=== PATIENT | male | born 1945 | race Two or more races ===

== ENCOUNTER 2016-07-19 10:27 | Emergency (ER) | payer MEDICARE, OTHER ==
[~2016-07-19] VITALS: Ht 182.9 cm; Wt 121.1 kg
[~2016-07-19 10:27] MED LIST: /AMLO25TA PO; /PRAV20TA PO; /TAMS4CA PO; /WARF5TA PO; ADV250INH INH; ALDA25TA2 PO; AMMO12CR TOP; ASPI81TA51 PO; AVOD0.5C PO; BACT800T5 PO; BISO5TAB5 PO; BRIM0.15 OU; BRIM1OPD OU; CART180C PO; COMBIN INH; COSO1SOL3 OU; COSOPHPLUS OU; DIGO0.25 PO; DIOV320T PO; DIOVAN PO; DORZ2SOL5 OU; DOXY100C PO; ELIQ5TAB PO; FURO40TA2 PO; HUMALOG SC; IBUPPOW25 PO; INSUHUMDS SC; INSULADS SC; INSULANT SC; LANO0.252 OR; LANTINJ4 SC; LASI40TA PO; LISI-542 PO; LISI2.5T3 PO; MAG400TA PO; MAGN400T2 PO; METF850T PO; MICR10CA PO; MULTTAB4 PO; PRAV10TA PO; PROVENTIL INH; TAMS0.4C2 PO; VALS1TAB48 PO; VIAG100T PO; VITA50003 PO; VITAMIN D2 PO; VITMTA PO
[2016-07-19] MEDS ORDERED: METF850T PO (11:06)
[2016-07-19] MEDS ORDERED: MAGN1TAB25 PO (11:06)
[2016-07-19] MEDS ORDERED: FLOM5CAP PO (11:06)
[2016-07-19] MEDS ORDERED: FURO20TA2 PO (11:06)
[2016-07-19] MEDS ORDERED: AMLO10TA2 PO (11:06)
[2016-07-19] MEDS ORDERED: BENZ100C5 PO (11:06)
[2016-07-19] MEDS ORDERED: PRAV10TA PO (11:06)
--- NOTE | 2016-07-19 13:19 | REP ---
Right lower extremity Duplex Doppler venous ultrasound: Real time compression and duplex Doppler interrogation of the right lower extremity deep venous system is performed. The right common femoral, superficial femoral and popliteal veins are fully compressible with transducer pressure and demonstrate normal spontaneous and phasic flow, without evidence of deep venous thrombosis. Impression: No evidence of deep venous thrombosis of the right lower extremity femoral popliteal venous system. Signed by Carson Holliday MD 07/19/2016 01:10 P
[2016-07-19] MEDS ORDERED: ULTR50TA PO (13:45)
[2016-07-19] MEDS ORDERED: ROBA500T PO (13:45)
[2016-07-19 13:54] VITALS: BP 150/85
== END 2016-07-19 14:07 | disposition home or self-care (01) ==
LOC: M ED 12:56
DX: M54.41 Lumbago with sciatica, right side (principal); M79.89 Other specified soft tissue disorders; I10 Essential (primary) hypertension; I50.9 Heart failure, unspecified; I25.10 Atherosclerotic heart disease of native coronary artery without angina pectoris; E11.9 Type 2 diabetes mellitus without complications; I48.91 Unspecified atrial fibrillation; J44.9 Chronic obstructive pulmonary disease, unspecified; N40.0 Benign prostatic hyperplasia without lower urinary tract symptoms; G47.30 Sleep apnea, unspecified; Z88.4 Allergy status to anesthetic agent; Z79.899 Other long term (current) drug therapy; Z79.01 Long term (current) use of anticoagulants; Z79.4 Long term (current) use of insulin

== ENCOUNTER → 2016-07-31 | Outpatient (CLI) | payer MEDICARE, OTHER ==
[~2016-07-31] MED LIST changes: +AMLO10TA2 PO; +BENZ100C5 PO; +FLOM5CAP PO; +FURO20TA2 PO; +MAGN1TAB25 PO; +ROBA500T PO; +ULTR50TA PO
--- NOTE | 2016-07-31 15:00 | REP ---
Three-phase radionuclide bone scan of the knees: The A study is performed with intravenous injection of MDP radiolabeled with 20.5 mCi of technetium 99m. On the vascular phase of the study is no evidence of asymmetric vascular flow of either the right and left knee. On the soft tissue phase of the study. There is no asymmetric soft tissue uptake. On the skeletal phase of the study. There is no unusual uptake at the prosthesis/bone interface of the right knee. There is moderately increased uptake at the bone/prosthesis interface of the left knee. Impression: No evidence of right knee prosthesis loosening. There are is slightly greater uptake at the bone/prosthesis interface of the left knee than the right. Vascular and soft tissue uptake is symmetric bilaterally. Signed by Carson Junior MD 07/31/2016 02:52 P
== END ==
LOC: M RAD 10:08
PROVIDERS: ATTEND Orthopaedic Surgery
DX: T84.84XA Pain due to internal orthopedic prosthetic devices, implants and grafts, initial encounter (principal); W18.30XA Fall on same level, unspecified, initial encounter; Y92.009 Unspecified place in unspecified non-institutional (private) residence as the place of occurrence of the external cause
CPT/HCPCS: 78315; A9503

== ENCOUNTER → 2016-08-03 | Outpatient (CLI) | payer MEDICARE, OTHER ==
--- NOTE | 2016-08-03 13:19 | REP ---
CT LUMBAR SPINE WITHOUT CONTRAST: 08/03/2016. Clinical history: Back pain, lumbar spondylosis. Radiculopathy. Technique: Axial soft-tissue and bone window settings with coronal and sagittal reconstructions also provided. Additional angled axial images through the L4-5 and L5-S1 were reconstructed. Findings: The normal lordosis is maintained. There is some lumbar spondylosis at all levels from L1-2 through L4-5. Marginal osteophytes at each level anteriorly with posterior osteophytes at L1-2 and L4-5. There is a couple of millimeters of anterolisthesis of L3 on 4. The disc space is narrowed posteriorly at all of these levels and there is vacuum phenomenon at L3-4. Vertebral body heights are maintained. No compression deformity or destructive lesion. The aorta has calcification without aneurysm. That portion of the T11 observed was unremarkable. There are marginal osteophytes particularly on the right side with bridging syndesmophytes at T11-T12 and T12-L1. No compression deformity of destructive lesions. At T12-L1, there is no disc bulge herniation and no spinal or foraminal stenosis. At L1-2, there is posterior osteophytic ridging with associated disc bulge. Some facet hypertrophy noted. Cross-sectional area of the canal is mildly decreased. Foramina show encroachment on the right more than left. At L2-3, there is disc bulge with facet and ligamentum hypertrophy causing mild central canal stenosis with the AP canal diameter about 8.8 mm. Foramina are marginally adequate. At L3-4, there is a few millimeters of anterolisthesis due to facet arthritis. The facet arthritis is extensive and there is ligamentum flavum hypertrophy with broad-based disc bulge combined with these factors and causes lateral recess stenosis and fairly tight central canal stenosis. Foramina show encroachment on the right and marginally adequate on the left. At the L4-5 level, posterior osteophytic ridging, broad-based disc bulge, ligamentum and facet hypertrophy are noted causing moderate central canal stenosis. The foramina show encroachment bilaterally due to combined factors. At L5-S1, there is a mild broad-based disc bulge flattening the ventral thecal sac. Cross-sectional area was adequate. The foramina show no significant stenosis. There is no destructive lesion in the visualized portion of the sacrum. That portion of SI joints included was unremarkable except for sclerosis iliac margin. Impression: 1. Diffuse facet arthritis lumbar spine with marginal osteophytes and some other degenerative disc changes as described above. 2. No compression deformity or destructive lesions. There is a few millimeters of anterolisthesis of L3 on L4 due to facet arthritis. 3. Central canal stenosis due to combined factors most severe at L3-4, less severe at L2-3 and L4-5, least at L5-S1. 4. Multilevel foraminal encroachment at the levels described above due to marginal osteophytes and facet arthritis. Disc bulges are also seen contributing at some levels. Signed by Parviz Dooley MD 08/03/2016 05:06 P
== END ==
LOC: M RAD 11:28
PROVIDERS: ATTEND Orthopaedic Surgery
DX: M47.26 Other spondylosis with radiculopathy, lumbar region (principal)

== ENCOUNTER 2016-09-15 23:13 | Inpatient (IN) | payer MEDICARE, OTHER ==
[~2016-09-15] VITALS: Ht 185.4 cm; Wt 121.6 kg
[2016-09-16] MEDS ORDERED: ACETAMINOPHEN 325 MG TAB PO ONE
[2016-09-16] MEDS: LEVEMIR (INSULIN DETEMIR) 1 UNITS/0.01ML SC SCH (00:07)
[2016-09-16 00:49] LABS: BASO % 0.1 % (0.0-1.0); EOS % 0.4 % (0.0-3.0); LARGE UNSTAINED CELL # 0.1 K/mm3 (0.0-0.4); LARGE UNSTAINED CELL % 0.8 % (0.0-4.0); LYMPH # 0.3 K/mm3 (1.5-4.5); LYMPH % 2.8 % (24.0-44.0); MEAN CORPUSCULAR HEMOGLOBIN 31.6 pg (27.0-33.0); MEAN CORPUSCULAR HGB CONC 34.9 g/dl (32.0-36.5); MEAN CORPUSCULAR VOLUME 90.5 fl (80.0-96.0); MONO # 0.4 K/mm3 (0.0-0.8); MONO % 3.9 % (0.0-5.0); NEUTROPHILS # 10.2 K/mm3 (1.8-7.7); PLATELET COUNT, AUTOMATED 197 k/mm3 (150-450); RED CELL DISTRIBUTION WIDTH 13.3 % (11.5-14.5); WHITE BLOOD COUNT 11.1 K/mm3 (4.0-10.0)
[2016-09-16 01:00] LABS: CALCIUM LEVEL 8.9 MG/DL (8.8-10.2); CREATININE FOR GFR 1.75 MG/DL (0.70-1.30); GLOMERULAR FILTRATION RATE 41.2 (>42); POTASSIUM SERUM 4.8 MEQ/L (3.5-5.1)
[2016-09-16] MEDS ORDERED: VANCOMYCIN HCL 1,000 MG, VIAL MATE ADAPTER 1 EACH in D5W 250 ML IV ONE (01:00)
[2016-09-16] MEDS ORDERED: BENZONATATE 100 MG CAP PO PRN (02:30)
[2016-09-16] MEDS ORDERED: GLUCAGON FOR INJ 1 MG VIAL (J1610) SC PRN (02:30)
[2016-09-16] MEDS ORDERED: ONDANSETRON 4MG/2ML VIAL (J2405) IV PRN (02:30)
[2016-09-16] MEDS ORDERED: GLUCOSE 4 GM CHEW TABLET PO PRN (02:30)
[2016-09-16] MEDS ORDERED: DEXTROSE 50% 50 ML SYRINGE IV PRN (02:30)
[2016-09-16 03:25] VITALS: BP 142/64
[2016-09-16] MEDS ORDERED: NS 500 ML IV SCH (03:30)
[2016-09-16] MEDS: VANCOMYCIN HCL 1,000 MG, VIAL MATE ADAPTER 1 EACH in D5W 250 ML IV SCH ×3 (03:58→20:19)
[2016-09-16] MEDS: PIPERACILLIN/TAZOBACTAM SOD 3.375 GM in D5W MINI-BAG PLUS 50 ML IV SCH ×3 (05:39→17:02)
--- NOTE | 2016-09-16 06:59 | PHACANCOPD ---
PHARMACY VANCOMYCIN DOSING Pt Demographics Demographics Patient Age:71 , Weight:121.560 , Gender: male Adjusted Body Weight Date: 09/16/16, Adjusted Body Weight: [96.3] Kg Events Past 24 Hours Events Past 24 Hours: NO: Dialysis, Diuretic Therapy, Change in CrCl, Fever, Elevation in WBC, Pending Diagnostics, Pending Procedures, Other Vancomycin Vancomycin Target Ranges: 10-20 mcg/ml Vancomycin Load Y/N: Yes Load Dose Date Time Vancomycin Load Dose: 2000MG Date: 09-16 Time: 0400 Vancomycin Dose Date: 09/16/16. Current Vancomycin Dose: [1000MG Q8H] Intermittent Dosing?: No Labs Labs Item Value Date Time White Blood Count 11.1 K/mm3 H 09/16/16 0029 Creatinine 1.75 MG/DL H 09/16/16 0029 Blood Urea Nitrogen 39 MG/DL H 09/16/16 0029 Vital Signs Label Value Date Time Patient Temperature 101.1 degrees F 09/16/16 0600 Temperature Source Core 09/16/16 0600 Micro Microbiology 09/16/16 Blood Culture, Received Pending 09/16/16 Blood Culture, Received Pending 09/16/16 Influenza Virus Type A Antigen - Final, Complete 09/16/16 Influenza Virus Type B Antigen - Final, Complete 09/16/16 Urine Culture, Received Pending 09/16/16 Wound Culture, Received Pending Creatinine Clearance Date:09/16/16. Creatinine Clearance: [44]. Pending Labs Trough 05-01 @1100 Assessment and Plan Maintaining Current Dose?: Yes Reason for dose change: No Dose Change Pharmacist Note Pharmacist Note Date: 09/16/16. Pharmacist note:Dosed at 1000mg q8h with a trough ordered for 05- 01 @1100. Will continue to monitor and make adjustments as needed. TIRSHA CHIN [facility]ARMAC[facility] Sep 16, 2016 06:59
[2016-09-16] MEDS: HumaLOG INSULIN (NovoLOG) PER UNIT SC SCH ×4 (07:30→22:20)
--- NOTE | 2016-09-16 07:54 | HPE ---
DATE OF ADMISSION: 09/16/2016 This is a patient of Dr. Hoang Kenney, the [facility] and Dr. Dia. CHIEF COMPLAINT: Foot pain. SUMMARY OF PRESENTATION: This is 71-year-old gentleman who was recently vacationing at [place]. He was on vacation there for 10 days. Stubbed his toe, based on my calculation, sometime around the second week of August, perhaps around the 08/27 or 08/28. He was putting down a bed for the evening and as the jacobs bed dropped down he stubbed his toe and then fell onto his forearms. His went to [facility] and got some dressing material for him. He was in the pool twice. He did go to the beach but was never in the ocean. He returned to [place] on approximately September 09 and was able to see Dr. Dia on 09/12. According to family report, it sounds like he did a sharp incision and drainage of the end of the toe on the right foot and also on the medial aspect of the foot did some sort of scraping of a callus, suggested some foam rubber dressings that were described as condom like, noticed on the morning of 09/15 that the second toe was becoming wet and odiferous. His switched to dry dressing. He was feeling well today, they went out to dinner and he [facility], was feeling well, and unfortunately when he went home he developed chills and nausea. His temperature at home was 101.8. His was concerned that his right leg looked redder than the left leg. He could not get upstairs to use the bathroom so he had to use the urinal downstairs. She called their grandson and son-in-law and brought him to the hospital. In the emergency department he was noted to have an erythematous toe and history was reviewed and I was called for admission. PAST MEDICAL HISTORY: Notable for: Cataract right eye. Open angle glaucoma. Chronic obstructive pulmonary disease (COPD). Sleep apnea, compliant with CPAP. Congestive heart failure (CHF). Coronary artery disease with an automatic implantable cardioverter-defibrillator (AICD). Atrial fibrillation. Hypertension. Type 2 diabetes. Peripheral neuropathy. Diabetic retinopathy. Atrial flutter status post ablation. PAST SURGICAL HISTORY: Notable for: Right eye cataract removal. Stent insertion in both legs in the fall of 2013. Bilateral total knee replacements. Pacemaker defibrillator placed in 2013. Incision and drainage of the right foot. Debridement and bone removal of the right foot. Angioplasty is 2014. Right foot skin graft 2015. Ablation of the heart in July 2015. Cholecystectomy open in 1979. FAMILY HISTORY: The patient was adopted and is unaware of his family history. SOCIAL HISTORY: He smokes on cigar every two weeks. ALLERGIES: 1. DYE. 2. THIOPENTAL. MEDICATIONS AT HOME: Include: - vitamin D - Avodart - Zebeta - digoxin - Eliquis - Lasix - Flomax - valsartan - Humalog - Lantus - brimonidine ophthalmic - dorzolamide - metformin - amlodipine - multivitamin - sildenafil Currently reviewing medication list with the patient and checking dosages. REVIEW OF SYSTEMS: Notable for no headache. No visual changes. No runny nose. No sore throat. No neck pain. No cough. No shortness of breath. No orthopnea. No paroxysmal nocturnal dyspnea (PND). No abdominal pain. No change in bowel or bladder habits. No dysuria. He does have increased urinary frequency and is passing small amounts of urine. No focal weakness. PHYSICAL EXAMINATION: Temperature 101.9, pulse 80, respiratory rate 18, blood pressure 176/77, 94% on room air. Intake and output have not yet been posted. Body mass index (BMI) 35.4. He is awake, appropriately interactive, pleasantly conversant. Head is normocephalic. Sinuses nontender. Mucous membranes moist. He is wearing dentures. Neck is supple, thick. No cervical or supraclavicular adenopathy. Breathing is symmetrical and rested. I-to-E ratio is 1:3. No wheezing, rales or rhonchi. No CVA tenderness. No sacral edema. Heart is in a regular rate and rhythm. There is a systolic ejection murmur at the right sternal border that does not obviously radiate. Radial pulses are 2+. Dorsalis pedis pulses are 2+. Capillary refill is less than 2 seconds. Abdomen is soft, distended, doughy, nontender with active bowel sounds. There is no suprapubic tenderness. There is no significant lower extremity edema. There is gross erythema of the right second toe with denudation of the dorsal skin. There is serous drainage on the medial aspect of the right foot at the site of the surgical scar. There is some crusted blood distally. There is no erythema or streaking on the leg. There is evidence of hemosiderin staining. Also notable is the extensive tanning. Cranial nerves II through XII are grossly intact. He has normal mood and affect. White cell count 11.1, hemoglobin 12.8, and platelets of 197. ESR is 60. Lactic acid 1.5, C-reactive protein 2.5, BUN 39, creatinine 1.75, which appears to be slightly above his baseline of 1.5. My assessment is as follows: This is a 71-year-old with right lower extremity cellulitis and diabetic foot ulcer. Patient will require a two midnight hospital stay and will be admitted to the family medicine service. PLAN: 1. Infectious disease. Patient has a history of Methicillin-resistant Staphylococcus aureus (MRSA) and has been started on vancomycin and given a dose of rifampin. I have also elected to add Zosyn for now. Blood and wound cultures are pending. Patient is being followed by Dr. Dia. He can be consulted as deemed clinically necessary. Patient has previously seen Dr. Collins and has been treated for MRSA with a PICC line in an attempt to salvage his right great toe for which he also had bariatric treatments. 2. Cardiovascular. Patient has a history of atrial fibrillation, is on Eliquis. Will continue that. 3. Patient has a history of coronary artery disease. 4. Patient has obstructive sleep apnea (ADAIR). Continue his home CPAP. 5. Patient has type 2 diabetes and is on insulin. Will continue insulin with long acting and sliding scale. He does have diabetic retinopathy and diabetic neuropathy related to that. 6. Patient has a history of atrial flutter status post ablation. Will order an EKG. 7. Deep vein thrombosis (DVT) prophylaxis in the form of Eliquis. 8. The patient has an element of acute renal failure in the setting of chronic kidney disease stage 3. Will repeat labs.
[2016-09-16] MEDS: BISOPROLOL FUMARATE 5 MG TAB PO SCH ×2 (08:42→22:24)
[2016-09-16] MEDS: DUTASTERIDE 0.5 MG CAP (AVODART) PO SCH (08:43)
[2016-09-16] MEDS: PRAVASTATIN 10 MG TAB PO SCH (08:43)
[2016-09-16] MEDS: amLODIPine 10 MG TAB PO SCH ×2 (08:44→22:23)
[2016-09-16] MEDS: TAMSULOSIN 0.4 MG CAP PO SCH ×2 (08:44→22:21)
[2016-09-16] MEDS: MULTIVITAMINS/MINERALS THERAP 1 TAB PO SCH (08:44)
[2016-09-16] MEDS: APIXABAN 5 MG TAB (ELIQUIS) PO SCH ×2 (08:44→22:23)
[2016-09-16] MEDS: BRIMONIDINE 0.1% OPHTH SOLN 5 ML OU SCH ×2 (08:47→22:25)
[2016-09-16] MEDS: COSOPT OCUMETER PLUS 10ML (DORZOLAMIDE/TIMOLOL) OU SCH ×2 (08:47→22:25)
[2016-09-16] MEDS: ACETAMINOPHEN TAB 650MG DOSE (2X325MG) PO PRN ×2 (08:48→19:56)
[2016-09-16 10:00] VITALS: BP 140/63
--- NOTE | 2016-09-16 11:47 | ECGEPIP ---
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
--- NOTE | 2016-09-16 13:54 | IPNPDOC ---
Subjective Date Seen The patient was seen on 09/16/16. Subjective Chief Complaint/HPI The patient is a 71-year-old male admitted with a reason for visit of Cellulitis. Events since last encounter Patient notes significant improvement in his toe today. states that there is much less drainage, and the smell has improved. Patient has implantable defibrillator, so is unable to get MRI. Constitutional: Denies: Chills, Fever, Malaise Eyes: Denies: Vision change Skin: Reports: Lesions, Breakdown (right second and third toes), Denies: Rash Pulmonary: Denies: Dyspnea, Cough Cardiovascular: Denies: Chest Pain, Palpitations, Orthopnea Gastrointestinal: Denies: Nausea, Vomiting, Abdominal Pain, Diarrhea, Constipation Genitourinary: Denies: Dysuria Other systems 10 point review systems otherwise negative Objective Physical Examination General Exam: Positive: Alert, Cooperative, No Acute Distress Eye Exam: Positive: Conjunctiva & lids normal ENT Exam: Positive: Mucous membr. moist/pink Neck Exam: Positive: Supple, Negative: JVD, thyromegaly Chest Exam: Positive: Clear to auscultation, Normal air movement, Negative: Rales, Rhonchi, Wheezing Heart Exam: Positive: Rate Normal, Regular Rhythm, Normal S1, Normal S2, Murmurs (1/6 systolic ejection murmur), Negative: Gallops Abdomen Exam: Positive: Normal bowel sounds, Soft, Negative: Tenderness, Hepatospenomegaly Extremity Exam: Positive: Other (hammertoe of right second toe with wound on the plantar surfaces of right second and third toe; second toe is draining foul- smelling fluid), Negative: Clubbing, Cyanosis, Edema Skin Exam: Positive: Lesion Neuro Exam: Positive: Other (numbness of feet) Psych Exam: Positive: Mental status NL, Mood NL Assessment /Plan Problems (1) Cellulitis Status: Acute Problem Text: Diabetic foot infection of the right second toe. Formal x-ray read pending, however reviewing the x-ray shows joint degeneration of the first MP, previous partial amputation of the first digit, and ragged edge of the distal second toe, with increased radiodensity concerning for osteomyelitis. -Follow-up x-ray read -Patient has AICD, so MRI is not possible -Discuss with Dr. Dia on Saturday, as he did a debridement just recently -Continue vancomycin and Zosyn; initial blood cultures were positive for gram- positive cocci in clusters -Consult infectious disease on Saturday (2) Diabetes Status: Chronic Problem Text: Continuing home Levemir 18 units at bedtime, and mealtime NovoLog (3) Afib Status: Chronic Problem Text: History of paroxysmal atrial fibrillation, currently on Eliquis (4) HLD (hyperlipidemia) Status: Chronic Problem Text: Continuing on pravastatin 5 mg at bedtime (5) HTN (hypertension) Problem Text: Blood pressure currently controlled. -Continuing home amlodipine 10 mg twice daily, and bisoprolol 5 mg twice daily. Plan/VTE VTE Prophylaxis Ordered?: Yes (home Eliquis) Disposition Pending blood cultures, cellulitis versus osteomyelitis, ID recs VS, I&O, 24H, Fishbone Vital Signs/I&O Vital Signs Date Time Temp Pulse Resp B/P (MAP) Pulse Ox O2 Delivery O2 Flow Rate FiO2 09/16/16 10:00 96.4 62 16 140/63 (88) 94 Room Air I&O- Last 24 Hours up to 6 AM 09/16/16 06:00 Intake Total 510 ml Balance 510 ml Laboratory Data 24H LABS Laboratory Tests 2 09/16/16 00:29: White Blood Count 11.1H, Red Blood Count 4.06L, Hemoglobin 12.8L, Hematocrit 36.7L, Mean Corpuscular Volume 90.5, Mean Corpuscular Hemoglobin 31.6, Mean Corpuscular Hemoglobin Concent 34.9, Red Cell Distribution Width 13.3, Platelet Count 197, Neutrophils (%) (Auto) 92.0H, Lymphocytes (%) (Auto) 2.8L, Monocytes (%) (Auto) 3.9, Eosinophils (%) (Auto) 0.4, Basophils (%) (Auto) 0.1, Neutrophils # (Auto) 10.2H, Lymphocytes # (Auto) 0.3L, Monocytes # (Auto) 0.4, Eosinophils # (Auto) 0.0, Basophils # (Auto) 0.0, Large Unclassified Cells % 0.8 , Large Unclassified Cells # 0.1, Erythrocyte Sedimentation Rate 60H, Anion Gap 5L, Glomerular Filtration Rate 41.2L, Lactic Acid Level 1.5, Blood Urea Nitrogen 39H, Creatinine 1.75H, Sodium Level 137, Potassium Level 4.8, Chloride Level 103, Carbon Dioxide Level 29, Calcium Level 8.9, C-Reactive Protein, Quantitative 2.54H 09/16/16 00:42: Urine Appearance CLEAR, Urine Color YELLOW, Urine pH 8.0, Urine Specific [place] 1.013, Urine Protein 1+H, Urine Glucose (UA) NEGATIVE, Urine Ketones NEGATIVE, Urine Urobilinogen 2.0H, Urine Bilirubin NEGATIVE, Urine Leukocyte Esterase NEGATIVE, Urine Blood NEGATIVE, Urine Nitrite NEGATIVE, Urine WBC (Auto ) 0, Urine RBC (Auto) 6H, Urine Hyaline Casts (Auto) 0, Urine Bacteria (Auto) 1+ H, Urine Squamous Epithelial Cells 1, Urine Sperm (Auto) 09/16/16 06:08: Bedside Glucose (Misc Panel) 174H 09/16/16 12:18: Bedside Glucose (Misc Panel) 173H CBC/BMP Laboratory Tests 09/16/16 00:29 Red Blood Count 4.06 L, Mean Corpuscular Volume 90.5, Mean Corpuscular Hemoglobin 31.6, Mean Corpuscular Hemoglobin Concent 34.9, Red Cell Distribution Width 13.3, Neutrophils (%) (Auto) 92.0 H, Lymphocytes (%) (Auto) 2.8 L, Monocytes (%) (Auto) 3.9, Eosinophils (%) (Auto) 0.4, Basophils (%) (Auto ) 0.1, Neutrophils # (Auto) 10.2 H, Lymphocytes # (Auto) 0.3 L, Monocytes # ( Auto) 0.4, Eosinophils # (Auto) 0.0, Basophils # (Auto) 0.0, Calcium Level 8.9 Microbiology Microbiology 09/16/16 Blood Culture - Preliminary, Resulted 09/16/16 Blood Culture - Preliminary, Resulted 09/16/16 Influenza Virus Type A Antigen - Final, Complete 09/16/16 Influenza Virus Type B Antigen - Final, Complete 09/16/16 Urine Culture, Received Pending 09/16/16 Wound Culture, Received Pending FRANKY SANTACRUZ MD Sep 16, 2016 13:54
[2016-09-16 14:00] VITALS: BP 140/60
--- NOTE | 2016-09-16 14:34 | REP ---
RIGHT FOOT, FOUR VIEWS: HISTORY: Osteomyelitis. COMPARISON: 03/22/2015 There is no acute fracture or dislocation. There is absence of the tuft of the distal phalange of the 1st digit. There is narrowing of the intermediate and distal interphalangeal joint spaces and 1st metatarsophalangeal joint space. Osteophyte formation is present at the 1st metatarsophalangeal joint. There is hallux valgus deformity of the 1st digit. Soft tissue swelling is present in the 2nd digit. Several tiny radiopaque densities are present in the soft tissue overlying the distal phalange of the 2nd digit. There is no definite disruption of cortex. IMPRESSION: 1. Degenerative change, as described above. 2. There are several small radiopaque densities in the soft tissue overlying the distal phalange of the 2nd digit. There is no definite cortical disruption. Soft tissue swelling is present. Osteomyelitis cannot be completely excluded. A bone scan may be helpful for further evaluation. Signed by Sixto Clifford MD 09/16/2016 02:37 P
[2016-09-16] MEDS ORDERED: LEVEMIR (INSULIN DETEMIR) 1 UNITS/0.01ML SC SCH (21:00)
[2016-09-16 22:00] VITALS: BP 143/65
[2016-09-17] MEDS: PIPERACILLIN/TAZOBACTAM SOD 3.375 GM in D5W MINI-BAG PLUS 50 ML IV SCH ×5 (00:07→23:39)
[2016-09-17] MEDS: ACETAMINOPHEN TAB 650MG DOSE (2X325MG) PO PRN ×4 (01:55→20:48)
[2016-09-17] MEDS: VANCOMYCIN HCL 1,000 MG, VIAL MATE ADAPTER 1 EACH in D5W 250 ML IV SCH ×3 (04:37→17:28)
[2016-09-17 06:00] VITALS: BP 151/74
[2016-09-17] MEDS: HumaLOG INSULIN (NovoLOG) PER UNIT SC SCH ×4 (07:30→20:44)
[2016-09-17 08:01] LABS: BASO % 0.1 % (0.0-1.0); EOS % 0.2 % (0.0-3.0); LARGE UNSTAINED CELL # 0.2 K/mm3 (0.0-0.4); LARGE UNSTAINED CELL % 2.1 % (0.0-4.0); LYMPH # 0.3 K/mm3 (1.5-4.5); LYMPH % 3.9 % (24.0-44.0); MEAN CORPUSCULAR HEMOGLOBIN 33.3 pg (27.0-33.0); MEAN CORPUSCULAR VOLUME 89.6 fl (80.0-96.0); MONO # 0.3 K/mm3 (0.0-0.8); MONO % 3.9 % (0.0-5.0); NEUTROPHILS # 6.3 K/mm3 (1.8-7.7); NEUTROPHILS % 89.8 % (36.0-66.0); PLATELET COUNT, AUTOMATED 129 k/mm3 (150-450); RED CELL DISTRIBUTION WIDTH 13.4 % (11.5-14.5)
[2016-09-17 08:03] LABS: MEAN CORPUSCULAR HGB CONC 37.1 g/dl (32.0-36.5)
[2016-09-17 08:22] LABS: CALCIUM LEVEL 8.2 MG/DL (8.8-10.2); CREATININE FOR GFR 1.68 MG/DL (0.70-1.30); GLOMERULAR FILTRATION RATE 43.2 (>42); POTASSIUM SERUM 3.9 MEQ/L (3.5-5.1)
--- NOTE | 2016-09-17 08:52 | IPNPDOC ---
Subjective Date Seen The patient was seen on 09/17/16. Subjective Chief Complaint/HPI The patient is a 71-year-old male admitted with a reason for visit of Cellulitis. Events since last encounter Pt this morning without new concerns. He states that his has been doing his dressing changes for sometime. He denies pain in the foot. Notes three wounds. Last saw Dr Dia for debridement on 09/12, is scheduled to see him again on 09/19. General: Denies: Fatigue Constitutional: Reports: Fever, Denies: Chills ENT: Denies: Head Aches Pulmonary: Denies: Dyspnea, Cough Cardiovascular: Denies: Chest Pain, Palpitations Gastrointestinal: Denies: Nausea, Vomiting Psych: Reports: Mood Normal Objective Physical Examination General Exam: Positive: Alert, Cooperative, No Acute Distress ENT Exam: Positive: Mucous membr. moist/pink Neck Exam: Positive: Supple Chest Exam: Positive: Clear to auscultation, Normal air movement, Negative: Rales, Rhonchi, Wheezing Heart Exam: Positive: Rate Normal, Regular Rhythm, Normal S1, Normal S2, Murmurs (1/6 systolic ejection murmur), Negative: Gallops Abdomen Exam: Positive: Normal bowel sounds, Soft, Negative: Tenderness, Hepatospenomegaly Extremity Exam: Positive: Other (hammertoe of right second toe with wound on the plantar surfaces of right second and third toe; second toe is draining foul- smelling fluid, second toe quite erythematous, swollen, wound also over the arch of the R foot without drainage), Negative: Clubbing, Cyanosis, Edema Skin Exam: Positive: Lesion Neuro Exam: Positive: Other (numbness of feet) Psych Exam: Positive: Mental status NL, Mood NL Assessment /Plan Problems (1) MRSA (methicillin resistant Staphylococcus aureus) septicemia Status: Acute Problem Text: favor transient bacteriemia 2 R 2/3 toe debridement done by Ifeoma 09/12 09/18 repeat BCX for clearance 09/16/16 BCX 2/2 + MRSA 09/16/16 WCX R second toe P (mislabeled as L) 09/16/16 UCX contaminated similar to 02/2015 when MRSA sepsis [address] abscess (2) Cellulitis Status: Acute Problem Text: vanco/Zosyn D2 09/17 - CRP increased from 2.5 to 16.4, WBC is down 11.1 to 7.0, Tmax of 102.5 overnight. I spoke with Dr Dia who recommends dry foam dresssing and Santyl. Recommends consult from Dr Fernch for consideration of amputation- per patient Gillian recommended outpx f/u c Ifeoma 09/16 Diabetic foot infection of the right second toe. Formal x-ray read pending , however reviewing the x-ray shows joint degeneration of the first MP, previous partial amputation of the first digit, and ragged edge of the distal second toe, with increased radiodensity concerning for osteomyelitis. -Patient has AICD, so MRI is not possible (3) Diabetes Status: Chronic Problem Text: Continuing home Levemir 18 units at bedtime, and mealtime NovoLog (4) Afib Status: Chronic Problem Text: History of paroxysmal atrial fibrillation, currently on Eliquis (5) HTN (hypertension) Problem Text: Blood pressure currently controlled. -Continuing home amlodipine 10 mg twice daily, and bisoprolol 5 mg twice daily. (6) CKD (chronic kidney disease), stage III Status: Chronic Response to Treatment: Stable Problem Text: t/f 09/17 40/1.7 baseline cr 1.5 Plan/VTE VTE Prophylaxis Ordered?: Yes (home Eliquis) VS, I&O, 24H, Fishbone Vital Signs/I&O Vital Signs Date Time Temp Pulse Resp B/P (MAP) Pulse Ox O2 Delivery O2 Flow Rate FiO2 09/17/16 06:00 98.7 71 18 151/74 (99) 98 Room Air I&O- Last 24 Hours up to 6 AM 09/17/16 06:00 Intake Total 1370 ml Output Total 975 ml Balance 395 ml Laboratory Data 24H LABS Laboratory Tests 2 09/16/16 12:18: Bedside Glucose (Misc Panel) 173H 09/16/16 16:31: Bedside Glucose (Misc Panel) 178H 09/16/16 20:42: Bedside Glucose (Misc Panel) 196H 09/17/16 05:56: Bedside Glucose (Misc Panel) 178H 09/17/16 07:30: White Blood Count 7.0, Red Blood Count 3.44L, Hemoglobin 11.5L, Hematocrit 30.9L , Mean Corpuscular Volume 89.6, Mean Corpuscular Hemoglobin 33.3H, Mean Corpuscular Hemoglobin Concent 37.1H, Red Cell Distribution Width 13.4, Platelet Count 129L, Neutrophils (%) (Auto) 89.8H, Lymphocytes (%) (Auto) 3.9L, Monocytes (%) (Auto) 3.9, Eosinophils (%) (Auto) 0.2, Basophils (%) (Auto) 0.1, Neutrophils # (Auto) 6.3, Lymphocytes # (Auto) 0.3L, Monocytes # (Auto) 0.3, Eosinophils # (Auto) 0.0, Basophils # (Auto) 0.0, Large Unclassified Cells % 2.1 , Large Unclassified Cells # 0.2, Anion Gap 9, Glomerular Filtration Rate 43.2, Blood Urea Nitrogen 40H, Creatinine 1.68H, Sodium Level 138, Potassium Level 3.9 , Chloride Level 107, Carbon Dioxide Level 22, Calcium Level 8.2L, C-Reactive Protein, Quantitative 16.40H CBC/BMP Laboratory Tests 09/17/16 07:30 Red Blood Count 3.44 L, Mean Corpuscular Volume 89.6, Mean Corpuscular Hemoglobin 33.3 H, Mean Corpuscular Hemoglobin Concent 37.1 H, Red Cell Distribution Width 13.4, Neutrophils (%) (Auto) 89.8 H, Lymphocytes (%) (Auto) 3.9 L, Monocytes (%) (Auto) 3.9, Eosinophils (%) (Auto) 0.2, Basophils (%) (Auto ) 0.1, Neutrophils # (Auto) 6.3, Lymphocytes # (Auto) 0.3 L, Monocytes # (Auto) 0.3, Eosinophils # (Auto) 0.0, Basophils # (Auto) 0.0, Calcium Level 8.2 L Microbiology Microbiology 09/16/16 Blood Culture - Preliminary, Resulted 09/16/16 Blood Culture - Preliminary, Resulted 09/16/16 Influenza Virus Type A Antigen - Final, Complete 09/16/16 Influenza Virus Type B Antigen - Final, Complete 09/16/16 Urine Culture, Received Pending 09/16/16 Wound Culture, Received Pending AXEL DONG PA-C September 17, 2016 08:52 Tony Marr M.D. September 17, 2016 16:26
[2016-09-17] MEDS: COSOPT OCUMETER PLUS 10ML (DORZOLAMIDE/TIMOLOL) OU SCH ×2 (09:00→20:49)
[2016-09-17] MEDS: BRIMONIDINE 0.1% OPHTH SOLN 5 ML OU SCH ×2 (09:00→20:49)
[2016-09-17] MEDS: amLODIPine 10 MG TAB PO SCH ×2 (09:38→20:49)
[2016-09-17] MEDS: APIXABAN 5 MG TAB (ELIQUIS) PO SCH ×2 (09:38→20:47)
[2016-09-17] MEDS: TAMSULOSIN 0.4 MG CAP PO SCH ×2 (09:38→20:47)
[2016-09-17] MEDS: BISOPROLOL FUMARATE 5 MG TAB PO SCH ×2 (09:38→20:48)
[2016-09-17] MEDS: MULTIVITAMINS/MINERALS THERAP 1 TAB PO SCH (09:39)
[2016-09-17] MEDS: DUTASTERIDE 0.5 MG CAP (AVODART) PO SCH (09:39)
[2016-09-17] MEDS: PRAVASTATIN 10 MG TAB PO SCH (09:39)
--- NOTE | 2016-09-17 13:18 | PHACANCOPD ---
PHARMACY VANCOMYCIN DOSING Pt Demographics Demographics Patient Age:71 , Weight:121.560 , Gender: male Adjusted Body Weight Date: 09/16/16, Adjusted Body Weight: [96.3] Kg Events Past 24 Hours Events Past 24 Hours: NO: Dialysis, Diuretic Therapy, Change in CrCl, Fever, Elevation in WBC, Pending Diagnostics, Pending Procedures, Other Vancomycin Vancomycin indication: Cellulitis Vancomycin Target Ranges: 10-20 mcg/ml Vancomycin Load Y/N: Yes Load Dose Date Time Vancomycin Load Dose: 2000MG Date: 09-16 Time: 0400 Vancomycin Dose Date: 09/17/16. Current Vancomycin Dose: [1gm IV q12h@18] Date: 09/16/16. Current Vancomycin Dose: [1000MG Q8H] Intermittent Dosing?: No Labs Labs Item Value Date Time White Blood Count 11.1 K/mm3 H 09/16/16 0029 White Blood Count 7.0 K/mm3 09/17/16 0730 Creatinine 1.75 MG/DL H 09/16/16 0029 Creatinine 1.68 MG/DL H 09/17/16 0730 Vancomycin Level Trough 25.7 UG/ML *H 09/17/16 1056 Vital Signs Label Value Date Time Patient Temperature 98.7 degrees F 09/17/16 0600 Temperature Source Core 09/17/16 0600 Micro Microbiology 09/16/16 Blood Culture - Preliminary, Resulted Staphylococcus Aureus 09/16/16 Blood Culture - Preliminary, Resulted Staphylococcus Aureus 09/16/16 Influenza Virus Type A Antigen - Final, Complete 09/16/16 Influenza Virus Type B Antigen - Final, Complete 09/16/16 Urine Culture - Final, Complete 09/16/16 Wound Culture, Received Pending Creatinine Clearance Date:09/16/16. Creatinine Clearance: [44]. Pending Labs Trough 05-01 @1100 Assessment and Plan Maintaining Current Dose?: No Reason for dose change: Trough too high Pharmacist Note Pharmacist Note 09/17: Patient's trough came back at 25.7 today. He was switched to Vancomycin 1gm IV q12h starting at 1800 tonight. Preliminary blood cultures are showing staph. aureus. We will wait for them to be final to see if it is MSSA vs MRSA. His Scr has improved slightly since admission. We will continue to monitor and make adjustments as necessary. Date: 09/16/16. Pharmacist note:Dosed at 1000mg q8h with a trough ordered for @1100. Will continue to monitor and make adjustments as needed. LORRAINE MURILLO [facility] September 17, 2016 13:18
[2016-09-17 14:00] VITALS: BP 144/62
[2016-09-17] MEDS: LEVEMIR (INSULIN DETEMIR) 1 UNITS/0.01ML SC SCH (20:47)
[2016-09-17 22:00] VITALS: BP 152/72
[2016-09-18] MEDS: VANCOMYCIN HCL 1,000 MG, VIAL MATE ADAPTER 1 EACH in D5W 250 ML IV SCH ×2 (05:49→18:42)
[2016-09-18] MEDS: ACETAMINOPHEN TAB 650MG DOSE (2X325MG) PO PRN ×2 (05:50→20:34)
[2016-09-18 06:00] VITALS: BP 155/73
[2016-09-18] MEDS: PIPERACILLIN/TAZOBACTAM SOD 3.375 GM in D5W MINI-BAG PLUS 50 ML IV SCH ×3 (06:45→17:15)
[2016-09-18 07:30] LABS: BASO % 0.2 % (0.0-1.0); EOS # 0.1 K/mm3 (0.0-0.50); EOS % 1.5 % (0.0-3.0); LARGE UNSTAINED CELL # 0.2 K/mm3 (0.0-0.4); LARGE UNSTAINED CELL % 3.9 % (0.0-4.0); LYMPH # 0.6 K/mm3 (1.5-4.5); LYMPH % 7.7 % (24.0-44.0); MEAN CORPUSCULAR HEMOGLOBIN 31.1 pg (27.0-33.0); MEAN CORPUSCULAR HGB CONC 34.7 g/dl (32.0-36.5); MEAN CORPUSCULAR VOLUME 89.6 fl (80.0-96.0); MONO # 0.3 K/mm3 (0.0-0.8); MONO % 5.9 % (0.0-5.0); NEUTROPHILS # 4.3 K/mm3 (1.8-7.7); NEUTROPHILS % 80.8 % (36.0-66.0); PLATELET COUNT, AUTOMATED 148 k/mm3 (150-450); RED CELL DISTRIBUTION WIDTH 13.5 % (11.5-14.5); WHITE BLOOD COUNT 5.3 K/mm3 (4.0-10.0)
[2016-09-18 07:54] LABS: CALCIUM LEVEL 8.3 MG/DL (8.8-10.2); CREATININE FOR GFR 1.46 MG/DL (0.70-1.30); GLOMERULAR FILTRATION RATE 50.8 (>42)
[2016-09-18] MEDS: TAMSULOSIN 0.4 MG CAP PO SCH ×2 (08:15→20:34)
[2016-09-18] MEDS: MULTIVITAMINS/MINERALS THERAP 1 TAB PO SCH (08:15)
[2016-09-18] MEDS: PRAVASTATIN 10 MG TAB PO SCH (08:16)
[2016-09-18] MEDS: APIXABAN 5 MG TAB (ELIQUIS) PO SCH ×2 (08:17→20:34)
[2016-09-18] MEDS: DUTASTERIDE 0.5 MG CAP (AVODART) PO SCH (08:17)
[2016-09-18] MEDS: amLODIPine 10 MG TAB PO SCH ×2 (08:18→20:34)
[2016-09-18] MEDS: BISOPROLOL FUMARATE 5 MG TAB PO SCH ×2 (08:18→20:33)
[2016-09-18] MEDS: HumaLOG INSULIN (NovoLOG) PER UNIT SC SCH ×4 (08:19→20:35)
[2016-09-18 08:30] VITALS: BP 183/80
--- NOTE | 2016-09-18 08:40 | IPNPDOC ---
Subjective Date Seen The patient was seen on 09/18/16. Subjective Chief Complaint/HPI The patient is a 71-year-old male admitted with a reason for visit of Cellulitis. Events since last encounter Pt this morning without new concerns. His son is at bedside. General: Denies: Fatigue Constitutional: Denies: Chills, Fever Pulmonary: Denies: Dyspnea, Cough Cardiovascular: Denies: Chest Pain, Palpitations Gastrointestinal: Denies: Nausea, Vomiting Psych: Reports: Mood Normal Objective Physical Examination General Exam: Positive: Alert, Cooperative, No Acute Distress ENT Exam: Positive: Mucous membr. moist/pink Neck Exam: Positive: Supple Chest Exam: Positive: Clear to auscultation, Normal air movement, Negative: Rales, Rhonchi, Wheezing Heart Exam: Positive: Rate Normal, Regular Rhythm, Normal S1, Normal S2, Murmurs (1/6 systolic ejection murmur), Negative: Gallops Abdomen Exam: Positive: Normal bowel sounds, Soft, Negative: Tenderness, Hepatospenomegaly Extremity Exam: Positive: Other (hammertoe of R second toe with wound on the plantar surfaces of right second and third toe; second toe with purulent drainage, significantly less erythema and swelling than yesterday, wound also over the arch of the R foot without drainage), Negative: Clubbing, Cyanosis, Edema Skin Exam: Positive: Lesion Neuro Exam: Positive: Other (numbness of feet) Psych Exam: Positive: Mental status NL, Mood NL Assessment /Plan Problems (1) MRSA (methicillin resistant Staphylococcus aureus) septicemia Status: Acute Problem Text: 09/18 - repeat BC x2 ordered today, if they return Neg and ECHO is benign will plan to d/c in 1-2 days on PO Zyvox without outpt f/u with Dr Dia for wound. Dr French feels no surgical intervention needed at this time. 09/17 - favor transient bacteriemia 2 R 2/3 toe debridement done by Ifeoma , 09/18 repeat BCX for clearance, 09/16/16 BCX 2/2 + MRSA, 09/16/16 WCX R second toe heavy MRSA (mislabeled as L), 09/16/16 UCX contaminated similar to 02/2015 when MRSA sepsis [address] abscess (2) Cellulitis Status: Acute Problem Text: vanco/Zosyn D3, 09/18 CRP down to 14.8 from 16.4 yesterday. Afebrile-Tm 99.8 09/17 - CRP increased from 2.5 to 16.4, WBC is down 11.1 to 7.0, Tmax of 102.5 overnight. I spoke with Dr Dia who recommends dry foam dresssing and Santyl. Recommends consult from Dr French for consideration of amputation- per patient Gillian recommended outpx f/u c [place] Dia/Sushil D2 09/16 Diabetic foot infection of the right second toe. Formal x-ray read pending , however reviewing the x-ray shows joint degeneration of the first MP, previous partial amputation of the first digit, and ragged edge of the distal second toe, with increased radiodensity concerning for osteomyelitis. -Patient has AICD, so MRI is not possible (3) Diabetes Status: Chronic Problem Text: Continuing home Levemir 18 units at bedtime, and mealtime NovoLog (4) Afib Status: Chronic Problem Text: History of paroxysmal atrial fibrillation, currently on Eliquis (5) HTN (hypertension) Problem Text: Blood pressure currently controlled. -Continuing home amlodipine 10 mg twice daily, and bisoprolol 5 mg twice daily. (6) CKD (chronic kidney disease), stage III Status: Chronic Response to Treatment: Stable Problem Text: t/f 09/17 40/1.7 baseline cr 1.5 Plan/VTE VTE Prophylaxis Ordered?: Yes (home Eliquis) VS, I&O, 24H, Fishbone Vital Signs/I&O Vital Signs Date Time Temp Pulse Resp B/P (MAP) Pulse Ox O2 Delivery O2 Flow Rate FiO2 09/18/16 08:18 152/67 09/18/16 08:18 63 09/18/16 06:00 99.8 15 95 Room Air I&O- Last 24 Hours up to 6 AM 09/18/16 06:00 Intake Total 1500 ml Output Total 600 ml Balance 900 ml Laboratory Data 24H LABS Laboratory Tests 2 09/17/16 10:56: Vancomycin Level Trough 25.7*H 09/17/16 11:34: Bedside Glucose (Misc Panel) 225H 09/17/16 16:47: Bedside Glucose (Misc Panel) 168H 09/17/16 20:08: Bedside Glucose (Misc Panel) 245H 09/18/16 07:13: White Blood Count 5.3, Red Blood Count 3.63L, Hemoglobin 11.3L, Hematocrit 32.5L , Mean Corpuscular Volume 89.6, Mean Corpuscular Hemoglobin 31.1, Mean Corpuscular Hemoglobin Concent 34.7, Red Cell Distribution Width 13.5, Platelet Count 148L, Neutrophils (%) (Auto) 80.8H, Lymphocytes (%) (Auto) 7.7L, Monocytes (%) (Auto) 5.9H, Eosinophils (%) (Auto) 1.5, Basophils (%) (Auto) 0.2 , Neutrophils # (Auto) 4.3, Lymphocytes # (Auto) 0.6L, Monocytes # (Auto) 0.3, Eosinophils # (Auto) 0.1, Basophils # (Auto) 0.0, Large Unclassified Cells % 3.9 , Large Unclassified Cells # 0.2, Anion Gap 9, Glomerular Filtration Rate 50.8, Blood Urea Nitrogen 31H, Creatinine 1.46H, Sodium Level 137, Potassium Level 4.0 , Chloride Level 107, Carbon Dioxide Level 21, Calcium Level 8.3L, C-Reactive Protein, Quantitative 14.80H CBC/BMP Laboratory Tests 09/18/16 07:13 Red Blood Count 3.63 L, Mean Corpuscular Volume 89.6, Mean Corpuscular Hemoglobin 31.1, Mean Corpuscular Hemoglobin Concent 34.7, Red Cell Distribution Width 13.5, Neutrophils (%) (Auto) 80.8 H, Lymphocytes (%) (Auto) 7.7 L, Monocytes (%) (Auto) 5.9 H, Eosinophils (%) (Auto) 1.5, Basophils (%) ( Auto) 0.2, Neutrophils # (Auto) 4.3, Lymphocytes # (Auto) 0.6 L, Monocytes # ( Auto) 0.3, Eosinophils # (Auto) 0.1, Basophils # (Auto) 0.0, Calcium Level 8.3 L Microbiology Microbiology 09/16/16 Blood Culture - Final, Complete Staph.aureus Methicillin Resis 09/16/16 Blood Culture - Final, Complete Staph.aureus Methicillin Resis 09/16/16 Influenza Virus Type A Antigen - Final, Complete 09/16/16 Influenza Virus Type B Antigen - Final, Complete 09/16/16 Urine Culture - Final, Complete 09/16/16 Wound Culture - Final, Complete Staph.aureus Methicillin Resis AXEL DONG PA-C September 18, 2016 08:40 Tony Marr M.D. September 18, 2016 16:05
[2016-09-18] MEDS: COSOPT OCUMETER PLUS 10ML (DORZOLAMIDE/TIMOLOL) OU SCH ×2 (09:00→20:37)
[2016-09-18] MEDS: BRIMONIDINE 0.1% OPHTH SOLN 5 ML OU SCH ×2 (09:00→20:38)
[2016-09-18 09:18] LABS: ERYTHROCYTE SEDIMENTATION RATE 72 mm/hr (0-20)
[2016-09-18 14:30] VITALS: BP 154/76
[2016-09-18] MEDS: SANTYL OINT 30GM TOP SCH (16:00)
[2016-09-18] MEDS: LEVEMIR (INSULIN DETEMIR) 1 UNITS/0.01ML SC SCH (20:36)
--- NOTE | 2016-09-18 21:16 | ECHO ---
DATE OF PROCEDURE: 09/18/2016 REFERRING PHYSICIAN: Dr. Tony Marr INDICATION: Methicillin-resistant Staphylococcus aureus sepsis. WEIGHT: 122 kg. MEASUREMENTS: Aortic root: 3.2 cm Left atrium: 4.4 cm Left ventricle diastole: 6.1 cm Ventricular septum: 1.28 cm Posterior wall: 1.30 cm LVOT: 2.5 cm Inferior vena cava: 2.4 cm DOPPLER MEASUREMENTS: Aortic valve velocity: 183 cm/s LVOT velocity: 89.5 cm/s LVOT VTI: 20.1 cm Mitral E velocity: 147 cm/s Mitral A velocity: 100 cm/s Mitral deceleration time: 215 ms Very mild tricuspid regurgitation. Pulmonary artery systolic pressure: 33 mmHg by pulmonary acceleration time method. MITRAL ANNULAR TISSUE DOPPLER: E-prime septal: 6.1 cm/s E-prime lateral: 8.5 cm/s DESCRIPTION: Rhythm was sinus. This is a moderately technically difficult echocardiogram. No pericardial effusion. CONCLUSIONS: 1. No vegetations identified on any of the cardiac valves; however, this was a moderately technically difficult echocardiogram and absence of detection of vegetations on transthoracic echocardiography does not necessarily rule out vegetations or infective endocarditis. 2. Mildly dilated left ventricle with eccentric left ventricle hypertrophy. Normal left ventricular (LV) wall motion and wall thickening. Normal LV systolic function. Left ventricular ejection fraction (LVEF) of 60% by visual estimate. 3. Grade 2 LV diastolic dysfunction (pseudonormal filling pattern). 4. Mild left atrial dilatation. 5. Moderate aortic valve sclerosis of a 3-cuspid aortic valve. No aortic stenosis or regurgitation. 6. Moderate mitral annular calcification. No mitral regurgitation detected. No mitral stenosis. 7. Presence of endocardial, right atrial and right ventricle leads with the right ventricle lead appearing to implant into the free wall of the right ventricle outflow tract, conus portion below the pulmonic valve. 8. Suggestive of very mild elevation of pulmonary artery systolic pressure. 9. No pericardial effusion. MTDD
[2016-09-18 22:00] VITALS: BP 182/75
[2016-09-19] MEDS: PIPERACILLIN/TAZOBACTAM SOD 3.375 GM in D5W MINI-BAG PLUS 50 ML IV SCH ×3 (00:58→12:24)
[2016-09-19] MEDS: ACETAMINOPHEN TAB 650MG DOSE (2X325MG) PO PRN (01:22)
[2016-09-19 05:51] LABS: BASO % 0.2 % (0.0-1.0); EOS # 0.1 K/mm3 (0.0-0.50); EOS % 1.4 % (0.0-3.0); LARGE UNSTAINED CELL # 0.3 K/mm3 (0.0-0.4); LARGE UNSTAINED CELL % 4.8 % (0.0-4.0); LYMPH # 1.1 K/mm3 (1.5-4.5); LYMPH % 13.8 % (24.0-44.0); MEAN CORPUSCULAR HEMOGLOBIN 31.3 pg (27.0-33.0); MEAN CORPUSCULAR HGB CONC 34.5 g/dl (32.0-36.5); MEAN CORPUSCULAR VOLUME 90.8 fl (80.0-96.0); MONO # 0.4 K/mm3 (0.0-0.8); NEUTROPHILS # 4.3 K/mm3 (1.8-7.7); NEUTROPHILS % 72.8 % (36.0-66.0); PLATELET COUNT, AUTOMATED 165 k/mm3 (150-450); RED CELL DISTRIBUTION WIDTH 13.4 % (11.5-14.5); WHITE BLOOD COUNT 5.8 K/mm3 (4.0-10.0)
[2016-09-19 06:00] VITALS: BP 155/65
[2016-09-19 06:07] LABS: CALCIUM LEVEL 8.3 MG/DL (8.8-10.2); CREATININE FOR GFR 1.31 MG/DL (0.70-1.30); GLOMERULAR FILTRATION RATE 57.6 (>42)
[2016-09-19] MEDS: VANCOMYCIN HCL 1,000 MG, VIAL MATE ADAPTER 1 EACH in D5W 250 ML IV SCH (06:31)
[2016-09-19 06:35] LABS: ERYTHROCYTE SEDIMENTATION RATE 127 mm/hr (0-20)
[2016-09-19] MEDS: HumaLOG INSULIN (NovoLOG) PER UNIT SC SCH ×2 (07:33→12:24)
[2016-09-19 09:31] VITALS: BP 155/65
[2016-09-19] MEDS: TAMSULOSIN 0.4 MG CAP PO SCH (09:31)
[2016-09-19] MEDS: MULTIVITAMINS/MINERALS THERAP 1 TAB PO SCH (09:31)
[2016-09-19] MEDS: amLODIPine 10 MG TAB PO SCH (09:31)
[2016-09-19] MEDS: APIXABAN 5 MG TAB (ELIQUIS) PO SCH (09:31)
[2016-09-19] MEDS: BISOPROLOL FUMARATE 5 MG TAB PO SCH (09:31)
[2016-09-19] MEDS: COSOPT OCUMETER PLUS 10ML (DORZOLAMIDE/TIMOLOL) OU SCH (09:32)
[2016-09-19] MEDS: BRIMONIDINE 0.1% OPHTH SOLN 5 ML OU SCH (09:32)
[2016-09-19] MEDS: DUTASTERIDE 0.5 MG CAP (AVODART) PO SCH (09:32)
[2016-09-19] MEDS ORDERED: ZYVO100T PO (11:15)
[2016-09-19] MEDS: SANTYL OINT 30GM TOP SCH (11:50)
[2016-09-19] MEDS: PRAVASTATIN 10 MG TAB PO SCH (11:50)
--- NOTE | 2016-09-23 11:43 | DSES ---
DATE OF ADMISSION: 09/16/2016 DATE OF DISCHARGE: 09/19/2016 DICTATION DATE: 09/23/2016 PRINCIPAL DIAGNOSIS: Methicillin-resistant Staphylococcus aureus (MRSA) septicemia secondary to cellulitis. SECONDARY DIAGNOSES: Cellulitis. Diabetic right foot. Type 2 diabetes. Atrial fibrillation, on anticoagulant therapy. Hypertension. Chronic kidney disease, stage III. HISTORY: Phill Boss was admitted with cellulitis of his right second toe. He has been followed by Dr. Dia as an outpatient. He had debridement 09/12. HOSPITAL COURSE: The patient was admitted to a medical bed. He had MRSA bacteremia, positive blood cultures two out of two, was on vancomycin for this, was switched to Zyvox upon discharge. Echocardiogram was unremarkable. Followup blood cultures were negative. He was discharged on 09/19/2016 on Zyvox. His diabetes, atrial fibrillation, hypertension and chronic kidney disease remained stable during his hospitalization. Discharge was on 09/19/2016. Followup with Dr. Dia as previously scheduled on 09/20/2016. Followup with primary care provider within a week. Medications at discharge: Zyvox 600 mg twice a day for 2 weeks and continue amlodipine 10 mg twice a day, Eliquis 5 mg twice a day, bisoprolol 5 mg twice a day, various eye drops, vitamin D 50,000 units monthly, furosemide 20 mg daily, Lantus insulin 28 units at bedtime, Lispro insulin on sliding scale twice daily, magnesium oxide 400 mg twice a day, metformin 850 mg three times a day, pravastatin 10 mg daily, multivitamin, Viagra 100 mg as needed, Flomax 0.4 mg daily, Valsartan 320 mg daily. No added salt, low fat/cholesterol diet with consistent carbohydrate. Activity as tolerated.
== END 2016-09-19 13:40 | disposition home or self-care (01) | DRG 872 ==
LOC: M ED 09-16 01:39 → M ED INP 09-16 02:21 → M MS5PR 09-16 03:40
PROVIDERS: ADMIT Internal Medicine; ATTEND Family Medicine
DX: A41.01 Sepsis due to Methicillin susceptible Staphylococcus aureus (principal); N17.9 Acute kidney failure, unspecified; L03.031 Cellulitis of right toe; E11.622 Type 2 diabetes mellitus with other skin ulcer; I48.91 Unspecified atrial fibrillation; Z79.01 Long term (current) use of anticoagulants; N18.3 Chronic kidney disease, stage 3 (moderate); I12.9 Hypertensive chronic kidney disease with stage 1 through stage 4 chronic kidney disease, or unspecified chronic kidney disease; Z79.4 Long term (current) use of insulin; J44.9 Chronic obstructive pulmonary disease, unspecified; G47.33 Obstructive sleep apnea (adult) (pediatric); I50.9 Heart failure, unspecified; I25.10 Atherosclerotic heart disease of native coronary artery without angina pectoris; E11.319 Type 2 diabetes mellitus with unspecified diabetic retinopathy without macular edema; Z95.810 Presence of automatic (implantable) cardiac defibrillator; F17.290 Nicotine dependence, other tobacco product, uncomplicated; Z79.899 Other long term (current) drug therapy; E11.40 Type 2 diabetes mellitus with diabetic neuropathy, unspecified; E78.5 Hyperlipidemia, unspecified

== ENCOUNTER → 2016-09-20 | Outpatient (REF) | payer MEDICARE, OTHER ==
[~2016-09-20] MED LIST changes: +ZYVO100T PO
== END ==
LOC: M LAB REF 16:29 → M SFHCPLAZ 16:29
PROVIDERS: ATTEND Surgery
DX: E10.622 Type 1 diabetes mellitus with other skin ulcer (principal); M86.10 Other acute osteomyelitis, unspecified site

== ENCOUNTER → 2016-10-01 | Outpatient (REF) | payer MEDICARE, OTHER | LOC: M SFHCPLAZ 10:02 | PROVIDERS: ATTEND Family Medicine | DX: E11.42 Type 2 diabetes mellitus with diabetic polyneuropathy (principal) | CPT/HCPCS: 83036; G0463 ==

== ENCOUNTER → 2016-10-05 | Outpatient (CLI) | payer MEDICARE, OTHER ==
[2016-10-05 18:04] LABS: BASO % 0.3 % (0.0-1.0); EOS # 0.1 K/mm3 (0.0-0.50); LARGE UNSTAINED CELL # 0.1 K/mm3 (0.0-0.4); LARGE UNSTAINED CELL % 1.4 % (0.0-4.0); LYMPH # 0.7 K/mm3 (1.5-4.5); MEAN CORPUSCULAR HEMOGLOBIN 31.9 pg (27.0-33.0); MEAN CORPUSCULAR HGB CONC 33.1 g/dl (32.0-36.5); MEAN CORPUSCULAR VOLUME 96.4 fl (80.0-96.0); MONO # 0.3 K/mm3 (0.0-0.8); MONO % 4.7 % (0.0-5.0); NEUTROPHILS % 81.7 % (36.0-66.0); PLATELET COUNT, AUTOMATED 211 k/mm3 (150-450); RED CELL DISTRIBUTION WIDTH 13.4 % (11.5-14.5); WHITE BLOOD COUNT 6.1 K/mm3 (4.0-10.0)
[2016-10-05 18:39] LABS: ALBUMIN 3.4 GM/DL (3.2-5.2); ALBUMIN/GLOBULIN RATIO 0.87 (1.00-1.93); BILIRUBIN,TOTAL 0.4 MG/DL (0.2-1.0); CALCIUM LEVEL 8.3 MG/DL (8.8-10.2); CREATININE FOR GFR 1.82 MG/DL (0.70-1.30); GLOMERULAR FILTRATION RATE 39.4 (>42); TOTAL PROTEIN 7.3 GM/DL (6.4-8.2)
[2016-10-05 18:41] LABS: POTASSIUM SERUM 5.5 MEQ/L (3.5-5.1)
== END ==
LOC: M WUC 11:21
PROVIDERS: ATTEND Internal Medicine Endocrinology, Diabetes & Metabolism
DX: E11.65 Type 2 diabetes mellitus with hyperglycemia (principal)

== ENCOUNTER → 2016-10-09 | Outpatient (REF) | payer MEDICARE, OTHER | LOC: M SFHCPLAZ 10:14 | PROVIDERS: ATTEND Internal Medicine Infectious Disease | DX: M86.171 Other acute osteomyelitis, right ankle and foot (principal) ==

== ENCOUNTER → 2016-10-29 | Outpatient (REF) | payer MEDICARE, OTHER ==
[~2016-10-29] MED LIST changes: +FEBU40TA PO; +LINE600T PO; +METF850T4 PO; -PRAV10TA PO; +PRAV10TA4 PO; -ULTR50TA PO; +ULTR50TA8 PO; +VITA1CAP40 PO; -VITA50003 PO
[2016-10-29 13:27] LABS: BASO % 0.3 % (0.0-1.0); EOS # 0.2 K/mm3 (0.0-0.50); EOS % 2.1 % (0.0-3.0); LARGE UNSTAINED CELL # 0.1 K/mm3 (0.0-0.4); LARGE UNSTAINED CELL % 1.7 % (0.0-4.0); LYMPH % 11.5 % (24.0-44.0); MEAN CORPUSCULAR HEMOGLOBIN 32.5 pg (27.0-33.0); MEAN CORPUSCULAR HGB CONC 34.9 g/dl (32.0-36.5); MEAN CORPUSCULAR VOLUME 93.1 fl (80.0-96.0); MONO # 0.4 K/mm3 (0.0-0.8); MONO % 5.4 % (0.0-5.0); NEUTROPHILS # 5.9 K/mm3 (1.8-7.7); PLATELET COUNT, AUTOMATED 172 k/mm3 (150-450); RED CELL DISTRIBUTION WIDTH 15.3 % (11.5-14.5); WHITE BLOOD COUNT 7.5 K/mm3 (4.0-10.0)
[2016-10-29 14:09] LABS: ERYTHROCYTE SEDIMENTATION RATE 58 mm/hr (0-20)
== END ==
LOC: M SFHCPLAZ 10:39
PROVIDERS: ATTEND Internal Medicine Infectious Disease
DX: M86.171 Other acute osteomyelitis, right ankle and foot (principal); E11.621 Type 2 diabetes mellitus with foot ulcer; L97.514 Non-pressure chronic ulcer of other part of right foot with necrosis of bone; L97.512 Non-pressure chronic ulcer of other part of right foot with fat layer exposed
CPT/HCPCS: 36415; 85025; 85652; 86140; G0277; G0463

== ENCOUNTER 2016-11-03 07:30 | Emergency (ER) | payer MEDICARE, OTHER ==
[~2016-11-03] VITALS: Ht 185.4 cm; Wt 118.6 kg
[~2016-11-03 07:30] MED LIST changes: -FEBU40TA PO; -LINE600T PO
[2016-11-03] MEDS ORDERED: ACETAMINOPHEN 325 MG TAB PO ONE (07:45)
[2016-11-03] MEDS ORDERED: NS 1,000 ML IV ONE (07:45)
[2016-11-03] MEDS ORDERED: LIDOCAINE 2% W/EPIN INJ 20ML **PRES FREE As Ordered ONE (07:54)
[2016-11-03] MEDS ORDERED: ONDANSETRON 4MG/2ML VIAL (J2405) IV ONE (08:15)
[2016-11-03] MEDS ORDERED: MORPHINE 2 MG/ML 1ML SYRINGE IV ONE ×2 (08:15→11:15)
[2016-11-03] MEDS ORDERED: VANCOMYCIN HCL 1,000 MG, VIAL MATE ADAPTER 1 EACH in D5W 250 ML IV ONE (08:30)
[2016-11-03] MEDS ORDERED: PIPERACILLIN/TAZOBACTAM SOD 3.375 GM in D5W MINI-BAG PLUS 50 ML IV ONE (08:30)
--- NOTE | 2016-11-03 08:46 | REP ---
Portable chest x-ray: Single view. History: Systemic inflammatory response syndrome. Comparison study: February 04, 2015. Findings: A unipolar pacemaker is seen in the right heart as before via the left subclavian region. The heart is not enlarged. The lungs are symmetrically aerated and free of infiltrate. There is a zone of linear fibrosis in the left mid lung zone unchanged. Impression: No acute disease. Pacemaker in place. Signed by Sam Nelson MD 11/03/2016 09:55 A
--- NOTE | 2016-11-03 08:48 | REP ---
Left knee series: Four views. History: Systemic inflammatory response syndrome. Findings: Four views of the left knee demonstrate left knee arthroplasty components in good position. No bony erosive or destructive change is seen. Old pin tracks are noted in the distal femur on lateral projection. Vascular calcification is seen. The periarticular soft tissues are otherwise unremarkable. Impression: Status post left knee arthroplasty. No acute abnormality. Signed by Sam Nelson MD 11/03/2016 09:55 A
[2016-11-03 08:49] LABS: BASO % 0.1 % (0.0-1.0); EOS % 0.4 % (0.0-3.0); LARGE UNSTAINED CELL # 0.1 K/mm3 (0.0-0.4); LARGE UNSTAINED CELL % 0.6 % (0.0-4.0); LYMPH # 0.5 K/mm3 (1.5-4.5); LYMPH % 2.8 % (24.0-44.0); MEAN CORPUSCULAR HEMOGLOBIN 31.8 pg (27.0-33.0); MEAN CORPUSCULAR HGB CONC 34.6 g/dl (32.0-36.5); MONO # 0.7 K/mm3 (0.0-0.8); MONO % 4.9 % (0.0-5.0); NEUTROPHILS # 13.2 K/mm3 (1.8-7.7); NEUTROPHILS % 91.2 % (36.0-66.0); PLATELET COUNT, AUTOMATED 154 k/mm3 (150-450); RED CELL DISTRIBUTION WIDTH 14.9 % (11.5-14.5); WHITE BLOOD COUNT 14.4 K/mm3 (4.0-10.0)
[2016-11-03 09:04] LABS: RBC ADVIA BF 0.03; RBC CALC. BF 30000 (< 10mm3 cells/uL); WBC ADVIA BF 91.9; WBC CALC. BF 91900 cells/uL (0-20)
--- NOTE | 2016-11-03 09:06 | REP ---
Right foot series: Four views. History: Right second toe infection. Comparison study: September 16, 2016. Findings: A portion of the distal phalanx of the great toe has been amputated. 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 There are dressings seen adjacent to the swollen soft tissues of the distal phalanx of the second toe. No soft tissue gas is seen. There is erosive change in the bone of the distal phalanx of the second toe. This is compatible with osteomyelitis. Extensive vascular calcification is seen. There are dystrophic calcifications in the proximal plantar fascia and in the distal Achilles tendon. Impression: Soft-tissue swelling and bony erosive changes consistent with osteomyelitis involving the distal phalanx of the second toe. Signed by Sam Nelson MD 11/03/2016 09:55 A
[2016-11-03 09:21] LABS: BF DIFF IF INDICATED? YES (NO); SYNOVIAL FLUID COLOR YELLOW (YELLOW)
[2016-11-03 09:22] LABS: CC BF DIFF EXAM CYTOCENTRIFUGE; HCT SOURCE LFT KNEE
[2016-11-03 09:32] LABS: ALBUMIN 3.6 GM/DL (3.2-5.2); ALKALINE PHOSPHATASE 95 U/L (45-117); AST/SGOT 22 U/L (15-37); BILIRUBIN,DIRECT 0.2 MG/DL (0.0-0.2); BILIRUBIN,TOTAL 1.1 MG/DL (0.2-1.0); BLOOD UREA NITROGEN 26 MG/DL (7-18); CALCIUM LEVEL 8.6 MG/DL (8.8-10.2); CARBON DIOXIDE LEVEL 25 MEQ/L (21-32); CHLORIDE LEVEL 102 MEQ/L (98-107); CREATININE FOR GFR 1.34 MG/DL (0.70-1.30); GLUCOSE, FASTING 232 MG/DL (83-110); POTASSIUM SERUM 4.5 MEQ/L (3.5-5.1); SODIUM LEVEL 134 MEQ/L (136-145); TOTAL PROTEIN 7.3 GM/DL (6.4-8.2)
[2016-11-03] MEDS ORDERED: LINE600T PO (09:32)
[2016-11-03] MEDS ORDERED: FEBU40TA PO (09:32)
[2016-11-03] MEDS ORDERED: ADV250INH INH (09:32)
[2016-11-03 09:35] LABS: INR 1.32
[2016-11-03] MEDS ORDERED: DORZ2SOL5 OU (09:41)
[2016-11-03 10:00] LABS: ALT/SGPT 35 U/L (12-78)
[2016-11-03 10:51] VITALS: BP 142/74
[2016-11-03 11:24] LABS: ANION GAP 7 MEQ/L (8-16)
[2016-11-03 11:25] LABS: ALBUMIN/GLOBULIN RATIO 0.97 (1.00-1.93)
[2016-11-03 14:30] LABS: CRYSTALS, BODY FLUID NONE SEEN (NONE SEEN)
--- NOTE | 2016-11-03 19:40 | ECGEPIP ---
Stationary ECG Study [facility] - ED Test Date: 2016-11-03 Pat Name: NIRAV DALY Department: Room: - Gender: M [employer]: farzana : 1945 Requested By: Adrianne Jiang Order Number: [id number] Reading MD: Adrianne Jiang Measurements Intervals [place] Rate: 86 P: 68 [place]: 134 QRS: -7 QRSD: 97 T: 66 QT: 363 QTc: 434 Interpretive Statements SINUS RHYTHM WITH OCCASIONAL VENTRICULAR PREMATURE COMPLEXES LAD NONSPECIFIC ST T WAVE CHANGES 09/16/16 - RATE INCREASED Electronically Signed On 11-03-2016 19:39:33 EDT by Adrianne Jiang
== END 2016-11-03 11:27 | disposition short-term general hospital (02) ==
LOC: EDBD 07:30 → M ED 08:38
DX: R50.9 Fever, unspecified (principal); M00.9 Pyogenic arthritis, unspecified; E10.9 Type 1 diabetes mellitus without complications; I10 Essential (primary) hypertension; Z96.651 Presence of right artificial knee joint; Z96.652 Presence of left artificial knee joint; Z95.0 Presence of cardiac pacemaker; Z79.4 Long term (current) use of insulin; Z79.899 Other long term (current) drug therapy; Z88.8 Allergy status to other drugs, medicaments and biological substances
CPT/HCPCS: 71010; 73564; 73630; 80048; 80076; 81001; 82550; 82553; 82945; 83605; 84484; 85013; 85025; 85610; 85730; 87040; 87070; 87075; 87077; 87088; 87186; 87205; 89051; 89060; 93005; 93041; 94760; 96365; 96374; 96375; 96376; 99285; J2405; J2543; J3370

== ENCOUNTER → 2016-12-10 | Outpatient (REF) | payer MEDICARE, OTHER ==
[~2016-12-10] MED LIST changes: +FEBU40TA PO; +LINE600T PO
[2016-12-10 16:13] LABS: ALKALINE PHOSPHATASE 85 U/L (45-117); ALT/SGPT 73 U/L (12-78); AST/SGOT 49 U/L (15-37); BILIRUBIN,TOTAL 0.5 MG/DL (0.2-1.0); BLOOD UREA NITROGEN 20 MG/DL (7-18); CALCIUM LEVEL 8.6 MG/DL (8.8-10.2); CARBON DIOXIDE LEVEL 22 MEQ/L (21-32); CHLORIDE LEVEL 103 MEQ/L (98-107); CREATININE FOR GFR 1.78 MG/DL (0.70-1.30); GLUCOSE, FASTING 97 MG/DL (83-110); POTASSIUM SERUM 4.5 MEQ/L (3.5-5.1); SODIUM LEVEL 134 MEQ/L (136-145); TOTAL PROTEIN 7.1 GM/DL (6.4-8.2)
[2016-12-10 16:25] LABS: ALBUMIN/GLOBULIN RATIO 0.73 (1.00-1.93); ANION GAP 9 MEQ/L (8-16)
[2016-12-10 16:35] LABS: BASO % 0.4 % (0.0-1.0); EOS # 0.2 K/mm3 (0.0-0.50); LARGE UNSTAINED CELL # 0.1 K/mm3 (0.0-0.4); LARGE UNSTAINED CELL % 2.3 % (0.0-4.0); LYMPH # 0.6 K/mm3 (1.5-4.5); LYMPH % 9.4 % (24.0-44.0); MEAN CORPUSCULAR HEMOGLOBIN 30.6 pg (27.0-33.0); MEAN CORPUSCULAR HGB CONC 33.1 g/dl (32.0-36.5); MEAN CORPUSCULAR VOLUME 92.5 fl (80.0-96.0); MONO # 0.3 K/mm3 (0.0-0.8); PLATELET COUNT, AUTOMATED 226 k/mm3 (150-450); RED CELL DISTRIBUTION WIDTH 15.2 % (11.5-14.5); WHITE BLOOD COUNT 5.1 K/mm3 (4.0-10.0)
[2016-12-10 17:25] LABS: ERYTHROCYTE SEDIMENTATION RATE 70 mm/hr (0-20)
== END ==
LOC: M LAB REF 14:51
PROVIDERS: ATTEND Internal Medicine
DX: A41.1 Sepsis due to other specified staphylococcus (principal)

== ENCOUNTER → 2016-12-11 | Outpatient (REF) | payer MEDICARE, OTHER | LOC: M LAB REF 14:06 | PROVIDERS: ATTEND Internal Medicine Infectious Disease | DX: A49.02 Methicillin resistant Staphylococcus aureus infection, unspecified site (principal) ==

== ENCOUNTER → 2016-12-15 | Outpatient (REF) | payer MEDICARE, OTHER ==
[2016-12-15 14:47] LABS: CALCIUM LEVEL 9.2 MG/DL (8.8-10.2); CREATININE FOR GFR 1.57 MG/DL (0.70-1.30); GLOMERULAR FILTRATION RATE 46.7 (>42)
== END ==
LOC: M LAB REF 14:18
PROVIDERS: ATTEND Internal Medicine Infectious Disease
DX: A49.02 Methicillin resistant Staphylococcus aureus infection, unspecified site (principal)

== ENCOUNTER → 2016-12-17 | Outpatient (REF) | payer MEDICARE, OTHER ==
[2016-12-17 15:52] LABS: CALCIUM LEVEL 9.6 MG/DL (8.8-10.2); CREATININE FOR GFR 1.45 MG/DL (0.70-1.30); GLOMERULAR FILTRATION RATE 51.2 (>42); POTASSIUM SERUM 4.5 MEQ/L (3.5-5.1)
[2016-12-17 15:57] LABS: BASO % 0.3 % (0.0-1.0); EOS # 0.2 K/mm3 (0.0-0.50); EOS % 3.1 % (0.0-3.0); LARGE UNSTAINED CELL # 0.1 K/mm3 (0.0-0.4); LARGE UNSTAINED CELL % 1.8 % (0.0-4.0); LYMPH # 0.7 K/mm3 (1.5-4.5); MEAN CORPUSCULAR HEMOGLOBIN 30.7 pg (27.0-33.0); MEAN CORPUSCULAR HGB CONC 33.3 g/dl (32.0-36.5); MEAN CORPUSCULAR VOLUME 92.1 fl (80.0-96.0); MONO # 0.4 K/mm3 (0.0-0.8); NEUTROPHILS # 4.2 K/mm3 (1.8-7.7); NEUTROPHILS % 76.9 % (36.0-66.0); PLATELET COUNT, AUTOMATED 299 k/mm3 (150-450); WHITE BLOOD COUNT 5.4 K/mm3 (4.0-10.0)
[2016-12-17 17:23] LABS: ERYTHROCYTE SEDIMENTATION RATE 65 mm/hr (0-20)
== END ==
LOC: M SFHCPLAZ 12:32
PROVIDERS: ATTEND Family Medicine
DX: T84.50XD Infection and inflammatory reaction due to unspecified internal joint prosthesis, subsequent encounter (principal); I12.9 Hypertensive chronic kidney disease with stage 1 through stage 4 chronic kidney disease, or unspecified chronic kidney disease; N18.3 Chronic kidney disease, stage 3 (moderate); E11.40 Type 2 diabetes mellitus with diabetic neuropathy, unspecified; X58.XXXD Exposure to other specified factors, subsequent encounter; Y92.9 Unspecified place or not applicable; Z79.4 Long term (current) use of insulin; Z79.899 Other long term (current) drug therapy
CPT/HCPCS: 36415; 80048; 80202; 83036; 85025; 85652; 86140; G0463

== ENCOUNTER → 2016-12-19 | Outpatient (REF) | payer OTHER | LOC: M SFHCPLAZ 14:54 | PROVIDERS: ATTEND Family Medicine | DX: N18.3 Chronic kidney disease, stage 3 (moderate) (principal); T84.50XD Infection and inflammatory reaction due to unspecified internal joint prosthesis, subsequent encounter ==

== ENCOUNTER → 2016-12-19 | Outpatient (REF) | payer OTHER ==
[2016-12-19 15:25] LABS: BASO % 0.5 % (0.0-1.0); EOS # 0.1 K/mm3 (0.0-0.50); EOS % 3.1 % (0.0-3.0); LARGE UNSTAINED CELL # 0.1 K/mm3 (0.0-0.4); LARGE UNSTAINED CELL % 3.1 % (0.0-4.0); LYMPH # 0.5 K/mm3 (1.5-4.5); LYMPH % 12.9 % (24.0-44.0); MEAN CORPUSCULAR HEMOGLOBIN 29.7 pg (27.0-33.0); MEAN CORPUSCULAR HGB CONC 32.8 g/dl (32.0-36.5); MEAN CORPUSCULAR VOLUME 90.4 fl (80.0-96.0); MONO # 0.3 K/mm3 (0.0-0.8); MONO % 6.4 % (0.0-5.0); PLATELET COUNT, AUTOMATED 272 k/mm3 (150-450); RED CELL DISTRIBUTION WIDTH 14.4 % (11.5-14.5)
[2016-12-19 15:44] LABS: ALBUMIN 3.1 GM/DL (3.2-5.2); ALBUMIN/GLOBULIN RATIO 0.76 (1.00-1.93); BILIRUBIN,TOTAL 0.5 MG/DL (0.2-1.0); CALCIUM LEVEL 9.2 MG/DL (8.8-10.2); CREATININE FOR GFR 1.39 MG/DL (0.70-1.30); GLOMERULAR FILTRATION RATE 53.8 (>42); POTASSIUM SERUM 4.3 MEQ/L (3.5-5.1); TOTAL PROTEIN 7.2 GM/DL (6.4-8.2)
[2016-12-19 15:47] LABS: ERYTHROCYTE SEDIMENTATION RATE 73 mm/hr (0-20)
== END ==
LOC: M LAB REF 15:00
PROVIDERS: ATTEND Family Medicine
DX: T84.50XD Infection and inflammatory reaction due to unspecified internal joint prosthesis, subsequent encounter (principal); N18.3 Chronic kidney disease, stage 3 (moderate); A41.9 Sepsis, unspecified organism

== ENCOUNTER → 2016-12-23 | Outpatient (REF) | payer OTHER ==
[2016-12-23 13:33] LABS: BASO % 0.4 % (0.0-1.0); EOS # 0.2 K/mm3 (0.0-0.50); EOS % 3.7 % (0.0-3.0); LARGE UNSTAINED CELL # 0.1 K/mm3 (0.0-0.4); LARGE UNSTAINED CELL % 1.6 % (0.0-4.0); LYMPH # 0.6 K/mm3 (1.5-4.5); LYMPH % 13.2 % (24.0-44.0); MEAN CORPUSCULAR HEMOGLOBIN 30.3 pg (27.0-33.0); MEAN CORPUSCULAR HGB CONC 33.9 g/dl (32.0-36.5); MEAN CORPUSCULAR VOLUME 89.5 fl (80.0-96.0); MONO # 0.3 K/mm3 (0.0-0.8); MONO % 6.9 % (0.0-5.0); NEUTROPHILS % 74.3 % (36.0-66.0); PLATELET COUNT, AUTOMATED 225 k/mm3 (150-450); RED CELL DISTRIBUTION WIDTH 14.5 % (11.5-14.5); WHITE BLOOD COUNT 4.1 K/mm3 (4.0-10.0)
[2016-12-23 13:53] LABS: ERYTHROCYTE SEDIMENTATION RATE 73 mm/hr (0-20)
[2016-12-23 13:56] LABS: ALBUMIN 2.9 GM/DL (3.2-5.2); ALBUMIN/GLOBULIN RATIO 0.71 (1.00-1.93); BILIRUBIN,TOTAL 0.3 MG/DL (0.2-1.0); CALCIUM LEVEL 8.5 MG/DL (8.8-10.2); CREATININE FOR GFR 1.66 MG/DL (0.70-1.30); GLOMERULAR FILTRATION RATE 43.8 (>42); POTASSIUM SERUM 4.4 MEQ/L (3.5-5.1)
== END ==
LOC: M LAB REF 13:25
PROVIDERS: ATTEND Internal Medicine
DX: Z00.00 Encounter for general adult medical examination without abnormal findings (principal)

== ENCOUNTER → 2016-12-27 | Outpatient (REF) | payer OTHER, MEDICARE ==
[2016-12-27 16:31] LABS: ALBUMIN/GLOBULIN RATIO 0.77 (1.00-1.93); BILIRUBIN,TOTAL 0.3 MG/DL (0.2-1.0); CALCIUM LEVEL 8.7 MG/DL (8.8-10.2); CREATININE FOR GFR 1.39 MG/DL (0.70-1.30); GLOMERULAR FILTRATION RATE 53.8 (>42); POTASSIUM SERUM 4.5 MEQ/L (3.5-5.1); TOTAL PROTEIN 6.9 GM/DL (6.4-8.2)
[2016-12-27 17:45] LABS: BASO % 0.2 % (0.0-1.0); EOS # 0.1 K/mm3 (0.0-0.50); EOS % 3.2 % (0.0-3.0); LARGE UNSTAINED CELL # 0.1 K/mm3 (0.0-0.4); LARGE UNSTAINED CELL % 2.7 % (0.0-4.0); LYMPH # 0.5 K/mm3 (1.5-4.5); LYMPH % 12.5 % (24.0-44.0); MEAN CORPUSCULAR HEMOGLOBIN 30.5 pg (27.0-33.0); MEAN CORPUSCULAR HGB CONC 33.6 g/dl (32.0-36.5); MEAN CORPUSCULAR VOLUME 90.8 fl (80.0-96.0); MONO # 0.3 K/mm3 (0.0-0.8); MONO % 6.3 % (0.0-5.0); NEUTROPHILS % 75.1 % (36.0-66.0); PLATELET COUNT, AUTOMATED 243 k/mm3 (150-450); RED CELL DISTRIBUTION WIDTH 14.4 % (11.5-14.5)
[2016-12-27 18:38] LABS: ERYTHROCYTE SEDIMENTATION RATE 22 mm/hr (0-20)
== END ==
LOC: M LAB REF 15:33
PROVIDERS: ATTEND Internal Medicine
DX: Z41.9 Encounter for procedure for purposes other than remedying health state, unspecified (principal)

== ENCOUNTER → 2016-12-31 | Outpatient (REF) | payer MEDICARE, OTHER ==
[2016-12-31 16:24] LABS: BASO % 0.6 % (0.0-1.0); EOS # 0.2 K/mm3 (0.0-0.50); EOS % 4.3 % (0.0-3.0); LARGE UNSTAINED CELL # 0.1 K/mm3 (0.0-0.4); LARGE UNSTAINED CELL % 2.8 % (0.0-4.0); LYMPH # 0.6 K/mm3 (1.5-4.5); LYMPH % 12.7 % (24.0-44.0); MEAN CORPUSCULAR HEMOGLOBIN 30.1 pg (27.0-33.0); MEAN CORPUSCULAR HGB CONC 32.6 g/dl (32.0-36.5); MEAN CORPUSCULAR VOLUME 92.5 fl (80.0-96.0); MONO # 0.3 K/mm3 (0.0-0.8); MONO % 7.2 % (0.0-5.0); NEUTROPHILS % 72.4 % (36.0-66.0); PLATELET COUNT, AUTOMATED 229 k/mm3 (150-450); RED CELL DISTRIBUTION WIDTH 14.8 % (11.5-14.5); WHITE BLOOD COUNT 4.1 K/mm3 (4.0-10.0)
[2016-12-31 16:49] LABS: ALBUMIN 3.1 GM/DL (3.2-5.2); ALBUMIN/GLOBULIN RATIO 0.78 (1.00-1.93); BILIRUBIN,TOTAL 0.2 MG/DL (0.2-1.0); CALCIUM LEVEL 8.8 MG/DL (8.8-10.2); CREATININE FOR GFR 1.3 MG/DL (0.70-1.30); GLOMERULAR FILTRATION RATE 58.1 (>42); POTASSIUM SERUM 4.2 MEQ/L (3.5-5.1); TOTAL PROTEIN 7.1 GM/DL (6.4-8.2)
[2016-12-31 17:14] LABS: ERYTHROCYTE SEDIMENTATION RATE 67 mm/hr (0-20)
== END ==
LOC: M LAB REF 15:26
PROVIDERS: ATTEND Internal Medicine
DX: B95.62 Methicillin resistant Staphylococcus aureus infection as the cause of diseases classified elsewhere (principal)

== ENCOUNTER → 2017-01-07 | Outpatient (CLI) | payer MEDICARE, OTHER ==
[2017-01-07 20:15] LABS: CALCIUM LEVEL 8.6 MG/DL (8.8-10.2); CREATININE FOR GFR 1.87 MG/DL (0.70-1.30); GLOMERULAR FILTRATION RATE 38.2 (>42)
[2017-01-07 20:18] LABS: MEAN CORPUSCULAR HEMOGLOBIN 30.3 pg (27.0-33.0); MEAN CORPUSCULAR HGB CONC 33.9 g/dl (32.0-36.5); MEAN CORPUSCULAR VOLUME 89.6 fl (80.0-96.0); RED CELL DISTRIBUTION WIDTH 14.7 % (11.5-14.5); WHITE BLOOD COUNT 4.9 K/mm3 (4.0-10.0)
[2017-01-07 20:41] LABS: POTASSIUM SERUM 5.5 MEQ/L (3.5-5.1)
== END ==
LOC: M WUC 15:30
PROVIDERS: ATTEND Internal Medicine Infectious Disease
DX: T84.50XD Infection and inflammatory reaction due to unspecified internal joint prosthesis, subsequent encounter (principal); W18.30XA Fall on same level, unspecified, initial encounter; Y92.009 Unspecified place in unspecified non-institutional (private) residence as the place of occurrence of the external cause

== ENCOUNTER → 2017-01-14 | Outpatient (CLI) | payer MEDICARE, OTHER ==
[2017-01-14 09:37] LABS: MEAN CORPUSCULAR HEMOGLOBIN 29.6 pg (27.0-33.0); MEAN CORPUSCULAR HGB CONC 33.7 g/dl (32.0-36.5); MEAN CORPUSCULAR VOLUME 87.7 fl (80.0-96.0); RED CELL DISTRIBUTION WIDTH 14.5 % (11.5-14.5); WHITE BLOOD COUNT 4.5 K/mm3 (4.0-10.0)
[2017-01-14 09:39] LABS: CALCIUM LEVEL 8.3 MG/DL (8.8-10.2); CREATININE FOR GFR 1.58 MG/DL (0.70-1.30); GLOMERULAR FILTRATION RATE 46.4 (>42); POTASSIUM SERUM 4.8 MEQ/L (3.5-5.1)
== END ==
LOC: M WUC 08:02
PROVIDERS: ATTEND Internal Medicine Infectious Disease
DX: T84.50XD Infection and inflammatory reaction due to unspecified internal joint prosthesis, subsequent encounter (principal)

== ENCOUNTER → 2017-01-22 | Outpatient (CLI) | payer MEDICARE, OTHER ==
[2017-01-22 09:20] LABS: MEAN CORPUSCULAR HEMOGLOBIN 29.5 pg (27.0-33.0); MEAN CORPUSCULAR HGB CONC 33.6 g/dl (32.0-36.5); MEAN CORPUSCULAR VOLUME 87.9 fl (80.0-96.0); RED CELL DISTRIBUTION WIDTH 14.1 % (11.5-14.5); WHITE BLOOD COUNT 4.5 K/mm3 (4.0-10.0)
[2017-01-22 09:47] LABS: CALCIUM LEVEL 8.5 MG/DL (8.8-10.2); CREATININE FOR GFR 1.37 MG/DL (0.70-1.30); GLOMERULAR FILTRATION RATE 54.7 (>42); POTASSIUM SERUM 4.4 MEQ/L (3.5-5.1)
== END ==
LOC: M WUC 08:23
PROVIDERS: ATTEND Internal Medicine Infectious Disease
DX: T84.50XD Infection and inflammatory reaction due to unspecified internal joint prosthesis, subsequent encounter (principal); Y83.1 Surgical operation with implant of artificial internal device as the cause of abnormal reaction of the patient, or of later complication, without mention of misadventure at the time of the procedure

== ENCOUNTER → 2017-01-28 | Outpatient (CLI) | payer OTHER, MEDICARE ==
[2017-01-28 09:17] LABS: MEAN CORPUSCULAR HEMOGLOBIN 29.8 pg (27.0-33.0); MEAN CORPUSCULAR HGB CONC 34.4 g/dl (32.0-36.5); MEAN CORPUSCULAR VOLUME 86.8 fl (80.0-96.0); WHITE BLOOD COUNT 5.6 K/mm3 (4.0-10.0)
[2017-01-28 09:39] LABS: CALCIUM LEVEL 8.7 MG/DL (8.8-10.2); CREATININE FOR GFR 1.35 MG/DL (0.70-1.30); GLOMERULAR FILTRATION RATE 55.6 (>42); POTASSIUM SERUM 4.3 MEQ/L (3.5-5.1)
== END ==
LOC: M WUC 08:20
PROVIDERS: ATTEND Internal Medicine Infectious Disease
DX: T84.50XD Infection and inflammatory reaction due to unspecified internal joint prosthesis, subsequent encounter (principal); W18.30XA Fall on same level, unspecified, initial encounter; Y92.009 Unspecified place in unspecified non-institutional (private) residence as the place of occurrence of the external cause

== ENCOUNTER → 2017-02-04 | Outpatient (CLI) | payer OTHER, MEDICARE ==
[2017-02-04 11:53] LABS: MEAN CORPUSCULAR HEMOGLOBIN 29.3 pg (27.0-33.0); MEAN CORPUSCULAR HGB CONC 33.7 g/dl (32.0-36.5); MEAN CORPUSCULAR VOLUME 86.9 fl (80.0-96.0); RED CELL DISTRIBUTION WIDTH 13.5 % (11.5-14.5); WHITE BLOOD COUNT 5.5 K/mm3 (4.0-10.0)
[2017-02-04 12:03] LABS: CALCIUM LEVEL 8.8 MG/DL (8.8-10.2); CREATININE FOR GFR 1.44 MG/DL (0.70-1.30); GLOMERULAR FILTRATION RATE 51.6 (>42); POTASSIUM SERUM 4.7 MEQ/L (3.5-5.1)
== END ==
LOC: M WUC 09:07
PROVIDERS: ATTEND Internal Medicine Infectious Disease
DX: T84.50XD Infection and inflammatory reaction due to unspecified internal joint prosthesis, subsequent encounter (principal); W18.30XA Fall on same level, unspecified, initial encounter; Y92.009 Unspecified place in unspecified non-institutional (private) residence as the place of occurrence of the external cause

== ENCOUNTER → 2017-02-11 | Outpatient (CLI) | payer MEDICARE, OTHER ==
[2017-02-11 10:04] LABS: CALCIUM LEVEL 8.7 MG/DL (8.8-10.2); CREATININE FOR GFR 1.3 MG/DL (0.70-1.30); GLOMERULAR FILTRATION RATE 58.1 (>42); POTASSIUM SERUM 4.6 MEQ/L (3.5-5.1)
[2017-02-11 10:54] LABS: MEAN CORPUSCULAR HEMOGLOBIN 28.9 pg (27.0-33.0); MEAN CORPUSCULAR HGB CONC 32.8 g/dl (32.0-36.5); MEAN CORPUSCULAR VOLUME 88.2 fl (80.0-96.0); RED CELL DISTRIBUTION WIDTH 13.2 % (11.5-14.5); WHITE BLOOD COUNT 6.9 10^3/uL (4.0-10.0)
== END ==
LOC: M WUC 08:20
PROVIDERS: ATTEND Internal Medicine Infectious Disease
DX: T84.50XD Infection and inflammatory reaction due to unspecified internal joint prosthesis, subsequent encounter (principal)

== ENCOUNTER → 2017-02-18 | Outpatient (CLI) | payer MEDICARE ==
[2017-02-18 15:58] LABS: MEAN CORPUSCULAR HEMOGLOBIN 28.6 pg (27.0-33.0); MEAN CORPUSCULAR VOLUME 86.9 fl (80.0-96.0); RED CELL DISTRIBUTION WIDTH 13.4 % (11.5-14.5); WHITE BLOOD COUNT 6.7 10^3/uL (4.0-10.0)
[2017-02-18 17:53] LABS: CALCIUM LEVEL 9.4 MG/DL (8.8-10.2); CREATININE FOR GFR 1.71 MG/DL (0.70-1.30); GLOMERULAR FILTRATION RATE 42.3 (>42)
== END ==
LOC: M WUC 14:01
PROVIDERS: ATTEND Internal Medicine Infectious Disease
DX: T84.50XD Infection and inflammatory reaction due to unspecified internal joint prosthesis, subsequent encounter (principal); W18.30XA Fall on same level, unspecified, initial encounter; Y92.009 Unspecified place in unspecified non-institutional (private) residence as the place of occurrence of the external cause

== ENCOUNTER → 2017-02-25 | Outpatient (CLI) | payer MEDICARE ==
[2017-02-25 09:14] LABS: MEAN CORPUSCULAR HEMOGLOBIN 28.9 pg (27.0-33.0); MEAN CORPUSCULAR HGB CONC 33.6 g/dl (32.0-36.5); MEAN CORPUSCULAR VOLUME 85.9 fl (80.0-96.0); RED CELL DISTRIBUTION WIDTH 13.2 % (11.5-14.5)
[2017-02-25 09:55] LABS: ANION GAP 8 MEQ/L (8-16); BLOOD UREA NITROGEN 30 MG/DL (7-18); CALCIUM LEVEL 8.7 MG/DL (8.8-10.2); CARBON DIOXIDE LEVEL 27 MEQ/L (21-32); CHLORIDE LEVEL 103 MEQ/L (98-107); CREATININE FOR GFR 1.25 MG/DL (0.70-1.30); GLOMERULAR FILTRATION RATE > 60.0 (>42); GLUCOSE, FASTING 135 MG/DL (83-110); POTASSIUM SERUM 4.2 MEQ/L (3.5-5.1); SODIUM LEVEL 138 MEQ/L (136-145)
== END ==
LOC: M WUC 08:15
PROVIDERS: ATTEND Internal Medicine Infectious Disease
DX: T84.50XD Infection and inflammatory reaction due to unspecified internal joint prosthesis, subsequent encounter (principal); Y82.9 Unspecified medical devices associated with adverse incidents

== ENCOUNTER → 2017-03-04 | Outpatient (CLI) | payer MEDICARE ==
[2017-03-04 17:40] LABS: MEAN CORPUSCULAR HEMOGLOBIN 28.7 pg (27.0-33.0); MEAN CORPUSCULAR HGB CONC 32.5 g/dl (32.0-36.5); MEAN CORPUSCULAR VOLUME 88.2 fl (80.0-96.0); RED CELL DISTRIBUTION WIDTH 13.6 % (11.5-14.5); WHITE BLOOD COUNT 6.7 10^3/uL (4.0-10.0)
[2017-03-04 18:11] LABS: CALCIUM LEVEL 8.6 MG/DL (8.8-10.2); CREATININE FOR GFR 1.52 MG/DL (0.70-1.30); GLOMERULAR FILTRATION RATE 48.5 (>42); POTASSIUM SERUM 4.7 MEQ/L (3.5-5.1)
== END ==
LOC: M WUC 13:35
PROVIDERS: ATTEND Internal Medicine Endocrinology, Diabetes & Metabolism
DX: T84.50XD Infection and inflammatory reaction due to unspecified internal joint prosthesis, subsequent encounter (principal); W18.30XA Fall on same level, unspecified, initial encounter; Y92.009 Unspecified place in unspecified non-institutional (private) residence as the place of occurrence of the external cause

== ENCOUNTER → 2017-03-11 | Outpatient (CLI) | payer MEDICARE ==
[2017-03-11 19:25] LABS: MEAN CORPUSCULAR HGB CONC 32.3 g/dl (32.0-36.5); MEAN CORPUSCULAR VOLUME 89.8 fl (80.0-96.0); PLATELET COUNT, AUTOMATED 285 10^3/uL (150-450); RED CELL DISTRIBUTION WIDTH 13.7 % (11.5-14.5); WHITE BLOOD COUNT 5.6 10^3/uL (4.0-10.0)
[2017-03-11 19:55] LABS: CALCIUM LEVEL 8.8 MG/DL (8.8-10.2); CREATININE FOR GFR 1.75 MG/DL (0.70-1.30); GLOMERULAR FILTRATION RATE 41.2 (>42)
[2017-03-11 20:09] LABS: POTASSIUM SERUM 5.6 MEQ/L (3.5-5.1)
[2017-03-11 22:27] LABS: ERYTHROCYTE SEDIMENTATION RATE 125 mm/hr (0-20)
== END ==
LOC: M WUC 11:36
PROVIDERS: ATTEND Internal Medicine Infectious Disease
DX: T84.50XD Infection and inflammatory reaction due to unspecified internal joint prosthesis, subsequent encounter (principal); X58.XXXA Exposure to other specified factors, initial encounter; Y92.9 Unspecified place or not applicable; Y93.9 Activity, unspecified

== ENCOUNTER 2017-04-09 14:47 | Inpatient (IN) | payer OTHER, MEDICARE ==
[~2017-04-09] VITALS: Ht 182.9 cm; Wt 104.0 kg
[2017-04-09] MEDS: BISOPROLOL FUMARATE 10 MG TAB PO SCH (09:00)
[2017-04-09] MEDS: FUROSEMIDE 20 MG TAB PO SCH (09:00)
[2017-04-09] MEDS: DUTASTERIDE 0.5 MG CAP (AVODART) PO SCH (09:00)
[2017-04-09] MEDS ORDERED: LACTOBACILLUS ACIDOPHILUS CAP (BACID) PO PRN (15:15)
[2017-04-09] MEDS ORDERED: GLUCAGON FOR INJ 1 MG VIAL (J1610) SC PRN (15:15)
[2017-04-09] MEDS ORDERED: GLUCOSE 4 GM CHEW TABLET PO PRN (15:15)
[2017-04-09] MEDS ORDERED: BENZONATATE 100 MG CAP PO PRN (15:15)
[2017-04-09] MEDS ORDERED: METAMUCIL (PSYLLIUM) PACKET PO PRN (15:15)
[2017-04-09] MEDS ORDERED: DEXTROSE 50% 50 ML SYRINGE IV PRN (15:15)
[2017-04-09] MEDS ORDERED: CALCIUM CARBONATE 500 MG CHEW U/D PO PRN (15:15)
[2017-04-09 15:45] VITALS: BP 162/74
[2017-04-09] MEDS ORDERED: BISO10TA6 PO (17:33)
[2017-04-09] MEDS ORDERED: ACID1CAP PO (17:33)
[2017-04-09] MEDS ORDERED: AMLO5TAB2 PO (17:33)
[2017-04-09] MEDS ORDERED: SENN1TAB10 PO (17:40)
[2017-04-09] MEDS ORDERED: ACET1TAB17 PO (17:40)
[2017-04-09] MEDS ORDERED: PSYLPOW4 PO (17:40)
[2017-04-09] MEDS ORDERED: CALC500C16 PO (17:40)
[2017-04-09] MEDS ORDERED: ONDA4TAB6 PO (17:40)
[2017-04-09] MEDS ORDERED: STOO100C PO (17:40)
[2017-04-09] MEDS: HumaLOG INSULIN (NovoLOG) PER UNIT SC SCH ×2 (18:17→21:00)
[2017-04-09] MEDS: oxyCODONE 5MG TAB PO PRN (19:36)
[2017-04-09] MEDS: ACETAMINOPHEN TAB 650MG DOSE (2X325MG) PO PRN (19:36)
[2017-04-09 20:00] VITALS: BP 150/66
[2017-04-09] MEDS ORDERED: VANCOMYCIN INTERMITTENT/PULSE DOSING BY CLINICAL PHARMACIST PER DOSING PROTOCOL XX SCH (20:30)
[2017-04-09] MEDS: BRIMONIDINE 0.15% OPHTH SOLN 5 ML OU SCH (20:46)
[2017-04-09] MEDS: COSOPT OCUMETER PLUS 10ML (DORZOLAMIDE/TIMOLOL) OU SCH (20:46)
[2017-04-09] MEDS: LEVEMIR (INSULIN DETEMIR) 1 UNITS/0.01ML SC SCH (20:46)
[2017-04-09] MEDS: APIXABAN 5 MG TAB (ELIQUIS) PO SCH (20:48)
[2017-04-09] MEDS: MAGNESIUM OXIDE 400 MG TAB (MAG-OX) PO SCH (20:48)
[2017-04-09] MEDS: SENNA 8.6 MG TAB (SENOKOT) PO SCH (20:50)
[2017-04-09] MEDS: DOCUSATE SODIUM 100 MG CAP PO SCH (20:50)
--- NOTE | 2017-04-09 21:21 | PMRCR ---
DATE OF CONSULTATION: 04/09/2017 CONSULTATION REPORT FOR: Sixto Pa MD REASON FOR CONSULTATION: Medical management. PRIMARY CARE PROVIDER: Hoang Kenney MD HISTORY OF PRESENT ILLNESS: This is a 71-year-old male patient seen at acute rehabilitation with underlying medical history of chronic obstructive pulmonary disease (COPD), obstructive sleep apnea on continuous positive airway pressure (CPAP), cataract, glaucoma, coronary artery disease, congestive heart failure (CHF), atrial fibrillation with defibrillator pacemaker with cardiac ablation, hypertension, type 2 diabetes, peripheral neuropathy, diabetic retinopathy, atrial flutter with ablation, ulcer and methicillin-resistant Staphylococcus aureus (MRSA) infection of diabetic right foot, patient has recurrent right lower extremity diabetic foot ulcer with MRSA, subsequently resulted in seeding of prosthesis on the left lower extremity, had a washout that was done and debridement that was done in 2014, subsequently had chronic course of antibiotics, developed worsening infection on oral antibiotics, subsequently sent to [facility] with removal of prosthesis and cement placement, patient currently has a wound vacuum assisted closure (VAC), was transferred back to acute rehabilitation with no weightbearing. Patient denies any fevers or chills. Wound VAC has been changed yesterday. Reported instructed by his surgeon saying no weightbearing on the left lower extremity. Denies any chest pain, pressure or discomfort. Reported good glycemic control at the other hospital. Denies chest pain and shortness of breath. ALLERGIES: LOVENOX AND THIOPENTAL. PAST MEDICAL HISTORY: Cataract, right eye glaucoma open-angle, COPD, atrial fibrillation on Eliqu, sees Dr. Almanzar for cardiology, CHF, coronary artery disease, cardiac atrial flutter with ablation, pacemaker, hypertension, diabetes type 2, peripheral neuropathy, diabetic retinopathy, diabetic neuropathy with diabetic foot ulcers and MRSA infection with infected left knee prosthesis. PAST SURGICAL HISTORY: Ablation of the heart, right foot skin graft, angioplasty, debridement and bone removal of right foot, incision and drainage (I and D) of right foot, right eye cataract removal, pacemaker defibrillator 2011, stent insertion of both legs 2013, bilateral total knee replacement, cholecystectomy, debridement of left knee and removal of prosthesis on left knee with cement recently. SOCIAL HISTORY: Smokes a cigar every 2 weeks in the summer. Rare alcohol use recently. Lives at home. Currently at acute rehabilitation, had a prolonged hospitalization at [facility] for 3 weeks. FAMILY HISTORY: Negative for cancer. REVIEW OF SYSTEMS: Wound VAC on the patient's left knee and has a pressure ulcer on the right heel. Immobilizing device on left lower extremity. Denies any chest pain, pressure or discomfort. All other review of systems are negative. HOME MEDICATIONS: - acetaminophen 975 by mouth every 6 hours as needed - probiotic acidophilus one capsule by mouth twice a day as needed - Norvasc 5 mg by mouth daily - Eliquis 5 mg by mouth twice a day - benzonatate 100 mg by mouth three times a day as needed - bisoprolol 10 mg by mouth daily - Alphagan eye drops twice a day - calcium carbonate 1000 mg by mouth every 4 hours as needed - Colace 100 mg by mouth twice a day as needed - timolol eye drops twice a day - Avodart 0.5 mg by mouth daily - vitamin D 50,000 units by mouth monthly - Uloric 40 mg by mouth nightly - Lasix 20 mg by mouth daily - Lantus SoloStar 36 units subcutaneously nightly - magnesium oxide 400 mg by mouth twice a day - multivitamin one tablet by mouth daily - Zofran 4 mg by mouth twice a day as needed - pravastatin 5 mg by mouth daily - Senna 8.6 mg two tablets by mouth nightly - Flomax 0.4 mg by mouth daily PHYSICAL EXAMINATION: VITAL SIGNS: Temperature 97.7, pulse 50, respirations 18, blood pressure 162/74, pulse oximetry 100% on room air. GENERAL: Patient alert and oriented times three, in no acute distress. HEENT: Normocephalic, atraumatic. PULMONARY: Bilateral clear to auscultation. CARDIAC: Regular, S1, S2. ABDOMEN: Soft, nontender. Positive bowel sounds. EXTREMITIES: Right heel stage 1 ulcer, no open wound, but has healing lesions, old and deformed. Wound VAC and dressing in place with immobilizing device left knee and left lower extremity. Dressing clean, dry, and intact. LABORATORY DATA: Still pending. ASSESSMENT AND PLAN: This is a 71-year-old male patient with underlying medical history of chronic obstructive pulmonary disease (COPD), atrial fibrillation, obstructive sleep apnea, congestive heart failure (CHF), coronary artery disease, atrial flutter, hypertension, type 2 diabetes, peripheral neuropathy, diabetic retinopathy, diabetic ulcer, diabetic neuropathy, and also with methicillin-resistant Staphylococcus aureus (MRSA) infected left knee prosthesis, had prosthesis removed with cement placement. 1. Methicillin-resistant Staphylococcus aureus (MRSA) infected prosthesis left knee with prosthesis removal and cement placement. Physical therapy and pain regimen as per Dr. Pa. Consider vascular consultation as outpatient or inpatient, decision will be made by Dr. Pa. Dr. Collins has been consulted. Continue antibiotics as per Dr. Collins. Followup labs, erythrocyte sedimentation rate (ESR), C-reactive protein (CRP). Patient on vancomycin. 2. Chronic obstructive pulmonary disease (COPD). Continue inhalers. Nebulizer treatment as needed. Continue current medication. 3. Atrial fibrillation with atrial flutter. Patient on Eliquis. Continue beta carmen. Patient has a pacemaker. 4. Hypertension. Continue current medication. 5. BPH. Continue home medication. 6. Diabetes with diabetic retinopathy and diabetic neuropathy. Wound care as ordered. Insulin basal bolus. Followup finger sticks. 7. Dyslipidemia. Continue statin. 8. Constipation. Bowel regimen as prescribed. 9. Deep venous thrombosis (DVT) prophylaxis. Patient on Eliquis. DISPOSITION: As per primary, Dr. Pa.
--- NOTE | 2017-04-09 22:13 | PMRCR ---
DATE OF CONSULTATION: 04/09/2017 REQUESTING PHYSICIAN: Sixto Pa MD CONSULTING PHYSICIAN: Sheree Ye MD REASON FOR CONSULTATION: Management of chronic kidney disease stage III. CHIEF COMPLAINT: Patient was transferred to rehabilitation today after removal of left-sided prosthetic knee secondary to infection. Patient had almost a 1 month stay in [place] after surgery, now he is here for rehabilitation. HISTORY OF PRESENT ILLNESS: Mr. Phill Boss is a 71-year-old male with past medical history of chronic kidney disease stage III with a baseline creatinine of around 1.4 as of January 2017, he follows up in nephrology service as outpatient for management of his chronic kidney disease (CKD) stage III. The patient was admitted at [facility] for infection in the left-sided prosthetic knee joint that had to be removed. The knee joint was debrided and washed. The patient is currently on IV antibiotics. He stayed for almost about a month at [facility] and outpatient has been sent to rehabilitation unit at [facility]. Nephrology service was called for further help in the management of chronic kidney disease stage III as patient is also receiving IV antibiotics. As reported by , present at the bedside, patient's creatinine number has been fluctuating between 1.5 and 1.7 during the hospitalization. I saw and examined the patient today evening at the rehabilitation center. Patient is in no apparent distress at this time and he is in good spirits at this time. PAST MEDICAL HISTORY: Patient has a past medical history of prosthetic joint infection, diabetes mellitus type 2, hypertension, peripheral vascular disease, hyperlipidemia, obstructive sleep apnea, chronic kidney disease stage III. PAST SURGICAL HISTORY: Status post cholecystectomy, status post bilateral knee replacements, status post defibrillator implantation, status post tibial osteotomy and recent removal of prosthetic knee joint in the left knee. FAMILY HISTORY: No significant family history of end-stage renal disease requiring hemodialysis. SOCIAL HISTORY: Patient is , lives with his , he is retired. He is an active smoker, smokes about ten cigarettes a day. He drinks about 1-2 beers per week. He denies any illicit drug abuse. REVIEW OF SYSTEMS: CONSTITUTIONAL: He denies any fever, chills, rigors. EYES: He denies any blurry vision or double vision, but he is known to have diabetic retinopathy. EARS, NOSE, THROAT (ENT): He denies any ear discharge, nasal discharge, or dysphagia, or odynophagia. CARDIOVASCULAR: He reports a little bit of edema, but denies any chest pain or palpitations. RESPIRATORY: He denies any cough, wheezing, or hemoptysis. GASTROINTESTINAL (GI): He denies any abdominal pain, constipation, or diarrhea. GENITOURINARY: He denies any dysuria or hematuria. MUSCULOSKELETAL: Patient reports infection of the left knee prosthesis which was removed and patient has a wound vacuum assisted closure (VAC) on the left knee. SKIN: He denies any other ulcers or rashes apart from left knee wound VAC. CENTRAL NERVOUS SYSTEM (SECURITY DIRECTOR): He denies any neurological symptoms including weakness, seizures, or strokes. ENDOCRINE: Patient has a history of diabetes. He denies any thyroid issues. HEMATOLOGICAL/ONCOLOGICAL: He denies any anemia, bleeding, or bruising tendency. All other review of systems is negative. PHYSICAL EXAMINATION: GENERAL: Patient is awake, alert, oriented times three, laying in bed, no apparent distress. VITAL SIGNS: Temperature 98.2 degrees Fahrenheit, blood pressure 150/66, pulse 53, respiratory rate 18, saturating at 100% on room air. HEAD and NECK EXAM: Extraocular muscles intact. Pupils equally round and reactive to light. Mucous membranes are moist. Neck is supple. There is no jugular venous distention (JVD). CARDIOVASCULAR: S1, S2, regular rate. No murmur, rub, or gallop. RESPIRATORY: Chest is clear to auscultation bilaterally. Bilateral equal air entry. No rales or rhonchi. ABDOMEN: Soft. Obese. Positive bowel sounds. Nontender. No ascites. No organomegaly. MUSCULOSKELETAL: Patient has a wound VAC on the left leg and left leg has a brace. The patient has trace edema on the right leg. Otherwise, pulses are 2+ in the right leg. SECURITY DIRECTOR: No focal neurological deficit. Patient is oriented times three. Power is 5/5 in bilateral upper extremities. PSYCHIATRIC: Normal mood and affect. LYMPH NODES: No significant cervical, axillary, or inguinal lymphadenopathy. LABORATORY REVIEW: Patient's blood glucose is 198. The rest of the labs are pending at this time. CURRENT INPATIENT MEDICATIONS: Patient's medications were all reviewed by me. He is on: - Tylenol as needed - amlodipine 5 mg daily - Eliquis 5 mg by mouth twice a day - bisoprolol 10 mg daily - Tums 500 mg by mouth every 4 hours as needed for indigestion - Colace 100 mg twice a day - Avodart 0.5 mg daily - Uloric 40 mg daily - Lasix 20 mg daily - insulin Levemir 36 units subcutaneous nightly - insulin Lispro sliding scale - magnesium oxide 400 mg by mouth twice a day - multivitamin - oxycodone as needed - pravastatin 5 mg daily - Metamucil one packet daily - Senna two tablets nightly - Flomax 0.4 mg by mouth daily - vancomycin, infusion orders as per pharmacist ASSESSMENT: 71-year-old male with past medical history of chronic kidney disease stage III, history of hypertension, paroxysmal atrial fibrillation, BPH, gout secondary to chronic kidney disease, diabetes mellitus type 2, with infection of the left prosthetic knee joint status post removal of the prosthetic joint with debridement and washing and wound VAC placement. PLAN: 1. Chronic kidney disease stage III. Outside records were reviewed. Patient's best baseline creatinine as per records in nephrology office is 1.44. Outside hospital records are not available at this time. Morning labs are pending. Okay to continue vancomycin at this time. Avoid use of nonsteroidal anti-inflammatory drugs (NSAIDs) for pain optimization. 2. Hypertension. Blood pressure is optimal at this time. Continue current dose of amlodipine 5 mg daily, bisoprolol 10 mg daily, Lasix 20 mg daily. Patient is not on angiotensin-converting enzyme (ALONDRA) or ARB at this time. 3. Chronic gout, secondary to chronic kidney disease. Continue current dose of Uloric 40 mg by mouth daily. I am going to check the uric acid tomorrow morning. 4. Insulin-dependent diabetes mellitus. Continue current dose of Levemir 36 units subcutaneous nightly and insulin sliding scale. 5. BPH. Continue current dose of Avodart 0.5 mg daily and Flomax 0.4 mg by mouth daily. 6. Infection of the left-sided prosthetic knee joint status post removal and placement of wound vacuum assisted closure (VAC). Patient is currently on vancomycin infusion for Staphylococcus infection. Infectious disease is also on board. Rest of the management is as per infectious disease (ID). Try to maintain the vancomycin level between 15-20 to avoid vancomycin toxicity. Levels will be monitored and dose adjusted by pharmacology. 7. Chronic atrial fibrillation. Patient is rate controlled at this time. He is chronically on Eliquis. Continue current dose of bisoprolol. Thank you for involving us in the care of this patient. We shall happy to follow the patient along with you tomorrow morning.
--- NOTE | 2017-04-09 22:21 | PMRHPE ---
DATE OF ADMISSION: 04/09/2017 REASON FOR ADMISSION: Rehabilitation of infected left total knee arthroplasty status post total knee replacement with antibiotic-impregnated spacer 03/20/2017 with repeat incision and drainage (I and D) and replacement of vacuum on 04/01/2017. Patient complicated by wound closure requiring wound vacuum as well as antibiotic treatment with chronic kidney disease stage III, on vancomycin 1500 mg every 48 hours. HISTORY OF PRESENT ILLNESS: The patient is a 71-year-old right-handed white male who has had both knees replaced and end-stage osteoarthritis and had osteomyelitis of the right great toe and methicillin-resistant Staphylococcus aureus (MRSA) bacteremia, atrial fibrillation, type 2 diabetes, sleep apnea, hypertension, hyperlipidemia, chronic kidney disease, stage III, chronic obstructive pulmonary disease (COPD), and gout who developed infection of his left total knee and had surgical removal on 03/20/2017 with revision on approximately 04/01/2017. Patient having difficulty with pain as well as wound healing and has to be able to do 8 steps to return to home along with being standby assist to independent in activities of daily living (ADLs) and moderate distance mobility. Patient has started physical therapy and has started making progress and is felt to be ready for acute intensive musculoskeletal rehabilitation. Was admitted today to [facility] Acute Rehabilitation Unit for treatment with physical, occupational, rehabilitation nursing, and podiatry along with consultations to infectious disease, nephrology , and pharmacy to manage his multiple medical problems. PAST MEDICAL HISTORY: 1. As noted above, patient with end-stage osteoarthritis leading to bilateral knee replacement. 2. Osteomyelitis of the right great toe. 3. History of MRSA bacteremia. 4. MRSA knee infection. 5. Atrial fibrillation. 6. Automatic implantable cardioverter-defibrillator (AICD) placement. 7. Type 2 diabetes. 8. Sleep apnea. 9. Hypertension. 10. Hyperlipidemia. 11. Chronic kidney disease, stage III. 12. Glaucoma. 13. COPD. 14. Gout. Patient also with glaucoma and a history of left leg venous ulcer in 2013. PAST SURGICAL HISTORY: Includes: 1. Amputation of right great toe. 2. Bilateral knee replacement in 2005. 3. Left knee excision, debridement, irrigation, and revision 11/03/2016. 4. AICD placement. ALLERGIES: Include problems with LOVENOX causes Hives, Thiopental which caused anaphylaxis. MEDICATIONS ON ADMISSION: - vancomycin 1500 mg IV every 48 hours - Tylenol changed to 650 mg every 6 hours as needed for mild pain - amlodipine 5 mg daily for hypertension - Eliquis 5 mg twice a day for clot prevention from atrial fibrillation and also deep vein thrombosis (DVT) prophylaxis - Tessalon Perles 100 mg by mouth three times a day as needed for cough - Zebeta 10 mg daily - Brimonidine 0.15% ophthalmic solution, one drop both eyes twice a day - Tums 500 mg every 4 hours as needed indigestion - D50, 25 mL as needed hypoglycemia - Colace 100 mg twice a day for bowel program - dorzolamide/timolol eye drops one drop each eye twice a day - Avodart 0.5 mg daily - Uloric 40 mg daily - Lasix 20 mg daily - glucagon 1 mg subcutaneous as needed hypoglycemia - glucose 16 grams by mouth as needed hypoglycemia - detemir insulin 36 units subcutaneous at bedtime - insulin sliding scale with before meals and at bedtime scales and blood glucose checks - Lactobacillus one tablet by mouth twice a day as needed for diarrhea - magnesium oxide 400 mg twice a day - multivitamin, iron, and folate one tablet daily - oxycodone 5 mg every 4 hours as needed for moderate to severe pain - pravastatin 5 mg daily for cholesterol - Metamucil one packet daily as needed for constipation - Senokot 17.2 mg at bedtime for bowel program - Flomax 0.4 mg at bedtime for urinary retention REVIEW OF SYSTEMS: Negative except for symptoms noted above, including the knee pain. PHYSICAL EXAMINATION: Patient is a tall, mildly overweight, elderly white male who looks younger than stated age. He is 6 feet tall,107 kg. VITAL SIGNS: Show temperature 97.7, blood pressure 162/74, pulse 50, respirations 18, pulse oximetry 100% on room air. HEENT: Normocephalic, atraumatic with slight slant of his smile down to the left but midline tongue and no clear facial drooping and good oropharynx control without any pooling and no oropharynx lesions. Septum is straight and airway is patent in the nares. Extraocular motions are intact. Pupils equal, round, reactive to light and accommodation. Hearing is fairly good. NECK: Supple. LUNGS: Clear in all travis to auscultation. CORONARY: Shows a regular rate and rhythm with normal S1, S2 without S3 or S4 murmurs or rubs and 3/4 bilateral radial pulses. ABDOMEN: Obese, nontender with normal bowel sounds in all quadrants. EXTREMITIES: Well-developed bilateral upper extremities with functional range of motion and well-developed right lower extremity missing Hallucis due to amputation with functional Range of Motion. Left lower extremity with dysfunctional guarding around the left knee and a wound vacuum-assisted closure (VAC) on inferior-anterior to the patella. Normal coloration and warmth to the distal left lower extremity. NEUROLOGIC: Patient is alert and oriented to person, place, time, and general situation. Speech is clear, coherent, and appropriate. Affect is pleasant and cooperative. Memory appears to be intact. Motor is intact and good to full in bilateral upper extremities and right lower extremity. Left lower extremity is fair due to the guarding. Light touch is grossly intact to bilateral upper and lower extremities. Tone is within normal limits in bilateral upper and lower extremities. Deep tendon reflexes are 1/4 biceps, triceps, brachioradialis, right knee jerk. No clonus on the right ankle. ASSESSMENT/PLAN: 1. Rehabilitation of infected left total knee replacement status post left total knee revision with antibiotic-impregnated spacer: Patient admitted today to start a program of musculoskeletal rehabilitation with physical and occupational therapy, rehabilitation nursing, and podiatry. Patient is anticipated to be able to participate in and benefit from 3 hours of therapy per day to regain function and mobility and allow him to go up and down 8-10 stairs to get in and out from the second floor that he lives on. Patient will also require moderate distance mobility as well as being standby assistance to modified independence in ADLs and mobility to return home with his to assist him. He at this time is continued on a wound VAC and IV vancomycin 1500 mg every 48 hours for this infection, and therapy will be adapted around using the wound VAC and his IV antibiotics. Patient is motivated. 2. Methicillin-resistant Staphylococcus aureus (MRSA) bacteria/knee infection: Patient on vancomycin to treat this. Consult has gone to Dr. Don Collins and also onto pharmacology for vancomycin to help manage this. Patient's chronic kidney disease, stage III, will be impacting upon this, and adjustment of dose will be made accordingly. Patient is reported to only need treatment into April 23 with the IV antibiotic. 3. Chronic kidney disease, stage III. Urology has been consulted, and Dr. Ye has been notified and will be seeing the patient to help with management of patient's chronic kidney disease and also effects of his antibiotic and multiple medical conditions. 4. Atherosclerotic cardiovascular disease, including atrial fibrillation, currently rate controlled and blood pressure controlled with amlodipine, Zebeta, Lasix, and tamsulosin. Will have parameters for these medications, as patient's heart rate a bit low at 50 today. Patient also with elevated cholesterol will be continued on pravastatin. 5. Cataracts. Patient will continue with his Brimonidine and dorzolamide/ timolol eye drops. 6. Benign prostatic hypertrophy (BPH). Patient will continue with tamsulosin and Avodart. 7. Gout. Patient will continue on Uloric. Patient with consults to nephrology for chronic kidney disease, internal medicine for multiple medical problems, and infectious disease for the infected knee and antibiotic management. POSTADMISSION PHYSICIAN EVALUATION: Patient consistent with preadmission status and screening, and I do feel is going to be participate in and benefit from 3 hours of acute, intensive physical therapy (PT)/occupational therapy (OT) per day to allow him to return home with his with a fair to good prognosis. I anticipate a length hof stay at this time of 10 days, depending on his left lower extremity comfort and need for ongoing wound vacuum. Time spent on chart review, history and physical, and documentation is greater than 70 minutes. TRINH
--- NOTE | 2017-04-09 23:08 | PHACANCOPD ---
PHARMACY VANCOMYCIN DOSING Pt Demographics Demographics Patient Age:71 , Weight:107.400 , Gender: male Adjusted Body Weight Date: 04/09/17, Adjusted Body Weight: [89.52] Kg Events Past 24 Hours Events Past 24 Hours: YES: Other (MRSA infected left knee prosthesis w/ prothesis removal and cement placement) Vancomycin Vancomycin indication: Infected TKA with CKD3 Vancomycin Target Ranges: 10-20 mcg/ml Vancomycin Load Y/N: No Load Dose Date Time Vancomycin Load Dose: Date: Time: Vancomycin Dose Date: 04/09/17. Current Vancomycin Dose: Intermittent Dosing?: Yes Labs Creatinine Clearance Date:04/09/17. Estimated Creatinine Clearance: [~59.4ml/min]. Pending Labs Vancomycin random level scheduled 04/09/17 @0600 Assessment and Plan Maintaining Current Dose?: Yes Reason for dose change: No Dose Change Pharmacist Note Pharmacist Note Date: 04/09/17. Pharmacist note: Patient was started on IV vancomycin therapy at [facility] on 03/12/17 for the treatment of an MRSA infected left knee prosthesis, s/p prothesis removal with cement placement for an anticipated 10 weeks of therapy - this is week 5. Per discussion with the pharmacy staff managing the patient's vancomycin at [facility] it appears that the patient was on a regimen of 1750mg IV Q48H up until 04/06/17 when the regimen was changed to 1500mg IV Q48H based on a last trough level of 17.1mcg/ml that was drawn on 04/06/17. According to [facility] records the patient received one dose of vancomycin 1500mg which started on 04/08/17 @ ~1100 - which is also the last dose of vancomycin the patient received. Based on their newly started Q48H regimen the patient is not due for another dose until @1100. Today's scr from [place]'s records was 1.27. A random vancomycin level has been scheduled for tomorrow morning, 04/10/17, @0600. We will follow-up on this level and resume dosing accordingly. JANUSZ GONZALEZ PHARMACY Apr 09, 2017 23:08
[2017-04-10 06:00] VITALS: BP 149/69
[2017-04-10] MEDS ORDERED: VANCOMYCIN HCL 1,500 MG, VIAL MATE ADAPTER 1 EACH in D5W 250 ML IV SCH (06:00)
[2017-04-10] MEDS: oxyCODONE 5MG TAB PO PRN ×4 (06:24→21:17)
[2017-04-10] MEDS: ACETAMINOPHEN TAB 650MG DOSE (2X325MG) PO PRN ×2 (06:25→12:25)
[2017-04-10 07:01] LABS: BASO % 0.5 % (0.0-1.0); EOS # 0.2 10^3/uL (0.0-0.50); EOS % 3.9 % (0.0-3.0); IMMATURE GRANULOCYTE % 0.3 % (0-0); LYMPH # 0.7 10^3/uL (1.5-4.5); LYMPH % 18.9 % (24.0-44.0); MEAN CORPUSCULAR HEMOGLOBIN 29.1 pg (27.0-33.0); MEAN CORPUSCULAR HGB CONC 32.5 g/dl (32.0-36.5); MEAN CORPUSCULAR VOLUME 89.4 fl (80.0-96.0); MONO # 0.3 10^3/uL (0.0-0.8); MONO % 8.7 % (0.0-5.0); NEUTROPHILS # 2.6 10^3/uL (1.8-7.7); NEUTROPHILS % 67.7 % (36.0-66.0); PLATELET COUNT, AUTOMATED 233 10^3/uL (150-450); RED CELL DISTRIBUTION WIDTH 13.9 % (11.5-14.5); WHITE BLOOD COUNT 3.8 10^3/uL (4.0-10.0)
[2017-04-10 07:14] LABS: ALBUMIN 2.8 GM/DL (3.2-5.2); ALBUMIN/GLOBULIN RATIO 0.65 (1.00-1.93); BILIRUBIN,TOTAL 0.4 MG/DL (0.2-1.0); CALCIUM LEVEL 8.6 MG/DL (8.8-10.2); CREATININE FOR GFR 1.44 MG/DL (0.70-1.30); GLOMERULAR FILTRATION RATE 51.6 (>42); MAGNESIUM LEVEL 2.3 MG/DL (1.8-2.4); POTASSIUM SERUM 4.4 MEQ/L (3.5-5.1); TOTAL PROTEIN 7.1 GM/DL (6.4-8.2); URIC ACID 5.7 MG/DL (3.5-7.2); VANCOMYCIN RANDOM 20.8 UG/ML
[2017-04-10 07:29] LABS: ERYTHROCYTE SEDIMENTATION RATE 73 mm/hr (0-20)
[2017-04-10] MEDS: HumaLOG INSULIN (NovoLOG) PER UNIT SC SCH ×4 (07:30→21:17)
[2017-04-10 08:21] VITALS: BP 124/58
[2017-04-10] MEDS: DOCUSATE SODIUM 100 MG CAP PO SCH ×2 (08:23→20:38)
[2017-04-10] MEDS: amLODIPine 5 MG TAB PO SCH (08:26)
[2017-04-10] MEDS: MULTIVITAMINS/MINERALS THERAP 1 TAB PO SCH (08:26)
[2017-04-10] MEDS: DUTASTERIDE 0.5 MG CAP (AVODART) PO SCH (08:27)
[2017-04-10] MEDS: PRAVASTATIN 10 MG TAB PO SCH (08:27)
[2017-04-10] MEDS: FEBUXOSTAT 40 MG TABLET (ULORIC) PO SCH (08:27)
[2017-04-10] MEDS: APIXABAN 5 MG TAB (ELIQUIS) PO SCH ×2 (08:27→20:36)
[2017-04-10] MEDS: FUROSEMIDE 20 MG TAB PO SCH (08:27)
[2017-04-10] MEDS: MAGNESIUM OXIDE 400 MG TAB (MAG-OX) PO SCH ×2 (08:27→20:36)
[2017-04-10] MEDS: TAMSULOSIN 0.4 MG CAP PO SCH (08:28)
[2017-04-10] MEDS: COSOPT OCUMETER PLUS 10ML (DORZOLAMIDE/TIMOLOL) OU SCH ×2 (08:28→20:37)
[2017-04-10] MEDS: BRIMONIDINE 0.15% OPHTH SOLN 5 ML OU SCH ×2 (08:28→20:37)
[2017-04-10] MEDS: BISOPROLOL FUMARATE 10 MG TAB PO SCH (08:34)
--- NOTE | 2017-04-10 13:28 | PHACANCOPD ---
PHARMACY VANCOMYCIN DOSING Pt Demographics Demographics Patient Age:71 , Weight:107.400 , Gender: male Adjusted Body Weight Date: 04/09/17, Adjusted Body Weight: [89.52] Kg Vancomycin Vancomycin indication: Infected TKA with CKD3 Vancomycin Target Ranges: 10-20 mcg/ml Vancomycin Load Y/N: No Load Dose Date Time Vancomycin Load Dose: Date: Time: Vancomycin Dose Date: 04/09/17. Current Vancomycin Dose: [1G Q24H] Intermittent Dosing?: Yes Labs Labs Vital Signs Label Value Date Time Patient Temperature 98.7 degrees F 04/10/17 0600 Temperature Source Temporal 04/10/17 0600 Patient Temperature 98.2 degrees F 04/09/171999 Temperature Source Temporal 04/09/171999 Item Value Date Time White Blood Count 3.8 10^3/uL L 04/10/17 06 Random Vancomycin Level 20.8 UG/ML 04/10/17644 Creatinine 1.44 MG/DL H 04/10/17644 Creatinine Clearance Date:04/09/17. Estimated Creatinine Clearance: [~59.4ml/min]. Pending Labs Vancomycin random level scheduled 04/09/17 @0600 Assessment and Plan Maintaining Current Dose?: Yes Reason for dose change: No Dose Change Pharmacist Note Pharmacist Note Date: 04/10/17: Random level this AM came back@ 20.8mcg/ml. After talking to Dr. Collins she suggested that we start pt on Vanco 1G IV Q24H. She mentioned that the patients kidney function varies drastically between good and bad. She would like us to schedule frequent troughs in order to keep a closer eye on his levels. We will continue to monitor and adjust dose as necessary. Date: 04/09/17. Pharmacist note: Patient was started on IV vancomycin therapy at [facility] on 03/12/17 for the treatment of an MRSA infected left knee prosthesis, s/p prothesis removal with cement placement for an anticipated 10 weeks of therapy - this is week 5. Per discussion with the pharmacy staff managing the patient's vancomycin at [facility] it appears that the patient was on a regimen of 1750mg IV Q48H up until 04/06/17 when the regimen was changed to 1500mg IV Q48H based on a last trough level of 17.1mcg/ml that was drawn on 04/06/[address]. [address] [facility] records the patient received one dose of vancomycin 1500mg which started on 04/08/17 @ ~1100 - which is also the last dose of vancomycin the patient received. Based on their newly started Q48H regimen the patient is not due for another dose until @1100. Today's scr from [place]'s records was 1.27. A random vancomycin level has been scheduled for tomorrow morning, 04/10/17, @0600. We will follow-up on this level and resume dosing accordingly. MORENO LEWIS PHARMACY Apr 10, 2017 13:28
[2017-04-10 14:00] VITALS: BP 152/67
[2017-04-10] MEDS ORDERED: VANCOMYCIN HCL 1,000 MG, VIAL MATE ADAPTER 1 EACH in D5W 250 ML IV SCH (15:00)
[2017-04-10] MEDS ORDERED: SODIUM CHLORIDE 0.9% INJ 10 ML SYR IV PRN (15:15)
--- NOTE | 2017-04-10 17:05 | IPNPDOC ---
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 DATE OF SERVICE: 04/10/17 DATE OF ADMISSION: Apr 09, 2017 at 16:28 INPATIENT REHABILITATION ADMISSION DAY: #2 SUBJECTIVE: The patient is a 71-year-old right-handed (Demetris) male who has had both knees replaced and end-stage osteoarthritis and had osteomyelitis of the right great toe and methicillin-resistant Staphylococcus aureus (MRSA) bacteremia, atrial fibrillation, type 2 diabetes, sleep apnea, hypertension, hyperlipidemia, chronic kidney disease, stage III, chronic obstructive pulmonary disease (COPD), and gout who developed infection of his left total knee and had surgical removal on 03/20/2017 with revision on approximately 04/01/2017. Patient having difficulty with pain as well as wound healing and has to be able to do 8 steps to return to home along with being standby assist to independent in activities of daily living (ADLs) and moderate distance mobility. Patient continues to marked left knee pain with wound vacuum dressing changes and movement of LLE. However, feels better and now ambulating to the bathroom. No other complaints. ALLERGIES: See Below MEDICATIONS: Reviewed, see below. OBJECTIVE: VITAL SIGNS: Please see below. PHYSICAL EXAMINATION: GENERAL: Tall slightly overweight 71-year-old male who looks younger than stated age with a wound VAC on his left knee below the patella and across the tibial tuberosity with wound with a little over one centimeter at the tibial plateau. Patient is in mild musculoskeletal distress and is alert and well oriented and very motivated for therapy. HEENT: Normocephalic/atraumatic. CARDIOVASCULAR: Mildly bradycardic but regular rate and rhythm with normal S1 and S2 without S3-S4 murmurs or rubs. There is an occasional ectopic beat. Pulses are 2 out 4 for bilateral radial arteries at the wrist. Good skin perfusion in bilateral upper and distal lower extremities. LUNGS: All travis clear to auscultation. ABDOMEN: Mildly obese with normal bowel sounds in all quadrants. NEUROLOGICAL: Patient is alert and oriented 4. Speech is clear coherent and appropriate. Affect is pleasant and cooperative. Memory is good. Motor and sensory motor bilateral upper extremities and right lower extremity are good. Patient with increase sensation around the left knee and some apprehension with left lower extremity movement. SKIN: Patient with open anterior incision from inferior patella to low the tibial tuberosity on the left lower extremity. No heat redness or sanguinous discharge is present. LABORATORY DATA: Reviewed. Please see below. MICROBIOLOGY: Please see below. IMAGING: No new imaging. DVT prophylaxis ordered?: Patient is on Eliquis with SHEA hose and sequential compression stocking on the right lower extremity. ASSESSMENT AND PLAN: 1. Rehabilitation of infected left TKA status post revision with antibiotic impregnated spacer: Patient starting program of physical occupational therapy showing good motivation and has made some good advancement in transfers and ambulation from last night to this morning. He does continue to have problems with pain whenever wound dressings or touch air movement around the left knee is involved. Patient is being treated with oxycodone 5 mg every 4 hours when necessary and this normally is handling his pain well except when dressing change or significant left knee movements involved. I am anticipating patient will require 10 days to reach discharge goals. 2. MRSA infection of knee and bacteremia: Dr. Collins's medication adjustment and baseline test orders are appreciated. Patient to continue with the IV vancomycin and upon completion of inpatient rehabilitation will be transitioned to home infusion. Patient was surprisingly low WBC count. 3. Moderate anemia: H&H is 9.3 and 28.6%. We will continue to monitor this. 4. Chronic kidney disease stage III: Dr. Ye's consult appreciated. Patient currently they're his baseline creatinine. Nephrology to make adjustments as appropriate. 5. Type 2 diabetes mellitus: Patient with early good blood sugar control since admission. We will continue to monitor. TIME SPENT: Chart Review, examination and documentation require greater than 25 minutes. Allergies Coded Allergies: Thiopental (Verified Allergy, Severe, THROAT CONSTRICTION, 08/24/12) Enoxaparin (Verified Allergy, Intermediate, Hives, 04/10/17) Vital Signs Vital Signs Date Time Temp Pulse Resp B/P (MAP) Pulse Ox O2 Delivery O2 Flow Rate FiO2 04/10/17 14:00 97.5 52 18 152/67 (95) 99 Room Air Laboratory Data CBC/BMP Laboratory Tests 04/10/17 06:45 Red Blood Count 3.20 L, Mean Corpuscular Volume 89.4, Mean Corpuscular Hemoglobin 29.1, Mean Corpuscular Hemoglobin Concent 32.5, Red Cell Distribution Width 13.9, Neutrophils (%) (Auto) 67.7 H, Lymphocytes (%) (Auto) 18.9 L, Monocytes (%) (Auto) 8.7 H, Eosinophils (%) (Auto) 3.9 H, Basophils (%) (Auto) 0.5, Neutrophils # (Auto) 2.6, Lymphocytes # (Auto) 0.7 L, Monocytes # ( Auto) 0.3, Eosinophils # (Auto) 0.2, Basophils # (Auto) 0.0, Calcium Level 8.6 L , Aspartate Amino Transf (AST/SGOT) 103 H, Alanine Aminotransferase (ALT/SGPT) 105 H, Alkaline Phosphatase 270 H, Total Bilirubin 0.4, Uric Acid 5.7, Total Protein 7.1, Albumin 2.8 L Labs 24H Laboratory Tests 2 04/09/17 20:41: Bedside Glucose (Misc Panel) 198H 04/09/17 21:15: Urine Appearance HAZY, Urine Color YELLOW, Urine pH 7.0, Urine Specific [place] 1.015, Urine Protein NEGATIVE, Urine Glucose (UA) NEGATIVE, Urine Ketones NEGATIVE, Urine Urobilinogen 0.2, Urine Bilirubin NEGATIVE, Urine Leukocyte Esterase NEGATIVE, Urine Blood NEGATIVE, Urine Nitrite NEGATIVE, Urine WBC (Auto ) 1, Urine RBC (Auto) 5H, Urine Hyaline Casts (Auto) 0, Urine Bacteria (Auto) NEGATIVE, Urine Squamous Epithelial Cells 1, Urine Sperm (Auto) 04/10/17 06:45: Immature Granulocyte % (Auto) 0.3H, White Blood Count 3.8L, Red Blood Count 3.20L, Hemoglobin 9.3L, Hematocrit 28.6L, Mean Corpuscular Volume 89.4, Mean Corpuscular Hemoglobin 29.1, Mean Corpuscular Hemoglobin Concent 32.5, Red Cell Distribution Width 13.9, Platelet Count 233, Neutrophils (%) (Auto) 67.7H, Lymphocytes (%) (Auto) 18.9L, Monocytes (%) (Auto) 8.7H, Eosinophils (%) (Auto) 3.9H, Basophils (%) (Auto) 0.5, Neutrophils # (Auto) 2.6, Lymphocytes # (Auto) 0.7L, Monocytes # (Auto) 0.3, Eosinophils # (Auto) 0.2, Basophils # (Auto) 0.0, Immature Granulocyte # (Auto) 0.0, Nucleated Red Blood Cells % (auto) 0.0, Erythrocyte Sedimentation Rate 73H, Anion Gap 5L, Glomerular Filtration Rate 51.6, Blood Urea Nitrogen 25H, Creatinine 1.44H, Sodium Level 139, Potassium Level 4.4, Chloride Level 107, Carbon Dioxide Level 27, Calcium Level 8.6L, Aspartate Amino Transf (AST/SGOT) 103H, Alanine Aminotransferase (ALT/SGPT) 105H , Alkaline Phosphatase 270H, Total Bilirubin 0.4, Uric Acid 5.7, Total Protein 7.1, Albumin 2.8L, Magnesium Level 2.3, C-Reactive Protein, Quantitative 0.60H, Albumin/Globulin Ratio 0.65L, Random Vancomycin Level 20.8 04/10/17 11:24: Bedside Glucose (Misc Panel) 149H 04/10/17 16:17: Bedside Glucose (Misc Panel) 179H Current Medications Current Medications Current Medications Acetaminophen (Tylenol Tab) 650 mg Q6HP PRN PO MILD PAIN (PS 1-4) Last administered on 04/10/17 12:25; Start 04/09/17 at 15:15; Stop 05/09/17 at 15 :14 Amlodipine Besylate (Norvasc) 5 mg DAILY PO Last administered on 04/10/17 08: 26; Start 04/10/17 at 09:00; Stop 05/10/17 at 08:59 Apixaban (Eliquis) 5 mg BID PO Last administered on 04/10/17 08:27; Start at 21:00; Stop 04/16/17 at 20:59 Benzonatate (Tessalon Perles) 100 mg TIDP PRN PO COUGH; Start 04/09/17 at 15: 15; Stop 05/09/17 at 15:14 Bisoprolol Fumarate (Zebeta) 10 mg DAILY PO ; Start 04/09/17 at 09:00; Stop at 08:59 Brimonidine Tartrate (Alphagan P 0.15%) 1 drop BID OU Last administered on 08:28; Start 04/09/17 at 21:00; Stop 05/09/17 at 20:59 Calcium Carbonate (Tums) 500 mg Q4HP PRN PO INDIGESTION; Start 04/09/17 at 15: 15; Stop 05/09/17 at 15:14 Dextrose (Dextrose 50%) 25 ml ASDIRECTED PRN IV SEE LABEL COMMENTS; Start at 15:15; Stop 05/09/17 at 15:14 Docusate Sodium (Colace) 100 mg BID PO ; Start 04/09/17 at 21:00; Stop at 20:59 Dorzolamide/ Timolol (Cosopt Ocumeter Plus) 1 drop BID OU Last administered on 04/10/17 08:28; Start 04/09/17 at 21:00; Stop 05/09/17 at 20:59 Dutasteride (Avodart) 0.5 mg DAILY PO Last administered on 04/10/17 08:27; Start 04/09/17 at 09:00; Stop 05/09/17 at 08:59 Febuxostat (Uloric) 40 mg DAILY PO Last administered on 04/10/17 08:27; Start 04/10/17 at 09:00; Stop 05/10/17 at 08:59 Furosemide (Lasix) 20 mg DAILY PO Last administered on 04/10/17 08:27; Start 04/09/17 at 09:00; Stop 05/09/17 at 08:59 Glucagon (Glucagon) 1 mg ASDIRECTED PRN SC SEE LABEL COMMENTS; Start 04/09/17 at 15:15; Stop 05/09/17 at 15:14 Glucose (Glucose) 16 GM ASDIRECTED PRN PO SEE LABEL COMMENTS; Start 04/09/17 at 15:15; Stop 05/09/17 at 15:14 Heparin Sodium (Heparin (Flush)) 200 units ASDIRECTED PRN IV SEE LABEL COMMENTS Last administered on 04/10/17 15:56; Start 04/10/17 at 15:15; Stop 05/10/17 at 15:14 Heparin Sodium (Heparin (Flush)) 200 units PICC IV ; Start 04/10/17 at 18:00; Stop 05/10/17 at 17:59 Home Med (Med Rec Complete!) ASDIRECTED XX ; Start 04/09/17 at 17:45; Stop at 18:17; Status DC Insulin Detemir (Levemir Insulin) 36 units QHS SC Last administered on 20:46; Start 04/09/17 at 21:00; Stop 05/09/17 at 20:59 Insulin Human Lispro (HumaLOG INSULIN) See Protocol Table AC SC Last administered on 04/10/17 12:25; Start 04/09/17 at 17:30; Stop 05/09/17 at 17 :29 Insulin Human Lispro (HumaLOG INSULIN) See Protocol Table QHS SC ; Start at 21:00; Stop 05/09/17 at 20:59 Lactobacillus Acidophilus (Bacid) 1 ea BID PRN PO DIARRHEA; Start 04/09/17 at 15:15; Stop 05/09/17 at 15:14 Magnesium Oxide (Mag-Ox) 400 mg BID PO Last administered on 04/10/17 08:27; Start 04/09/17 at 21:00; Stop 05/09/17 at 20:59 Multivitamins (Theragram-M) 1 tab DAILY PO Last administered on 04/10/17 08: 26; Start 04/10/17 at 09:00; Stop 05/10/17 at 08:59 Non-Formulary Medication ( See Comment Field Below ) [facility]. DOSING ASDIRECTED XX ; Start 04/09/17 at 20:30; Stop 04/10/17 at 13:19; Status DC Oxycodone HCl (Roxicodone, Oxyir) 5 mg Q4HP PRN PO PAIN SCALE 6-10 Last administered on 04/10/17 10:20; Start 04/09/17 at 15:15; Stop 04/16/17 at 15 :14 Pravastatin Sodium (Pravachol) 5 mg DAILY PO Last administered on 04/10/17 08 :27; Start 04/10/17 at 09:00; Stop 05/10/17 at 08:59 Psyllium Hydrophilic Mucilloid (Metamucil) 1 pkt DAILY PRN PO BOWEL CARE/ CONSTIPATION; Start 04/09/17 at 15:15; Stop 05/09/17 at 15:14 Senna (Senokot) 2 tab QHS PO ; Start 04/09/17 at 21:00; Stop 05/09/17 at 20:59 Sodium Chloride (Saline Lock Flush) 10 ml ASDIRECTED PRN IV SEE LABEL COMMENTS Last administered on 04/10/17 15:55; Start 04/10/17 at 15:15; Stop 05/10/17 at 15:14 Sodium Chloride (Saline Lock Flush) 10 ml PICC IV ; Start 04/10/17 at 18:00; Stop 05/10/17 at 17:59 Tamsulosin HCl (Flomax) 0.4 mg DAILY PO Last administered on 04/10/17 08:28; Start 04/10/17 at 09:00; Stop 05/10/17 at 08:59 Vancomycin HCl 1000 mg/IV Miscellaneous Supplies 1 each/ Dextrose 270 ml @ 270 mls/hr Q24H IV Last administered on 04/10/17 14:50; Start 04/10/17 at 15:00 ; Stop 04/17/17 at 14:59 Vancomycin HCl 1500 mg/IV Miscellaneous Supplies 1 each/ Dextrose 280 ml @ 270 mls/hr Q48H IV ; Start 04/10/17 at 06:00; Stop 04/10/17 at 06:00; Status DC SUSHANT MITCHELL MD Apr 10, 2017 17:05
--- NOTE | 2017-04-10 17:06 | IPNPDOC ---
Text Note Date of Service The patient was seen on 04/10/17. NOTE Subjective: Patient is a 71 year old Male with a PMHx of CAD, CHF, A. fib s/p ablation, s/p PM / AICD, HTN, DM2, COPD, ADAIR on CPAP, and Neuropathy. Patient had an MRSA infection of diabetic right foot leading to seeding of infection to left knee prosthesis. He received chronic antibiotics and failed to improved. He went to [facility] and had removal of left knee prosthesis and cement placement. He was transferred to [facility] for continued rehabilitation without weight bearing. Patient was seen and examined at the bedside. Currently, denies any nausea, vomiting, chest pain, shortness of breath, palpitations, abdominal pain, constipation, diarrhea or dysuria. Objective: Vitals (See below) General: Lying in bed, no acute distress, comfortable, AAOx3 HEENT: NC, AT CVS: IrIr, +S1S2 Lungs: Fair air entry b/l, -w/r/r Abdomen: Soft, ND, NT Extremities: - Edema, - Calf tenderness, left leg in fixation device with wound VAC present Assessment and plan: MRSA infection of left prosthetic knee - s/p removable of prosthetic device and cement placement - Physical therapy as per Dr. Pa - Will follow ESR, CRP and CBC - Dr. Collins has been consulted for antibiotic therapy; currently on vancomycin CAD CHF A. fib s/p ablation s/p PM / AICD eloquent - Continue rate control with bisoprolol - Continue anticoagulation with Eliquis HTN - Blood pressure moderately controlled - c/w bisoprolol and amlodipine DM2 - c/w insulin sliding scale COPD - No evidence of exacerbation - c/w inhaled therapy ADAIR on CPAP - Allow home CPAP use BPH - c/w tamsulosin and dutasteride Gout - c/w Febuxostat DLP - c/w pravastatin Neuropathy - Chronic Constipation - c/w current bowel regimen DVT prophylaxis - On full anticoagulation with Eliquis VS,Fishbone, I+O VS, Fishbone, I+O Laboratory Tests 04/10/17 06:45 Red Blood Count 3.20 L, Mean Corpuscular Volume 89.4, Mean Corpuscular Hemoglobin 29.1, Mean Corpuscular Hemoglobin Concent 32.5, Red Cell Distribution Width 13.9, Neutrophils (%) (Auto) 67.7 H, Lymphocytes (%) (Auto) 18.9 L, Monocytes (%) (Auto) 8.7 H, Eosinophils (%) (Auto) 3.9 H, Basophils (%) (Auto) 0.5, Neutrophils # (Auto) 2.6, Lymphocytes # (Auto) 0.7 L, Monocytes # ( Auto) 0.3, Eosinophils # (Auto) 0.2, Basophils # (Auto) 0.0, Calcium Level 8.6 L , Aspartate Amino Transf (AST/SGOT) 103 H, Alanine Aminotransferase (ALT/SGPT) 105 H, Alkaline Phosphatase 270 H, Total Bilirubin 0.4, Uric Acid 5.7, Total Protein 7.1, Albumin 2.8 L Vital Signs Date Time Temp Pulse Resp B/P (MAP) Pulse Ox O2 Delivery O2 Flow Rate FiO2 04/10/17 14:00 97.5 52 18 152/67 (95) 99 Room Air I&O- Last 24 Hours up to 6 AM 04/11/17 06:00 Intake Total 600 ml Output Total 500 ml Balance 100 ml BRYON SIGALA MD Apr 10, 2017 17:06
[2017-04-10] MEDS: SODIUM CHLORIDE 0.9% INJ 10 ML SYR IV SCH (17:12)
[2017-04-10 20:00] VITALS: BP 142/64
[2017-04-10] MEDS: LEVEMIR (INSULIN DETEMIR) 1 UNITS/0.01ML SC SCH (20:37)
[2017-04-10] MEDS: SENNA 8.6 MG TAB (SENOKOT) PO SCH (20:39)
[2017-04-11] MEDS: SODIUM CHLORIDE 0.9% INJ 10 ML SYR IV SCH ×2 (05:50→17:16)
[2017-04-11 06:00] VITALS: BP 146/70
[2017-04-11] MEDS: HumaLOG INSULIN (NovoLOG) PER UNIT SC SCH ×4 (07:30→21:00)
[2017-04-11] MEDS: DOCUSATE SODIUM 100 MG CAP PO SCH ×2 (07:55→21:00)
[2017-04-11 08:58] VITALS: BP 131/67
[2017-04-11] MEDS: FEBUXOSTAT 40 MG TABLET (ULORIC) PO SCH (09:05)
[2017-04-11] MEDS: MULTIVITAMINS/MINERALS THERAP 1 TAB PO SCH (09:05)
[2017-04-11] MEDS: TAMSULOSIN 0.4 MG CAP PO SCH (09:06)
[2017-04-11] MEDS: PRAVASTATIN 10 MG TAB PO SCH (09:06)
[2017-04-11] MEDS: MAGNESIUM OXIDE 400 MG TAB (MAG-OX) PO SCH ×2 (09:06→20:51)
[2017-04-11] MEDS: BISOPROLOL FUMARATE 10 MG TAB PO SCH (09:06)
[2017-04-11] MEDS: DUTASTERIDE 0.5 MG CAP (AVODART) PO SCH (09:06)
[2017-04-11] MEDS: amLODIPine 5 MG TAB PO SCH (09:06)
[2017-04-11] MEDS: APIXABAN 5 MG TAB (ELIQUIS) PO SCH ×2 (09:07→20:51)
[2017-04-11] MEDS: ACETAMINOPHEN TAB 650MG DOSE (2X325MG) PO PRN ×2 (09:07→20:50)
[2017-04-11] MEDS: FUROSEMIDE 20 MG TAB PO SCH (09:07)
[2017-04-11] MEDS: COSOPT OCUMETER PLUS 10ML (DORZOLAMIDE/TIMOLOL) OU SCH ×2 (09:07→20:51)
[2017-04-11] MEDS: BRIMONIDINE 0.15% OPHTH SOLN 5 ML OU SCH ×2 (09:07→20:51)
--- NOTE | 2017-04-11 09:50 | IPN ---
DATE: 04/10/2017 SUBJECTIVE: The patient was seen and examined at the bedside today, morning. The patient is hemodynamically stable. His renal function is stable. He denies any active complaints. REVIEW OF SYSTEMS: The patient denies any fever, chills, rigors, headache, chest pain, shortness of breath, pain in abdomen, constipation or diarrhea. He does report a mild amount of pain in the left knee wound VAC site. The rest of the review of systems is negative. OBJECTIVE: VITAL SIGNS: Temperature is 97.5 degrees Fahrenheit, blood pressure is 152/67, pulse is 52, respiratory rate of 18, saturating 99% on room air. INTAKE/OUTPUT: Urine output recorded as 1 liter so far today since overnight. Weight on the bed scale is not available. PHYSICAL EXAMINATION: GENERAL: The patient is awake, alert, oriented times three, laying in bed in no apparent distress. HEAD AND NECK EXAM: Extraocular muscles intact. Pupils equally round and reactive to light. Mucous membranes are moist. Neck is supple. There is no jugular venous distention (JVD). CARDIOVASCULAR: S1, S2, regular rate. No murmur, rub or gallop. RESPIRATORY: Chest is clear to auscultation bilaterally. Bilateral equal air entry. No rales or rhonchi. ABDOMEN: Soft, obese, positive bowel sounds, nontender. No ascites. No organomegaly. MUSCULOSKELETAL: The patient has a wound VAC in the left leg. The left leg has a brace as well. There is very trace edema of the right leg, and there is an old surgical incision shelly in the right knee. CENTRAL NERVOUS SYSTEM: No focal neurological deficit. Power is 5/5 in bilateral upper extremities. He is oriented times three. PSYCHIATRIC: Normal mood and affect. LAB REVIEW: CBC showed a WBC of 3.8, hemoglobin 9.3, platelets are 233. BMP today morning showed sodium 139, potassium 4.4, chloride 107, bicarbonate 27, BUN 25, creatinine 1.44, calcium is 8.6, albumin 2.8. Random vancomycin level is 20.8. CURRENT INPATIENT MEDICATIONS: The patient's medications were all reviewed by me. His vancomycin dose has been changed to 1 gram IV every 24 hours. There is no other change in the medications today as compared with yesterday. ASSESSMENT: A 71-year-old male with a past medical history of chronic kidney disease, stage III, history of hypertension, paroxysmal atrial fibrillation, BPH, gout secondary to chronic kidney disease, diabetes mellitus type 2, status post removal of the infected prosthetic left knee joint with debridement, washing and wound VAC placement. He is currently on IV vancomycin for methicillin-resistant Staphylococcus aureus (MRSA) infection. PLAN: 1. Chronic kidney disease stage III. Patient's renal function is stable at this time. His creatinine is 1.44, which is close to his outpatient labs. Avoid angiotensin-converting enzyme (ALONDRA) inhibitors, nonsteroidal anti-inflammatory drugs (NSAIDs) at this time. Monitor vancomycin level and try to keep the level between 15-20. 2. Hypertension. Blood pressure is acceptable at this time. Continue current dose of amlodipine 5 mg daily, bisoprolol 10 mg daily. 3. Methicillin-resistant Staphylococcus aureus infection of the left prosthetic knee joint, status post removal of the left knee prosthesis and wound VAC placement. Infectious disease (ID) is also involved. Vancomycin dose has been decreased to 1 gram daily because of vancomycin level slightly above 20. 4. Chronic atrial fibrillation. The patient is rate controlled at this time. He is currently on Eliquis. Continue current dose of bisoprolol for rate control.
[2017-04-11 14:00] VITALS: BP 150/67
--- NOTE | 2017-04-11 15:00 | PHACANCOPD ---
PHARMACY VANCOMYCIN DOSING Pt Demographics Demographics Patient Age:71 , Weight:107.400 , Gender: male Adjusted Body Weight Date: 04/09/17, Adjusted Body Weight: [89.52] Kg Vancomycin Vancomycin indication: Infected TKA with CKD3 Vancomycin Target Ranges: 10-20 mcg/ml Vancomycin Load Y/N: No Load Dose Date Time Vancomycin Load Dose: Date: Time: Vancomycin Dose Date: 04/11/17. Current Vancomycin Dose: [750MG IV Q24H @ 1800] Date: 04/09/17. Current Vancomycin Dose: [1G Q24H] Intermittent Dosing?: Yes Labs Labs Item Value Date Time White Blood Count 3.8 10^3/uL L 04/10/17 0645 Creatinine 1.44 MG/DL H 04/10/17 0645 Random Vancomycin Level 20.8 UG/ML 04/10/17 0645 Vancomycin Level Trough 22.5 UG/ML H 04/11/17 1407 Creatinine Clearance Date:04/09/17. Estimated Creatinine Clearance: [~59.4ml/min]. Pending Labs Vancomycin random level scheduled 04/12/17 @1700 Assessment and Plan Maintaining Current Dose?: No Reason for dose change: Trough too high Pharmacist Note Pharmacist Note Date: 04/11/17. Pharmacist note:Patients trough returned @ 22.5. Dose was changed to 750mg iv q24h. Trough is scheduled for tomorrow (04/12) @ 1700. Continue to monitor renal function and adjust dosing as needed. Date: 04/10/17: Random level this AM came back@ 20.8mcg/ml. After talking to Dr. Collins she suggested that we start pt on Vanco 1G IV Q24H. She mentioned that the patients kidney function varies drastically between good and bad. She would like us to schedule frequent troughs in order to keep a closer eye on his levels. We will continue to monitor and adjust dose as necessary. Date: 04/09/17. Pharmacist note: Patient was started on IV vancomycin therapy at [facility] on 03/12/17 for the treatment of an MRSA infected left knee prosthesis, s/p prothesis removal with cement placement for an anticipated 10 weeks of therapy - this is week 5. Per discussion with the pharmacy staff managing the patient's vancomycin at [facility] it appears that the patient was on a regimen of 1750mg IV Q48H up until 04/06/17 when the regimen was changed to 1500mg IV Q48H based on a last trough level of 17.1mcg/ml that was drawn on 04/06/17. According to [facility] records the patient received one dose of vancomycin 1500mg which started on 04/08/17 @ ~1100 - which is also the last dose of vancomycin the patient received. Based on their newly started Q48H regimen the patient is not due for another dose until @1100. Today's scr from [facility] records was 1.27. A random vancomycin level has been scheduled for tomorrow morning, 04/10/17, @0600. We will follow-up on this level and resume dosing accordingly. ANNE DANIEL PHARMACY Apr 11, 2017 15:00
[2017-04-11] MEDS: VANCOMYCIN HCL 750 MG, VIAL MATE ADAPTER 1 EACH in D5W 250 ML IV SCH (17:16)
[2017-04-11] MEDS: LEVEMIR (INSULIN DETEMIR) 1 UNITS/0.01ML SC SCH (20:51)
[2017-04-11] MEDS: SENNA 8.6 MG TAB (SENOKOT) PO SCH (21:00)
[2017-04-11 22:08] VITALS: BP 150/62
[2017-04-12 06:00] VITALS: BP 155/70
[2017-04-12] MEDS: SODIUM CHLORIDE 0.9% INJ 10 ML SYR IV SCH ×2 (06:21→18:23)
[2017-04-12 06:43] LABS: MEAN CORPUSCULAR HEMOGLOBIN 28.2 pg (27.0-33.0); MEAN CORPUSCULAR HGB CONC 32.4 g/dl (32.0-36.5); MEAN CORPUSCULAR VOLUME 86.9 fl (80.0-96.0); PLATELET COUNT, AUTOMATED 231 10^3/uL (150-450); RED CELL DISTRIBUTION WIDTH 13.6 % (11.5-14.5); WHITE BLOOD COUNT 3.9 10^3/uL (4.0-10.0)
[2017-04-12] MEDS: HumaLOG INSULIN (NovoLOG) PER UNIT SC SCH ×4 (08:00→21:00)
[2017-04-12] MEDS: DUTASTERIDE 0.5 MG CAP (AVODART) PO SCH (08:36)
[2017-04-12] MEDS: APIXABAN 5 MG TAB (ELIQUIS) PO SCH ×2 (08:36→21:43)
[2017-04-12] MEDS: FEBUXOSTAT 40 MG TABLET (ULORIC) PO SCH (08:36)
[2017-04-12] MEDS: MAGNESIUM OXIDE 400 MG TAB (MAG-OX) PO SCH ×2 (08:36→21:42)
[2017-04-12] MEDS: TAMSULOSIN 0.4 MG CAP PO SCH (08:36)
[2017-04-12] MEDS: COSOPT OCUMETER PLUS 10ML (DORZOLAMIDE/TIMOLOL) OU SCH ×2 (08:36→21:42)
[2017-04-12] MEDS: BRIMONIDINE 0.15% OPHTH SOLN 5 ML OU SCH ×2 (08:36→21:42)
[2017-04-12] MEDS: MULTIVITAMINS/MINERALS THERAP 1 TAB PO SCH (08:36)
[2017-04-12] MEDS: FUROSEMIDE 20 MG TAB PO SCH (08:37)
[2017-04-12] MEDS: amLODIPine 5 MG TAB PO SCH (08:37)
[2017-04-12] MEDS: PRAVASTATIN 10 MG TAB PO SCH (08:37)
[2017-04-12] MEDS: BISOPROLOL FUMARATE 10 MG TAB PO SCH (08:37)
[2017-04-12] MEDS: ACETAMINOPHEN TAB 650MG DOSE (2X325MG) PO PRN ×2 (08:38→21:43)
[2017-04-12] MEDS: DOCUSATE SODIUM 100 MG CAP PO SCH ×2 (08:38→21:00)
[2017-04-12 14:00] VITALS: BP 143/66
[2017-04-12] MEDS: oxyCODONE 5MG TAB PO PRN (15:33)
--- NOTE | 2017-04-12 16:33 | IPNPDOC ---
PM&R Progress Note Dining Service Worker Progress Note DATE OF SERVICE: 04/12/17 DATE OF ADMISSION: Apr 09, 2017 at 16:28 INPATIENT REHABILITATION ADMISSION DAY: #4 SUBJECTIVE: The patient is a 71-year-old right-handed (Demetris) male who has had both knees replaced and end-stage osteoarthritis and had osteomyelitis of the right great toe and methicillin-resistant Staphylococcus aureus (MRSA) bacteremia, atrial fibrillation, type 2 diabetes, sleep apnea, hypertension, hyperlipidemia, chronic kidney disease, stage III, chronic obstructive pulmonary disease (COPD), and gout who developed infection of his left total knee and had surgical removal on 03/20/2017 with revision on approximately 04/01/2017. Patient having difficulty with pain as well as wound healing and has to be able to do 8 steps to return to home along with being standby assist to independent in activities of daily living (ADLs) and moderate distance mobility. Patient continues to marked left knee pain with wound vacuum dressing changes and movement of LLE. However, feels better and now ambulating to the bathroom. No other complaints. ALLERGIES: See Below MEDICATIONS: Reviewed, see below. OBJECTIVE: VITAL SIGNS: Please see below. PHYSICAL EXAMINATION: GENERAL: Tall slightly overweight 71-year-old male who looks younger than stated age with a wound VAC on his left knee below the patella and across the tibial tuberosity with wound with a little over two centimeter at the tibial plateau without any wound purulence. Patient is in mild musculoskeletal distress and is alert and well oriented and very motivated for therapy. HEENT: Normocephalic/atraumatic. CARDIOVASCULAR: Mildly bradycardic but regular rate and rhythm with normal S1 and S2 without S3-S4 murmurs or rubs. There is an occasional ectopic beat. Pulses are 2 out 4 for bilateral radial arteries at the wrist. Good skin perfusion in bilateral upper and distal lower extremities. LUNGS: All travis clear to auscultation. ABDOMEN: Mildly obese with normal bowel sounds in all quadrants. NEUROLOGICAL: Patient is alert and oriented 4. Speech is clear coherent and appropriate. Affect is pleasant and cooperative. Memory is good. Motor and sensory motor bilateral upper extremities and right lower extremity are good. Patient with increase sensation around the left knee and some apprehension with left lower extremity movement. SKIN: Patient with open anterior incision from inferior patella to low the tibial tuberosity on the left lower extremity. No heat redness or sanguinous discharge is present. LABORATORY DATA: Reviewed. Please see below. MICROBIOLOGY: Please see below. IMAGING: No new imaging. DVT prophylaxis ordered?: Patient is on Eliquis with SHEA hose and sequential compression stocking on the right lower extremity. ASSESSMENT AND PLAN: 1. 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 He does continue to have problems with pain whenever wound dressings or touch air movement around the left knee is involved, though wound base is improving, but a bit dry. Patient is being treated with oxycodone 5 mg every 4 hours when necessary and this normally is handling his pain well except when dressing change or significant left knee movements involved. REHAB. TEAM ROUNDS: Patient now ambulating with FWW about 30 feet and most transfers now improved to CGA. He needs to make progress on stairs and over dressing and hygiene skills for return to home, but he should be able to achieve this by Anticipated D/C date of 04/18/17. He will likely need a w/c for getting to and from his care appointments. Please see attached therapy notes below. 2. MRSA infection of knee and bacteremia: Dr. Collins's medication adjustment and baseline test orders are appreciated. Patient to continue with the IV vancomycin and upon completion of inpatient rehabilitation will be transitioned to home infusion. Patient was surprisingly low WBC count currently 3.9K. 3. Moderate anemia: H&H is 9.5 and 29.3%. We will continue to monitor this. 4. Chronic kidney disease stage III: Patient currently they're his baseline creatinine. Nephrology to make adjustments as appropriate. Vancomycin adjusted per trough results. 5. Type 2 diabetes mellitus: Patient with early good blood sugar control since admission. We will continue to monitor. TIME SPENT: Chart Review, examination and documentation require greater than 25 minutes. Patient: Phill Boss : 1945 Age/Sex: 71/M Unit#: [id number] Room/Bed: M4146/01 User: Estefania Sewell OT [facility] Date: 04/12/17 12:30 Type: OT Progress Time In * 11:36 Time Out * 12:04 OT Treatment Time-Minutes * 28 mins Type of Therapy Provided * Individual Precautions * Contact * Fall * TDWB Unit * Acute Inpatient Rehab Pain Comment * Pt with no c/o knee pain at rest, grimaces with movement. No rating provided. Subjective * Pt received for session supine in bed, agreeable to OT session. Cognition * Within Normal Limits Cognition Comments * No significant cognitive deficits observed. However, pt did not appear to remember this data analyst report writer from morning session. Supine to Sit * Modified Independant Bed Mobility Notes * Pt able to perform supine>sit with mod I with HOB elevated using bed rail. Sit to Stand * Standby Assist Stand to Sit * Standby Assist Bed to Chair * Minimum Assist Functional Transfer Notes: * Pt perf spt bed>bedside chair with good safety awareness, therapist assisted with managing wound vac. A. Eating (include only those with PO intake): * 06.Independent B. Oral Hygiene (includes gums in edentulous pts): * 06.Independent Oral Hygiene Comments: * See ADL note C. Toileting Hygiene (not transfers): * 04.Sup/Touch Assist Toileting Hygiene Comments: * See ADL note E. Shower/Bathe Self (not transfers, can be sponge bath): * 05.Setup/clean up Asst Shower/Bathe Self Comments: * See ADL note F. Upper Body Dressing (includes bra, not hospital gown): * 05.Setup/clean up Asst Upper Body Dressing Comments: * See ADL note G. Lower Body Dressing (includes briefs and knee braces): * 88.Not Attempted H. Putting on/taking off footwear (includes TEDS and AFO): * 03.Partial/Mod Assist Putting on/taking off footwear Comments: * See ADL note Sit-Static * G Sit-Dynamic * G Stand-Static * G Stand-Dynamic * G- Balance Training Note * Sitting observed at EOB, standing observed with RW OT Intervention Note * Pt also participated with UB therex in mult planes using 5# weights in order to increase UE muscle endurance as it relates to supporting self with AD during standing tasks and functional mobility. Pt left seated in chair at end of session with LLE elevated, call heller in reach and all needs met. OT Goal Note * Continue with OT plan of care. Discharge Recommendations * Home w/services Safe for discharge at this time * No Patient: Phill Boss : 1945 Age/Sex: 71/M Unit#: [id number] [place] [id number] User: Kristine Vines PT PT Date: 04/12/17 13:37 Type: PT Progress Note Time In * 13:05 Time Out * 13:35 PT Treatment Time-Minutes * 30 mins Type of Therapy Provided * Individual Precautions * Contact * Fall * TDWB Other Precautions * wound vac Unit * Acute Inpatient Rehab Pain Start of Session * 5 Pain End of Session * 5 Pain Comment * c/o pain in anterior and medial L knee Subjective * pt seated in bed side chair and agreeable to PT session. States he needs to use BR. Cognition * Within Normal Limits Supine to Sit * Not Tested Sit to Supine * Contact Guard Assist Rolling * Not Tested Bed Mobility Notes * sit to supine with CGA to provide support to L LE, Sit to Stand * Standby Assist Stand to Sit * Standby Assist Bed to Chair * Not Tested Chair to Bed * Not Tested Toilet/Commode * Standby Assist Transfer Training Notes * with RW Sit-Static * G Sit-Dynamic * G Stand-Static * G Stand-Dynamic * G- Balance Training Note * Sitting observed at EOB, standing observed with RW Ambulation Distance * 40 Feet Ambulation Level of Assist * Standby Assist Assistive Device Used * Rolling Walker * Gait Belt Weight BearingStatus * TDWB Left * FWB Right Able to Maintain Weight Bearing Status * Yes Gait Training Note * Pt ambulated 12' and 40' with RW and SBA. Pt required encouragement to ambulate following toileting as he was ready to get back into bed; maintains TDWB on L LE; demonstrates safety and no LOB. Wheelchair Mobility Level of Assist * Not Tested Level of Assist for Stairs * Not Tested Stair Training Note * NT this date secondary to fatigue following ambulation; educated on need to participate in stair training next few PT sessions in order to maximize (I) for d/c to home. A. Roll Left and Right: * 88.Not Attempted B. Sit to Lying: * 04.Sup/Touch Assist Sit to Lying Comments: * CGA with (L)LE to get into bed C. Lying to Sitting on Side of Bed: * 88.Not Attempted D. Sit to Stand: * 04.Sup/Touch Assist E. Chair/[id number] Transfer: * 88.Not Attempted F. Toilet Transfer: * 04.Sup/Touch Assist Toilet Transfer Comments: * May benefit from commode over toilet for increased safety as pt tends to reach behind him for grab bar behind toilet; however pt refuses to over toilet commode when educated this date. G. Car Transfer: * 88.Not Attempted H. Does the patient walk?: * 2. Yes I. Walk 10 Feet: * 04.Sup/Touch Assist J. Walk 50' with Two Turns: * 88.Not Attempted K. Walk 150 Feet: * 88.Not Attempted L. Walking 10' on uneven surfaces: * 88.Not Attempted M. 1 Step (curb): * 88.Not Attempted N. 4 Steps (with or without railing): * 88.Not Attempted O. 12 Steps (with or without railing): * 88.Not Attempted P. Picking up Object from the Floor (from a standing): * 88.Not Attempted Picking up Object from the Floor (from standing) Comments: * will need community development manager due to having extension brace placed on LLE Q. Does the patient use a w/c (other than just transport): * 0. No Lower Extremity Exercised * Left Supine Exercises * Ankle Pumps * Quad Sets * Heel Slides * Straight Leg Raises Other Supine Exercises * SLR and heel slides x5 each on L LE; Number of Reps Supine * 15-20 Reps Therapeutic Exercises Note * Pt instructed to perform Quad sets, SLR, heel slides and ankle pumps again this afternoon/evening to encourage (I) with HEP and facilitate improved strength and mobility PT Interventions * Gait Training * Therapeutic Excercise * Functional Training * Safety/Precautions * HEP * Pt./Family Education * D/C Needs PT Progress Note * Pt demonstrated improved ambulation distance with encouragment this session. Educated on the importance of completing stair training the next few PT sessions and increasing ambulation tolerance in preparation for d/c to home. Pt verbalizes understanding. Pt left with call heller within reach,all needs met. PT Goal Expiration Date * May 08, 2017 Discharge Recommendations * Home w/services Safe for discharge at this time * No Allergies Coded Allergies: Thiopental (Verified Allergy, Severe, THROAT CONSTRICTION, 08/24/12) Enoxaparin (Verified Allergy, Intermediate, Hives, 04/10/17) Vital Signs Vital Signs Date Time Temp Pulse Resp B/P (MAP) Pulse Ox O2 Delivery O2 Flow Rate FiO2 04/12/17 15:33 18 04/12/17 14:00 97.8 53 143/66 (91) 97 Room Air Laboratory Data CBC/BMP Laboratory Tests 04/12/17 06:30 Red Blood Count 3.37 L, Mean Corpuscular Volume 86.9, Mean Corpuscular Hemoglobin 28.2, Mean Corpuscular Hemoglobin Concent 32.4, Red Cell Distribution Width 13.6 Labs 24H Laboratory Tests 2 04/11/17 16:39: Bedside Glucose (Misc Panel) 141H 04/11/17 19:59: Bedside Glucose (Misc Panel) 234H 04/12/17 06:30: Nucleated Red Blood Cells % (auto) 0.0 04/12/17 06:54: Bedside Glucose (Misc Panel) 93 04/12/17 11:36: Bedside Glucose (Misc Panel) 142H Current Medications Current Medications Current Medications Acetaminophen (Tylenol Tab) 650 mg Q6HP PRN PO MILD PAIN (PS 1-4) Last administered on 04/12/17 08:38; Start 04/09/17 at 15:15; Stop 05/09/17 at 15 :14 Amlodipine Besylate (Norvasc) 5 mg DAILY PO Last administered on 04/12/17 08: 37; Start 04/10/17 at 09:00; Stop 05/10/17 at 08:59 Apixaban (Eliquis) 5 mg BID PO Last administered on 04/12/17 08:36; Start at 21:00; Stop 04/19/17 at 23:55 Benzonatate (Tessalon Perles) 100 mg TIDP PRN PO COUGH; Start 04/09/17 at 15: 15; Stop 05/09/17 at 15:14 Bisoprolol Fumarate (Zebeta) 10 mg DAILY PO Last administered on 04/12/17 08: 37; Start 04/09/17 at 09:00; Stop 05/09/17 at 08:59 Brimonidine Tartrate (Alphagan P 0.15%) 1 drop BID OU Last administered on 08:36; Start 04/09/17 at 21:00; Stop 05/09/17 at 20:59 Calcium Carbonate (Tums) 500 mg Q4HP PRN PO INDIGESTION; Start 04/09/17 at 15: 15; Stop 05/09/17 at 15:14 Dextrose (Dextrose 50%) 25 ml ASDIRECTED PRN IV SEE LABEL COMMENTS; Start at 15:15; Stop 05/09/17 at 15:14 Docusate Sodium (Colace) 100 mg BID PO ; Start 04/09/17 at 21:00; Stop at 20:59 Dorzolamide/ Timolol (Cosopt Ocumeter Plus) 1 drop BID OU Last administered on 04/12/17 08:36; Start 04/09/17 at 21:00; Stop 05/09/17 at 20:59 Dutasteride (Avodart) 0.5 mg DAILY PO Last administered on 04/12/17 08:36; Start 04/09/17 at 09:00; Stop 05/09/17 at 08:59 Febuxostat (Uloric) 40 mg DAILY PO Last administered on 04/12/17 08:36; Start 04/10/17 at 09:00; Stop 05/10/17 at 08:59 Furosemide (Lasix) 20 mg DAILY PO Last administered on 04/12/17 08:37; Start 04/09/17 at 09:00; Stop 05/09/17 at 08:59 Glucagon (Glucagon) 1 mg ASDIRECTED PRN SC SEE LABEL COMMENTS; Start 04/09/17 at 15:15; Stop 05/09/17 at 15:14 Glucose (Glucose) 16 GM ASDIRECTED PRN PO SEE LABEL COMMENTS; Start 04/09/17 at 15:15; Stop 05/09/17 at 15:14 Heparin Sodium (Heparin (Flush)) 200 units ASDIRECTED PRN IV SEE LABEL COMMENTS Last administered on 04/10/17 15:56; Start 04/10/17 at 15:15; Stop 05/10/17 at 15:14 Heparin Sodium (Heparin (Flush)) 200 units PICC IV Last administered on 06:21; Start 04/10/17 at 18:00; Stop 05/10/17 at 17:59 Home Med (Med Rec Complete!) ASDIRECTED XX ; Start 04/09/17 at 17:45; Stop at 18:17; Status DC Insulin Detemir (Levemir Insulin) 36 units QHS SC Last administered on 20:51; Start 04/09/17 at 21:00; Stop 05/09/17 at 20:59 Insulin Human Lispro (HumaLOG INSULIN) See Protocol Table AC SC Last administered on 04/12/17 12:51; Start 04/09/17 at 17:30; Stop 05/09/17 at 17 :29 Insulin Human Lispro (HumaLOG INSULIN) See Protocol Table QHS SC ; Start at 21:00; Stop 05/09/17 at 20:59 Lactobacillus Acidophilus (Bacid) 1 ea BID PRN PO DIARRHEA; Start 04/09/17 at 15:15; Stop 05/09/17 at 15:14 Magnesium Oxide (Mag-Ox) 400 mg BID PO Last administered on 04/12/17 08:36; Start 04/09/17 at 21:00; Stop 05/09/17 at 20:59 Multivitamins (Theragram-M) 1 tab DAILY PO Last administered on 04/12/17 08: 36; Start 04/10/17 at 09:00; Stop 05/10/17 at 08:59 Non-Formulary Medication ( See Comment Field Below ) [facility]. DOSING ASDIRECTED XX ; Start 04/09/17 at 20:30; Stop 04/10/17 at 13:19; Status DC Oxycodone HCl (Roxicodone, Oxyir) 5 mg Q4HP PRN PO PAIN SCALE 6-10 Last administered on 04/12/17 15:33; Start 04/09/17 at 15:15; Stop 04/16/17 at 15 :14 Pravastatin Sodium (Pravachol) 5 mg DAILY PO Last administered on 04/12/17 08 :37; Start 04/10/17 at 09:00; Stop 05/10/17 at 08:59 Psyllium Hydrophilic Mucilloid (Metamucil) 1 pkt DAILY PRN PO BOWEL CARE/ CONSTIPATION; Start 04/09/17 at 15:15; Stop 05/09/17 at 15:14 Senna (Senokot) 2 tab QHS PO ; Start 04/09/17 at 21:00; Stop 05/09/17 at 20:59 Sodium Chloride (Saline Lock Flush) 10 ml ASDIRECTED PRN IV SEE LABEL COMMENTS Last administered on 04/10/17 15:55; Start 04/10/17 at 15:15; Stop 05/10/17 at 15:14 Sodium Chloride (Saline Lock Flush) 10 ml PICC IV Last administered on 06:21; Start 04/10/17 at 18:00; Stop 05/10/17 at 17:59 Tamsulosin HCl (Flomax) 0.4 mg DAILY PO Last administered on 04/12/17 08:36; Start 04/10/17 at 09:00; Stop 05/10/17 at 08:59 Vancomycin HCl 750 mg/IV Miscellaneous Supplies 1 each/ Dextrose 275 ml @ 275 mls/hr Q24H IV Last administered on 04/11/17 17:16; Start 04/11/17 at 18:00 ; Stop 04/18/17 at 17:59 Vancomycin HCl 1000 mg/IV Miscellaneous Supplies 1 each/ Dextrose 270 ml @ 270 mls/hr Q24H IV Last administered on 04/10/17 14:50; Start 04/10/17 at 15:00 ; Stop 04/11/17 at 14:49; Status DC Vancomycin HCl 1500 mg/IV Miscellaneous Supplies 1 each/ Dextrose 280 ml @ 270 mls/hr Q48H IV ; Start 04/10/17 at 06:00; Stop 04/10/17 at 06:00; Status DC SUSHANT MITCHELL MD Apr 12, 2017 16:33
[2017-04-12 17:42] LABS: ALBUMIN 3.3 GM/DL (3.2-5.2); CALCIUM LEVEL 8.9 MG/DL (8.8-10.2); CREATININE FOR GFR 1.37 MG/DL (0.70-1.30); GLOMERULAR FILTRATION RATE 54.7 (>42); PHOSPHORUS LEVEL 4.1 MG/DL (2.5-4.9); POTASSIUM SERUM 4.7 MEQ/L (3.5-5.1)
[2017-04-12] MEDS: VANCOMYCIN HCL 750 MG, VIAL MATE ADAPTER 1 EACH in D5W 250 ML IV SCH (18:22)
[2017-04-12 20:00] VITALS: BP 149/70
[2017-04-12] MEDS: SENNA 8.6 MG TAB (SENOKOT) PO SCH (21:00)
[2017-04-12] MEDS: LEVEMIR (INSULIN DETEMIR) 1 UNITS/0.01ML SC SCH (21:42)
[2017-04-12] MEDS: FERROUS GLUCONATE 324 MG TAB PO SCH (21:43)
[2017-04-13] MEDS: oxyCODONE 5MG TAB PO PRN ×2 (02:45→09:00)
[2017-04-13 06:00] VITALS: BP 165/75
[2017-04-13] MEDS: SODIUM CHLORIDE 0.9% INJ 10 ML SYR IV SCH ×2 (06:47→17:13)
[2017-04-13] MEDS: HumaLOG INSULIN (NovoLOG) PER UNIT SC SCH ×4 (08:58→21:00)
[2017-04-13] MEDS: FERROUS GLUCONATE 324 MG TAB PO SCH ×2 (08:59→21:04)
[2017-04-13] MEDS: FUROSEMIDE 20 MG TAB PO SCH (08:59)
[2017-04-13] MEDS: amLODIPine 5 MG TAB PO SCH (08:59)
[2017-04-13] MEDS: PRAVASTATIN 10 MG TAB PO SCH (08:59)
[2017-04-13] MEDS: TAMSULOSIN 0.4 MG CAP PO SCH (08:59)
[2017-04-13] MEDS: MULTIVITAMINS/MINERALS THERAP 1 TAB PO SCH (08:59)
[2017-04-13] MEDS: APIXABAN 5 MG TAB (ELIQUIS) PO SCH ×2 (08:59→21:04)
[2017-04-13] MEDS: BRIMONIDINE 0.15% OPHTH SOLN 5 ML OU SCH ×2 (08:59→21:03)
[2017-04-13] MEDS: COSOPT OCUMETER PLUS 10ML (DORZOLAMIDE/TIMOLOL) OU SCH ×2 (08:59→21:03)
[2017-04-13] MEDS: DOCUSATE SODIUM 100 MG CAP PO SCH ×2 (09:00→21:00)
[2017-04-13] MEDS: DUTASTERIDE 0.5 MG CAP (AVODART) PO SCH (09:00)
[2017-04-13] MEDS: MAGNESIUM OXIDE 400 MG TAB (MAG-OX) PO SCH ×2 (09:00→21:04)
[2017-04-13] MEDS: FEBUXOSTAT 40 MG TABLET (ULORIC) PO SCH (09:00)
[2017-04-13] MEDS: BISOPROLOL FUMARATE 10 MG TAB PO SCH (09:01)
--- NOTE | 2017-04-13 13:28 | IPN ---
DATE: 04/12/2017 Mr. Boss is seen on his bedside in acute rehab service. He was admitted following his left knee surgery here for rehabilitation. The patient has history of infected left knee and is currently on antibiotics. He developed acute renal failure superimposed on chronic kidney disease due to which nephrology service has been following him. At the time of my visit today, the patient denies any dyspnea, chest pain, nausea or vomiting. He has no fever or chills. On physical examination, temperature 97.8 degrees Fahrenheit, heart rate 53 per minute and respiratory rate 18 per minute. Blood pressure 143/66 mmHg and oxygen saturation 97% on room air. His head is atraumatic. Neck is supple and without jugular venous distention (JVD) or thyroid enlargement. Pupils equal and reactive to light. Sclerae anicteric. Ears, nose and throat are unremarkable. Heart sounds are regular and lungs sound clear to auscultation bilaterally. Abdomen is soft and nontender, without palpable organomegaly. Extremities have no cyanosis or clubbing. He has a PICC line in the right upper extremity. His left knee is wrapped in a dressing. There is no edema on the right leg. Neurologically, he is awake, alert and oriented times three. His labs today showed a WBC count of 3.9, hemoglobin 9.5 and hematocrit 29.3. Platelets 231. Sodium is 138 and potassium 4.7. BUN 29 and creatinine 1.37. His vancomycin level is 19.5 today. PROBLEMS: 1. Acute kidney injury superimposed on chronic kidney disease. Kidney function has improved to about his baseline. At present, we will continue to monitor his kidney function periodically. His electrolytes are within normal range and volume status is well-compensated. 2. Anemia, most likely this is related to recent surgery and ongoing infection. There is no need for a transfusion. We will check his iron studies. He most likely has iron deficiency and we are going to start him on an oral iron supplement. I will also consider giving him Aranesp after his iron stores are adequate. 3. Hypertension. Blood pressure is very well controlled and he remains on amlodipine 5 mg daily. 4. Septic arthritis left knee. The patient is status post surgery. He is currently on vancomycin and his trough vancomycin level is at therapeutic range. We will need to continue monitoring his vancomycin level and renal function due to risk of nephrotoxicity. 5. Diabetes. His diabetes has been well controlled and recommend to continue with current insulin therapy.
[2017-04-13 14:00] VITALS: BP 161/70
[2017-04-13] MEDS: VANCOMYCIN HCL 750 MG, VIAL MATE ADAPTER 1 EACH in D5W 250 ML IV SCH (17:13)
[2017-04-13 20:00] VITALS: BP 152/88
[2017-04-13] MEDS: SENNA 8.6 MG TAB (SENOKOT) PO SCH (21:00)
[2017-04-13] MEDS: ACETAMINOPHEN TAB 650MG DOSE (2X325MG) PO PRN (21:04)
[2017-04-13] MEDS: LEVEMIR (INSULIN DETEMIR) 1 UNITS/0.01ML SC SCH (21:05)
[2017-04-14 06:00] VITALS: BP 146/82
[2017-04-14] MEDS: SODIUM CHLORIDE 0.9% INJ 10 ML SYR IV SCH ×2 (06:41→17:26)
[2017-04-14] MEDS: DOCUSATE SODIUM 100 MG CAP PO SCH ×2 (08:09→20:42)
[2017-04-14] MEDS: COSOPT OCUMETER PLUS 10ML (DORZOLAMIDE/TIMOLOL) OU SCH ×2 (08:21→20:49)
[2017-04-14] MEDS: amLODIPine 5 MG TAB PO SCH (08:21)
[2017-04-14] MEDS: HumaLOG INSULIN (NovoLOG) PER UNIT SC SCH ×4 (08:21→20:50)
[2017-04-14] MEDS: BRIMONIDINE 0.15% OPHTH SOLN 5 ML OU SCH ×2 (08:21→20:49)
[2017-04-14] MEDS: MAGNESIUM OXIDE 400 MG TAB (MAG-OX) PO SCH ×2 (08:21→20:50)
[2017-04-14] MEDS: FEBUXOSTAT 40 MG TABLET (ULORIC) PO SCH (08:21)
[2017-04-14] MEDS: TAMSULOSIN 0.4 MG CAP PO SCH (08:22)
[2017-04-14] MEDS: PRAVASTATIN 10 MG TAB PO SCH (08:22)
[2017-04-14] MEDS: oxyCODONE 5MG TAB PO PRN ×2 (08:22→12:43)
[2017-04-14] MEDS: FUROSEMIDE 20 MG TAB PO SCH (08:22)
[2017-04-14] MEDS: APIXABAN 5 MG TAB (ELIQUIS) PO SCH ×2 (08:22→20:49)
[2017-04-14] MEDS: MULTIVITAMINS/MINERALS THERAP 1 TAB PO SCH (08:22)
[2017-04-14] MEDS: FERROUS GLUCONATE 324 MG TAB PO SCH ×2 (08:22→20:49)
[2017-04-14] MEDS: BISOPROLOL FUMARATE 10 MG TAB PO SCH (08:23)
[2017-04-14] MEDS: DUTASTERIDE 0.5 MG CAP (AVODART) PO SCH (08:23)
[2017-04-14 14:00] VITALS: BP 162/68
[2017-04-14] MEDS: VANCOMYCIN HCL 750 MG, VIAL MATE ADAPTER 1 EACH in D5W 250 ML IV SCH (17:26)
[2017-04-14 20:00] VITALS: BP 138/66
[2017-04-14] MEDS: SENNA 8.6 MG TAB (SENOKOT) PO SCH (20:42)
[2017-04-14] MEDS: LEVEMIR (INSULIN DETEMIR) 1 UNITS/0.01ML SC SCH (20:49)
[2017-04-14] MEDS: ACETAMINOPHEN TAB 650MG DOSE (2X325MG) PO PRN (20:51)
[2017-04-15] MEDS: oxyCODONE 5MG TAB PO PRN ×3 (00:32→14:46)
[2017-04-15] MEDS: ACETAMINOPHEN TAB 650MG DOSE (2X325MG) PO PRN ×2 (04:07→21:08)
[2017-04-15 06:00] VITALS: BP 164/73
[2017-04-15] MEDS: SODIUM CHLORIDE 0.9% INJ 10 ML SYR IV SCH ×2 (06:05→18:16)
[2017-04-15] MEDS: HumaLOG INSULIN (NovoLOG) PER UNIT SC SCH ×4 (08:41→21:00)
[2017-04-15] MEDS: MULTIVITAMINS/MINERALS THERAP 1 TAB PO SCH (08:42)
[2017-04-15] MEDS: PRAVASTATIN 10 MG TAB PO SCH (08:42)
[2017-04-15] MEDS: MAGNESIUM OXIDE 400 MG TAB (MAG-OX) PO SCH ×2 (08:42→21:00)
[2017-04-15] MEDS: DUTASTERIDE 0.5 MG CAP (AVODART) PO SCH (08:42)
[2017-04-15] MEDS: FERROUS GLUCONATE 324 MG TAB PO SCH ×2 (08:42→21:00)
[2017-04-15] MEDS: FEBUXOSTAT 40 MG TABLET (ULORIC) PO SCH (08:43)
[2017-04-15] MEDS: APIXABAN 5 MG TAB (ELIQUIS) PO SCH ×2 (08:43→21:00)
[2017-04-15] MEDS: amLODIPine 5 MG TAB PO SCH ×2 (08:43→21:00)
[2017-04-15] MEDS: BISOPROLOL FUMARATE 10 MG TAB PO SCH (08:43)
[2017-04-15] MEDS: TAMSULOSIN 0.4 MG CAP PO SCH (08:43)
[2017-04-15] MEDS: FUROSEMIDE 20 MG TAB PO SCH (08:43)
[2017-04-15] MEDS: COSOPT OCUMETER PLUS 10ML (DORZOLAMIDE/TIMOLOL) OU SCH ×2 (08:44→21:01)
[2017-04-15] MEDS: BRIMONIDINE 0.15% OPHTH SOLN 5 ML OU SCH ×2 (08:44→21:01)
[2017-04-15] MEDS: DOCUSATE SODIUM 100 MG CAP PO SCH (08:45)
[2017-04-15 11:58] LABS: CALCIUM LEVEL 8.7 MG/DL (8.8-10.2); CREATININE FOR GFR 1.3 MG/DL (0.70-1.30); GLOMERULAR FILTRATION RATE 58.1 (>42); POTASSIUM SERUM 4.5 MEQ/L (3.5-5.1)
--- NOTE | 2017-04-15 12:06 | IPNPDOC ---
Date Seen The patient was seen on 04/15/17. Progress Note PCP Dr Shahzad Kenney Endocrine. [facility]. JAUN. Subjective: Patient is a 71 year old Male with a PMHx of CAD, CHF, A. fib s/p ablation, s/p PM / AICD, HTN, DM2, COPD, ADAIR on CPAP, and Neuropathy. Patient had an MRSA infection of diabetic right foot leading to seeding of infection to left knee prosthesis. He received chronic antibiotics and failed to improved. He went to [facility] and had removal of left knee prosthesis and cement placement. He was transferred to [facility] for continued rehabilitation without weight bearing. Patient was seen and examined at the bedside. Currently, denies any nausea, vomiting, chest pain, shortness of breath, palpitations, abdominal pain, constipation, diarrhea or dysuria. PAST MEDICAL HISTORY: Cataract, right eye glaucoma open-angle, COPD, atrial fibrillation/atrial flutter with ablation, pacemaker, on Eliquis, sees Dr. Almanzar for cardiology, CHF, coronary artery disease, hypertension, diabetes type 2, peripheral neuropathy, diabetic retinopathy, diabetic neuropathy with diabetic foot ulcers and MRSA infection with infected left knee prosthesis. CKD3 PAST SURGICAL HISTORY: Ablation of the heart, right foot skin graft, angioplasty, debridement and bone removal of right foot, incision and drainage (I and D) of right foot, right eye cataract removal, pacemaker defibrillator 2011, stent insertion of both legs 2013, bilateral total knee replacement, cholecystectomy, debridement of left knee and removal of prosthesis on left knee with cement recently. Objective: General: Lying in bed, no acute distress, comfortable, AAOx3 HEENT: NC, AT CVS: IrIr, +S1S2 Lungs: Fair air entry b/l, -w/r/r Abdomen: Soft, ND, NT Extremities: no Edema, left leg in fixation device with wound VAC present Assessment and plan: 1. MRSA infection of left prosthetic knee - s/p removable of prosthetic device and cement placement ARU as per Dr Pa. PT/OT as per Dr Pa. Pain control as per Dr Pa. Bowel care as per Dr Pa. Infectious disease consulted, Dr. Collins, rich antibiotic therapy; currently on vancomycin. Monitor CRP/ESR. Vanco dosing as per Clinical pharmacology. Outpt F/U with Orthopedic Surgery. DVT prophylaxis. On full anticoagulation with Eliquis 2. CAD. Bisoprolol. Pt is on Eliquis. 3. CHF. Cont po Lasix. 4. A. fib s/p ablation s/p PM / AICD placement Continue rate control with bisoprolol Continue anticoagulation with Eliquis 5. HTN bisoprolol 10 mg daily Increase Norvasc to 5 mg BID with hold parameters, BP 140s-164 systolic. 6. DM2 Levemir/SSI. 7. COPD c/w inhaled therapy 8. ADAIR on CPAP Cont home CPAP use 9. BPH tamsulosin and dutasteride 10. Gout Febuxostat 11. DLP pravastatin 12.Neuropathy - Chronic 13. CKD3. Nephrology following. VS, I&O, 24H, Fishbone Vital Signs/I&O Vital Signs Date Time Temp Pulse Resp B/P (MAP) Pulse Ox O2 Delivery O2 Flow Rate FiO2 04/15/17 09:20 20 Room Air 04/15/17 08:43 51 164/73 04/15/17 06:00 97.4 97 I&O- Last 24 Hours up to 6 AM 04/16/17 06:00 Intake Total 240 ml Balance 240 ml Laboratory Data 24H LABS Laboratory Tests 2 04/14/17 16:04: Bedside Glucose (Misc Panel) 180H 04/14/17 16:53: Vancomycin Level Trough 17.2 04/14/17 19:52: Bedside Glucose (Misc Panel) 220H 04/15/17 06:12: Bedside Glucose (Misc Panel) 84 04/15/17 11:02: Ambar Bartlett Apr 15, 2017 12:06
--- NOTE | 2017-04-15 13:11 | IPN ---
DATE OF VISIT: 04/15/2017 Mr. Boss is seen this morning on his bedside. He is feeling better and continues with rehab. He still has some discomfort and pain in his left knee. The patient denies any dyspnea, chest pain, nausea or vomiting. He denies any difficulty voiding. PHYSICAL EXAMINATION: Temperature 97.4 degrees Fahrenheit, heart rate 52 per minute and respiratory rate 20 per minute. Blood pressure 164/73 mmHg and oxygen saturation 97% on room air. Head is atraumatic. Neck supple and without JVD or thyroid enlargement. Pupils equal and reactive to light and sclera is anicteric. Ears, nose and throat are unremarkable. Heart exam reveals regular S1-S2. Lungs sound clear to auscultation bilaterally. Abdomen is soft and nontender and without a palpable organomegaly. Bowel sounds are normal. Extremities have no cyanosis or clubbing. Left knee is wrapped in dressing. Neurologically he is awake, alert and oriented times three. Today's labs show sodium level 139 and potassium 4.5. BUN 27 and creatinine 1.30. PROBLEMS: 1. Acute kidney injury superimposed on chronic kidney disease. The patient is known to have stage III of chronic kidney disease at baseline. His acute kidney dysfunction has resolved and now this is stable at baseline. Electrolytes are within normal range. He has been on vancomycin for infected left knee due to which continued monitoring of kidney function is advisable. 2. Hypertension. Blood pressure has been generally well-controlled. He is currently on calcium channel, diuretic and beta carmen. His heart rate is very well-controlled so there is no room for increasing the dose of calcium channel carmen or beta-carmen. Diuretic will cause prerenal azotemia. Should his blood pressure remained high, then we can consider adding a low-dose hydralazine. I will monitor for next 24 hours and then make a decision about medication adjustment.
[2017-04-15 14:00] VITALS: BP 114/56
--- NOTE | 2017-04-15 15:32 | IPNPDOC ---
PM&R Progress Note [employer] Manager Progress Note DATE OF SERVICE: 04/15/17 DATE OF ADMISSION: Apr 09, 2017 at 16:28 INPATIENT REHABILITATION ADMISSION DAY: #7 SUBJECTIVE: The patient is a 71-year-old right-handed (Demetris) male who has had both knees replaced and end-stage osteoarthritis and had osteomyelitis of the right great toe and methicillin-resistant Staphylococcus aureus (MRSA) bacteremia, atrial fibrillation, type 2 diabetes, sleep apnea, hypertension, hyperlipidemia, chronic kidney disease, stage III, chronic obstructive pulmonary disease (COPD), and gout who developed infection of his left total knee and had surgical removal on 03/20/2017 with revision on approximately 04/01/2017. Patient having difficulty with pain as well as wound healing and has to be able to do 8 steps to return to home along with being standby assist to independent in activities of daily living (ADLs) and moderate distance mobility. Patient continues to marked left knee pain with wound vacuum dressing changes and movement of LLE. However, feels better and now ambulating to the bathroom. No other complaints. ALLERGIES: See Below MEDICATIONS: Reviewed, see below. OBJECTIVE: VITAL SIGNS: Please see below. PHYSICAL EXAMINATION: GENERAL: Tall slightly overweight 71-year-old male who looks younger than stated age with a wound VAC on his left knee below the patella and across the tibial tuberosity with wound with a little over two centimeter at the tibial plateau without any wound purulence. Patient is in mild musculoskeletal distress and is alert and well oriented and very motivated for therapy. HEENT: Normocephalic/atraumatic. CARDIOVASCULAR: Mildly bradycardic but regular rate and rhythm with normal S1 and S2 without S3-S4 murmurs or rubs. There is an occasional ectopic beat. Pulses are 2 out 4 for bilateral radial arteries at the wrist. Good skin perfusion in bilateral upper and distal lower extremities. LUNGS: All travis clear to auscultation. ABDOMEN: Mildly obese with normal bowel sounds in all quadrants. NEUROLOGICAL: Patient is alert and oriented 4. Speech is clear coherent and appropriate. Affect is pleasant and cooperative. Memory is good. Motor and sensory motor bilateral upper extremities and right lower extremity are good. Patient with increase sensation around the left knee and some apprehension with left lower extremity movement. SKIN: Patient with open anterior incision from inferior patella to below the tibial tuberosity on the left lower extremity. No heat redness or sanguinous discharge is present. LABORATORY DATA: Reviewed. Please see below. MICROBIOLOGY: Please see below. IMAGING: No new imaging. DVT prophylaxis ordered?: Patient is on Eliquis with SHEA hose and sequential compression stocking on the right lower extremity. ASSESSMENT AND PLAN: 1. 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 He does continue to have problems with pain whenever wound dressings or touch air movement around the left knee is involved, though wound base is improving, but a bit dry. Patient is being treated with oxycodone 5 mg every 4 hours when necessary and this normally is handling his pain well except when dressing change or significant left knee movements involved. REHAB. TEAM ROUNDS: Patient now ambulating with FWW about 30 feet and most transfers now improved to CGA. He needs to make progress on stairs and over dressing and hygiene skills for return to home, but he should be able to achieve this by Anticipated D/C date of 04/17/17. He will likely need a w/c for getting to and from his care appointments. Please see attached therapy notes below. 2. MRSA infection of knee and bacteremia: Dr. Collins's medication adjustment and baseline test orders are appreciated. Patient to continue with the IV vancomycin and upon completion of inpatient rehabilitation will be transitioned to home infusion. Patient was surprisingly low WBC count currently 3.9K. 3. Moderate anemia: H&H is 9.5 and 29.3%. We will continue to monitor this. 4. Chronic kidney disease stage III: Patient currently they're his baseline creatinine with BUN up today to 29. Nephrology to make adjustments as appropriate. Vancomycin adjusted per trough results. 5. Type 2 diabetes mellitus: Patient with early good blood sugar control since admission. We will continue to monitor. TIME SPENT: Chart Review, examination and documentation require greater than 25 minutes. Patient: Phill Boss : 1945 Age/Sex: 71/M Unit#: [id number] Room/Bed: M4146/01 User: Callie YU Date: 04/15/17 08:11 Type: OT Progress Time In * 07:06 Time Out * 08:06 OT Treatment Time-Minutes * 60 mins Type of Therapy Provided * Individual Precautions * Contact * Fall * TDWB Unit * Medical/Surgical Floor Pain Start of Session * 7 Pain: During Session * 7 Pain End of Session * 7 Pain Comment * Pt c/o pain in Lt knee Subjective * Pt supine in bed asleep, easily awaken and agreeable to therapy Cognition * Within Normal Limits Supine to Sit * Standby Assist Bed Mobility Notes * Supine to sit, SBA with HOB flat and use of arm on bedside chair to complete. Increased time required to bring LLE to EOB d/t increased pain. Sit to Stand * Standby Assist Stand to Sit * Standby Assist Bed to Chair * Standby Assist Toilet/Commode * Standby Assist Functional Transfer Notes: * Sit to/from stand, SBA from higher surface. Bed to chair via SPT, SBA. Commode over toilet t/f, SBA to manage wound vac. Wound vac attached to walker and then is able to manage tubing and complete bedroom/bathroom mobility with SBA. Bathing * Standby Assist Dressing-Upper Body * Standby Assist Grooming * Independent Toileting * Modified Independent ADL Training Note * Pt declines LB bathing stating that there are too many bangages to work around. Pt able to use CHG clothes as per protocol to bathe UB, set up. UB dressing with set up. Pt declines doffing or donning underwear or shorts ststing that it is too difficult and time consuming at this time. Pt educated on importance of (I) with LB dressing prior to d/c. Pt states that his will be available to assist. Pt able to doff brace in sitting and don with assistance required to fasten bottom buckle. Pt doffs socks with use of dressing stick and dons with use of sock aid with vc's only. G/h completed seated in front of bathroom sink (I). Pt mod I for toileting (post void) with use of walker and grab bars for balance. B. Oral Hygiene (includes gums in edentulous pts): * 06.Independent Oral Hygiene Comments: * See ADL note C. Toileting Hygiene (not transfers): * 06.Independent Toileting Hygiene Comments: * See ADL note E. Shower/Bathe Self (not transfers, can be sponge bath): * 05.Setup/clean up Asst Shower/Bathe Self Comments: * See ADL note F. Upper Body Dressing (includes bra, not hospital gown): * 05.Setup/clean up Asst Upper Body Dressing Comments: * See ADL note G. Lower Body Dressing (includes briefs and knee braces): * 03.Partial/Mod Assist Lower Body Dressing Comments: * LB dressing to only include knee brace. H. Putting on/taking off footwear (includes TEDS and AFO): * 05.Setup/clean up Asst Putting on/taking off footwear Comments: * See ADL note Sit-Static * G Sit-Dynamic * G- Stand-Static * G- Stand-Dynamic * G- Balance Training Note * Assessed with RW and while seated during ADL's, with 0 LOB. OT Intervention Note * Pt declining LB dressing this session stating that will be able to assist with these tasks upon d/c home. Pt left seated in bedside chair with call light in reach. OT Goal Note * Continue with OT plan of care. Discharge Recommendations * Home w/services Safe for discharge at this time * Yes Comment * With wifes assistance. Patient: Phill Boss : 1945 Age/Sex: 71/M Unit#: [id number] Room/Bed: M4146/01 [facility]: [facility] 14:05 Type: OT Progress Time In * 13:30 Time Out * 14:00 OT Treatment Time-Minutes * 30 mins Type of Therapy Provided * Individual Precautions * Contact * Fall * TDWB Unit * Acute Inpatient Rehab Pain Start of Session * 5 Pain: During Session * 5 Pain End of Session * 5 Pain Comment * Pain in Rt knee. Subjective * Pt received for therapy in rehab gym following PT session. Pt states that he is very tired, agreeable to therapy. Cognition * Within Normal Limits Sit to Supine * Minimum Assist Bed Mobility Notes * Min A for sit to supine for Lt LE. Sit to Stand * Standby Assist Stand to Sit * Standby Assist Chair to Bed * Standby Assist Functional Transfer Notes: * With RW, pt SBA for all t/f this session. Toileting * Standby Assist ADL Training Note * Pt uses urinal while seated in bed with set up. C. Toileting Hygiene (not transfers): * 05.Setup/clean up Asst Toileting Hygiene Comments: * See ADL note Sit-Static * G Sit-Dynamic * G Stand-Static * G- Stand-Dynamic * G- Balance Training Note * Assessed in RW and while seated EOB. 0 LOB OT Intervention Note * Pt completed UB ther ex with blue theraband to include shoulder flexion, shoulder diagonal pulls, chest pulls, bicep curls and triceps. All completed x 15 reqiring rest breaks d/t fatigue. Pt able to propel self back to room in w/c and is able to manage wound vac. Pt left supine in bed with call light in reach. OT Goal Note * Continue with OT plan of care. Discharge Recommendations * Home w/services Safe for discharge at this time * Yes Comment * With assistance from Patient: Phill Boss : 1945 Age/Sex: 71/M Unit#: [id number] Room/Bed: M4146/01 User: Kathryn Zapata PT Therapist PT Date: 04/15/17 14:10 Type: PT Progress Note Time In * 13:00 Time Out * 13:30 PT Treatment Time-Minutes * 30 mins Type of Therapy Provided * Individual Precautions * Contact * Fall * TDWB Other Precautions * wound vac Unit * Medical/Surgical Floor Pain Start of Session * 4 Pain End of Session * 4 Pain Comment * Pt c/o pain in Lt knee. No change in pain following mobility. Subjective * Patient sleeping in bed upon PT arrival. Agreeable to PT treatment with encouragement. Cognition * Within Normal Limits Supine to Sit * Modified Independant Sit to Supine * Not Tested Rolling * Not Tested Bed Mobility Notes * Patient peformed supine to sit at EOB with mod I with HOB elevated and use of bed rail. Patient demonstrates good awareness of his environment and where wound vac tubing is located during his transfer. Sit to Stand * Standby Assist Stand to Sit * Standby Assist Bed to Chair * Standby Assist Chair to Bed * Standby Assist Transfer Training Notes * Patient able to perform sit <> stand transfers from EOB and w/c with SBA. Demonstrates good hand placement for safe transfers. Requires assistance to manage wound vac. Patient able to perform bed <> w/c transfers with SBA. No LOB. Sit-Static * G Sit-Dynamic * G Stand-Static * G- Stand-Dynamic * G- Balance Training Note * Sitting balance assessed at EOB, standing balance assessed at RW and on stairs with R rail and unilateral crutch. No LOB. Patient able to reach out of base of support and maintain TDWBing without LOB. Ambulation Distance * 52 Feet Ambulation Level of Assist * Standby Assist Assistive Device Used * Rolling Walker * Gait Belt Other Assistive Device Used * Pt does require assistance mounting wound vac on RW Weight BearingStatus * TDWB Left * FWB Right Able to Maintain Weight Bearing Status * Yes Gait Training Note * Patient demonstrates step to gait pattern while maintaining L TDWB for all gait. Able to ambulate 52' prior to requiring seated rest break. No LOB. Wheelchair Distance * 200 feet Wheelchair Mobility Level of Assist * Standby Assist Wheelchair Mobility Comment * 150' then 350' Pt requires assistance with wound vac, and to place towel under L ankle for comfort on foot rest, otherwise able to maneuver wc and perform turns without assistance. Number of Stairs Completed * 8 Stairs Railing * Yes Railing Side * Right Level of Assist for Stairs * Standby Assist Weight Bearing Status on Stairs * TDWB Left * FWB Right Able to Maintain Weight Bearing Status on Stairs * Yes Stair Training Note * Pt able to ascend/descend 8 4" stairs with (R)rail and 1 crutch on (L), patient able to perform with SBA secondary to requiring assist with wound vac. Patient had no LOB. Demonstrated appropriate sequencing without verbal cues. A. Roll Left and Right: * 88.Not Attempted B. Sit to Lying: * 88.Not Attempted C. Lying to Sitting on Side of Bed: * 05.Setup/clean up Asst Lying to Sitting on Side of Bed Comments: * HOB elevated and use of bed rail D. Sit to Stand: * 05.Setup/clean up Asst E. Chair/Ezc-mo-Ctxws Transfer: * 05.Setup/clean up Asst F. Toilet Transfer: * 88.Not Attempted G. Car Transfer: * 88.Not Attempted H. Does the patient walk?: * 2. Yes I. Walk 10 Feet: * 05.Setup/clean up Asst J. Walk 50' with Two Turns: * 88.Not Attempted Walk 50' with Two Turns Comments: * Patient ambulated 52' in linear path K. Walk 150 Feet: * 88.Not Attempted L. Walking 10' on uneven surfaces: * 88.Not Attempted M. 1 Step (curb): * 04.Sup/Touch Assist N. 4 Steps (with or without railing): * 04.Sup/Touch Assist O. 12 Steps (with or without railing): * 88.Not Attempted P. Picking up Object from the Floor (from a standing): * 88.Not Attempted Picking up Object from the Floor (from standing) Comments: * will need building architect due to having extension brace placed on LLE Q. Does the patient use a w/c (other than just transport): * 1. Yes R. Wheel 50' with 2 Turns(seated in w/c): * 05.Setup/clean up Asst RR. What type of w/c?: * 1. Manual S. Wheel 150' (seated in w/c): * 05.Setup/clean up Asst SS. What type of w/c?: * 1. Manual Lower Extremity Exercised * Bilateral PT Interventions * Gait Training * Wheelchair Mobility * Therapeutic Excercise * Functional Training * Bed Mobility * Balance Activities * Safety/Precautions * Pt./Family Education PT Progress Note * Patient demonstrates improved activity tolerance with ability to ambulate 52' with RW and SBA. Patient also able to propel w/c and perform turns without physical assist. Patient was left sitting in w/c in therapy gym with OT in room to start OT treatment. PT Goal Expiration Date * May 08, 2017 Discharge Recommendations * Home w/services Allergies Coded Allergies: Thiopental (Verified Allergy, Severe, THROAT CONSTRICTION, 08/24/12) Enoxaparin (Verified Allergy, Intermediate, Hives, 04/10/17) Vital Signs Vital Signs Date Time Temp Pulse Resp B/P (MAP) Pulse Ox O2 Delivery O2 Flow Rate FiO2 04/15/17 14:46 20 04/15/17 09:20 Room Air 04/15/17 08:43 51 164/73 04/15/17 06:00 97.4 97 Laboratory Data CBC/BMP Laboratory Tests 04/15/17 11:02 Calcium Level 8.7 L Labs 24H Laboratory Tests 2 04/14/17 16:04: Bedside Glucose (Misc Panel) 180H 04/14/17 16:53: Vancomycin Level Trough 17.2 04/14/17 19:52: Bedside Glucose (Misc Panel) 220H 04/15/17 06:12: Bedside Glucose (Misc Panel) 84 04/15/17 11:02: Anion Gap 6L, Glomerular Filtration Rate 58.1, Blood Urea Nitrogen 27H, Creatinine 1.30, Sodium Level 139, Potassium Level 4.5, Chloride Level 105, Carbon Dioxide Level 28, Calcium Level 8.7L 04/15/17 11:52: Bedside Glucose (Misc Panel) 151H Current Medications Current Medications Current Medications Acetaminophen (Tylenol Tab) 650 mg Q6HP PRN PO MILD PAIN (PS 1-4) Last administered on 04/15/17 04:07; Start 04/09/17 at 15:15; Stop 05/09/17 at 15 :14 Amlodipine Besylate (Norvasc) 5 mg DAILY PO Last administered on 04/15/17 08: 43; Start 04/10/17 at 09:00; Stop 05/10/17 at 08:59 Apixaban (Eliquis) 5 mg BID PO Last administered on 04/15/17 08:43; Start at 21:00; Stop 04/19/17 at 23:55 Benzonatate (Tessalon Perles) 100 mg TIDP PRN PO COUGH; Start 04/09/17 at 15: 15; Stop 05/09/17 at 15:14 Bisoprolol Fumarate (Zebeta) 10 mg DAILY PO Last administered on 04/15/17 08: 43; Start 04/09/17 at 09:00; Stop 05/09/17 at 08:59 Brimonidine Tartrate (Alphagan P 0.15%) 1 drop BID OU Last administered on 08:44; Start 04/09/17 at 21:00; Stop 05/09/17 at 20:59 Calcium Carbonate (Tums) 500 mg Q4HP PRN PO INDIGESTION; Start 04/09/17 at 15: 15; Stop 05/09/17 at 15:14 Dextrose (Dextrose 50%) 25 ml ASDIRECTED PRN IV SEE LABEL COMMENTS; Start at 15:15; Stop 05/09/17 at 15:14 Docusate Sodium (Colace) 100 mg BID PO ; Start 04/09/17 at 21:00; Stop at 10:20; Status DC Dorzolamide/ Timolol (Cosopt Ocumeter Plus) 1 drop BID OU Last administered on 04/15/17 08:44; Start 04/09/17 at 21:00; Stop 05/09/17 at 20:59 Dutasteride (Avodart) 0.5 mg DAILY PO Last administered on 04/15/17 08:42; Start 04/09/17 at 09:00; Stop 05/09/17 at 08:59 Febuxostat (Uloric) 40 mg DAILY PO Last administered on 04/15/17 08:43; Start 04/10/17 at 09:00; Stop 05/10/17 at 08:59 Ferrous Gluconate (Fergon) 324 mg BID PO Last administered on 04/15/17 08:42 ; Start 04/12/17 at 21:00; Stop 05/12/17 at 20:59 Furosemide (Lasix) 20 mg DAILY PO Last administered on 04/15/17 08:43; Start 04/09/17 at 09:00; Stop 05/09/17 at 08:59 Glucagon (Glucagon) 1 mg ASDIRECTED PRN SC SEE LABEL COMMENTS; Start 04/09/17 at 15:15; Stop 05/09/17 at 15:14 Glucose (Glucose) 16 GM ASDIRECTED PRN PO SEE LABEL COMMENTS; Start 04/09/17 at 15:15; Stop 05/09/17 at 15:14 Heparin Sodium (Heparin (Flush)) 200 units ASDIRECTED PRN IV SEE LABEL COMMENTS Last administered on 04/10/17 15:56; Start 04/10/17 at 15:15; Stop 05/10/17 at 15:14 Heparin Sodium (Heparin (Flush)) 200 units PICC IV Last administered on 06:05; Start 04/10/17 at 18:00; Stop 05/10/17 at 17:59 Home Med (Med Rec Complete!) ASDIRECTED XX ; Start 04/09/17 at 17:45; Stop at 18:17; Status DC Insulin Detemir (Levemir Insulin) 36 units QHS SC Last administered on 20:49; Start 04/09/17 at 21:00; Stop 05/09/17 at 20:59 Insulin Human Lispro (HumaLOG INSULIN) See Protocol Table AC SC Last administered on 04/14/17 17:26; Start 04/09/17 at 17:30; Stop 05/09/17 at 17 :29 Insulin Human Lispro (HumaLOG INSULIN) See Protocol Table QHS SC ; Start at 21:00; Stop 05/09/17 at 20:59 Lactobacillus Acidophilus (Bacid) 1 ea BID PRN PO DIARRHEA; Start 04/09/17 at 15:15; Stop 05/09/17 at 15:14 Magnesium Oxide (Mag-Ox) 400 mg BID PO Last administered on 04/15/17 08:42; Start 04/09/17 at 21:00; Stop 05/09/17 at 20:59 Multivitamins (Theragram-M) 1 tab DAILY PO Last administered on 04/15/17 08: 42; Start 04/10/17 at 09:00; Stop 05/10/17 at 08:59 Non-Formulary Medication ( See Comment Field Below ) VANCO INTERMIT. DOSING ASDIRECTED XX ; Start 04/09/17 at 20:30; Stop 04/10/17 at 13:19; Status DC Oxycodone HCl (Roxicodone, Oxyir) 5 mg Q4HP PRN PO PAIN SCALE 6-10 Last administered on 04/15/17 14:46; Start 04/09/17 at 15:15; Stop 04/22/17 at 23: 55 Pravastatin Sodium (Pravachol) 5 mg DAILY PO Last administered on 04/15/17 08 :42; Start 04/10/17 at 09:00; Stop 05/10/17 at 08:59 Psyllium Hydrophilic Mucilloid (Metamucil) 1 pkt DAILY PRN PO BOWEL CARE/ CONSTIPATION; Start 04/09/17 at 15:15; Stop 05/09/17 at 15:14 Senna (Senokot) 2 tab QHS PO ; Start 04/09/17 at 21:00; Stop 04/15/17 at 10:20 ; Status DC Sodium Chloride (Saline Lock Flush) 10 ml ASDIRECTED PRN IV SEE LABEL COMMENTS Last administered on 04/10/17 15:55; Start 04/10/17 at 15:15; Stop 05/10/17 at 15:14 Sodium Chloride (Saline Lock Flush) 10 ml PICC IV Last administered on 06:05; Start 04/10/17 at 18:00; Stop 05/10/17 at 17:59 Tamsulosin HCl (Flomax) 0.4 mg DAILY PO Last administered on 04/15/17 08:43; Start 04/10/17 at 09:00; Stop 05/10/17 at 08:59 Vancomycin HCl 750 mg/IV Miscellaneous Supplies 1 each/ Dextrose 275 ml @ 275 mls/hr Q24H IV Last administered on 04/14/17 17:26; Start 04/11/17 at 18:00 ; Stop 04/18/17 at 17:59 Vancomycin HCl 1000 mg/IV Miscellaneous Supplies 1 each/ Dextrose 270 ml @ 270 mls/hr Q24H IV Last administered on 04/10/17 14:50; Start 04/10/17 at 15:00 ; Stop 04/11/17 at 14:49; Status DC Vancomycin HCl 1500 mg/IV Miscellaneous Supplies 1 each/ Dextrose 280 ml @ 270 mls/hr Q48H IV ; Start 04/10/17 at 06:00; Stop 04/10/17 at 06:00; Status DC SUSHANT MITCHELL MD Apr 15, 2017 15:32
[2017-04-15 16:28] LABS: ALBUMIN 3.1 GM/DL (3.2-5.2); ALBUMIN/GLOBULIN RATIO 0.72 (1.00-1.93); BILIRUBIN,DIRECT 0.1 MG/DL (0.0-0.2); BILIRUBIN,TOTAL 0.4 MG/DL (0.2-1.0); TOTAL PROTEIN 7.4 GM/DL (6.4-8.2)
[2017-04-15] MEDS: VANCOMYCIN HCL 750 MG, VIAL MATE ADAPTER 1 EACH in D5W 250 ML IV SCH (18:16)
[2017-04-15 20:00] VITALS: BP 172/70
[2017-04-15] MEDS: LEVEMIR (INSULIN DETEMIR) 1 UNITS/0.01ML SC SCH (21:01)
[2017-04-16] MEDS: SODIUM CHLORIDE 0.9% INJ 10 ML SYR IV SCH ×2 (05:13→18:31)
--- NOTE | 2017-04-16 05:47 | CR ---
DATE OF CONSULTATION: 04/09/2018 REFERRING PHYSICIAN: Dr. 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 SUBJECTIVE: Mr. Boss is a 71-year-old patient well-known to me with a history of bilateral knee arthroplasty. The patient had developed an osteomyelitis of the right foot involving the second toe with secondary MRSA bacteremia. He has been on chronic suppressive therapy with Zyvox when he developed severe swelling of the left knee and developed a MRSA infection. He was transferred to [email or web address] where he had a one stage procedure with incision and drainage. He was treated with intravenous (IV) vancomycin and rifampin for a total of eight weeks. After he was switched to oral Bactrim the patient started having increasing swelling, pain and redness with elevation in his sed rate and C-reactive protein and therefore I transferred him back to orthopedic surgery and the patient had removal of the left knee hardware. He had some complications, the surgery was done on 03/20. He had a wound vacuum assisted closure (VAC) placed on 04/01. The wound was complicated by some necrosis and delayed closure. He was having some issues with his kidney function and IV vancomycin was dosed at 1.5 grams every 48 hours. The patient is happy to be transferred back to [facility] for rehabilitation. He denies any nausea, vomiting, diarrhea, abdominal pain, fever or chills. He just has pain in his knee. PAST MEDICAL HISTORY: Significant for: 1. Severe osteoarthritis. 2. Bilateral knee replacement. 3. 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 4. 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 5. Atrial fibrillation. 6. Automatic implantable cardio converter-defibrillator (AICD) . 7. Type 2 diabetes, well controlled. 8. Sleep apnea. 9. Hypertension/ 10. Hyperlipidemia. 11. Chronic kidney disease stage III. 12. Glaucoma. 13. Chronic pulmonary obstructive disease (COPD). 14. Gout. 15. Left leg pain also in 2014. PAST SURGICAL HISTORY: 1. Amputation of the right great toe. 2. Multiple incision and drainage (I and D) of the right foot with culture positive for MRSA. 3. Bilateral knee replacement. 4. AICD. ALLERGIES: LOVENOX and THIOPENTAL causing anaphylaxis. MEDICATIONS: - vancomycin 1.5 grams every 48 hours - Tylenol as needed for fever - amlodipine 5 mg daily - Eliquis 5 mg twice a day - Tessalon Perles 100 mg three times a day as needed - Zebeta 10 mg daily - Tums 500 mg every 4 hours as needed - Colace 100 mg twice a day - Avodart 0.5 mg daily - Uloric 40 mg daily - Lasix 20 mg daily - Levemir 36 units subcutaneous at bedtime - insulin sliding scale - probiotic twice a day - magnesia oxide 400 mg twice a day - multivitamin - iron - folate - oxycodone as needed for pain - pravastatin 5 mg daily - Metamucil as needed for constipation - Senokot REVIEW OF SYSTEMS: Other than joint pains, the patient denies any nausea, vomiting, diarrhea, upper or lower extremity weakness. PHYSICAL EXAMINATION: Heart: Normal S1, S2, irregular. Lungs: Lungs are clear. No wheezes or rhonchi. Abdomen: Soft, nontender. No visceromegaly. Extremities: No edema. He has admission for left toe amputation of the right foot, left knee has a wound VAC in place with minimal surrounding erythema, limited range of motion. Neurologic: Awake, alert and oriented times three. Speech is coherent, motor strength is normal. Vital signs : Temperature is 97.7, blood pressure 162/74, pulse 50, respirations 18, O2 sat 100% on room air. IMPRESSION: This is a pleasant insulin-dependent diabetic gentleman with recurrent MRSA infection who had failed conservative treatment of prosthetic joint infection of the left knee. He currently underwent incision and drainage, removal of hardware with antibiotics impregnated spacer placed on 03/20. He is transferred to [facility] for rehabilitation. He will be treated for a total of 6-8 weeks of intravenous (IV) antibiotics. After he finishes the course of antibiotics, then he will be considered for a new knee replacement and that will be done in [place]. His kidney function has markedly improved and I suspect that his dose of 1.5 grams every 48 hours will now be sufficient. I suspect he will need 1 gram every 24 hours. This consultation was done on 04/09. LABORATORY DATA: Labs from 04/10 morning: White count was 3.8, hemoglobin 9.3, hematocrit 28.6, platelets 233, 67% neutrophils, 18% lymphocytes, 8% monocytes. Sodium 139, potassium 4.4, chloride 107, bicarb 27, BUN 25, creatinine 1.4, glucose 84, calcium 8.6, uric acid 5.7, AST 103, ALT 105, alkaline phosphatase 270, CRP 0.6. No imaging done. PLAN: 1. Continue IV vancomycin for a total of 6-8 weeks. Consultation with pharmacy for dosing. Dosing will be switched to daily instead of every 48 hours. Will follow trough levels and keep his trough level between 15 and 20 and monitor his kidney function routinely. 2. Will also obtain his CBC, sed rate and CRP once a week. 3. Repeat liver profile as his liver function tests (LFTs) have been elevated in the next 2-3 days. cc: Sixto Pa MD
[2017-04-16 06:00] VITALS: BP 168/70
[2017-04-16] MEDS: APIXABAN 5 MG TAB (ELIQUIS) PO SCH ×2 (08:13→20:52)
[2017-04-16] MEDS: HumaLOG INSULIN (NovoLOG) PER UNIT SC SCH ×4 (08:13→20:53)
[2017-04-16] MEDS: FERROUS GLUCONATE 324 MG TAB PO SCH ×2 (08:13→20:51)
[2017-04-16] MEDS: MULTIVITAMINS/MINERALS THERAP 1 TAB PO SCH (08:13)
[2017-04-16] MEDS: FUROSEMIDE 20 MG TAB PO SCH (08:13)
[2017-04-16] MEDS: FEBUXOSTAT 40 MG TABLET (ULORIC) PO SCH (08:13)
[2017-04-16] MEDS: DUTASTERIDE 0.5 MG CAP (AVODART) PO SCH (08:13)
[2017-04-16] MEDS: BRIMONIDINE 0.15% OPHTH SOLN 5 ML OU SCH ×2 (08:14→20:53)
[2017-04-16] MEDS: amLODIPine 5 MG TAB PO SCH ×2 (08:14→20:51)
[2017-04-16] MEDS: PRAVASTATIN 10 MG TAB PO SCH (08:14)
[2017-04-16] MEDS: COSOPT OCUMETER PLUS 10ML (DORZOLAMIDE/TIMOLOL) OU SCH ×2 (08:14→20:53)
[2017-04-16] MEDS: MAGNESIUM OXIDE 400 MG TAB (MAG-OX) PO SCH ×2 (08:14→20:52)
[2017-04-16] MEDS: BISOPROLOL FUMARATE 10 MG TAB PO SCH (08:14)
[2017-04-16] MEDS: TAMSULOSIN 0.4 MG CAP PO SCH (08:16)
[2017-04-16] MEDS: ACETAMINOPHEN TAB 650MG DOSE (2X325MG) PO PRN (13:29)
[2017-04-16] MEDS ORDERED: OXYCO5TA PO (13:58)
[2017-04-16] MEDS ORDERED: AMLO5TAB2 PO (13:58)
[2017-04-16] MEDS ORDERED: ELIQ5TAB PO (13:58)
[2017-04-16 14:00] VITALS: BP 128/61
--- NOTE | 2017-04-16 16:47 | IPNPDOC ---
PM&R Progress Note Api Product Manager Progress Note DATE OF SERVICE: 04/16/17 DATE OF ADMISSION: Apr 09, 2017 at 16:28 INPATIENT REHABILITATION ADMISSION DAY: #8 SUBJECTIVE: The patient is a 71-year-old right-handed (Demetris) male who has had both knees replaced and end-stage osteoarthritis and had osteomyelitis of the right great toe and methicillin-resistant Staphylococcus aureus (MRSA) bacteremia, atrial fibrillation, type 2 diabetes, sleep apnea, hypertension, hyperlipidemia, chronic kidney disease, stage III, chronic obstructive pulmonary disease (COPD), and gout who developed infection of his left total knee and had surgical removal on 03/20/2017 with revision on approximately 04/01/2017. Patient having difficulty with pain as well as wound healing and has to be able to do 8 steps to return to home along with being standby assist to independent in activities of daily living (ADLs) and moderate distance mobility. Patient continues to marked left knee pain with wound vacuum dressing changes and movement of LLE. However, feels better and now ambulating to the bathroom. No other complaints. ALLERGIES: See Below MEDICATIONS: Reviewed, see below. OBJECTIVE: VITAL SIGNS: Please see below. PHYSICAL EXAMINATION: GENERAL: Tall slightly overweight 71-year-old male who looks younger than stated age with a wound VAC on his left knee below the patella and across the tibial tuberosity with wound with a little over two centimeter at the tibial plateau without any wound purulence. Patient is in mild musculoskeletal distress and is alert and well oriented and very motivated for therapy. HEENT: Normocephalic/atraumatic. CARDIOVASCULAR: Mildly bradycardic but regular rate and rhythm with normal S1 and S2 without S3-S4 murmurs or rubs. There is an occasional ectopic beat. Pulses are 2 out 4 for bilateral radial arteries at the wrist. Good skin perfusion in bilateral upper and distal lower extremities. LUNGS: All travis clear to auscultation. ABDOMEN: Mildly obese with normal bowel sounds in all quadrants. NEUROLOGICAL: Patient is alert and oriented 4. Speech is clear coherent and appropriate. Affect is pleasant and cooperative. Memory is good. Motor and sensory motor bilateral upper extremities and right lower extremity are good. Patient with increase sensation around the left knee and some apprehension with left lower extremity movement. SKIN: Patient with open anterior incision from inferior patella to below the tibial tuberosity on the left lower extremity. No heat redness or sanguinous discharge is present. LABORATORY DATA: Reviewed. Please see below. MICROBIOLOGY: Please see below. IMAGING: No new imaging. DVT prophylaxis ordered?: Patient is on Eliquis with SHEA hose and sequential compression stocking on the right lower extremity. ASSESSMENT AND PLAN: 1. 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 He does continue to have problems with pain whenever wound dressings or touch air movement around the left knee is involved, though wound base is improving, but a bit dry. Patient is being treated with oxycodone 5 mg every 4 hours when necessary and this normally is handling his pain well except when dressing change or significant left knee movements involved. Patient now ambulating with FWW about 30 feet and most transfers now improved to CGA. I have ordered a hospital bed and manaul w/c as patient with some limitations in his ability to consistently get around. Wound Vac rental ordered. He needs to make progress on stairs and over dressing and hygiene skills for return to home , but he should be able to achieve this by Anticipated D/C date of 04/18/17. 2. MRSA infection of knee and bacteremia: Dr. Collins's medication adjustment and baseline test orders are appreciated. Patient to continue with the IV vancomycin and upon completion of inpatient rehabilitation will be transitioned to home infusion. Patient was surprisingly low WBC count currently 3.9K. LFT's with only Alk. Phos. elevated at 152 which is improved. 3. Moderate anemia: H&H is 9.5 and 29.3%. We will continue to monitor this. 4. Chronic kidney disease stage III: Patient currently they're his baseline creatinine with BUN up today to 29. Nephrology to make adjustments as appropriate. Vancomycin adjusted per trough results. 5. Type 2 diabetes mellitus: Patient with early good blood sugar control since admission. We will continue to monitor. TIME SPENT: Chart Review, examination and documentation require greater than 25 minutes. Allergies Coded Allergies: Thiopental (Verified Allergy, Severe, THROAT CONSTRICTION, 08/24/12) Enoxaparin (Verified Allergy, Intermediate, Hives, 04/10/17) Vital Signs Vital Signs Date Time Temp Pulse Resp B/P (MAP) Pulse Ox O2 Delivery O2 Flow Rate FiO2 04/16/17 14:00 97.7 50 18 128/61 (83) 99 Room Air Laboratory Data Labs 24H Laboratory Tests 2 04/15/17 18:04: Bedside Glucose (Misc Panel) 194H 04/15/17 20:40: Bedside Glucose (Misc Panel) 201H 04/16/17 06:55: Bedside Glucose (Misc Panel) 100 04/16/17 11:58: Bedside Glucose (Misc Panel) 154H Current Medications Current Medications Current Medications Acetaminophen (Tylenol Tab) 650 mg Q6HP PRN PO MILD PAIN (PS 1-4) Last administered on 04/16/17 13:29; Start 04/09/17 at 15:15; Stop 05/09/17 at 15 :14 Amlodipine Besylate (Norvasc) 5 mg BID PO Last administered on 04/16/17 08:14 ; Start 04/15/17 at 21:00; Stop 05/15/17 at 20:59 Amlodipine Besylate (Norvasc) 5 mg DAILY PO Last administered on 04/15/17 08: 43; Start 04/10/17 at 09:00; Stop 04/15/17 at 15:39; Status DC Apixaban (Eliquis) 5 mg BID PO Last administered on 04/16/17 08:13; Start at 21:00; Stop 04/19/17 at 23:55 Benzonatate (Tessalon Perles) 100 mg TIDP PRN PO COUGH; Start 04/09/17 at 15: 15; Stop 05/09/17 at 15:14 Bisoprolol Fumarate (Zebeta) 10 mg DAILY PO Last administered on 04/16/17 08: 14; Start 04/09/17 at 09:00; Stop 05/09/17 at 08:59 Brimonidine Tartrate (Alphagan P 0.15%) 1 drop BID OU Last administered on 08:14; Start 04/09/17 at 21:00; Stop 05/09/17 at 20:59 Calcium Carbonate (Tums) 500 mg Q4HP PRN PO INDIGESTION; Start 04/09/17 at 15: 15; Stop 05/09/17 at 15:14 Dextrose (Dextrose 50%) 25 ml ASDIRECTED PRN IV SEE LABEL COMMENTS; Start at 15:15; Stop 05/09/17 at 15:14 Docusate Sodium (Colace) 100 mg BID PO ; Start 04/09/17 at 21:00; Stop at 10:20; Status DC Dorzolamide/ Timolol (Cosopt Ocumeter Plus) 1 drop BID OU Last administered on 04/16/17 08:14; Start 04/09/17 at 21:00; Stop 05/09/17 at 20:59 Dutasteride (Avodart) 0.5 mg DAILY PO Last administered on 04/16/17 08:13; Start 04/09/17 at 09:00; Stop 05/09/17 at 08:59 Febuxostat (Uloric) 40 mg DAILY PO Last administered on 04/16/17 08:13; Start 04/10/17 at 09:00; Stop 05/10/17 at 08:59 Ferrous Gluconate (Fergon) 324 mg BID PO Last administered on 04/16/17 08:13 ; Start 04/12/17 at 21:00; Stop 05/12/17 at 20:59 Furosemide (Lasix) 20 mg DAILY PO Last administered on 04/16/17 08:13; Start 04/09/17 at 09:00; Stop 05/09/17 at 08:59 Glucagon (Glucagon) 1 mg ASDIRECTED PRN SC SEE LABEL COMMENTS; Start 04/09/17 at 15:15; Stop 05/09/17 at 15:14 Glucose (Glucose) 16 GM ASDIRECTED PRN PO SEE LABEL COMMENTS; Start 04/09/17 at 15:15; Stop 05/09/17 at 15:14 Heparin Sodium (Heparin (Flush)) 200 units ASDIRECTED PRN IV SEE LABEL COMMENTS Last administered on 04/10/17 15:56; Start 04/10/17 at 15:15; Stop 05/10/17 at 15:14 Heparin Sodium (Heparin (Flush)) 200 units PICC IV Last administered on 05:13; Start 04/10/17 at 18:00; Stop 05/10/17 at 17:59 Home Med (Med Rec Complete!) ASDIRECTED XX ; Start 04/09/17 at 17:45; Stop at 18:17; Status DC Insulin Detemir (Levemir Insulin) 36 units QHS SC Last administered on 21:01; Start 04/09/17 at 21:00; Stop 05/09/17 at 20:59 Insulin Human Lispro (HumaLOG INSULIN) See Protocol Table AC SC Last administered on 04/16/17 13:29; Start 04/09/17 at 17:30; Stop 05/09/17 at 17 :29 Insulin Human Lispro (HumaLOG INSULIN) See Protocol Table QHS SC ; Start at 21:00; Stop 05/09/17 at 20:59 Lactobacillus Acidophilus (Bacid) 1 ea BID PRN PO DIARRHEA; Start 04/09/17 at 15:15; Stop 05/09/17 at 15:14 Magnesium Oxide (Mag-Ox) 400 mg BID PO Last administered on 04/16/17 08:14; Start 04/09/17 at 21:00; Stop 05/09/17 at 20:59 Multivitamins (Theragram-M) 1 tab DAILY PO Last administered on 04/16/17 08: 13; Start 04/10/17 at 09:00; Stop 05/10/17 at 08:59 Non-Formulary Medication ( See Comment Field Below ) [facility]. DOSING ASDIRECTED XX ; Start 04/09/17 at 20:30; Stop 04/10/17 at 13:19; Status DC Oxycodone HCl (Roxicodone, Oxyir) 5 mg Q4HP PRN PO PAIN SCALE 6-10 Last administered on 04/15/17 14:46; Start 04/09/17 at 15:15; Stop 04/22/17 at 23: 55 Pravastatin Sodium (Pravachol) 5 mg DAILY PO Last administered on 04/16/17 08 :14; Start 04/10/17 at 09:00; Stop 05/10/17 at 08:59 Psyllium Hydrophilic Mucilloid (Metamucil) 1 pkt DAILY PRN PO BOWEL CARE/ CONSTIPATION; Start 04/09/17 at 15:15; Stop 05/09/17 at 15:14 Senna (Senokot) 2 tab QHS PO ; Start 04/09/17 at 21:00; Stop 04/15/17 at 10:20 ; Status DC Sodium Chloride (Saline Lock Flush) 10 ml ASDIRECTED PRN IV SEE LABEL COMMENTS Last administered on 04/10/17 15:55; Start 04/10/17 at 15:15; Stop 05/10/17 at 15:14 Sodium Chloride (Saline Lock Flush) 10 ml PICC IV Last administered on 05:13; Start 04/10/17 at 18:00; Stop 05/10/17 at 17:59 Tamsulosin HCl (Flomax) 0.4 mg DAILY PO Last administered on 04/16/17 08:16; Start 04/10/17 at 09:00; Stop 05/10/17 at 08:59 Vancomycin HCl 750 mg/IV Miscellaneous Supplies 1 each/ Dextrose 275 ml @ 275 mls/hr Q24H IV Last administered on 04/15/17 18:16; Start 04/11/17 at 18:00 ; Stop 04/18/17 at 17:59 Vancomycin HCl 1000 mg/IV Miscellaneous Supplies 1 each/ Dextrose 270 ml @ 270 mls/hr Q24H IV Last administered on 04/10/17 14:50; Start 04/10/17 at 15:00 ; Stop 04/11/17 at 14:49; Status DC Vancomycin HCl 1500 mg/IV Miscellaneous Supplies 1 each/ Dextrose 280 ml @ 270 mls/hr Q48H IV ; Start 04/10/17 at 06:00; Stop 04/10/17 at 06:00; Status DC SUSHANT MITCHELL MD Apr 16, 2017 16:47
[2017-04-16] MEDS: VANCOMYCIN HCL 750 MG, VIAL MATE ADAPTER 1 EACH in D5W 250 ML IV SCH (18:31)
[2017-04-16 20:00] VITALS: BP 154/70
[2017-04-16] MEDS: LEVEMIR (INSULIN DETEMIR) 1 UNITS/0.01ML SC SCH (20:51)
[2017-04-17 06:00] VITALS: BP 142/70
[2017-04-17] MEDS: SODIUM CHLORIDE 0.9% INJ 10 ML SYR IV SCH ×2 (06:54→20:16)
[2017-04-17 07:14] LABS: MEAN CORPUSCULAR HEMOGLOBIN 28.4 pg (27.0-33.0); MEAN CORPUSCULAR VOLUME 86.1 fl (80.0-96.0); PLATELET COUNT, AUTOMATED 205 10^3/uL (150-450); RED CELL DISTRIBUTION WIDTH 13.5 % (11.5-14.5); WHITE BLOOD COUNT 4.5 10^3/uL (4.0-10.0)
[2017-04-17] MEDS: HumaLOG INSULIN (NovoLOG) PER UNIT SC SCH ×4 (07:30→21:00)
[2017-04-17 07:55] LABS: ALBUMIN/GLOBULIN RATIO 0.73 (1.00-1.93); ALKALINE PHOSPHATASE 132 U/L (45-117); ALT/SGPT 30 U/L (12-78); ANION GAP 7 MEQ/L (8-16); AST/SGOT 27 U/L (7-37); BILIRUBIN,TOTAL 0.4 MG/DL (0.2-1.0); BLOOD UREA NITROGEN 26 MG/DL (7-18); CALCIUM LEVEL 8.6 MG/DL (8.8-10.2); CARBON DIOXIDE LEVEL 27 MEQ/L (21-32); CHLORIDE LEVEL 107 MEQ/L (98-107); CREATININE FOR GFR 1.24 MG/DL (0.70-1.30); GLOMERULAR FILTRATION RATE > 60.0 (>42); GLUCOSE, FASTING 80 MG/DL (83-110); POTASSIUM SERUM 4.2 MEQ/L (3.5-5.1); SODIUM LEVEL 141 MEQ/L (136-145); TOTAL PROTEIN 7.1 GM/DL (6.4-8.2)
[2017-04-17] MEDS: FERROUS GLUCONATE 324 MG TAB PO SCH ×2 (09:42→20:18)
[2017-04-17] MEDS: oxyCODONE 5MG TAB PO PRN ×2 (09:43→16:09)
[2017-04-17] MEDS: MULTIVITAMINS/MINERALS THERAP 1 TAB PO SCH (09:44)
[2017-04-17] MEDS: PRAVASTATIN 10 MG TAB PO SCH (09:44)
[2017-04-17] MEDS: FEBUXOSTAT 40 MG TABLET (ULORIC) PO SCH (09:44)
[2017-04-17] MEDS: DUTASTERIDE 0.5 MG CAP (AVODART) PO SCH (09:44)
[2017-04-17] MEDS: MAGNESIUM OXIDE 400 MG TAB (MAG-OX) PO SCH ×2 (09:45→20:18)
[2017-04-17] MEDS: BISOPROLOL FUMARATE 10 MG TAB PO SCH (09:50)
[2017-04-17] MEDS: amLODIPine 5 MG TAB PO SCH ×2 (09:51→20:18)
[2017-04-17] MEDS: TAMSULOSIN 0.4 MG CAP PO SCH (09:52)
[2017-04-17] MEDS: FUROSEMIDE 20 MG TAB PO SCH (09:54)
[2017-04-17] MEDS: BRIMONIDINE 0.15% OPHTH SOLN 5 ML OU SCH ×2 (09:58→20:19)
[2017-04-17] MEDS: COSOPT OCUMETER PLUS 10ML (DORZOLAMIDE/TIMOLOL) OU SCH ×2 (09:58→20:19)
[2017-04-17] MEDS: APIXABAN 5 MG TAB (ELIQUIS) PO SCH ×2 (09:59→20:18)
--- NOTE | 2017-04-17 13:20 | IPNPDOC ---
PM&R Progress Note [employer]v [employer] Director Progress Note DATE OF SERVICE: 04/17/17 DATE OF ADMISSION: Apr 09, 2017 at 16:28 INPATIENT REHABILITATION ADMISSION DAY: #9 SUBJECTIVE: The patient is a 71-year-old right-handed (Demetris) male who has had both knees replaced and end-stage osteoarthritis and had osteomyelitis of the right great toe and methicillin-resistant Staphylococcus aureus (MRSA) bacteremia, atrial fibrillation, type 2 diabetes, sleep apnea, hypertension, hyperlipidemia, chronic kidney disease, stage III, chronic obstructive pulmonary disease (COPD), and gout who developed infection of his left total knee and had surgical removal on 03/20/2017 with revision on approximately 04/01/2017. Patient having difficulty with pain as well as wound healing and has to be able to do 8 steps to return to home along with being standby assist to independent in activities of daily living (ADLs) and moderate distance mobility. Patient continues to marked left knee pain with wound vacuum dressing changes and movement of LLE. However, feels better and now ambulating to the bathroom. No other complaints. ALLERGIES: See Below MEDICATIONS: Reviewed, see below. OBJECTIVE: VITAL SIGNS: Please see below. PHYSICAL EXAMINATION: GENERAL: Tall slightly overweight 71-year-old male who looks younger than stated age with a wound VAC on his left knee below the patella and across the tibial tuberosity with wound with a little over two centimeter at the tibial plateau without any wound purulence. Patient is in mild musculoskeletal distress and is alert and well oriented and very motivated for therapy. HEENT: Normocephalic/atraumatic. CARDIOVASCULAR: Mildly bradycardic but regular rate and rhythm with normal S1 and S2 without S3-S4 murmurs or rubs. There is an occasional ectopic beat. Pulses are 2 out 4 for bilateral radial arteries at the wrist. Good skin perfusion in bilateral upper and distal lower extremities. LUNGS: All travis clear to auscultation. ABDOMEN: Mildly obese with normal bowel sounds in all quadrants. NEUROLOGICAL: Patient is alert and oriented 4. Speech is clear coherent and appropriate. Affect is pleasant and cooperative. Memory is good. Motor and sensory motor bilateral upper extremities and right lower extremity are good. Patient with increase sensation around the left knee and some apprehension with left lower extremity movement. SKIN: Patient with open anterior incision from inferior patella to below the tibial tuberosity on the left lower extremity. No heat redness or sanguinous discharge is present. LABORATORY DATA: Reviewed. Please see below. MICROBIOLOGY: Please see below. IMAGING: No new imaging. DVT prophylaxis ordered?: Patient is on Eliquis with SHEA hose and sequential compression stocking on the right lower extremity. ASSESSMENT AND PLAN: 1. 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 He does continue to have problems with pain whenever wound dressings or touch air movement around the left knee is involved, though wound base is improving, but a bit dry. Patient is being treated with oxycodone 5 mg every 4 hours when necessary and this normally is handling his pain well except when dressing change or significant left knee movements involved. Patient now ambulating with FWW about 100 feet up from 30 and most transfers now improved to CGA. I have ordered a hospital bed and manaul w/c as patient with some limitations in his ability to consistently get around. Wound Vac rental ordered. He needs to make progress on stairs and over dressing and hygiene skills for return to home, but he should be able to achieve this by Anticipated D/C date of 04/18/17. 2. MRSA infection of knee and bacteremia: Dr. Collins's medication adjustment and baseline test orders are appreciated. Patient to continue with the IV vancomycin and upon completion of inpatient rehabilitation will be transitioned to home infusion. Patient was surprisingly low WBC count currently 3.9K. LFT's with only Alk. Phos. elevated at 132 which is improved from prior 152. 3. Moderate anemia: H&H is 9.6 and 29.1%. We will continue to monitor this. 4. Chronic kidney disease stage III: Patient currently they're his baseline creatinine with BUN today is 26. Nephrology to make adjustments as appropriate. Vancomycin adjusted per trough results. 5. Type 2 diabetes mellitus: Patient with early good blood sugar control since admission. We will continue to monitor. TIME SPENT: Chart Review, examination and documentation require greater than 25 minutes. Allergies Coded Allergies: Thiopental (Verified Allergy, Severe, THROAT CONSTRICTION, 08/24/12) Enoxaparin (Verified Allergy, Intermediate, Hives, 04/10/17) Vital Signs Vital Signs Date Time Temp Pulse Resp B/P (MAP) Pulse Ox O2 Delivery O2 Flow Rate FiO2 04/17/17 10:13 18 04/17/17 09:51 52 108/50 04/17/17 09:00 Room Air 04/17/17 06:00 98.4 99 Laboratory Data CBC/BMP Laboratory Tests 04/17/17 06:54 Red Blood Count 3.38 L, Mean Corpuscular Volume 86.1, Mean Corpuscular Hemoglobin 28.4, Mean Corpuscular Hemoglobin Concent 33.0, Red Cell Distribution Width 13.5, Calcium Level 8.6 L, Aspartate Amino Transf (AST/SGOT) 27, Alanine Aminotransferase (ALT/SGPT) 30, Alkaline Phosphatase 132 H, Total Bilirubin 0.4, Total Protein 7.1, Albumin 3.0 L Labs 24H Laboratory Tests 2 04/16/17 16:57: Bedside Glucose (Misc Panel) 141H 04/16/17 20:11: Bedside Glucose (Misc Panel) 219H 04/17/17 05:14: Bedside Glucose (Misc Panel) 91 04/17/17 06:54: Nucleated Red Blood Cells % (auto) 0.0, Anion Gap 7L, Glomerular Filtration Rate > 60.0, Blood Urea Nitrogen 26H, Creatinine 1.24, Sodium Level 141, Potassium Level 4.2, Chloride Level 107, Carbon Dioxide Level 27, Calcium Level 8.6L, Aspartate Amino Transf (AST/SGOT) 27, Alanine Aminotransferase (ALT/SGPT) 30, Alkaline Phosphatase 132H, Total Bilirubin 0.4, Total Protein 7.1, Albumin 3.0L, C-Reactive Protein, Quantitative 0.39H, Albumin/Globulin Ratio 0.73L 04/17/17 08:56: 04/17/17 12:08: Bedside Glucose (Misc Panel) 172H Current Medications Current Medications Current Medications Acetaminophen (Tylenol Tab) 650 mg Q6HP PRN PO MILD PAIN (PS 1-4) Last administered on 04/16/17 13:29; Start 04/09/17 at 15:15; Stop 05/09/17 at 15 :14 Amlodipine Besylate (Norvasc) 5 mg BID PO Last administered on 04/16/17 20:51 ; Start 04/15/17 at 21:00; Stop 05/15/17 at 20:59 Amlodipine Besylate (Norvasc) 5 mg DAILY PO Last administered on 04/15/17 08: 43; Start 04/10/17 at 09:00; Stop 04/15/17 at 15:39; Status DC Apixaban (Eliquis) 5 mg BID PO Last administered on 04/17/17 09:59; Start at 21:00; Stop 04/21/17 at 23:55 Benzonatate (Tessalon Perles) 100 mg TIDP PRN PO COUGH; Start 04/09/17 at 15: 15; Stop 05/09/17 at 15:14 Bisoprolol Fumarate (Zebeta) 10 mg DAILY PO Last administered on 04/16/17 08: 14; Start 04/09/17 at 09:00; Stop 05/09/17 at 08:59 Brimonidine Tartrate (Alphagan P 0.15%) 1 drop BID OU Last administered on 09:58; Start 04/09/17 at 21:00; Stop 05/09/17 at 20:59 Calcium Carbonate (Tums) 500 mg Q4HP PRN PO INDIGESTION; Start 04/09/17 at 15: 15; Stop 05/09/17 at 15:14 Dextrose (Dextrose 50%) 25 ml ASDIRECTED PRN IV SEE LABEL COMMENTS; Start at 15:15; Stop 05/09/17 at 15:14 Docusate Sodium (Colace) 100 mg BID PO ; Start 04/09/17 at 21:00; Stop at 10:20; Status DC Dorzolamide/ Timolol (Cosopt Ocumeter Plus) 1 drop BID OU Last administered on 04/17/17 09:58; Start 04/09/17 at 21:00; Stop 05/09/17 at 20:59 Dutasteride (Avodart) 0.5 mg DAILY PO Last administered on 04/17/17 09:44; Start 04/09/17 at 09:00; Stop 05/09/17 at 08:59 Febuxostat (Uloric) 40 mg DAILY PO Last administered on 04/17/17 09:44; Start 04/10/17 at 09:00; Stop 05/10/17 at 08:59 Ferrous Gluconate (Fergon) 324 mg BID PO Last administered on 04/17/17 09:42 ; Start 04/12/17 at 21:00; Stop 05/12/17 at 20:59 Furosemide (Lasix) 20 mg DAILY PO Last administered on 04/16/17 08:13; Start 04/09/17 at 09:00; Stop 05/09/17 at 08:59 Glucagon (Glucagon) 1 mg ASDIRECTED PRN SC SEE LABEL COMMENTS; Start 04/09/17 at 15:15; Stop 05/09/17 at 15:14 Glucose (Glucose) 16 GM ASDIRECTED PRN PO SEE LABEL COMMENTS; Start 04/09/17 at 15:15; Stop 05/09/17 at 15:14 Heparin Sodium (Heparin (Flush)) 200 units ASDIRECTED PRN IV SEE LABEL COMMENTS Last administered on 04/10/17 15:56; Start 04/10/17 at 15:15; Stop 05/10/17 at 15:14 Heparin Sodium (Heparin (Flush)) 200 units PICC IV Last administered on 06:54; Start 04/10/17 at 18:00; Stop 05/10/17 at 17:59 Home Med (Med Rec Complete!) ASDIRECTED XX ; Start 04/09/17 at 17:45; Stop at 18:17; Status DC Insulin Detemir (Levemir Insulin) 36 units QHS SC Last administered on 20:51; Start 04/09/17 at 21:00; Stop 05/09/17 at 20:59 Insulin Human Lispro (HumaLOG INSULIN) See Protocol Table AC SC Last administered on 04/16/17 18:30; Start 04/09/17 at 17:30; Stop 05/09/17 at 17 :29 Insulin Human Lispro (HumaLOG INSULIN) See Protocol Table QHS SC ; Start at 21:00; Stop 05/09/17 at 20:59 Lactobacillus Acidophilus (Bacid) 1 ea BID PRN PO DIARRHEA; Start 04/09/17 at 15:15; Stop 05/09/17 at 15:14 Magnesium Oxide (Mag-Ox) 400 mg BID PO Last administered on 04/17/17 09:45; Start 04/09/17 at 21:00; Stop 05/09/17 at 20:59 Multivitamins (Theragram-M) 1 tab DAILY PO Last administered on 04/17/17 09: 44; Start 04/10/17 at 09:00; Stop 05/10/17 at 08:59 Non-Formulary Medication ( See Comment Field Below ) VANCO INTERMIT. DOSING ASDIRECTED XX ; Start 04/09/17 at 20:30; Stop 04/10/17 at 13:19; Status DC Oxycodone HCl (Roxicodone, Oxyir) 5 mg Q4HP PRN PO PAIN SCALE 6-10 Last administered on 04/17/17 09:43; Start 04/09/17 at 15:15; Stop 04/22/17 at 23: 55 Pravastatin Sodium (Pravachol) 5 mg DAILY PO Last administered on 04/17/17 09 :44; Start 04/10/17 at 09:00; Stop 05/10/17 at 08:59 Psyllium Hydrophilic Mucilloid (Metamucil) 1 pkt DAILY PRN PO BOWEL CARE/ CONSTIPATION; Start 04/09/17 at 15:15; Stop 05/09/17 at 15:14 Senna (Senokot) 2 tab QHS PO ; Start 04/09/17 at 21:00; Stop 04/15/17 at 10:20 ; Status DC Sodium Chloride (Saline Lock Flush) 10 ml ASDIRECTED PRN IV SEE LABEL COMMENTS Last administered on 04/10/17 15:55; Start 04/10/17 at 15:15; Stop 05/10/17 at 15:14 Sodium Chloride (Saline Lock Flush) 10 ml PICC IV Last administered on 06:54; Start 04/10/17 at 18:00; Stop 05/10/17 at 17:59 Tamsulosin HCl (Flomax) 0.4 mg DAILY PO Last administered on 04/16/17 08:16; Start 04/10/17 at 09:00; Stop 05/10/17 at 08:59 Vancomycin HCl 750 mg/IV Miscellaneous Supplies 1 each/ Dextrose 275 ml @ 275 mls/hr Q24H IV Last administered on 04/16/17 18:31; Start 04/11/17 at 18:00 ; Stop 04/21/17 at 17:59 Vancomycin HCl 1000 mg/IV Miscellaneous Supplies 1 each/ Dextrose 270 ml @ 270 mls/hr Q24H IV Last administered on 04/10/17t 14:50; Start 04/10/17 at 15:00 ; Stop 04/11/17 at 14:49; Status DC Vancomycin HCl 1500 mg/IV Miscellaneous Supplies 1 each/ Dextrose 280 ml @ 270 mls/hr Q48H IV ; Start 04/10/17 at 06:00; Stop 04/10/17 at 06:00; Status DC SUSHANT MITCHELL MD Apr 17, 2017 13:20
[2017-04-17 14:00] VITALS: BP 105/60
[2017-04-17] MEDS: ACETAMINOPHEN TAB 650MG DOSE (2X325MG) PO PRN (14:36)
[2017-04-17] MEDS: VANCOMYCIN HCL 750 MG, VIAL MATE ADAPTER 1 EACH in D5W 250 ML IV SCH (19:01)
[2017-04-17 20:00] VITALS: BP 148/70
[2017-04-17] MEDS: LEVEMIR (INSULIN DETEMIR) 1 UNITS/0.01ML SC SCH (20:18)
--- NOTE | 2017-04-17 20:26 | IPN ---
DATE: 04/17/2017 Mr. Boss is seen this morning on his bedside in acute rehab floor. He is feeling well and is currently getting ready to go for his physical therapy. He still has a wound VAC in his left knee and a dressing. He is receiving vancomycin via his right arm PICC line for infected left knee prosthesis, which has been replaced. The patient is likely to be discharged to home tomorrow. He denies any dyspnea, chest pain, nausea or vomiting. PHYSICAL EXAMINATION: Temperature 97.5 degrees Fahrenheit, heart rate 52 per minute and respiratory rate 18 per minute. Blood pressure 108/50 mmHg and oxygen saturation 99% on room air. His head is atraumatic. Neck is supple and without JVD or thyroid enlargement. Ears, nose and throat are unremarkable. Heart: Sounds are regular and lungs clear to auscultation. Abdomen: Soft and nontender and bowel sounds are normal. Extremities have no cyanosis or clubbing. Left lower extremity is wrapped in dressing and has a wound VAC present. Today's labs show sodium level 141 and potassium 4.2. BUN 26 and creatinine 1.24. Calcium 8.6. WBC count 4.5, hemoglobin 9.6 and hematocrit 29.1. Platelets 205. PROBLEMS: 1. Acute kidney injury superimposed on chronic kidney disease. Kidney function has gradually improved. The patient has no electrolyte or metabolic problems at present. 2. Anemia due to acute blood loss related to knee surgery. His anemia is likely to improve over next several weeks. He should continue with oral iron supplement. 3. Hypertension. Blood pressure is well-controlled on current antihypertensive medications. 4. Antibiotic therapy for infected left knee prosthesis. The patient is currently on vancomycin and his vancomycin level has been appropriate so far. He will need to have it monitored as an outpatient after discharge along with his renal function. 5. Hypertension. Blood pressure is very well controlled on current antihypertensive medications which should be continued at discharge.
[2017-04-18 06:00] VITALS: BP 134/68
[2017-04-18] MEDS: SODIUM CHLORIDE 0.9% INJ 10 ML SYR IV SCH ×2 (06:35→17:18)
[2017-04-18] MEDS: HumaLOG INSULIN (NovoLOG) PER UNIT SC SCH ×4 (07:30→21:00)
[2017-04-18] MEDS: PRAVASTATIN 10 MG TAB PO SCH (08:44)
[2017-04-18] MEDS: MULTIVITAMINS/MINERALS THERAP 1 TAB PO SCH (08:44)
[2017-04-18] MEDS: TAMSULOSIN 0.4 MG CAP PO SCH (08:44)
[2017-04-18] MEDS: BISOPROLOL FUMARATE 10 MG TAB PO SCH (08:45)
[2017-04-18] MEDS: MAGNESIUM OXIDE 400 MG TAB (MAG-OX) PO SCH ×2 (08:45→21:35)
[2017-04-18] MEDS: FERROUS GLUCONATE 324 MG TAB PO SCH ×2 (08:46→21:35)
[2017-04-18] MEDS: APIXABAN 5 MG TAB (ELIQUIS) PO SCH ×2 (08:46→21:35)
[2017-04-18] MEDS: DUTASTERIDE 0.5 MG CAP (AVODART) PO SCH (08:46)
[2017-04-18] MEDS: FEBUXOSTAT 40 MG TABLET (ULORIC) PO SCH (08:46)
[2017-04-18] MEDS: FUROSEMIDE 20 MG TAB PO SCH (08:46)
[2017-04-18] MEDS: amLODIPine 5 MG TAB PO SCH ×2 (08:46→21:36)
[2017-04-18] MEDS: BRIMONIDINE 0.15% OPHTH SOLN 5 ML OU SCH ×2 (08:47→21:36)
[2017-04-18] MEDS: COSOPT OCUMETER PLUS 10ML (DORZOLAMIDE/TIMOLOL) OU SCH ×2 (08:47→21:36)
[2017-04-18] MEDS: oxyCODONE 5MG TAB PO PRN (12:25)
[2017-04-18] MEDS: VANCOMYCIN HCL 750 MG, VIAL MATE ADAPTER 1 EACH in D5W 250 ML IV SCH (15:04)
[2017-04-18 16:00] VITALS: BP 110/60
--- NOTE | 2017-04-18 16:13 | PMRNOTEPD ---
PMR Note Patient scheduled to go home today on the acute rehabilitation unit and discharge summary was dictated dictation #[id number]. However we have now been informed that the infusion provider was not approved by the insurer and patient has not set up to receive is necessary vancomycin infusion 750 mg every 24 hours at this time. Therefore we will continue patient here until this has been' s arranged. Today is a exception day from therapy as it was not schedule as this was his go home today by plan where no therapy is scheduled. If we are not able to complete the ongoing infusion care plans early tomorrow morning we will resume therapy appropriate to patient's care level. SUSHANT MITCHELL MD Apr 18, 2017 16:13
--- NOTE | 2017-04-18 17:25 | IPN ---
DATE: 04/18/2017 Mr. Boss is doing great. He is being discharged home today but there was a problem with his IV antibiotic. [employer] was waiting for worker compensation to be approving his antibiotic. Worker compensation did not given them the approval yet. is frustrated and would like to have the antibiotic be sent to his regular insurance like previously. LABORATORY DATA: White count is 4.5, hemoglobin 9.6, hematocrit 29.1, platelets 205. Sodium 141, potassium 4.2, chloride 107, bicarb 27, BUN 26, creatinine 1.2, glucose 80, calcium 8.6, AST 27, ALT 30, alkaline phos 132, CRP 0.39 down from 0.36, vancomycin level 20. MEDICATIONS: - vancomycin IV 750 mg every 24 hours. Last dose was at 05:00 p.m. yesterday. IMPRESSION: 1. 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 The area looks like it is healing well but the wound vac was not removed today. Limited range of motion. No surrounding cellulitis. On IV vancomycin until mid April. 2. Insulin-dependent diabetes, hypertension well controlled. PLAN: Hopefully the patient could be discharged home today on IV vancomycin 750 mg every 24 hours to be given around 3:00 p.m. so that nurses from the infusion company could do his blood work at appropriate time. I have discussed the case with the discharge nurse regarding issues with the insurance and worker compensation that could be sent to his regular insurance. Labs to be done weekly including CBC, basic profile, SED rate, CRP and vancomycin draw every Saturday.
--- NOTE | 2017-04-18 20:47 | PMRDS ---
DATE OF ADMISSION: 04/09/2017 DATE OF DISCHARGE: 04/19/2017 DISCHARGE DIAGNOSIS: Rehabilitation of infected left total knee arthroplasty with total knee replacement with antibiotic impregnated spacers on 03/20/2017, for methicillin-resistant Staphylococcus aureus (MRSA) related infection of bone and joint. Patient with extensive incision and drainage, required vacuum to the wound, and required IV antibiotic infusion with adjustment for chronic kidney disease stage III. HISTORY: The patient is a 71-year-old right-handed gentleman who reports being of the [place], who has had both knees replaced due to end-stage osteoarthritis, but developed osteomyelitis in the right great toe and methicillin-resistant Staphylococcus aureus bacteremia leading to the infected left total knee arthroplasty. The patient's condition is further complicated by atrial fibrillation, type 2 diabetes, sleep apnea, for which he uses bilevel positive airway pressure (BiPAP), hypertension, hyperlipidemia, chronic kidney disease stage III, chronic obstructive pulmonary disease, and gout. Patient with surgical removal of the hardware on 03/20/2017, with revision on 04/01/2017. Patient transferred to [facility] for musculoskeletal rehabilitation, ongoing infusion with vancomycin, as well as wound vacuum assisted closure (VAC) management of the left knee incision. The patient was admitted on 04/09/2017. PROCEDURES: None. DIAGNOSTIC LABORATORY DATA: We have been tracking patient's vancomycin troughs and renal function along with monitoring his anemia and white blood cell counts. These have remained stable. No imaging studies were performed during the admission. HOSPITAL COURSE: The patient was admitted on 04/09/2017, and started in a program of physical and occupational therapy with our housing case manager, who is also a system specialist, monitoring and managing the wound vacuum. Dr. Don Collins, infectious disease, has been consulted and involved in management and adjustment of the vancomycin, along with the pharmacy, and nephrology and hospitalist/internal medicine service has also been assisting patient's ongoing care and management for the multiple diagnoses noted above. In physical and occupational therapy, patient has shown fairly good participation and has progressed in occupational therapy from standby assistance in basic transfers and upper body dressing, minimal assistance in lower body dressing, with good minus balance, to modified independent in his transfers and lower body dressing independent and upper body dressing and grooming, and modified independent in eating, with good balance obtained. In physical therapy (PT), patient initially using a wheelchair, not able to ambulate, only doing exercises to able to do eight stairs with standby assistance, 150 feet with wheelchair mobility and ambulating 160 feet with modified independence in rolling walker and gait belt with touchdown weightbearing on his left lower extremity. Patient to be Discharged to Home on 04/18/17, but insurance coverage of Vancomycin infusion at home was not in place after initial assurances. This has been corrected and patient to return home with his today. DISCHARGE MEDICATIONS: - amlodipine 5 mg twice a day for hypertension - oxycodone 5 mg every 4 hours for moderate to severe pain - Tylenol 975 mg every 6 hours as needed for pain - acidophilus tablet twice a day as needed for diarrhea - Tessalon Perles 100 mg three times a day as needed for cough - bisoprolol fumarate 10 mg daily - Alphagan-P eye drops one in each eye twice a day - Tums every 4 hours as needed for indigestion - Colace 100 mg twice a day as needed for constipation - dorzolamide/Timolol eye drops one drop both eyes twice a day - Avodart 0.5 mg daily for prostate - vitamin D 50,000 units monthly - Uloric 40 mg every morning for gout prevention - Lasix 20 mg daily for fluid management - Lantus SoloStar 36 units nightly - magnesium oxide 400 mg twice a day - multivitamin one daily - Zofran ODT 4 mg twice a day as needed for nausea and vomiting - pravastatin 5 mg daily for cholesterol - Metamucil for constipation as needed - Senna 17.6 mg nightly as needed for constipation - Flomax 0.4 mg daily for urinary retention The patient will be monitored by Dr. Collins on home care infusion. He will have home care PT and occupational therapy (OT) to continue with mobility, activities of daily living (ADL) training. He is on a low fat, low cholesterol, no added salt diet. Touchdown weightbearing on the left lower extremity with wound VAC to the left knee at 125 mmHg continuously with peripherally inserted central catheter (PICC) line for infusion that will be flushed, and to followup with Dr. Rodolfo Moore at [facility] in [place], as previously scheduled, and to followup with his primary care within 1-2 weeks of discharge. COMPLICATIONS: None. TIME SPENT ON DISCHARGE: Greater than 35 minutes. MTDD
[2017-04-18 21:30] VITALS: BP 138/64
[2017-04-18] MEDS: ACETAMINOPHEN TAB 650MG DOSE (2X325MG) PO PRN (21:35)
[2017-04-18] MEDS: LEVEMIR (INSULIN DETEMIR) 1 UNITS/0.01ML SC SCH (21:36)
[2017-04-19 06:00] VITALS: BP 118/56
[2017-04-19] MEDS: SODIUM CHLORIDE 0.9% INJ 10 ML SYR IV SCH (06:51)
[2017-04-19 08:26] VITALS: BP 118/56
[2017-04-19] MEDS: FEBUXOSTAT 40 MG TABLET (ULORIC) PO SCH (08:26)
[2017-04-19] MEDS: TAMSULOSIN 0.4 MG CAP PO SCH (08:26)
[2017-04-19] MEDS: BISOPROLOL FUMARATE 10 MG TAB PO SCH (08:26)
[2017-04-19] MEDS: HumaLOG INSULIN (NovoLOG) PER UNIT SC SCH (08:26)
[2017-04-19] MEDS: FUROSEMIDE 20 MG TAB PO SCH (08:27)
[2017-04-19] MEDS: APIXABAN 5 MG TAB (ELIQUIS) PO SCH (08:27)
[2017-04-19] MEDS: amLODIPine 5 MG TAB PO SCH (08:27)
[2017-04-19] MEDS: FERROUS GLUCONATE 324 MG TAB PO SCH (08:27)
[2017-04-19] MEDS: MAGNESIUM OXIDE 400 MG TAB (MAG-OX) PO SCH (08:27)
[2017-04-19] MEDS: MULTIVITAMINS/MINERALS THERAP 1 TAB PO SCH (08:27)
[2017-04-19] MEDS: DUTASTERIDE 0.5 MG CAP (AVODART) PO SCH (08:27)
[2017-04-19] MEDS: BRIMONIDINE 0.15% OPHTH SOLN 5 ML OU SCH (08:28)
[2017-04-19] MEDS: PRAVASTATIN 10 MG TAB PO SCH (08:28)
[2017-04-19] MEDS: COSOPT OCUMETER PLUS 10ML (DORZOLAMIDE/TIMOLOL) OU SCH (08:28)
[2017-04-19] MEDS: oxyCODONE 5MG TAB PO PRN (11:26)
== END 2017-04-19 13:30 | disposition home health service (06) | DRG 862 ==
LOC: M PM&R 16:28
PROVIDERS: ADMIT Physical Medicine & Rehabilitation; ATTEND Physical Medicine & Rehabilitation
DX: T84.7XXD Infection and inflammatory reaction due to other internal orthopedic prosthetic devices, implants and grafts, subsequent encounter (principal); N17.9 Acute kidney failure, unspecified; E11.22 Type 2 diabetes mellitus with diabetic chronic kidney disease; E11.40 Type 2 diabetes mellitus with diabetic neuropathy, unspecified; I13.0 Hypertensive heart and chronic kidney disease with heart failure and stage 1 through stage 4 chronic kidney disease, or unspecified chronic kidney disease; D62 Acute posthemorrhagic anemia; I50.9 Heart failure, unspecified; J44.9 Chronic obstructive pulmonary disease, unspecified; I48.92 Unspecified atrial flutter; E11.621 Type 2 diabetes mellitus with foot ulcer; E11.319 Type 2 diabetes mellitus with unspecified diabetic retinopathy without macular edema; N18.3 Chronic kidney disease, stage 3 (moderate); I48.2 Chronic atrial fibrillation; B95.62 Methicillin resistant Staphylococcus aureus infection as the cause of diseases classified elsewhere; Z96.653 Presence of artificial knee joint, bilateral; G47.33 Obstructive sleep apnea (adult) (pediatric); E78.5 Hyperlipidemia, unspecified; M10.9 Gout, unspecified; H40.9 Unspecified glaucoma; E66.3 Overweight; I25.10 Atherosclerotic heart disease of native coronary artery without angina pectoris; H26.9 Unspecified cataract; N40.0 Benign prostatic hyperplasia without lower urinary tract symptoms; Z89.411 Acquired absence of right great toe; Z88.8 Allergy status to other drugs, medicaments and biological substances; Z79.01 Long term (current) use of anticoagulants; Z79.899 Other long term (current) drug therapy; Z79.4 Long term (current) use of insulin; Z79.891 Long term (current) use of opiate analgesic; Z95.810 Presence of automatic (implantable) cardiac defibrillator; M19.90 Unspecified osteoarthritis, unspecified site; K59.00 Constipation, unspecified

== ENCOUNTER → 2017-04-22 | Outpatient (REF) | payer MEDICARE, OTHER ==
[~2017-04-22] MED LIST changes: +ACET1TAB17 PO; +ACID1CAP PO; +AMLO5TAB2 PO; +BISO10TA6 PO; +CALC500C16 PO; +ONDA4TAB6 PO; +OXYCO5TA PO; +PSYLPOW4 PO; +SENN1TAB10 PO; +STOO100C PO
[2017-04-22 18:02] LABS: CALCIUM LEVEL 8.6 MG/DL (8.8-10.2); CREATININE FOR GFR 1.29 MG/DL (0.70-1.30); GLOMERULAR FILTRATION RATE 58.6 (>42); POTASSIUM SERUM 4.7 MEQ/L (3.5-5.1)
[2017-04-22 18:56] LABS: MEAN CORPUSCULAR HEMOGLOBIN 29.4 pg (27.0-33.0); MEAN CORPUSCULAR HGB CONC 32.7 g/dl (32.0-36.5); PLATELET COUNT, AUTOMATED 220 10^3/uL (150-450); RED CELL DISTRIBUTION WIDTH 13.6 % (11.5-14.5); WHITE BLOOD COUNT 5.4 10^3/uL (4.0-10.0)
[2017-04-22 19:34] LABS: ERYTHROCYTE SEDIMENTATION RATE 58 mm/hr (0-20)
== END ==
LOC: M LAB REF 15:28
PROVIDERS: ATTEND Nurse Practitioner Family
DX: T84.50XD Infection and inflammatory reaction due to unspecified internal joint prosthesis, subsequent encounter (principal); A49.02 Methicillin resistant Staphylococcus aureus infection, unspecified site; E11.40 Type 2 diabetes mellitus with diabetic neuropathy, unspecified; I12.9 Hypertensive chronic kidney disease with stage 1 through stage 4 chronic kidney disease, or unspecified chronic kidney disease; N18.3 Chronic kidney disease, stage 3 (moderate)

== ENCOUNTER → 2017-04-29 | Outpatient (REF) | payer MEDICARE ==
[2017-04-29 18:00] LABS: MEAN CORPUSCULAR HEMOGLOBIN 28.6 pg (27.0-33.0); MEAN CORPUSCULAR HGB CONC 32.6 g/dl (32.0-36.5); MEAN CORPUSCULAR VOLUME 87.6 fl (80.0-96.0); PLATELET COUNT, AUTOMATED 231 10^3/uL (150-450); RED CELL DISTRIBUTION WIDTH 13.5 % (11.5-14.5); WHITE BLOOD COUNT 6.2 10^3/uL (4.0-10.0)
[2017-04-29 18:37] LABS: CALCIUM LEVEL 8.5 MG/DL (8.8-10.2); CREATININE FOR GFR 1.34 MG/DL (0.70-1.30); GLOMERULAR FILTRATION RATE 56.1 (>42); POTASSIUM SERUM 4.6 MEQ/L (3.5-5.1)
[2017-04-29 18:51] LABS: ERYTHROCYTE SEDIMENTATION RATE 49 mm/hr (0-20)
== END ==
LOC: M LAB REF 16:00
PROVIDERS: ATTEND Internal Medicine Infectious Disease
DX: T84.7XXD Infection and inflammatory reaction due to other internal orthopedic prosthetic devices, implants and grafts, subsequent encounter (principal)

== ENCOUNTER → 2017-05-08 | Outpatient (REF) | payer MEDICARE ==
[2017-05-08 15:54] LABS: MEAN CORPUSCULAR HEMOGLOBIN 28.4 pg (27.0-33.0); MEAN CORPUSCULAR HGB CONC 33.4 g/dl (32.0-36.5); PLATELET COUNT, AUTOMATED 235 10^3/uL (150-450); RED CELL DISTRIBUTION WIDTH 13.4 % (11.5-14.5); WHITE BLOOD COUNT 5.5 10^3/uL (4.0-10.0)
[2017-05-08 16:15] LABS: ANION GAP 7 MEQ/L (8-16); BLOOD UREA NITROGEN 32 MG/DL (7-18); CALCIUM LEVEL 8.9 MG/DL (8.8-10.2); CARBON DIOXIDE LEVEL 25 MEQ/L (21-32); CHLORIDE LEVEL 106 MEQ/L (98-107); CREATININE FOR GFR 1.26 MG/DL (0.70-1.30); GLOMERULAR FILTRATION RATE > 60.0 (>42); GLUCOSE, FASTING 122 MG/DL (83-110); SODIUM LEVEL 138 MEQ/L (136-145)
[2017-05-08 16:16] LABS: POTASSIUM SERUM 5.3 MEQ/L (3.5-5.1)
[2017-05-08 16:19] LABS: ERYTHROCYTE SEDIMENTATION RATE 60 mm/hr (0-20)
== END ==
LOC: M LAB REF 15:44
PROVIDERS: ATTEND Internal Medicine Infectious Disease
DX: T84.7XXD Infection and inflammatory reaction due to other internal orthopedic prosthetic devices, implants and grafts, subsequent encounter (principal)

== ENCOUNTER → 2017-05-14 | Outpatient (REF) | payer MEDICARE, OTHER ==
[2017-05-14 15:35] LABS: BASO % 0.4 % (0.0-1.0); EOS # 0.2 10^3/uL (0.0-0.50); EOS % 2.9 % (0.0-3.0); IMMATURE GRANULOCYTE % 0.4 % (0-0); LYMPH # 0.8 10^3/uL (1.5-4.5); LYMPH % 13.6 % (24.0-44.0); MEAN CORPUSCULAR HEMOGLOBIN 28.3 pg (27.0-33.0); MEAN CORPUSCULAR HGB CONC 32.7 g/dl (32.0-36.5); MEAN CORPUSCULAR VOLUME 86.6 fl (80.0-96.0); MONO # 0.5 10^3/uL (0.0-0.8); MONO % 8.3 % (0.0-5.0); NEUTROPHILS # 4.1 10^3/uL (1.8-7.7); NEUTROPHILS % 74.4 % (36.0-66.0); PLATELET COUNT, AUTOMATED 254 10^3/uL (150-450); RED CELL DISTRIBUTION WIDTH 13.3 % (11.5-14.5); WHITE BLOOD COUNT 5.5 10^3/uL (4.0-10.0)
[2017-05-14 16:33] LABS: ERYTHROCYTE SEDIMENTATION RATE 57 mm/hr (0-20)
== END ==
LOC: M SHH 14:52
PROVIDERS: ATTEND Internal Medicine Infectious Disease
DX: T84.50XD Infection and inflammatory reaction due to unspecified internal joint prosthesis, subsequent encounter (principal)

== ENCOUNTER → 2017-05-23 | Outpatient (CLI) | payer MEDICARE, OTHER | LOC: M RAD 12:30 | DX: I33.9 Acute and subacute endocarditis, unspecified (principal); Z95.810 Presence of automatic (implantable) cardiac defibrillator | CPT/HCPCS: 76604 ==

== ENCOUNTER 2017-05-27 02:55 | Inpatient (IN) | payer MEDICARE, OTHER ==
[2017-05-27 03:47] LABS: HEMATOCRIT 30.2 % (42.0-52.0); MEAN CORPUSCULAR HGB CONC 33.1 g/dl (32.0-36.5); MEAN CORPUSCULAR VOLUME 84.6 fl (80.0-96.0); PLATELET COUNT, AUTOMATED 170 10^3/uL (150-450); RED BLOOD COUNT 3.57 10^6/uL (4.30-6.10); RED CELL DISTRIBUTION WIDTH 14.1 % (11.5-14.5); WHITE BLOOD COUNT 16.1 10^3/uL (4.0-10.0)
[2017-05-27 03:48] LABS: ADD MANUAL DIFFER YES; DIFF SLIDE NUMBER 102; POSITIVE DIFF POS FLAG; POSITIVE MORPH POS FLAG; VENOUS BASE EXCESS -0.9 (-2.0-2.0); VENOUS HCO3 22.1 MEQ/L (23.0-27.0); VENOUS O2 SATURATION 97.1 % (60.0-80.0); VENOUS PARTIAL PRESSURE O2 89.7 mmHg (30.0-50.0); VENOUS STANDARD HCO3 23.7 MEQ/L
[2017-05-27] MEDS: ACETAMINOPHEN TAB 650MG DOSE (2X325MG) PO ×2 (04:00→13:54)
[2017-05-27 04:05] LABS: BANDS 1 % (< 11); MONOCYTES 8 % (0-8); NEUTROPHILS 91 % (35-75)
[2017-05-27 04:06] LABS: PLATELET CLUMPS SMALL AMT; PLATELET ESTIMATE NORMAL (NORMAL)
[2017-05-27 04:07] LABS: OVALOCYTES 1+
[2017-05-27 04:12] LABS: ANION GAP 10 MEQ/L (8-16); BLOOD UREA NITROGEN 38 MG/DL (7-18); CALCIUM LEVEL 8.5 MG/DL (8.8-10.2); CARBON DIOXIDE LEVEL 24 MEQ/L (21-32); CHLORIDE LEVEL 103 MEQ/L (98-107); CPK CREATINE PHOSPHOKINASE 298 U/L (39-308); GLOMERULAR FILTRATION RATE 45.7 (>42); GLUCOSE, FASTING 327 MG/DL (83-110); MB/CK RELATIVE INDEX 0.33 (< OR =4); POTASSIUM SERUM 4.2 MEQ/L (3.5-5.1); SODIUM LEVEL 137 MEQ/L (136-145); TROPONIN I 0.06 NG/ML (< 0.10)
[2017-05-27 04:28] LABS: LACTIC ACID SEPSIS PROTOCOL 2.6 MMOL/L (0.4-2.0)
[2017-05-27] MEDS: VANCOMYCIN HCL 1,000 MG, VIAL MATE ADAPTER 1 EACH in D5W 250 ML IV ×3 (06:12→14:34)
[2017-05-27] MEDS ORDERED: VANCOMYCIN HCL 1,000 MG, VIAL MATE ADAPTER 1 EACH in D5W 250 ML IV (06:15)
[2017-05-27] MEDS ORDERED: GLUCOSE 4 GM CHEW TABLET PO (06:45)
[2017-05-27] MEDS ORDERED: GLUCAGON FOR INJ 1 MG VIAL (J1610) SC (06:45)
[2017-05-27] MEDS ORDERED: DEXTROSE 50% 50 ML SYRINGE IV (06:45)
[2017-05-27] MEDS: HumaLOG INSULIN (NovoLOG) PER UNIT SC ×3 (07:30→18:21)
[2017-05-27] MEDS: PIPERACILLIN/TAZOBACTAM SOD 3.375 GM in APPROPRIATE DILUENT 1 EA IV ×3 (08:29→20:07)
[2017-05-27] MEDS: LACTOBACILLUS ACIDOPHILUS CAP (BACID) PO (09:41)
[2017-05-27 12:36] LABS: BEDSIDE GLUCOSE 400 MG/DL (83-110)
[2017-05-27] MEDS: CIPROFLOXACIN 500 MG TAB PO ×2 (12:43→20:55)
[2017-05-27 17:28] LABS: BEDSIDE GLUCOSE 317 MG/DL (83-110)
[2017-05-27 20:29] LABS: BEDSIDE GLUCOSE 417 MG/DL (83-110)
[2017-05-27] MEDS: LEVEMIR (INSULIN DETEMIR) 1 UNITS/0.01ML SC (20:56)
[2017-05-28] MEDS: PIPERACILLIN/TAZOBACTAM SOD 3.375 GM in APPROPRIATE DILUENT 1 EA IV ×2 (02:01→08:15)
[2017-05-28] MEDS: ACETAMINOPHEN TAB 650MG DOSE (2X325MG) PO ×3 (02:52→21:58)
[2017-05-28 06:43] LABS: HEMATOCRIT 29.9 % (42.0-52.0); MEAN CORPUSCULAR HEMOGLOBIN 28.5 pg (27.0-33.0); MEAN CORPUSCULAR HGB CONC 33.4 g/dl (32.0-36.5); MEAN CORPUSCULAR VOLUME 85.2 fl (80.0-96.0); PLATELET COUNT, AUTOMATED 175 10^3/uL (150-450); RED BLOOD COUNT 3.51 10^6/uL (4.30-6.10); WHITE BLOOD COUNT 13.1 10^3/uL (4.0-10.0)
[2017-05-28 06:45] LABS: ADD MANUAL DIFFER YES; DIFF SLIDE NUMBER 55; POSITIVE MORPH POS FLAG
[2017-05-28 07:08] LABS: ANION GAP 8 MEQ/L (8-16); BLOOD UREA NITROGEN 38 MG/DL (7-18); CALCIUM LEVEL 8.6 MG/DL (8.8-10.2); CARBON DIOXIDE LEVEL 26 MEQ/L (21-32); CHLORIDE LEVEL 104 MEQ/L (98-107); CREATININE FOR GFR 1.48 MG/DL (0.70-1.30); GLUCOSE, FASTING 195 MG/DL (83-110); POTASSIUM SERUM 3.7 MEQ/L (3.5-5.1); SODIUM LEVEL 138 MEQ/L (136-145)
[2017-05-28 07:49] LABS: ANISOCYTOSIS 1+; EOSINOPHILS 3 % (0-5); LYMPHOCYTES 4 % (16-52); NEUTROPHILS 93 % (35-75); PLATELET ESTIMATE NORMAL (NORMAL)
[2017-05-28] MEDS: HumaLOG INSULIN (NovoLOG) PER UNIT SC ×3 (08:15→18:36)
[2017-05-28] MEDS: LACTOBACILLUS ACIDOPHILUS CAP (BACID) PO (08:15)
[2017-05-28] MEDS ORDERED: COSOPT OCUMETER PLUS 10ML (DORZOLAMIDE/TIMOLOL) OU (09:00)
[2017-05-28] MEDS: VANCOMYCIN HCL 750 MG, VIAL MATE ADAPTER 1 EACH in D5W 250 ML IV (11:32)
[2017-05-28 12:24] LABS: BEDSIDE GLUCOSE 305 MG/DL (83-110)
[2017-05-28] MEDS: DUTASTERIDE 0.5 MG CAP (AVODART) PO (15:35)
[2017-05-28] MEDS: FEBUXOSTAT 40 MG TABLET (ULORIC) PO (15:35)
[2017-05-28] MEDS: APIXABAN 5 MG TAB (ELIQUIS) PO ×2 (15:35→20:51)
[2017-05-28] MEDS: TAMSULOSIN 0.4 MG CAP PO (15:35)
[2017-05-28] MEDS: BISOPROLOL FUMARATE 10 MG TAB PO (15:36)
[2017-05-28] MEDS: amLODIPine 5 MG TAB PO ×2 (15:36→20:52)
[2017-05-28] MEDS: BRIMONIDINE 0.1% OPHTH SOLN 5 ML OU ×2 (17:00→22:34)
[2017-05-28 17:25] LABS: BEDSIDE GLUCOSE 313 MG/DL (83-110)
[2017-05-28] MEDS: PRAVASTATIN 10 MG TAB PO (20:51)
[2017-05-28] MEDS: LEVEMIR (INSULIN DETEMIR) 1 UNITS/0.01ML SC (20:52)
[2017-05-28 21:12] LABS: BEDSIDE GLUCOSE 272 MG/DL (83-110)
[2017-05-29] MEDS: ACETAMINOPHEN TAB 650MG DOSE (2X325MG) PO ×3 (06:16→18:13)
[2017-05-29 06:57] LABS: BEDSIDE GLUCOSE 172 MG/DL (83-110)
[2017-05-29] MEDS: TAMSULOSIN 0.4 MG CAP PO (08:12)
[2017-05-29] MEDS: LACTOBACILLUS ACIDOPHILUS CAP (BACID) PO (08:12)
[2017-05-29] MEDS: BISOPROLOL FUMARATE 10 MG TAB PO (08:12)
[2017-05-29] MEDS: HumaLOG INSULIN (NovoLOG) PER UNIT SC ×3 (08:12→18:12)
[2017-05-29] MEDS: FEBUXOSTAT 40 MG TABLET (ULORIC) PO (08:13)
[2017-05-29] MEDS: amLODIPine 5 MG TAB PO ×2 (08:13→20:54)
[2017-05-29] MEDS: BRIMONIDINE 0.1% OPHTH SOLN 5 ML OU ×2 (08:13→20:55)
[2017-05-29] MEDS: DUTASTERIDE 0.5 MG CAP (AVODART) PO (08:13)
[2017-05-29 10:58] LABS: VANCOMYCIN LEVEL TROUGH 16.3 UG/ML (10.0-20.0)
[2017-05-29] MEDS ORDERED: MOM 30ML SUSPENSION UDC PO (12:15)
[2017-05-29 12:33] LABS: BEDSIDE GLUCOSE 231 MG/DL (83-110)
[2017-05-29] MEDS: SENOKOT S TAB PO ×2 (12:42→20:54)
[2017-05-29] MEDS: VANCOMYCIN HCL 750 MG, VIAL MATE ADAPTER 1 EACH in D5W 250 ML IV (12:42)
[2017-05-29] MEDS: APIXABAN 5 MG TAB (ELIQUIS) PO ×2 (12:42→20:54)
[2017-05-29] MEDS: DIAPER RELIEF PASTE (DESITIN) 60GM TOP (16:10)
[2017-05-29 18:01] LABS: BEDSIDE GLUCOSE 257 MG/DL (83-110)
[2017-05-29] MEDS: PRAVASTATIN 10 MG TAB PO (20:53)
[2017-05-29] MEDS: LEVEMIR (INSULIN DETEMIR) 1 UNITS/0.01ML SC (20:54)
[2017-05-29] MEDS: DORZOLAMIDE OU (20:56)
[2017-05-29] MEDS: TIMOLOL EYE OU (20:56)
[2017-05-29 21:37] LABS: BEDSIDE GLUCOSE 286 MG/DL (83-110)
[2017-05-30] MEDS: ACETAMINOPHEN TAB 650MG DOSE (2X325MG) PO ×2 (00:47→10:49)
[2017-05-30] MEDS ORDERED: IPRATROPIUM 0.5MG/ALBUTEROL 2.5MG INH SOL UD 3ML (DUONEB)(J7620) NEB (01:30)
[2017-05-30] MEDS: IPRATROPIUM 0.5MG/ALBUTEROL 2.5MG INH SOL UD 3ML (DUONEB)(J7620) NEB ×4 (02:00→20:00)
[2017-05-30 06:53] LABS: BEDSIDE GLUCOSE 84 MG/DL (83-110)
[2017-05-30 07:01] LABS: BASO % 0.2 % (0.0-1.0); EOS # 0.2 10^3/uL (0.0-0.50); EOS % 2.8 % (0.0-3.0); HEMATOCRIT 30.2 % (42.0-52.0); HEMOGLOBIN 9.9 g/dl (14.0-18.0); IMMATURE GRANULOCYTE # 0.1 10^3/uL (0-0); IMMATURE GRANULOCYTE % 0.6 % (0-0); LYMPH # 0.7 10^3/uL (1.5-4.5); LYMPH % 7.5 % (24.0-44.0); MEAN CORPUSCULAR HEMOGLOBIN 27.7 pg (27.0-33.0); MEAN CORPUSCULAR HGB CONC 32.8 g/dl (32.0-36.5); MEAN CORPUSCULAR VOLUME 84.6 fl (80.0-96.0); MONO # 0.5 10^3/uL (0.0-0.8); MONO % 5.8 % (0.0-5.0); NEUTROPHILS # 7.2 10^3/uL (1.8-7.7); NEUTROPHILS % 83.1 % (36.0-66.0); PLATELET COUNT, AUTOMATED 247 10^3/uL (150-450); RED BLOOD COUNT 3.57 10^6/uL (4.30-6.10); RED CELL DISTRIBUTION WIDTH 13.7 % (11.5-14.5); WHITE BLOOD COUNT 8.7 10^3/uL (4.0-10.0)
[2017-05-30 07:17] LABS: ALBUMIN 2.4 GM/DL (3.2-5.2); ALBUMIN/GLOBULIN RATIO 0.51 (1.00-1.93); ALKALINE PHOSPHATASE 106 U/L (45-117); ALT/SGPT 30 U/L (12-78); ANION GAP 6 MEQ/L (8-16); AST/SGOT 28 U/L (7-37); BILIRUBIN,TOTAL 0.4 MG/DL (0.2-1.0); BLOOD UREA NITROGEN 30 MG/DL (7-18); CALCIUM LEVEL 8.5 MG/DL (8.8-10.2); CARBON DIOXIDE LEVEL 29 MEQ/L (21-32); CHLORIDE LEVEL 106 MEQ/L (98-107); CREATININE FOR GFR 1.01 MG/DL (0.70-1.30); GLOMERULAR FILTRATION RATE > 60.0 (>42); GLUCOSE, FASTING 75 MG/DL (83-110); POTASSIUM SERUM 3.7 MEQ/L (3.5-5.1); SODIUM LEVEL 141 MEQ/L (136-145); TOTAL PROTEIN 7.1 GM/DL (6.4-8.2)
[2017-05-30] MEDS: HumaLOG INSULIN (NovoLOG) PER UNIT SC ×3 (07:29→17:30)
[2017-05-30] MEDS: DUTASTERIDE 0.5 MG CAP (AVODART) PO (11:31)
[2017-05-30] MEDS: VANCOMYCIN HCL 750 MG, VIAL MATE ADAPTER 1 EACH in D5W 250 ML IV (11:31)
[2017-05-30] MEDS: LACTOBACILLUS ACIDOPHILUS CAP (BACID) PO (11:33)
[2017-05-30] MEDS: BRIMONIDINE 0.1% OPHTH SOLN 5 ML OU ×2 (11:33→21:11)
[2017-05-30] MEDS: DIAPER RELIEF PASTE (DESITIN) 60GM TOP (11:33)
[2017-05-30] MEDS: TAMSULOSIN 0.4 MG CAP PO (11:33)
[2017-05-30] MEDS: FEBUXOSTAT 40 MG TABLET (ULORIC) PO (11:34)
[2017-05-30] MEDS: SENOKOT S TAB PO ×2 (11:34→21:13)
[2017-05-30] MEDS: BISOPROLOL FUMARATE 10 MG TAB PO (11:34)
[2017-05-30] MEDS: APIXABAN 5 MG TAB (ELIQUIS) PO ×2 (11:34→21:13)
[2017-05-30] MEDS: amLODIPine 5 MG TAB PO ×2 (11:34→21:13)
[2017-05-30] MEDS: TIMOLOL EYE OU ×2 (11:35→21:12)
[2017-05-30] MEDS: DORZOLAMIDE OU ×2 (11:35→21:12)
[2017-05-30 11:57] LABS: BEDSIDE GLUCOSE 190 MG/DL (83-110)
[2017-05-30 17:42] LABS: BEDSIDE GLUCOSE 228 MG/DL (83-110)
[2017-05-30 20:49] LABS: BEDSIDE GLUCOSE 243 MG/DL (83-110)
[2017-05-30] MEDS: LEVEMIR (INSULIN DETEMIR) 1 UNITS/0.01ML SC (21:00)
[2017-05-30] MEDS: PRAVASTATIN 10 MG TAB PO (21:13)
[2017-05-31] MEDS: IPRATROPIUM 0.5MG/ALBUTEROL 2.5MG INH SOL UD 3ML (DUONEB)(J7620) NEB ×4 (02:04→21:27)
[2017-05-31 07:18] LABS: BASO % 0.1 % (0.0-1.0); EOS # 0.2 10^3/uL (0.0-0.50); HEMATOCRIT 30.5 % (42.0-52.0); HEMOGLOBIN 9.9 g/dl (14.0-18.0); IMMATURE GRANULOCYTE # 0.1 10^3/uL (0-0); IMMATURE GRANULOCYTE % 0.8 % (0-0); LYMPH # 0.7 10^3/uL (1.5-4.5); LYMPH % 7.2 % (24.0-44.0); MEAN CORPUSCULAR HEMOGLOBIN 27.4 pg (27.0-33.0); MEAN CORPUSCULAR HGB CONC 32.5 g/dl (32.0-36.5); MEAN CORPUSCULAR VOLUME 84.5 fl (80.0-96.0); MONO # 0.6 10^3/uL (0.0-0.8); MONO % 6.3 % (0.0-5.0); NEUTROPHILS # 7.7 10^3/uL (1.8-7.7); NEUTROPHILS % 83.6 % (36.0-66.0); PLATELET COUNT, AUTOMATED 285 10^3/uL (150-450); RED BLOOD COUNT 3.61 10^6/uL (4.30-6.10); RED CELL DISTRIBUTION WIDTH 13.6 % (11.5-14.5); WHITE BLOOD COUNT 9.2 10^3/uL (4.0-10.0)
[2017-05-31 07:32] LABS: ANION GAP 8 MEQ/L (8-16); BLOOD UREA NITROGEN 24 MG/DL (7-18); CALCIUM LEVEL 8.8 MG/DL (8.8-10.2); CARBON DIOXIDE LEVEL 26 MEQ/L (21-32); CHLORIDE LEVEL 105 MEQ/L (98-107); CREATININE FOR GFR 1.21 MG/DL (0.70-1.30); GLOMERULAR FILTRATION RATE > 60.0 (>42); GLUCOSE, FASTING 199 MG/DL (83-110); POTASSIUM SERUM 3.9 MEQ/L (3.5-5.1); SODIUM LEVEL 139 MEQ/L (136-145)
[2017-05-31] MEDS: BISOPROLOL FUMARATE 10 MG TAB PO (08:08)
[2017-05-31] MEDS: ACETAMINOPHEN TAB 650MG DOSE (2X325MG) PO ×3 (08:08→16:45)
[2017-05-31] MEDS: HumaLOG INSULIN (NovoLOG) PER UNIT SC ×3 (08:08→18:08)
[2017-05-31] MEDS: FEBUXOSTAT 40 MG TABLET (ULORIC) PO (08:09)
[2017-05-31] MEDS: TAMSULOSIN 0.4 MG CAP PO (08:09)
[2017-05-31] MEDS: DUTASTERIDE 0.5 MG CAP (AVODART) PO (08:09)
[2017-05-31] MEDS: BRIMONIDINE 0.1% OPHTH SOLN 5 ML OU ×2 (08:09→21:53)
[2017-05-31] MEDS: LACTOBACILLUS ACIDOPHILUS CAP (BACID) PO (08:09)
[2017-05-31] MEDS: SENOKOT S TAB PO ×2 (08:09→21:52)
[2017-05-31] MEDS: amLODIPine 5 MG TAB PO ×2 (08:09→21:52)
[2017-05-31] MEDS: APIXABAN 5 MG TAB (ELIQUIS) PO ×2 (08:09→21:52)
[2017-05-31] MEDS: TIMOLOL EYE OU ×2 (08:10→21:53)
[2017-05-31] MEDS: DORZOLAMIDE OU ×2 (08:10→21:53)
[2017-05-31] MEDS: DIAPER RELIEF PASTE (DESITIN) 60GM TOP (08:10)
[2017-05-31] MEDS ORDERED: LIDOCAINE 5% (LIDODERM) PATCH As Ordered (11:04)
[2017-05-31] MEDS: VANCOMYCIN HCL 750 MG, VIAL MATE ADAPTER 1 EACH in D5W 250 ML IV (11:10)
[2017-05-31] MEDS: LIDOCAINE 5% (LIDODERM) PATCH TD (11:10)
[2017-05-31 11:31] LABS: VANCOMYCIN LEVEL TROUGH 14.8 UG/ML (10.0-20.0)
[2017-05-31 11:59] LABS: BEDSIDE GLUCOSE 219 MG/DL (83-110)
[2017-05-31] MEDS: VANCOMYCIN HCL 500 MG in D5W MINI-BAG PLUS 100 ML IV (13:25)
[2017-05-31 17:51] LABS: BEDSIDE GLUCOSE 246 MG/DL (83-110)
[2017-05-31 20:58] LABS: BEDSIDE GLUCOSE 271 MG/DL (83-110)
[2017-05-31] MEDS: **NOTE PATIENT COMMENT** MISC XX (21:00)
[2017-05-31] MEDS: LEVEMIR (INSULIN DETEMIR) 1 UNITS/0.01ML SC (21:52)
[2017-05-31] MEDS: PRAVASTATIN 10 MG TAB PO (21:52)
[2017-06-01] MEDS: IPRATROPIUM 0.5MG/ALBUTEROL 2.5MG INH SOL UD 3ML (DUONEB)(J7620) NEB ×4 (00:22→19:48)
[2017-06-01] MEDS: diazePAM 5 MG TAB PO (03:04)
[2017-06-01 06:28] LABS: BASO % 0.3 % (0.0-1.0); EOS # 0.3 10^3/uL (0.0-0.50); EOS % 3.2 % (0.0-3.0); HEMATOCRIT 29.7 % (42.0-52.0); HEMOGLOBIN 9.7 g/dl (14.0-18.0); IMMATURE GRANULOCYTE # 0.1 10^3/uL (0-0); IMMATURE GRANULOCYTE % 0.5 % (0-0); LYMPH # 0.7 10^3/uL (1.5-4.5); LYMPH % 7.1 % (24.0-44.0); MEAN CORPUSCULAR HEMOGLOBIN 27.7 pg (27.0-33.0); MEAN CORPUSCULAR HGB CONC 32.7 g/dl (32.0-36.5); MEAN CORPUSCULAR VOLUME 84.9 fl (80.0-96.0); MONO # 0.5 10^3/uL (0.0-0.8); MONO % 4.8 % (0.0-5.0); NEUTROPHILS # 7.9 10^3/uL (1.8-7.7); NEUTROPHILS % 84.1 % (36.0-66.0); PLATELET COUNT, AUTOMATED 263 10^3/uL (150-450); RED CELL DISTRIBUTION WIDTH 13.5 % (11.5-14.5); WHITE BLOOD COUNT 9.4 10^3/uL (4.0-10.0)
[2017-06-01 06:55] LABS: ANION GAP 6 MEQ/L (8-16); BLOOD UREA NITROGEN 22 MG/DL (7-18); CALCIUM LEVEL 8.6 MG/DL (8.8-10.2); CARBON DIOXIDE LEVEL 27 MEQ/L (21-32); CHLORIDE LEVEL 106 MEQ/L (98-107); CREATININE FOR GFR 1.05 MG/DL (0.70-1.30); GLOMERULAR FILTRATION RATE > 60.0 (>42); GLUCOSE, FASTING 206 MG/DL (83-110); SODIUM LEVEL 139 MEQ/L (136-145)
[2017-06-01] MEDS: HumaLOG INSULIN (NovoLOG) PER UNIT SC ×3 (07:47→18:07)
[2017-06-01] MEDS: amLODIPine 5 MG TAB PO ×2 (07:48→21:01)
[2017-06-01] MEDS: FEBUXOSTAT 40 MG TABLET (ULORIC) PO (07:48)
[2017-06-01] MEDS: ACETAMINOPHEN TAB 650MG DOSE (2X325MG) PO ×3 (07:48→18:07)
[2017-06-01] MEDS: LIDOCAINE 5% (LIDODERM) PATCH TD (07:48)
[2017-06-01] MEDS: LACTOBACILLUS ACIDOPHILUS CAP (BACID) PO (07:49)
[2017-06-01] MEDS: TAMSULOSIN 0.4 MG CAP PO (07:49)
[2017-06-01] MEDS: SENOKOT S TAB PO ×2 (07:49→20:55)
[2017-06-01] MEDS: APIXABAN 5 MG TAB (ELIQUIS) PO ×2 (07:49→20:55)
[2017-06-01] MEDS: DIAPER RELIEF PASTE (DESITIN) 60GM TOP (07:51)
[2017-06-01] MEDS: DORZOLAMIDE OU ×2 (07:51→21:04)
[2017-06-01] MEDS: BRIMONIDINE 0.1% OPHTH SOLN 5 ML OU ×2 (07:51→21:04)
[2017-06-01] MEDS: BISOPROLOL FUMARATE 10 MG TAB PO (07:51)
[2017-06-01] MEDS: TIMOLOL EYE OU ×2 (07:51→21:04)
[2017-06-01] MEDS: DUTASTERIDE 0.5 MG CAP (AVODART) PO (07:51)
[2017-06-01] MEDS: VANCOMYCIN HCL 1,000 MG, VIAL MATE ADAPTER 1 EACH in D5W 250 ML IV (11:36)
[2017-06-01 12:37] LABS: BEDSIDE GLUCOSE 220 MG/DL (83-110)
[2017-06-01] MEDS: SODIUM CHLORIDE NASAL 0.65% SPRAY BTL (OCEAN) ×2 (13:54→20:55)
[2017-06-01 17:42] LABS: BEDSIDE GLUCOSE 241 MG/DL (83-110)
[2017-06-01 20:42] LABS: BEDSIDE GLUCOSE 197 MG/DL (83-110)
[2017-06-01] MEDS: PRAVASTATIN 10 MG TAB PO (20:55)
[2017-06-01] MEDS: LEVEMIR (INSULIN DETEMIR) 1 UNITS/0.01ML SC (20:59)
[2017-06-01] MEDS: **NOTE PATIENT COMMENT** MISC XX (21:00)
[2017-06-02] MEDS: IPRATROPIUM 0.5MG/ALBUTEROL 2.5MG INH SOL UD 3ML (DUONEB)(J7620) NEB ×4 (00:20→22:31)
[2017-06-02 07:20] LABS: BASO % 0.1 % (0.0-1.0); EOS # 0.2 10^3/uL (0.0-0.50); EOS % 2.7 % (0.0-3.0); HEMATOCRIT 31.5 % (42.0-52.0); HEMOGLOBIN 10.2 g/dl (14.0-18.0); IMMATURE GRANULOCYTE # 0.1 10^3/uL (0-0); IMMATURE GRANULOCYTE % 0.7 % (0-0); LYMPH # 0.6 10^3/uL (1.5-4.5); LYMPH % 6.5 % (24.0-44.0); MEAN CORPUSCULAR HEMOGLOBIN 27.3 pg (27.0-33.0); MEAN CORPUSCULAR HGB CONC 32.4 g/dl (32.0-36.5); MEAN CORPUSCULAR VOLUME 84.2 fl (80.0-96.0); MONO # 0.4 10^3/uL (0.0-0.8); MONO % 4.7 % (0.0-5.0); NEUTROPHILS # 7.3 10^3/uL (1.8-7.7); NEUTROPHILS % 85.3 % (36.0-66.0); PLATELET COUNT, AUTOMATED 321 10^3/uL (150-450); RED BLOOD COUNT 3.74 10^6/uL (4.30-6.10); RED CELL DISTRIBUTION WIDTH 13.5 % (11.5-14.5); WHITE BLOOD COUNT 8.5 10^3/uL (4.0-10.0)
[2017-06-02] MEDS: HumaLOG INSULIN (NovoLOG) PER UNIT SC ×3 (07:30→17:26)
[2017-06-02 08:27] LABS: ANION GAP 9 MEQ/L (8-16); BLOOD UREA NITROGEN 19 MG/DL (7-18); CALCIUM LEVEL 9.1 MG/DL (8.8-10.2); CARBON DIOXIDE LEVEL 26 MEQ/L (21-32); CHLORIDE LEVEL 105 MEQ/L (98-107); CREATININE FOR GFR 1.04 MG/DL (0.70-1.30); GLOMERULAR FILTRATION RATE > 60.0 (>42); GLUCOSE, FASTING 64 MG/DL (83-110); POTASSIUM SERUM 3.8 MEQ/L (3.5-5.1); SODIUM LEVEL 140 MEQ/L (136-145)
[2017-06-02] MEDS: DUTASTERIDE 0.5 MG CAP (AVODART) PO (09:34)
[2017-06-02] MEDS: FEBUXOSTAT 40 MG TABLET (ULORIC) PO (09:34)
[2017-06-02] MEDS: BISOPROLOL FUMARATE 10 MG TAB PO (09:35)
[2017-06-02] MEDS: APIXABAN 5 MG TAB (ELIQUIS) PO ×2 (09:35→21:01)
[2017-06-02] MEDS: SENOKOT S TAB PO ×2 (09:35→21:01)
[2017-06-02] MEDS: LACTOBACILLUS ACIDOPHILUS CAP (BACID) PO (09:35)
[2017-06-02] MEDS: TAMSULOSIN 0.4 MG CAP PO (09:36)
[2017-06-02] MEDS: ACETAMINOPHEN TAB 650MG DOSE (2X325MG) PO ×2 (09:36→21:08)
[2017-06-02] MEDS: amLODIPine 5 MG TAB PO ×2 (09:36→21:02)
[2017-06-02] MEDS: SODIUM CHLORIDE NASAL 0.65% SPRAY BTL (OCEAN) ×2 (09:37→21:01)
[2017-06-02] MEDS: LIDOCAINE 5% (LIDODERM) PATCH TD (09:37)
[2017-06-02] MEDS: DIAPER RELIEF PASTE (DESITIN) 60GM TOP (09:37)
[2017-06-02] MEDS: BRIMONIDINE 0.1% OPHTH SOLN 5 ML OU ×2 (09:38→21:00)
[2017-06-02] MEDS: DORZOLAMIDE OU ×2 (09:38→21:00)
[2017-06-02] MEDS: TIMOLOL EYE OU ×2 (09:38→21:00)
[2017-06-02] MEDS: VANCOMYCIN HCL 1,000 MG, VIAL MATE ADAPTER 1 EACH in D5W 250 ML IV (10:47)
[2017-06-02 12:55] LABS: BEDSIDE GLUCOSE 205 MG/DL (83-110)
[2017-06-02 17:10] LABS: BEDSIDE GLUCOSE 250 MG/DL (83-110)
[2017-06-02 20:40] LABS: BEDSIDE GLUCOSE 332 MG/DL (83-110)
[2017-06-02] MEDS: **NOTE PATIENT COMMENT** MISC XX (21:00)
[2017-06-02] MEDS: PRAVASTATIN 10 MG TAB PO (21:01)
[2017-06-02] MEDS: LEVEMIR (INSULIN DETEMIR) 1 UNITS/0.01ML SC (21:02)
== END 2017-06-02 23:55 | disposition short-term general hospital (02) | DRG 314 ==
LOC: M ED INP 05-30 14:55 → M MS5PR 05-30 15:08 → M ED 02:55 → M ED INP 06:13 → M MS5PR 08:45
DX: T82.7XXA Infection and inflammatory reaction due to other cardiac and vascular devices, implants and grafts, initial encounter (principal); A41.9 Sepsis, unspecified organism; J18.9 Pneumonia, unspecified organism; I50.32 Chronic diastolic (congestive) heart failure; I13.0 Hypertensive heart and chronic kidney disease with heart failure and stage 1 through stage 4 chronic kidney disease, or unspecified chronic kidney disease; E11.22 Type 2 diabetes mellitus with diabetic chronic kidney disease; Z95.0 Presence of cardiac pacemaker; I48.91 Unspecified atrial fibrillation; Z79.01 Long term (current) use of anticoagulants; G47.33 Obstructive sleep apnea (adult) (pediatric); M10.9 Gout, unspecified; J44.9 Chronic obstructive pulmonary disease, unspecified; E78.5 Hyperlipidemia, unspecified; B95.62 Methicillin resistant Staphylococcus aureus infection as the cause of diseases classified elsewhere; Z79.899 Other long term (current) drug therapy; Z79.4 Long term (current) use of insulin; Z88.8 Allergy status to other drugs, medicaments and biological substances; N18.3 Chronic kidney disease, stage 3 (moderate); Y83.1 Surgical operation with implant of artificial internal device as the cause of abnormal reaction of the patient, or of later complication, without mention of misadventure at the time of the procedure

== ENCOUNTER → 2017-08-16 | Outpatient (CLI) | payer MEDICARE, OTHER ==
[2017-08-16 16:33] LABS: ANION GAP 4 MEQ/L (8-16); BLOOD UREA NITROGEN 29 MG/DL (7-18); C REACTIVE PROTEIN QUANTITATIV 0.41 MG/DL (0.00-0.30); CALCIUM LEVEL 8.8 MG/DL (8.8-10.2); CARBON DIOXIDE LEVEL 29 MEQ/L (21-32); CHLORIDE LEVEL 108 MEQ/L (98-107); CREATININE FOR GFR 1.28 MG/DL (0.70-1.30); GLUCOSE, FASTING 115 MG/DL (70-100); POTASSIUM SERUM 4.8 MEQ/L (3.5-5.1); SODIUM LEVEL 141 MEQ/L (136-145)
[2017-08-16 16:35] LABS: BASO % 0.6 % (0.0-1.0); EOS # 0.1 10^3/uL (0.0-0.50); EOS % 2.1 % (0.0-3.0); HEMATOCRIT 36.3 % (42.0-52.0); HEMOGLOBIN 11.9 g/dl (13.5-17.5); IMMATURE GRANULOCYTE % 0.4 % (0-3.0); LYMPH # 0.8 10^3/uL (1.5-4.5); LYMPH % 15.2 % (24.0-44.0); MEAN CORPUSCULAR HEMOGLOBIN 29.2 pg (27.0-33.0); MEAN CORPUSCULAR HGB CONC 32.8 g/dl (32.0-36.5); MONO # 0.4 10^3/uL (0.0-0.8); MONO % 8.3 % (0.0-5.0); NEUTROPHILS # 3.8 10^3/uL (1.8-7.7); NEUTROPHILS % 73.4 % (36.0-66.0); PLATELET COUNT, AUTOMATED 219 10^3/uL (150-450); RED BLOOD COUNT 4.08 10^6/uL (4.30-6.10); RED CELL DISTRIBUTION WIDTH 14.2 % (11.5-14.5); WHITE BLOOD COUNT 5.2 10^3/uL (4.0-10.0)
[2017-08-16 17:58] LABS: ERYTHROCYTE SEDIMENTATION RATE 49 mm/hr (0-20)
== END ==
LOC: M WUC 14:40
DX: R78.81 Bacteremia (principal); E11.29 Type 2 diabetes mellitus with other diabetic kidney complication; Z79.4 Long term (current) use of insulin; Z79.899 Other long term (current) drug therapy
CPT/HCPCS: 80061

== ENCOUNTER → 2017-08-16 | Outpatient (CLI) | payer MEDICARE, OTHER ==
[2017-08-16 16:36] LABS: ANION GAP 6 MEQ/L (8-16); BLOOD UREA NITROGEN 28 MG/DL (7-18); CALCIUM LEVEL 8.8 MG/DL (8.8-10.2); CARBON DIOXIDE LEVEL 28 MEQ/L (21-32); CHLORIDE LEVEL 108 MEQ/L (98-107); CHOLESTEROL LEVEL 155 MG/DL (<200); CHOLESTEROL RISK RATIO 3.039 (<5); CREATININE FOR GFR 1.23 MG/DL (0.70-1.30); GLOMERULAR FILTRATION RATE > 60.0 (>42); GLUCOSE, FASTING 119 MG/DL (70-100); HDL CHOLESTEROL 51 MG/DL (>40); LDL CHOLESTEROL 69.4 MG/DL (<100); NON-HDL-C 104 MG/DL; POTASSIUM SERUM 4.7 MEQ/L (3.5-5.1); SODIUM LEVEL 142 MEQ/L (136-145); TRIGLYCERIDES LEVEL 173 MG/DL (<150)
[2017-08-16 16:54] LABS: MAU/CREAT RATIO 604.8 MCG/MG (0.0-30.0)
== END ==
LOC: M WUC 14:44
DX: E11.29 Type 2 diabetes mellitus with other diabetic kidney complication (principal)

== ENCOUNTER → 2017-08-30 | Outpatient (CLI) | payer MEDICARE, OTHER ==
[2017-08-30 17:02] LABS: ANION GAP 6 MEQ/L (8-16); BLOOD UREA NITROGEN 27 MG/DL (7-18); C REACTIVE PROTEIN QUANTITATIV 0.34 MG/DL (0.00-0.30); CALCIUM LEVEL 8.6 MG/DL (8.8-10.2); CARBON DIOXIDE LEVEL 28 MEQ/L (21-32); CHLORIDE LEVEL 107 MEQ/L (98-107); CREATININE FOR GFR 1.42 MG/DL (0.70-1.30); GLOMERULAR FILTRATION RATE 52.3 (>42); GLUCOSE, FASTING 98 MG/DL (70-100); POTASSIUM SERUM 4.9 MEQ/L (3.5-5.1); SODIUM LEVEL 141 MEQ/L (136-145)
[2017-08-30 19:04] LABS: BASO % 0.3 % (0.0-1.0); EOS # 0.1 10^3/uL (0.0-0.50); EOS % 1.9 % (0.0-3.0); HEMATOCRIT 37.6 % (42.0-52.0); HEMOGLOBIN 12.6 g/dl (13.5-17.5); IMMATURE GRANULOCYTE % 0.2 % (0-3.0); LYMPH # 0.9 10^3/uL (1.5-4.5); LYMPH % 13.7 % (24.0-44.0); MEAN CORPUSCULAR HEMOGLOBIN 30.1 pg (27.0-33.0); MEAN CORPUSCULAR HGB CONC 33.5 g/dl (32.0-36.5); MEAN CORPUSCULAR VOLUME 89.7 fl (80.0-96.0); MONO # 0.5 10^3/uL (0.0-0.8); MONO % 7.2 % (0.0-5.0); NEUTROPHILS # 4.9 10^3/uL (1.8-7.7); NEUTROPHILS % 76.7 % (36.0-66.0); PLATELET COUNT, AUTOMATED 227 10^3/uL (150-450); RED BLOOD COUNT 4.19 10^6/uL (4.30-6.10); RED CELL DISTRIBUTION WIDTH 13.5 % (11.5-14.5); WHITE BLOOD COUNT 6.4 10^3/uL (4.0-10.0)
[2017-08-30 19:54] LABS: ERYTHROCYTE SEDIMENTATION RATE 51 mm/hr (0-20)
== END ==
LOC: M WUC 14:02
DX: R78.81 Bacteremia (principal)
CPT/HCPCS: 80048

== ENCOUNTER → 2017-09-23 | Outpatient (CLI) | payer MEDICARE, OTHER ==
[2017-09-23 16:50] LABS: BASO % 0.4 % (0.0-1.0); EOS # 0.1 10^3/uL (0.0-0.50); EOS % 2.3 % (0.0-3.0); HEMATOCRIT 37.5 % (42.0-52.0); HEMOGLOBIN 12.7 g/dl (13.5-17.5); IMMATURE GRANULOCYTE % 0.4 % (0-3.0); LYMPH # 0.7 10^3/uL (1.5-4.5); LYMPH % 12.3 % (24.0-44.0); MEAN CORPUSCULAR HEMOGLOBIN 29.7 pg (27.0-33.0); MEAN CORPUSCULAR HGB CONC 33.9 g/dl (32.0-36.5); MEAN CORPUSCULAR VOLUME 87.8 fl (80.0-96.0); MONO # 0.4 10^3/uL (0.0-0.8); MONO % 7.5 % (0.0-5.0); NEUTROPHILS # 4.3 10^3/uL (1.8-7.7); NEUTROPHILS % 77.1 % (36.0-66.0); PLATELET COUNT, AUTOMATED 217 10^3/uL (150-450); RED BLOOD COUNT 4.27 10^6/uL (4.30-6.10); RED CELL DISTRIBUTION WIDTH 13.7 % (11.5-14.5); WHITE BLOOD COUNT 5.6 10^3/uL (4.0-10.0)
[2017-09-23 17:01] LABS: ANION GAP 9 MEQ/L (8-16); BLOOD UREA NITROGEN 31 MG/DL (7-18); C REACTIVE PROTEIN QUANTITATIV < 0.30 MG/DL (0.00-0.30); CALCIUM LEVEL 8.9 MG/DL (8.8-10.2); CARBON DIOXIDE LEVEL 24 MEQ/L (21-32); CHLORIDE LEVEL 109 MEQ/L (98-107); CREATININE FOR GFR 1.41 MG/DL (0.70-1.30); GLOMERULAR FILTRATION RATE 52.7 (>42); GLUCOSE, FASTING 124 MG/DL (70-100); POTASSIUM SERUM 4.6 MEQ/L (3.5-5.1); SODIUM LEVEL 142 MEQ/L (136-145)
[2017-09-23 17:46] LABS: ERYTHROCYTE SEDIMENTATION RATE 41 mm/hr (0-20)
== END ==
LOC: M WUC 12:03
DX: T82.7XXS Infection and inflammatory reaction due to other cardiac and vascular devices, implants and grafts, sequela (principal); Y83.1 Surgical operation with implant of artificial internal device as the cause of abnormal reaction of the patient, or of later complication, without mention of misadventure at the time of the procedure
CPT/HCPCS: 80048

== ENCOUNTER → 2017-12-04 | Outpatient (CLI) | payer MEDICARE, OTHER ==
[2017-12-04 16:40] LABS: ANION GAP 7 MEQ/L (8-16); BLOOD UREA NITROGEN 27 MG/DL (7-18); CALCIUM LEVEL 8.3 MG/DL (8.8-10.2); CARBON DIOXIDE LEVEL 26 MEQ/L (21-32); CHLORIDE LEVEL 109 MEQ/L (98-107); CREATININE FOR GFR 1.37 MG/DL (0.70-1.30); GLOMERULAR FILTRATION RATE 54.5 (>42); GLUCOSE, FASTING 240 MG/DL (70-100); POTASSIUM SERUM 4.9 MEQ/L (3.5-5.1); SODIUM LEVEL 142 MEQ/L (136-145)
== END ==
LOC: M WUC 14:32
DX: N40.1 Benign prostatic hyperplasia with lower urinary tract symptoms (principal); R31.9 Hematuria, unspecified

== ENCOUNTER → 2017-12-04 | Outpatient (CLI) | payer MEDICARE, OTHER ==
[2017-12-04 16:23] LABS: BASO % 0.5 % (0.0-1.0); EOS # 0.2 10^3/uL (0.0-0.50); HEMATOCRIT 35.3 % (42.0-52.0); HEMOGLOBIN 12.4 g/dl (13.5-17.5); IMMATURE GRANULOCYTE % 0.5 % (0-3.0); LYMPH # 0.7 10^3/uL (1.5-4.5); LYMPH % 11.5 % (24.0-44.0); MEAN CORPUSCULAR HEMOGLOBIN 31.2 pg (27.0-33.0); MEAN CORPUSCULAR HGB CONC 35.1 g/dl (32.0-36.5); MEAN CORPUSCULAR VOLUME 88.7 fl (80.0-96.0); MONO # 0.4 10^3/uL (0.0-0.8); MONO % 6.9 % (0.0-5.0); NEUTROPHILS # 4.8 10^3/uL (1.8-7.7); NEUTROPHILS % 77.6 % (36.0-66.0); PLATELET COUNT, AUTOMATED 214 10^3/uL (150-450); RED BLOOD COUNT 3.98 10^6/uL (4.30-6.10); RED CELL DISTRIBUTION WIDTH 13.2 % (11.5-14.5); WHITE BLOOD COUNT 6.2 10^3/uL (4.0-10.0)
[2017-12-04 16:40] LABS: ALBUMIN 3.2 GM/DL (3.2-5.2); ALBUMIN/GLOBULIN RATIO 0.86 (1.00-1.93); ALKALINE PHOSPHATASE 72 U/L (45-117); ALT/SGPT 22 U/L (12-78); ANION GAP 8 MEQ/L (8-16); AST/SGOT 18 U/L (7-37); BILIRUBIN,TOTAL 0.4 MG/DL (0.2-1.0); BLOOD UREA NITROGEN 26 MG/DL (7-18); C REACTIVE PROTEIN QUANTITATIV 0.51 MG/DL (0.00-0.30); CALCIUM LEVEL 8.4 MG/DL (8.8-10.2); CARBON DIOXIDE LEVEL 25 MEQ/L (21-32); CHLORIDE LEVEL 108 MEQ/L (98-107); CREATININE FOR GFR 1.35 MG/DL (0.70-1.30); GLOMERULAR FILTRATION RATE 55.5 (>42); GLUCOSE, FASTING 234 MG/DL (70-100); POTASSIUM SERUM 4.9 MEQ/L (3.5-5.1); SODIUM LEVEL 141 MEQ/L (136-145); TOTAL PROTEIN 6.9 GM/DL (6.4-8.2)
[2017-12-04 17:20] LABS: ERYTHROCYTE SEDIMENTATION RATE 54 mm/hr (0-20)
== END ==
LOC: M WUC 14:27
DX: I10 Essential (primary) hypertension (principal); T84.53XD Infection and inflammatory reaction due to internal right knee prosthesis, subsequent encounter; N40.1 Benign prostatic hyperplasia with lower urinary tract symptoms; R31.9 Hematuria, unspecified
CPT/HCPCS: 80053

== ENCOUNTER → 2018-01-31 | Outpatient (CLI) | payer MEDICARE, OTHER ==
[2018-01-31 13:38] LABS: GLUCOSE, FASTING 83 MG/DL (70-100)
[2018-01-31 14:20] LABS: ESTIMATED AVERAGE GLUCOSE 154 MG/DL (60-110)
== END ==
LOC: M WUC 08:35
DX: E11.9 Type 2 diabetes mellitus without complications (principal)
CPT/HCPCS: 82947

== ENCOUNTER 2018-02-21 13:20 | Inpatient (IN) | payer MEDICARE, OTHER ==
[2018-02-21 16:36] LABS: BEDSIDE GLUCOSE 234 MG/DL (83-110)
[2018-02-21] MEDS ORDERED: SENNA 8.6 MG TAB (SENOKOT) PO (16:45)
[2018-02-21] MEDS ORDERED: CALCIUM CARBONATE 500 MG CHEW U/D PO (16:45)
[2018-02-21] MEDS ORDERED: BENZONATATE 100 MG CAP PO (16:45)
[2018-02-21] MEDS ORDERED: traMADol 50 MG TAB PO (16:45)
[2018-02-21] MEDS ORDERED: GLUCAGON FOR INJ 1 MG VIAL (J1610) SC (16:45)
[2018-02-21] MEDS ORDERED: DEXTROSE 50% 50 ML SYRINGE IV (16:45)
[2018-02-21] MEDS ORDERED: GLUCOSE 4 GM CHEW TABLET PO (16:45)
[2018-02-21] MEDS: HumaLOG INSULIN (NovoLOG) PER UNIT SC ×2 (17:30→18:26)
[2018-02-21 18:45] LABS: APPEARANCE, URINE CLEAR (CLEAR); BACTERIA, URINE AUTO NEGATIVE (NEGATIVE); BILIRUBIN, URINE AUTO NEGATIVE (NEGATIVE); BLOOD, URINE BLOOD 1+ (NEGATIVE); COLOR, URINE YELLOW (YELLOW); GLUCOSE, URINE (UA) AUTO 1+ mg/dL (NEGATIVE); KETONE, URINE AUTO NEGATIVE (NEGATIVE); LEUKOCYTE ESTERASE, URINE AUTO NEGATIVE (NEGATIVE); MUCUS, URINE SMALL (NEGATIVE); NITRITE, URINE AUTO NEGATIVE (NEGATIVE); PROTEIN, URINE AUTO 2+ mg/dL (NEGATIVE); RBC, URINE AUTO 5 /HPF (0-3); SPECIFIC GRAVITY URINE AUTO 1.013 (1.002-1.035); SQUAMOUS EPITHELIAL CELL UR AU 0 /HPF (0-6); UROBILINOGEN, URINE AUTO 0.2 mg/dL (0.0-2.0); WBC, URINE AUTO 1 /HPF (0-3)
[2018-02-21 20:26] LABS: BEDSIDE GLUCOSE 215 MG/DL (83-110)
[2018-02-21] MEDS ORDERED: LEVEMIR (INSULIN DETEMIR) 1 UNITS/0.01ML SC (21:00)
[2018-02-21] MEDS: DOCUSATE SODIUM 100 MG CAP PO (21:00)
[2018-02-21] MEDS: ADVAIR HFA 115/21MCG INHALER INH (21:38)
[2018-02-21] MEDS: MAGNESIUM OXIDE 400 MG TAB (MAG-OX) PO (22:04)
[2018-02-21] MEDS: GABAPENTIN 300 MG CAP PO (22:04)
[2018-02-21] MEDS: APIXABAN 5 MG TAB (ELIQUIS) PO (22:05)
[2018-02-21] MEDS: ACETAMINOPHEN TAB 650MG DOSE (2X325MG) PO (22:05)
[2018-02-21] MEDS: LEVEMIR (INSULIN DETEMIR) 1 UNITS/0.01ML SC (22:06)
[2018-02-21] MEDS: COSOPT OCUMETER PLUS 10ML (DORZOLAMIDE/TIMOLOL) OU (22:06)
[2018-02-22 05:19] LABS: BEDSIDE GLUCOSE 192 MG/DL (83-110)
[2018-02-22] MEDS: ADVAIR HFA 115/21MCG INHALER INH ×2 (07:31→20:20)
[2018-02-22 07:49] LABS: BASO % 0.3 % (0.0-1.0); EOS # 0.1 10^3/uL (0.0-0.50); EOS % 1.9 % (0.0-3.0); HEMOGLOBIN 10.3 g/dl (13.5-17.5); IMMATURE GRANULOCYTE % 1.1 % (0-3.0); LYMPH # 0.7 10^3/uL (1.5-4.5); LYMPH % 10.2 % (24.0-44.0); MEAN CORPUSCULAR HEMOGLOBIN 30.5 pg (27.0-33.0); MEAN CORPUSCULAR HGB CONC 33.2 g/dl (32.0-36.5); MEAN CORPUSCULAR VOLUME 91.7 fl (80.0-96.0); MONO # 0.6 10^3/uL (0.0-0.8); MONO % 7.5 % (0.0-5.0); NEUTROPHILS # 5.8 10^3/uL (1.8-7.7); PLATELET COUNT, AUTOMATED 329 10^3/uL (150-450); RED BLOOD COUNT 3.38 10^6/uL (4.30-6.10); RED CELL DISTRIBUTION WIDTH 13.2 % (11.5-14.5); WHITE BLOOD COUNT 7.3 10^3/uL (4.0-10.0)
[2018-02-22 08:16] LABS: ALBUMIN 2.9 GM/DL (3.2-5.2); ALBUMIN/GLOBULIN RATIO 0.67 (1.00-1.93); ALKALINE PHOSPHATASE 76 U/L (45-117); ALT/SGPT 18 U/L (12-78); ANION GAP 7 MEQ/L (8-16); AST/SGOT 19 U/L (7-37); BILIRUBIN,TOTAL 0.7 MG/DL (0.2-1.0); BLOOD UREA NITROGEN 41 MG/DL (7-18); CALCIUM LEVEL 8.9 MG/DL (8.8-10.2); CARBON DIOXIDE LEVEL 27 MEQ/L (21-32); CHLORIDE LEVEL 107 MEQ/L (98-107); CREATININE FOR GFR 1.57 MG/DL (0.70-1.30); GLOMERULAR FILTRATION RATE 46.6 (>42); GLUCOSE, FASTING 147 MG/DL (70-100); POTASSIUM SERUM 3.9 MEQ/L (3.5-5.1); SODIUM LEVEL 141 MEQ/L (136-145); TOTAL PROTEIN 7.2 GM/DL (6.4-8.2)
[2018-02-22] MEDS: HumaLOG INSULIN (NovoLOG) PER UNIT SC ×6 (08:52→17:53)
[2018-02-22] MEDS: COSOPT OCUMETER PLUS 10ML (DORZOLAMIDE/TIMOLOL) OU ×2 (08:53→21:00)
[2018-02-22] MEDS: BRIMONIDINE 0.1% OPHTH SOLN 5 ML OU (08:54)
[2018-02-22] MEDS: MAGNESIUM OXIDE 400 MG TAB (MAG-OX) PO ×2 (08:55→20:13)
[2018-02-22] MEDS: FUROSEMIDE 20 MG TAB PO (08:55)
[2018-02-22] MEDS: TAMSULOSIN 0.4 MG CAP PO (08:55)
[2018-02-22] MEDS: FOLIC ACID 1 MG TAB PO (08:56)
[2018-02-22] MEDS: PRAVASTATIN 20 MG TAB PO (08:56)
[2018-02-22] MEDS: VITAMIN D 1,000 INTERNATIONAL UNITS TABLET PO (08:56)
[2018-02-22] MEDS: PANTOPRAZOLE 40MG TAB (PROTONIX) PO (08:56)
[2018-02-22] MEDS: DUTASTERIDE 0.5 MG CAP (AVODART) PO (08:56)
[2018-02-22] MEDS: APIXABAN 5 MG TAB (ELIQUIS) PO ×2 (08:56→20:13)
[2018-02-22] MEDS: FEBUXOSTAT 40 MG TABLET (ULORIC) PO (08:56)
[2018-02-22] MEDS: ACETAMINOPHEN TAB 650MG DOSE (2X325MG) PO ×2 (08:57→20:12)
[2018-02-22] MEDS: BISOPROLOL FUMARATE 5 MG TAB PO (08:57)
[2018-02-22] MEDS: DOCUSATE SODIUM 100 MG CAP PO ×2 (08:58→20:13)
[2018-02-22 11:31] LABS: BEDSIDE GLUCOSE 123 MG/DL (83-110)
[2018-02-22 16:44] LABS: BEDSIDE GLUCOSE 209 MG/DL (83-110)
[2018-02-22] MEDS: GABAPENTIN 300 MG CAP PO (20:12)
[2018-02-22] MEDS: LEVEMIR (INSULIN DETEMIR) 1 UNITS/0.01ML SC (20:15)
[2018-02-22 20:17] LABS: BEDSIDE GLUCOSE 251 MG/DL (83-110)
[2018-02-23 05:32] LABS: BEDSIDE GLUCOSE 171 MG/DL (83-110)
[2018-02-23] MEDS: TAMSULOSIN 0.4 MG CAP PO (07:49)
[2018-02-23] MEDS: APIXABAN 5 MG TAB (ELIQUIS) PO ×2 (07:50→20:16)
[2018-02-23] MEDS: PANTOPRAZOLE 40MG TAB (PROTONIX) PO (07:50)
[2018-02-23] MEDS: PRAVASTATIN 20 MG TAB PO (07:50)
[2018-02-23] MEDS: FOLIC ACID 1 MG TAB PO (07:50)
[2018-02-23] MEDS: MAGNESIUM OXIDE 400 MG TAB (MAG-OX) PO ×2 (07:50→20:16)
[2018-02-23] MEDS: VITAMIN D 1,000 INTERNATIONAL UNITS TABLET PO (07:50)
[2018-02-23] MEDS: FUROSEMIDE 20 MG TAB PO (07:50)
[2018-02-23] MEDS: DOCUSATE SODIUM 100 MG CAP PO ×2 (07:51→20:16)
[2018-02-23] MEDS: DUTASTERIDE 0.5 MG CAP (AVODART) PO (07:51)
[2018-02-23] MEDS: BISOPROLOL FUMARATE 5 MG TAB PO (07:51)
[2018-02-23] MEDS: FEBUXOSTAT 40 MG TABLET (ULORIC) PO (07:51)
[2018-02-23] MEDS: BRIMONIDINE 0.1% OPHTH SOLN 5 ML OU (07:52)
[2018-02-23] MEDS: HumaLOG INSULIN (NovoLOG) PER UNIT SC ×6 (07:52→17:11)
[2018-02-23] MEDS: COSOPT OCUMETER PLUS 10ML (DORZOLAMIDE/TIMOLOL) OU ×2 (07:54→21:00)
[2018-02-23] MEDS: ADVAIR HFA 115/21MCG INHALER INH ×2 (08:29→21:12)
[2018-02-23 11:54] LABS: BEDSIDE GLUCOSE 295 MG/DL (83-110)
[2018-02-23 16:53] LABS: BEDSIDE GLUCOSE 212 MG/DL (83-110)
[2018-02-23 19:35] LABS: BEDSIDE GLUCOSE 179 MG/DL (83-110)
[2018-02-23] MEDS: LEVEMIR (INSULIN DETEMIR) 1 UNITS/0.01ML SC (20:15)
[2018-02-23] MEDS: GABAPENTIN 300 MG CAP PO (20:16)
[2018-02-23] MEDS: ACETAMINOPHEN TAB 650MG DOSE (2X325MG) PO (20:16)
[2018-02-24 06:28] LABS: BEDSIDE GLUCOSE 199 MG/DL (83-110)
[2018-02-24] MEDS: ADVAIR HFA 115/21MCG INHALER INH ×2 (08:22→19:49)
[2018-02-24] MEDS: DOCUSATE SODIUM 100 MG CAP PO ×2 (09:00→20:58)
[2018-02-24] MEDS: HumaLOG INSULIN (NovoLOG) PER UNIT SC ×6 (09:11→17:05)
[2018-02-24] MEDS: DUTASTERIDE 0.5 MG CAP (AVODART) PO (09:12)
[2018-02-24] MEDS: APIXABAN 5 MG TAB (ELIQUIS) PO ×2 (09:12→20:57)
[2018-02-24] MEDS: BISOPROLOL FUMARATE 5 MG TAB PO (09:12)
[2018-02-24] MEDS: FUROSEMIDE 20 MG TAB PO (09:12)
[2018-02-24] MEDS: PANTOPRAZOLE 40MG TAB (PROTONIX) PO (09:12)
[2018-02-24] MEDS: PRAVASTATIN 20 MG TAB PO (09:13)
[2018-02-24] MEDS: VITAMIN D 1,000 INTERNATIONAL UNITS TABLET PO (09:13)
[2018-02-24] MEDS: FEBUXOSTAT 40 MG TABLET (ULORIC) PO (09:13)
[2018-02-24] MEDS: TAMSULOSIN 0.4 MG CAP PO (09:13)
[2018-02-24] MEDS: FOLIC ACID 1 MG TAB PO (09:13)
[2018-02-24] MEDS: MAGNESIUM OXIDE 400 MG TAB (MAG-OX) PO ×2 (09:13→20:58)
[2018-02-24] MEDS: COSOPT OCUMETER PLUS 10ML (DORZOLAMIDE/TIMOLOL) OU ×2 (09:15→20:59)
[2018-02-24] MEDS: BRIMONIDINE 0.1% OPHTH SOLN 5 ML OU (09:15)
[2018-02-24] MEDS: ACETAMINOPHEN TAB 650MG DOSE (2X325MG) PO ×2 (09:21→22:30)
[2018-02-24 11:43] LABS: BEDSIDE GLUCOSE 160 MG/DL (83-110)
[2018-02-24 16:34] LABS: BEDSIDE GLUCOSE 224 MG/DL (83-110)
[2018-02-24 20:52] LABS: BEDSIDE GLUCOSE 203 MG/DL (83-110)
[2018-02-24] MEDS: GABAPENTIN 300 MG CAP PO (20:57)
[2018-02-24] MEDS: LEVEMIR (INSULIN DETEMIR) 1 UNITS/0.01ML SC (20:58)
[2018-02-25] MEDS: ACETAMINOPHEN TAB 650MG DOSE (2X325MG) PO ×3 (05:50→20:34)
[2018-02-25 06:28] LABS: BEDSIDE GLUCOSE 168 MG/DL (83-110)
[2018-02-25] MEDS: HumaLOG INSULIN (NovoLOG) PER UNIT SC ×6 (08:07→16:35)
[2018-02-25] MEDS: FEBUXOSTAT 40 MG TABLET (ULORIC) PO (08:07)
[2018-02-25] MEDS: FOLIC ACID 1 MG TAB PO (08:07)
[2018-02-25] MEDS: PRAVASTATIN 20 MG TAB PO (08:08)
[2018-02-25] MEDS: DUTASTERIDE 0.5 MG CAP (AVODART) PO (08:08)
[2018-02-25] MEDS: APIXABAN 5 MG TAB (ELIQUIS) PO ×2 (08:08→20:30)
[2018-02-25] MEDS: FUROSEMIDE 20 MG TAB PO (08:08)
[2018-02-25] MEDS: TAMSULOSIN 0.4 MG CAP PO (08:08)
[2018-02-25] MEDS: MAGNESIUM OXIDE 400 MG TAB (MAG-OX) PO ×2 (08:08→20:31)
[2018-02-25] MEDS: VITAMIN D 1,000 INTERNATIONAL UNITS TABLET PO (08:08)
[2018-02-25] MEDS: BRIMONIDINE 0.1% OPHTH SOLN 5 ML OU (08:09)
[2018-02-25] MEDS: DOCUSATE SODIUM 100 MG CAP PO ×2 (08:09→20:30)
[2018-02-25] MEDS: PANTOPRAZOLE 40MG TAB (PROTONIX) PO (08:09)
[2018-02-25] MEDS: COSOPT OCUMETER PLUS 10ML (DORZOLAMIDE/TIMOLOL) OU ×2 (08:09→20:31)
[2018-02-25] MEDS: BISOPROLOL FUMARATE 5 MG TAB PO (08:09)
[2018-02-25] MEDS: ADVAIR HFA 115/21MCG INHALER INH ×2 (08:50→20:14)
[2018-02-25 12:08] LABS: BEDSIDE GLUCOSE 202 MG/DL (83-110)
[2018-02-25 16:28] LABS: BEDSIDE GLUCOSE 170 MG/DL (83-110)
[2018-02-25 20:16] LABS: BEDSIDE GLUCOSE 160 MG/DL (83-110)
[2018-02-25] MEDS: GABAPENTIN 300 MG CAP PO (20:31)
[2018-02-25] MEDS: LEVEMIR (INSULIN DETEMIR) 1 UNITS/0.01ML SC (20:31)
[2018-02-26] MEDS: ACETAMINOPHEN TAB 650MG DOSE (2X325MG) PO ×3 (03:51→21:32)
[2018-02-26 07:38] LABS: BEDSIDE GLUCOSE 174 MG/DL (83-110)
[2018-02-26] MEDS: ADVAIR HFA 115/21MCG INHALER INH ×2 (08:40→20:50)
[2018-02-26] MEDS: FUROSEMIDE 20 MG TAB PO (08:53)
[2018-02-26] MEDS: FOLIC ACID 1 MG TAB PO (08:53)
[2018-02-26] MEDS: DUTASTERIDE 0.5 MG CAP (AVODART) PO (08:53)
[2018-02-26] MEDS: PRAVASTATIN 20 MG TAB PO (08:53)
[2018-02-26] MEDS: APIXABAN 5 MG TAB (ELIQUIS) PO ×2 (08:54→21:19)
[2018-02-26] MEDS: BISOPROLOL FUMARATE 5 MG TAB PO (08:54)
[2018-02-26] MEDS: TAMSULOSIN 0.4 MG CAP PO (08:54)
[2018-02-26] MEDS: VITAMIN D 1,000 INTERNATIONAL UNITS TABLET PO (08:54)
[2018-02-26] MEDS: FEBUXOSTAT 40 MG TABLET (ULORIC) PO (08:54)
[2018-02-26] MEDS: PANTOPRAZOLE 40MG TAB (PROTONIX) PO (08:54)
[2018-02-26] MEDS: MAGNESIUM OXIDE 400 MG TAB (MAG-OX) PO ×2 (08:55→21:18)
[2018-02-26] MEDS: HumaLOG INSULIN (NovoLOG) PER UNIT SC ×6 (08:55→17:49)
[2018-02-26] MEDS: COSOPT OCUMETER PLUS 10ML (DORZOLAMIDE/TIMOLOL) OU ×2 (08:57→21:21)
[2018-02-26] MEDS: DOCUSATE SODIUM 100 MG CAP PO ×2 (08:57→21:19)
[2018-02-26] MEDS: BRIMONIDINE 0.1% OPHTH SOLN 5 ML OU (08:58)
[2018-02-26 11:34] LABS: BEDSIDE GLUCOSE 189 MG/DL (83-110)
[2018-02-26 16:49] LABS: BEDSIDE GLUCOSE 128 MG/DL (83-110)
[2018-02-26] MEDS: LEVEMIR (INSULIN DETEMIR) 1 UNITS/0.01ML SC (21:19)
[2018-02-26] MEDS: GABAPENTIN 300 MG CAP PO (21:19)
[2018-02-27 06:51] LABS: BEDSIDE GLUCOSE 115 MG/DL (83-110)
[2018-02-27] MEDS: ADVAIR HFA 115/21MCG INHALER INH (07:51)
[2018-02-27] MEDS: ACETAMINOPHEN TAB 650MG DOSE (2X325MG) PO ×2 (07:55→13:45)
[2018-02-27] MEDS: HumaLOG INSULIN (NovoLOG) PER UNIT SC ×6 (07:56→17:16)
[2018-02-27] MEDS: FEBUXOSTAT 40 MG TABLET (ULORIC) PO (07:56)
[2018-02-27] MEDS: DUTASTERIDE 0.5 MG CAP (AVODART) PO (07:56)
[2018-02-27] MEDS: PRAVASTATIN 20 MG TAB PO (07:56)
[2018-02-27] MEDS: TAMSULOSIN 0.4 MG CAP PO (07:56)
[2018-02-27] MEDS: PANTOPRAZOLE 40MG TAB (PROTONIX) PO (07:57)
[2018-02-27] MEDS: FOLIC ACID 1 MG TAB PO (07:57)
[2018-02-27] MEDS: FUROSEMIDE 20 MG TAB PO (07:57)
[2018-02-27] MEDS: BISOPROLOL FUMARATE 5 MG TAB PO (07:57)
[2018-02-27] MEDS: VITAMIN D 1,000 INTERNATIONAL UNITS TABLET PO (07:57)
[2018-02-27] MEDS: APIXABAN 5 MG TAB (ELIQUIS) PO (07:57)
[2018-02-27] MEDS: MAGNESIUM OXIDE 400 MG TAB (MAG-OX) PO (07:58)
[2018-02-27] MEDS: DOCUSATE SODIUM 100 MG CAP PO (07:58)
[2018-02-27] MEDS: COSOPT OCUMETER PLUS 10ML (DORZOLAMIDE/TIMOLOL) OU (07:59)
[2018-02-27] MEDS: BRIMONIDINE 0.1% OPHTH SOLN 5 ML OU (07:59)
[2018-02-27 11:51] LABS: BEDSIDE GLUCOSE 163 MG/DL (83-110)
[2018-02-27 17:06] LABS: BEDSIDE GLUCOSE 113 MG/DL (83-110)
== END 2018-02-27 17:45 | disposition home health service (06) | DRG 92 ==
LOC: M PM&R 13:20
PROVIDERS: Physical Medicine & Rehabilitation
DX: I97.821 Postprocedural cerebrovascular infarction following other surgery (principal); I50.20 Unspecified systolic (congestive) heart failure; I48.2 Chronic atrial fibrillation; Z79.01 Long term (current) use of anticoagulants; E11.51 Type 2 diabetes mellitus with diabetic peripheral angiopathy without gangrene; N18.3 Chronic kidney disease, stage 3 (moderate); I12.9 Hypertensive chronic kidney disease with stage 1 through stage 4 chronic kidney disease, or unspecified chronic kidney disease; M19.90 Unspecified osteoarthritis, unspecified site; J44.9 Chronic obstructive pulmonary disease, unspecified; E78.5 Hyperlipidemia, unspecified; G47.30 Sleep apnea, unspecified; E66.9 Obesity, unspecified; E11.319 Type 2 diabetes mellitus with unspecified diabetic retinopathy without macular edema; Z95.1 Presence of aortocoronary bypass graft; Z79.4 Long term (current) use of insulin; Z79.899 Other long term (current) drug therapy; Z91.040 Latex allergy status; Z88.8 Allergy status to other drugs, medicaments and biological substances; E11.621 Type 2 diabetes mellitus with foot ulcer; N40.0 Benign prostatic hyperplasia without lower urinary tract symptoms; E78.00 Pure hypercholesterolemia, unspecified

== ENCOUNTER → 2018-03-11 | Outpatient (REF) | payer MEDICARE, OTHER ==
[2018-03-11 14:16] LABS: HEMOGLOBIN 9.9 g/dl (13.5-17.5); MEAN CORPUSCULAR HEMOGLOBIN 30.5 pg (27.0-33.0); MEAN CORPUSCULAR HGB CONC 31.9 g/dl (32.0-36.5); MEAN CORPUSCULAR VOLUME 95.4 fl (80.0-96.0); PLATELET COUNT, AUTOMATED 211 10^3/uL (150-450); RED BLOOD COUNT 3.25 10^6/uL (4.30-6.10); RED CELL DISTRIBUTION WIDTH 13.7 % (11.5-14.5); WHITE BLOOD COUNT 6.6 10^3/uL (4.0-10.0)
[2018-03-11 14:21] LABS: ERYTHROCYTE SEDIMENTATION RATE 72 mm/hr (0-20)
[2018-03-11 23:29] LABS: ALBUMIN 3.3 GM/DL (3.2-5.2); ALBUMIN/GLOBULIN RATIO 0.89 (1.00-1.93); ALKALINE PHOSPHATASE 78 U/L (45-117); ALT/SGPT 16 U/L (12-78); ANION GAP 7 MEQ/L (8-16); AST/SGOT 16 U/L (7-37); BILIRUBIN,TOTAL 0.4 MG/DL (0.2-1.0); BLOOD UREA NITROGEN 34 MG/DL (7-18); C REACTIVE PROTEIN QUANTITATIV 1.19 MG/DL (0.00-0.30); CALCIUM LEVEL 8.7 MG/DL (8.8-10.2); CARBON DIOXIDE LEVEL 25 MEQ/L (21-32); CHLORIDE LEVEL 109 MEQ/L (98-107); CREATININE FOR GFR 1.61 MG/DL (0.70-1.30); GLOMERULAR FILTRATION RATE 45.3 (>42); GLUCOSE, FASTING 183 MG/DL (70-100); POTASSIUM SERUM 5.3 MEQ/L (3.5-5.1); SODIUM LEVEL 141 MEQ/L (136-145)
[2018-03-12] LABS: ESTIMATED AVERAGE GLUCOSE 123 MG/DL (60-110); HEMOGLOBIN A1c 5.9 %
== END ==
LOC: M LAB REF 11:29
DX: T81.31XA Disruption of external operation (surgical) wound, not elsewhere classified, initial encounter (principal); E11.22 Type 2 diabetes mellitus with diabetic chronic kidney disease; N18.3 Chronic kidney disease, stage 3 (moderate); X58.XXXA Exposure to other specified factors, initial encounter; Z96.652 Presence of left artificial knee joint
CPT/HCPCS: 80053

== ENCOUNTER 2018-03-20 15:25 | Inpatient (IN) | payer OTHER, MEDICARE ==
[2018-03-20 16:43] LABS: BASO % 0.2 % (0.0-1.0); EOS # 0.1 10^3/uL (0.0-0.50); EOS % 1.7 % (0.0-3.0); HEMATOCRIT 30.3 % (42.0-52.0); HEMOGLOBIN 9.8 g/dl (13.5-17.5); IMMATURE GRANULOCYTE % 0.6 % (0-3.0); LYMPH # 0.6 10^3/uL (1.5-4.5); MEAN CORPUSCULAR HEMOGLOBIN 30.2 pg (27.0-33.0); MEAN CORPUSCULAR HGB CONC 32.3 g/dl (32.0-36.5); MEAN CORPUSCULAR VOLUME 93.5 fl (80.0-96.0); MONO # 0.4 10^3/uL (0.0-0.8); MONO % 7.2 % (0.0-5.0); NEUTROPHILS % 78.3 % (36.0-66.0); PLATELET COUNT, AUTOMATED 200 10^3/uL (150-450); RED BLOOD COUNT 3.24 10^6/uL (4.30-6.10); RED CELL DISTRIBUTION WIDTH 13.5 % (11.5-14.5); WHITE BLOOD COUNT 5.2 10^3/uL (4.0-10.0)
[2018-03-20 16:57] LABS: BEDSIDE GLUCOSE 135 MG/DL (83-110)
[2018-03-20 17:15] LABS: ANION GAP 8 MEQ/L (8-16); BLOOD UREA NITROGEN 34 MG/DL (7-18); CALCIUM LEVEL 8.3 MG/DL (8.8-10.2); CARBON DIOXIDE LEVEL 24 MEQ/L (21-32); CHLORIDE LEVEL 109 MEQ/L (98-107); CREATININE FOR GFR 1.52 MG/DL (0.70-1.30); GLOMERULAR FILTRATION RATE 48.4 (>42); GLUCOSE, FASTING 135 MG/DL (70-100); POTASSIUM SERUM 4.7 MEQ/L (3.5-5.1); SODIUM LEVEL 141 MEQ/L (136-145)
[2018-03-20] MEDS ORDERED: GLUCAGON FOR INJ 1 MG VIAL (J1610) SC (17:30)
[2018-03-20] MEDS ORDERED: GLUCOSE 4 GM CHEW TABLET PO (17:30)
[2018-03-20] MEDS ORDERED: DEXTROSE 50% 50 ML SYRINGE IV (17:30)
[2018-03-20 17:38] LABS: ERYTHROCYTE SEDIMENTATION RATE 70 mm/hr (0-20)
[2018-03-20] MEDS: MEROPENEM INJ 1 GM in APPROPRIATE DILUENT 1 EA IV (18:17)
[2018-03-20] MEDS: HumaLOG INSULIN (NovoLOG) PER UNIT SC (18:18)
[2018-03-20] MEDS ORDERED: DOCUSATE SODIUM 100 MG CAP PO (18:30)
[2018-03-20] MEDS ORDERED: SENNA 8.6 MG TAB (SENOKOT) PO (18:30)
[2018-03-20] MEDS ORDERED: BENZONATATE 100 MG CAP PO (18:30)
[2018-03-20] MEDS ORDERED: IPRATROPIUM 0.5MG/ALBUTEROL 2.5MG INH SOL UD 3ML (DUONEB)(J7620) NEB (18:45)
[2018-03-20 20:30] LABS: VANCOMYCIN LEVEL TROUGH < 0.8 UG/ML (10.0-20.0)
[2018-03-20] MEDS: PRAVASTATIN 20 MG TAB PO (20:52)
[2018-03-20] MEDS: VANCOMYCIN HCL 1,000 MG, VIAL MATE ADAPTER 1 EACH in D5W 250 ML IV ×2 (20:52→22:16)
[2018-03-20] MEDS: GABAPENTIN 300 MG CAP PO (20:52)
[2018-03-20] MEDS: APIXABAN 5 MG TAB (ELIQUIS) PO (20:52)
[2018-03-20 20:53] LABS: BEDSIDE GLUCOSE 141 MG/DL (83-110)
[2018-03-20] MEDS: LEVEMIR (INSULIN DETEMIR) 1 UNITS/0.01ML SC (20:53)
[2018-03-20] MEDS: COSOPT OCUMETER PLUS 10ML (DORZOLAMIDE/TIMOLOL) OU (20:53)
[2018-03-20] MEDS: BRIMONIDINE 0.15% OPHTH SOLN 5 ML OU (21:30)
[2018-03-20] MEDS: ACETAMINOPHEN 325 MG TAB PO (22:26)
[2018-03-21] MEDS: MEROPENEM INJ 1 GM in APPROPRIATE DILUENT 1 EA IV ×3 (02:19→18:03)
[2018-03-21] MEDS: MAGNESIUM OXIDE 400 MG TAB (MAG-OX) PO (08:21)
[2018-03-21] MEDS: HumaLOG INSULIN (NovoLOG) PER UNIT SC ×3 (08:21→18:02)
[2018-03-21] MEDS: VANCOMYCIN HCL 1,000 MG, VIAL MATE ADAPTER 1 EACH in D5W 250 ML IV ×2 (08:21→20:42)
[2018-03-21] MEDS: APIXABAN 5 MG TAB (ELIQUIS) PO ×2 (08:21→20:42)
[2018-03-21] MEDS: DUTASTERIDE 0.5 MG CAP (AVODART) PO (08:22)
[2018-03-21] MEDS: FEBUXOSTAT 40 MG TABLET (ULORIC) PO (08:22)
[2018-03-21] MEDS: PANTOPRAZOLE 40MG TAB (PROTONIX) PO (08:22)
[2018-03-21] MEDS: FUROSEMIDE 20 MG TAB PO (08:22)
[2018-03-21] MEDS: BISOPROLOL FUMARATE 5 MG TAB PO ×2 (08:22→08:51)
[2018-03-21] MEDS: TAMSULOSIN 0.4 MG CAP PO (08:22)
[2018-03-21] MEDS: BRIMONIDINE 0.15% OPHTH SOLN 5 ML OU ×2 (08:23→20:44)
[2018-03-21] MEDS: COSOPT OCUMETER PLUS 10ML (DORZOLAMIDE/TIMOLOL) OU ×2 (08:23→20:44)
[2018-03-21] MEDS ORDERED: BRIMONIDINE 0.15% OPHTH SOLN 5 ML OU (09:00)
[2018-03-21] MEDS: PERCOCET 5MG/325MG TAB PO (09:43)
[2018-03-21] MEDS: ACETAMINOPHEN 325 MG TAB PO ×2 (13:11→20:43)
[2018-03-21] MEDS ORDERED: LIDOCAINE 2% MDV 20 ML VIAL As Ordered (15:09)
[2018-03-21] MEDS: SODIUM CHLORIDE 0.9% INJ 10 ML SYR IV (18:03)
[2018-03-21] MEDS: LEVEMIR (INSULIN DETEMIR) 1 UNITS/0.01ML SC (20:43)
[2018-03-21] MEDS: GABAPENTIN 300 MG CAP PO (20:43)
[2018-03-21] MEDS: PRAVASTATIN 20 MG TAB PO (20:43)
[2018-03-22] MEDS: MEROPENEM INJ 1 GM in APPROPRIATE DILUENT 1 EA IV ×3 (02:02→18:11)
[2018-03-22] MEDS: SODIUM CHLORIDE 0.9% INJ 10 ML SYR IV ×2 (06:00→18:40)
[2018-03-22] MEDS: ACETAMINOPHEN 325 MG TAB PO (06:24)
[2018-03-22 06:32] LABS: HEMATOCRIT 28.2 % (42.0-52.0); HEMOGLOBIN 9.2 g/dl (13.5-17.5); MEAN CORPUSCULAR HEMOGLOBIN 29.9 pg (27.0-33.0); MEAN CORPUSCULAR HGB CONC 32.6 g/dl (32.0-36.5); MEAN CORPUSCULAR VOLUME 91.6 fl (80.0-96.0); PLATELET COUNT, AUTOMATED 175 10^3/uL (150-450); RED BLOOD COUNT 3.08 10^6/uL (4.30-6.10); RED CELL DISTRIBUTION WIDTH 13.3 % (11.5-14.5); WHITE BLOOD COUNT 4.2 10^3/uL (4.0-10.0)
[2018-03-22 08:30] LABS: ANION GAP 10 MEQ/L (8-16); BLOOD UREA NITROGEN 27 MG/DL (7-18); CALCIUM LEVEL 8.3 MG/DL (8.8-10.2); CARBON DIOXIDE LEVEL 23 MEQ/L (21-32); CHLORIDE LEVEL 109 MEQ/L (98-107); CREATININE FOR GFR 1.34 MG/DL (0.70-1.30); GLOMERULAR FILTRATION RATE 55.9 (>42); GLUCOSE, FASTING 165 MG/DL (70-100); POTASSIUM SERUM 4.4 MEQ/L (3.5-5.1); SODIUM LEVEL 142 MEQ/L (136-145); VANCOMYCIN LEVEL TROUGH 21.3 UG/ML (10.0-20.0)
[2018-03-22] MEDS: HumaLOG INSULIN (NovoLOG) PER UNIT SC ×3 (09:07→18:10)
[2018-03-22] MEDS: FEBUXOSTAT 40 MG TABLET (ULORIC) PO (09:07)
[2018-03-22] MEDS: DUTASTERIDE 0.5 MG CAP (AVODART) PO (09:07)
[2018-03-22] MEDS: APIXABAN 5 MG TAB (ELIQUIS) PO ×2 (09:10→21:20)
[2018-03-22] MEDS: TAMSULOSIN 0.4 MG CAP PO (09:10)
[2018-03-22] MEDS: MAGNESIUM OXIDE 400 MG TAB (MAG-OX) PO (09:10)
[2018-03-22] MEDS: PANTOPRAZOLE 40MG TAB (PROTONIX) PO (09:11)
[2018-03-22] MEDS: COSOPT OCUMETER PLUS 10ML (DORZOLAMIDE/TIMOLOL) OU ×2 (09:11→21:00)
[2018-03-22] MEDS: BRIMONIDINE 0.15% OPHTH SOLN 5 ML OU ×2 (09:12→21:00)
[2018-03-22] MEDS: FUROSEMIDE 20 MG TAB PO (09:12)
[2018-03-22] MEDS: BISOPROLOL FUMARATE 5 MG TAB PO (09:15)
[2018-03-22] MEDS: VANCOMYCIN HCL 1,000 MG, VIAL MATE ADAPTER 1 EACH in D5W 250 ML IV (11:22)
[2018-03-22] MEDS: PERCOCET 5MG/325MG TAB PO (14:43)
[2018-03-22] MEDS: LEVEMIR (INSULIN DETEMIR) 1 UNITS/0.01ML SC (21:00)
[2018-03-22] MEDS: PRAVASTATIN 20 MG TAB PO (21:20)
[2018-03-22] MEDS: GABAPENTIN 300 MG CAP PO (21:20)
[2018-03-22] MEDS: ACETAMINOPHEN TAB 650MG DOSE (2X325MG) PO (22:37)
[2018-03-23] MEDS: MEROPENEM INJ 1 GM in APPROPRIATE DILUENT 1 EA IV ×3 (01:18→18:01)
[2018-03-23 02:43] LABS: BEDSIDE GLUCOSE 168 MG/DL (83-110)
[2018-03-23 02:43] LABS: BEDSIDE GLUCOSE 101 MG/DL (83-110)
[2018-03-23 02:43] LABS: BEDSIDE GLUCOSE 184 MG/DL (83-110)
[2018-03-23 02:43] LABS: BEDSIDE GLUCOSE 182 MG/DL (83-110)
[2018-03-23 02:43] LABS: BEDSIDE GLUCOSE 243 MG/DL (83-110)
[2018-03-23 02:43] LABS: BEDSIDE GLUCOSE 221 MG/DL (83-110)
[2018-03-23 02:43] LABS: BEDSIDE GLUCOSE 185 MG/DL (83-110)
[2018-03-23] MEDS: SODIUM CHLORIDE 0.9% INJ 10 ML SYR IV ×3 (04:21→18:02)
[2018-03-23 04:29] LABS: HEMATOCRIT 28.3 % (42.0-52.0); HEMOGLOBIN 9.3 g/dl (13.5-17.5); MEAN CORPUSCULAR HGB CONC 32.9 g/dl (32.0-36.5); MEAN CORPUSCULAR VOLUME 91.3 fl (80.0-96.0); PLATELET COUNT, AUTOMATED 186 10^3/uL (150-450); RED CELL DISTRIBUTION WIDTH 13.3 % (11.5-14.5); WHITE BLOOD COUNT 4.1 10^3/uL (4.0-10.0)
[2018-03-23 05:12] LABS: ANION GAP 6 MEQ/L (8-16); BLOOD UREA NITROGEN 28 MG/DL (7-18); CALCIUM LEVEL 8.2 MG/DL (8.8-10.2); CARBON DIOXIDE LEVEL 27 MEQ/L (21-32); CHLORIDE LEVEL 106 MEQ/L (98-107); CREATININE FOR GFR 1.33 MG/DL (0.70-1.30); GLOMERULAR FILTRATION RATE 56.4 (>42); GLUCOSE, FASTING 154 MG/DL (70-100); POTASSIUM SERUM 4.4 MEQ/L (3.5-5.1); SODIUM LEVEL 139 MEQ/L (136-145); VANCOMYCIN LEVEL TROUGH 19.3 UG/ML (10.0-20.0)
[2018-03-23] MEDS: VANCOMYCIN HCL 1,000 MG, VIAL MATE ADAPTER 1 EACH in D5W 250 ML IV ×2 (05:47→22:39)
[2018-03-23] MEDS: HumaLOG INSULIN (NovoLOG) PER UNIT SC ×3 (08:22→18:01)
[2018-03-23] MEDS: TAMSULOSIN 0.4 MG CAP PO (08:22)
[2018-03-23] MEDS: PANTOPRAZOLE 40MG TAB (PROTONIX) PO (08:23)
[2018-03-23] MEDS: MAGNESIUM OXIDE 400 MG TAB (MAG-OX) PO (08:23)
[2018-03-23] MEDS: FUROSEMIDE 20 MG TAB PO (08:23)
[2018-03-23] MEDS: DUTASTERIDE 0.5 MG CAP (AVODART) PO (08:23)
[2018-03-23] MEDS: APIXABAN 5 MG TAB (ELIQUIS) PO ×2 (08:23→21:26)
[2018-03-23] MEDS: COSOPT OCUMETER PLUS 10ML (DORZOLAMIDE/TIMOLOL) OU ×2 (08:24→21:00)
[2018-03-23] MEDS: BRIMONIDINE 0.15% OPHTH SOLN 5 ML OU ×2 (08:24→21:00)
[2018-03-23] MEDS: BISOPROLOL FUMARATE 5 MG TAB PO (08:24)
[2018-03-23] MEDS: FEBUXOSTAT 40 MG TABLET (ULORIC) PO (08:36)
[2018-03-23 11:56] LABS: BEDSIDE GLUCOSE 186 MG/DL (83-110)
[2018-03-23] MEDS: ACETAMINOPHEN TAB 650MG DOSE (2X325MG) PO ×2 (14:37→22:40)
[2018-03-23 16:53] LABS: BEDSIDE GLUCOSE 186 MG/DL (83-110)
[2018-03-23 20:11] LABS: BEDSIDE GLUCOSE 230 MG/DL (83-110)
[2018-03-23] MEDS: LEVEMIR (INSULIN DETEMIR) 1 UNITS/0.01ML SC (21:00)
[2018-03-23] MEDS: PRAVASTATIN 20 MG TAB PO (21:26)
[2018-03-23] MEDS: GABAPENTIN 300 MG CAP PO (21:26)
[2018-03-24] MEDS: MEROPENEM INJ 1 GM in APPROPRIATE DILUENT 1 EA IV ×3 (02:11→18:02)
[2018-03-24] MEDS: SODIUM CHLORIDE 0.9% INJ 10 ML SYR IV ×2 (05:16→17:56)
[2018-03-24 05:23] LABS: HEMATOCRIT 27.8 % (42.0-52.0); HEMOGLOBIN 9.2 g/dl (13.5-17.5); MEAN CORPUSCULAR HEMOGLOBIN 30.1 pg (27.0-33.0); MEAN CORPUSCULAR HGB CONC 33.1 g/dl (32.0-36.5); MEAN CORPUSCULAR VOLUME 90.8 fl (80.0-96.0); PLATELET COUNT, AUTOMATED 176 10^3/uL (150-450); RED BLOOD COUNT 3.06 10^6/uL (4.30-6.10); RED CELL DISTRIBUTION WIDTH 13.1 % (11.5-14.5); WHITE BLOOD COUNT 4.3 10^3/uL (4.0-10.0)
[2018-03-24 06:20] LABS: ANION GAP 6 MEQ/L (8-16); BLOOD UREA NITROGEN 27 MG/DL (7-18); CARBON DIOXIDE LEVEL 27 MEQ/L (21-32); CHLORIDE LEVEL 107 MEQ/L (98-107); CREATININE FOR GFR 1.28 MG/DL (0.70-1.30); GLUCOSE, FASTING 179 MG/DL (70-100); POTASSIUM SERUM 4.4 MEQ/L (3.5-5.1); SODIUM LEVEL 140 MEQ/L (136-145)
[2018-03-24] MEDS: DUTASTERIDE 0.5 MG CAP (AVODART) PO (08:05)
[2018-03-24] MEDS: HumaLOG INSULIN (NovoLOG) PER UNIT SC ×3 (08:05→18:03)
[2018-03-24] MEDS: FEBUXOSTAT 40 MG TABLET (ULORIC) PO (08:05)
[2018-03-24] MEDS: FUROSEMIDE 20 MG TAB PO (08:06)
[2018-03-24] MEDS: APIXABAN 5 MG TAB (ELIQUIS) PO ×2 (08:06→20:48)
[2018-03-24] MEDS: BISOPROLOL FUMARATE 5 MG TAB PO (08:06)
[2018-03-24] MEDS: PANTOPRAZOLE 40MG TAB (PROTONIX) PO (08:06)
[2018-03-24] MEDS: MAGNESIUM OXIDE 400 MG TAB (MAG-OX) PO (08:06)
[2018-03-24] MEDS: BRIMONIDINE 0.15% OPHTH SOLN 5 ML OU (08:06)
[2018-03-24] MEDS: TAMSULOSIN 0.4 MG CAP PO (08:06)
[2018-03-24] MEDS: COSOPT OCUMETER PLUS 10ML (DORZOLAMIDE/TIMOLOL) OU (08:07)
[2018-03-24 11:37] LABS: BEDSIDE GLUCOSE 157 MG/DL (83-110)
[2018-03-24] MEDS: ACETAMINOPHEN TAB 650MG DOSE (2X325MG) PO ×3 (11:49→20:49)
[2018-03-24] MEDS: VANCOMYCIN HCL 1,000 MG, VIAL MATE ADAPTER 1 EACH in D5W 250 ML IV (16:16)
[2018-03-24] MEDS: PRAVASTATIN 20 MG TAB PO (20:49)
[2018-03-24] MEDS: GABAPENTIN 300 MG CAP PO (20:49)
[2018-03-25] MEDS: MEROPENEM INJ 1 GM in APPROPRIATE DILUENT 1 EA IV ×3 (01:49→17:41)
[2018-03-25] MEDS: BRIMONIDINE 0.15% OPHTH SOLN 5 ML OU ×3 (01:49→21:01)
[2018-03-25] MEDS: COSOPT OCUMETER PLUS 10ML (DORZOLAMIDE/TIMOLOL) OU ×3 (01:49→21:01)
[2018-03-25] MEDS: ACETAMINOPHEN TAB 650MG DOSE (2X325MG) PO ×4 (02:38→21:00)
[2018-03-25] MEDS: SODIUM CHLORIDE 0.9% INJ 10 ML SYR IV ×2 (03:00→20:59)
[2018-03-25 03:46] LABS: BEDSIDE GLUCOSE 208 MG/DL (83-110)
[2018-03-25 03:46] LABS: BEDSIDE GLUCOSE 238 MG/DL (83-110)
[2018-03-25 05:45] LABS: HEMATOCRIT 27.7 % (42.0-52.0); HEMOGLOBIN 9.3 g/dl (13.5-17.5); MEAN CORPUSCULAR HEMOGLOBIN 30.2 pg (27.0-33.0); MEAN CORPUSCULAR HGB CONC 33.6 g/dl (32.0-36.5); MEAN CORPUSCULAR VOLUME 89.9 fl (80.0-96.0); PLATELET COUNT, AUTOMATED 178 10^3/uL (150-450); RED BLOOD COUNT 3.08 10^6/uL (4.30-6.10); RED CELL DISTRIBUTION WIDTH 13.2 % (11.5-14.5); WHITE BLOOD COUNT 4.8 10^3/uL (4.0-10.0)
[2018-03-25 06:06] LABS: ERYTHROCYTE SEDIMENTATION RATE 67 mm/hr (0-20)
[2018-03-25 07:03] LABS: C REACTIVE PROTEIN QUANTITATIV 0.45 MG/DL (0.00-0.30)
[2018-03-25] MEDS: HumaLOG INSULIN (NovoLOG) PER UNIT SC ×3 (09:25→17:41)
[2018-03-25] MEDS: DUTASTERIDE 0.5 MG CAP (AVODART) PO (09:25)
[2018-03-25] MEDS: FEBUXOSTAT 40 MG TABLET (ULORIC) PO (09:25)
[2018-03-25] MEDS: APIXABAN 5 MG TAB (ELIQUIS) PO ×2 (09:26→20:59)
[2018-03-25] MEDS: MAGNESIUM OXIDE 400 MG TAB (MAG-OX) PO (09:26)
[2018-03-25] MEDS: TAMSULOSIN 0.4 MG CAP PO (09:26)
[2018-03-25] MEDS: FUROSEMIDE 20 MG TAB PO (09:26)
[2018-03-25] MEDS: PANTOPRAZOLE 40MG TAB (PROTONIX) PO (09:26)
[2018-03-25 09:27] LABS: BEDSIDE GLUCOSE 175 MG/DL (83-110)
[2018-03-25] MEDS: BISOPROLOL FUMARATE 5 MG TAB PO (10:30)
[2018-03-25 12:01] LABS: ANION GAP 9 MEQ/L (8-16); BLOOD UREA NITROGEN 28 MG/DL (7-18); CALCIUM LEVEL 8.1 MG/DL (8.8-10.2); CARBON DIOXIDE LEVEL 25 MEQ/L (21-32); CHLORIDE LEVEL 106 MEQ/L (98-107); CREATININE FOR GFR 1.36 MG/DL (0.70-1.30); GLUCOSE, FASTING 211 MG/DL (70-100); POTASSIUM SERUM 4.2 MEQ/L (3.5-5.1); SODIUM LEVEL 140 MEQ/L (136-145); VANCOMYCIN LEVEL TROUGH 18.5 UG/ML (10.0-20.0)
[2018-03-25 12:48] LABS: BEDSIDE GLUCOSE 189 MG/DL (83-110)
[2018-03-25] MEDS: LEVEMIR (INSULIN DETEMIR) 1 UNITS/0.01ML SC ×3 (14:21→21:00)
[2018-03-25 16:58] LABS: BEDSIDE GLUCOSE 219 MG/DL (83-110)
[2018-03-25] MEDS: VANCOMYCIN HCL 1,000 MG, VIAL MATE ADAPTER 1 EACH in D5W 250 ML IV (18:25)
[2018-03-25] MEDS: VANCOMYCIN HCL 500 MG in D5W MINI-BAG PLUS 100 ML IV (19:49)
[2018-03-25 20:31] LABS: BEDSIDE GLUCOSE 236 MG/DL (83-110)
[2018-03-25] MEDS: GABAPENTIN 300 MG CAP PO (20:59)
[2018-03-25] MEDS: PRAVASTATIN 20 MG TAB PO (20:59)
[2018-03-25] MEDS: diphenhydrAMINE CREAM 30GM TOP (21:00)
[2018-03-26] MEDS: MEROPENEM INJ 1 GM in APPROPRIATE DILUENT 1 EA IV ×3 (02:22→16:59)
[2018-03-26] MEDS: SODIUM CHLORIDE 0.9% INJ 10 ML SYR IV ×3 (05:37→20:37)
[2018-03-26] MEDS: ACETAMINOPHEN TAB 650MG DOSE (2X325MG) PO ×3 (05:37→20:49)
[2018-03-26 06:04] LABS: HEMATOCRIT 27.9 % (42.0-52.0); HEMOGLOBIN 9.4 g/dl (13.5-17.5); MEAN CORPUSCULAR HEMOGLOBIN 30.4 pg (27.0-33.0); MEAN CORPUSCULAR HGB CONC 33.7 g/dl (32.0-36.5); MEAN CORPUSCULAR VOLUME 90.3 fl (80.0-96.0); PLATELET COUNT, AUTOMATED 179 10^3/uL (150-450); RED BLOOD COUNT 3.09 10^6/uL (4.30-6.10); RED CELL DISTRIBUTION WIDTH 13.2 % (11.5-14.5); WHITE BLOOD COUNT 4.9 10^3/uL (4.0-10.0)
[2018-03-26 06:20] LABS: ANION GAP 6 MEQ/L (8-16); BLOOD UREA NITROGEN 27 MG/DL (7-18); CALCIUM LEVEL 8.3 MG/DL (8.8-10.2); CARBON DIOXIDE LEVEL 29 MEQ/L (21-32); CHLORIDE LEVEL 105 MEQ/L (98-107); CREATININE FOR GFR 1.18 MG/DL (0.70-1.30); GLOMERULAR FILTRATION RATE > 60.0 (>42); GLUCOSE, FASTING 170 MG/DL (70-100); POTASSIUM SERUM 4.4 MEQ/L (3.5-5.1); SODIUM LEVEL 140 MEQ/L (136-145)
[2018-03-26] MEDS: FEBUXOSTAT 40 MG TABLET (ULORIC) PO (08:41)
[2018-03-26] MEDS: BISOPROLOL FUMARATE 5 MG TAB PO (08:41)
[2018-03-26] MEDS: PANTOPRAZOLE 40MG TAB (PROTONIX) PO (08:41)
[2018-03-26] MEDS: DUTASTERIDE 0.5 MG CAP (AVODART) PO (08:41)
[2018-03-26] MEDS: MAGNESIUM OXIDE 400 MG TAB (MAG-OX) PO (08:41)
[2018-03-26] MEDS: FUROSEMIDE 20 MG TAB PO (08:41)
[2018-03-26] MEDS: APIXABAN 5 MG TAB (ELIQUIS) PO ×2 (08:41→20:38)
[2018-03-26] MEDS: TAMSULOSIN 0.4 MG CAP PO (08:41)
[2018-03-26] MEDS: COSOPT OCUMETER PLUS 10ML (DORZOLAMIDE/TIMOLOL) OU ×2 (08:44→20:38)
[2018-03-26] MEDS: HumaLOG INSULIN (NovoLOG) PER UNIT SC ×3 (08:44→17:12)
[2018-03-26] MEDS: BRIMONIDINE 0.15% OPHTH SOLN 5 ML OU ×2 (08:45→20:38)
[2018-03-26 12:13] LABS: BEDSIDE GLUCOSE 182 MG/DL (83-110)
[2018-03-26 16:57] LABS: BEDSIDE GLUCOSE 224 MG/DL (83-110)
[2018-03-26 18:26] LABS: VANCOMYCIN LEVEL TROUGH 20.4 UG/ML (10.0-20.0)
[2018-03-26] MEDS: VANCOMYCIN HCL 1,000 MG, VIAL MATE ADAPTER 1 EACH in D5W 250 ML IV (18:52)
[2018-03-26] MEDS: diphenhydrAMINE CREAM 30GM TOP (20:37)
[2018-03-26] MEDS: PRAVASTATIN 20 MG TAB PO (20:38)
[2018-03-26] MEDS: VANCOMYCIN HCL 500 MG in D5W MINI-BAG PLUS 100 ML IV (20:38)
[2018-03-26] MEDS: GABAPENTIN 300 MG CAP PO (20:38)
[2018-03-26] MEDS: LEVEMIR (INSULIN DETEMIR) 1 UNITS/0.01ML SC (20:38)
[2018-03-26 20:57] LABS: BEDSIDE GLUCOSE 247 MG/DL (83-110)
[2018-03-27] MEDS: SODIUM CHLORIDE 0.9% INJ 10 ML SYR IV ×3 (02:19→17:58)
[2018-03-27] MEDS: MEROPENEM INJ 1 GM in APPROPRIATE DILUENT 1 EA IV ×3 (02:19→17:58)
[2018-03-27 06:31] LABS: HEMATOCRIT 27.7 % (42.0-52.0); HEMOGLOBIN 9.1 g/dl (13.5-17.5); MEAN CORPUSCULAR HEMOGLOBIN 29.7 pg (27.0-33.0); MEAN CORPUSCULAR HGB CONC 32.9 g/dl (32.0-36.5); MEAN CORPUSCULAR VOLUME 90.5 fl (80.0-96.0); PLATELET COUNT, AUTOMATED 177 10^3/uL (150-450); RED BLOOD COUNT 3.06 10^6/uL (4.30-6.10); RED CELL DISTRIBUTION WIDTH 13.2 % (11.5-14.5); WHITE BLOOD COUNT 4.5 10^3/uL (4.0-10.0)
[2018-03-27 06:55] LABS: ANION GAP 6 MEQ/L (8-16); BLOOD UREA NITROGEN 26 MG/DL (7-18); CARBON DIOXIDE LEVEL 28 MEQ/L (21-32); CHLORIDE LEVEL 106 MEQ/L (98-107); CREATININE FOR GFR 1.35 MG/DL (0.70-1.30); GLOMERULAR FILTRATION RATE 55.5 (>42); GLUCOSE, FASTING 181 MG/DL (70-100); POTASSIUM SERUM 4.4 MEQ/L (3.5-5.1); SODIUM LEVEL 140 MEQ/L (136-145)
[2018-03-27] MEDS: DUTASTERIDE 0.5 MG CAP (AVODART) PO (08:42)
[2018-03-27] MEDS: MAGNESIUM OXIDE 400 MG TAB (MAG-OX) PO (08:42)
[2018-03-27] MEDS: APIXABAN 5 MG TAB (ELIQUIS) PO ×2 (08:42→21:23)
[2018-03-27] MEDS: FUROSEMIDE 20 MG TAB PO (08:42)
[2018-03-27] MEDS: FEBUXOSTAT 40 MG TABLET (ULORIC) PO (08:42)
[2018-03-27] MEDS: PANTOPRAZOLE 40MG TAB (PROTONIX) PO (08:42)
[2018-03-27] MEDS: TAMSULOSIN 0.4 MG CAP PO (08:42)
[2018-03-27] MEDS: BISOPROLOL FUMARATE 5 MG TAB PO (08:44)
[2018-03-27] MEDS: COSOPT OCUMETER PLUS 10ML (DORZOLAMIDE/TIMOLOL) OU ×2 (08:45→21:23)
[2018-03-27] MEDS: BRIMONIDINE 0.15% OPHTH SOLN 5 ML OU ×2 (08:45→21:23)
[2018-03-27] MEDS: HumaLOG INSULIN (NovoLOG) PER UNIT SC ×3 (08:45→17:58)
[2018-03-27 12:04] LABS: BEDSIDE GLUCOSE 190 MG/DL (83-110)
[2018-03-27] MEDS: ACETAMINOPHEN TAB 650MG DOSE (2X325MG) PO ×2 (13:41→23:17)
[2018-03-27 17:12] LABS: BEDSIDE GLUCOSE 219 MG/DL (83-110)
[2018-03-27 17:53] LABS: VANCOMYCIN LEVEL TROUGH 22.7 UG/ML (10.0-20.0)
[2018-03-27] MEDS: LEVEMIR (INSULIN DETEMIR) 1 UNITS/0.01ML SC (21:00)
[2018-03-27 21:17] LABS: BEDSIDE GLUCOSE 212 MG/DL (83-110)
[2018-03-27] MEDS: GABAPENTIN 300 MG CAP PO (21:23)
[2018-03-27] MEDS: EUCERIN 120GM CREAM TOP (21:23)
[2018-03-27] MEDS: PRAVASTATIN 20 MG TAB PO (21:23)
[2018-03-28] MEDS: SODIUM CHLORIDE 0.9% INJ 10 ML SYR IV (06:00)
[2018-03-28 06:30] LABS: HEMATOCRIT 28.1 % (42.0-52.0); HEMOGLOBIN 9.2 g/dl (13.5-17.5); MEAN CORPUSCULAR HEMOGLOBIN 29.6 pg (27.0-33.0); MEAN CORPUSCULAR HGB CONC 32.7 g/dl (32.0-36.5); MEAN CORPUSCULAR VOLUME 90.4 fl (80.0-96.0); PLATELET COUNT, AUTOMATED 176 10^3/uL (150-450); RED BLOOD COUNT 3.11 10^6/uL (4.30-6.10); WHITE BLOOD COUNT 4.7 10^3/uL (4.0-10.0)
[2018-03-28 06:52] LABS: ERYTHROCYTE SEDIMENTATION RATE 65 mm/hr (0-20)
[2018-03-28 06:58] LABS: ANION GAP 5 MEQ/L (8-16); BLOOD UREA NITROGEN 24 MG/DL (7-18); C REACTIVE PROTEIN QUANTITATIV 0.34 MG/DL (0.00-0.30); CALCIUM LEVEL 8.2 MG/DL (8.8-10.2); CARBON DIOXIDE LEVEL 30 MEQ/L (21-32); CHLORIDE LEVEL 106 MEQ/L (98-107); CREATININE FOR GFR 1.13 MG/DL (0.70-1.30); GLOMERULAR FILTRATION RATE > 60.0 (>42); GLUCOSE, FASTING 158 MG/DL (70-100); POTASSIUM SERUM 4.3 MEQ/L (3.5-5.1); SODIUM LEVEL 141 MEQ/L (136-145)
[2018-03-28] MEDS: HumaLOG INSULIN (NovoLOG) PER UNIT SC ×2 (09:26→12:16)
[2018-03-28] MEDS: VANCOMYCIN HCL 750 MG, VIAL MATE ADAPTER 1 EACH in D5W 250 ML IV (09:26)
[2018-03-28] MEDS: FEBUXOSTAT 40 MG TABLET (ULORIC) PO (09:27)
[2018-03-28] MEDS: ACETAMINOPHEN TAB 650MG DOSE (2X325MG) PO (09:27)
[2018-03-28] MEDS: DUTASTERIDE 0.5 MG CAP (AVODART) PO (09:27)
[2018-03-28] MEDS: FUROSEMIDE 20 MG TAB PO (09:27)
[2018-03-28] MEDS: APIXABAN 5 MG TAB (ELIQUIS) PO (09:27)
[2018-03-28] MEDS: PANTOPRAZOLE 40MG TAB (PROTONIX) PO (09:28)
[2018-03-28] MEDS: TAMSULOSIN 0.4 MG CAP PO (09:28)
[2018-03-28] MEDS: BISOPROLOL FUMARATE 5 MG TAB PO (09:28)
[2018-03-28] MEDS: MAGNESIUM OXIDE 400 MG TAB (MAG-OX) PO (09:28)
[2018-03-28] MEDS: BRIMONIDINE 0.15% OPHTH SOLN 5 ML OU (09:29)
[2018-03-28] MEDS: COSOPT OCUMETER PLUS 10ML (DORZOLAMIDE/TIMOLOL) OU (09:29)
[2018-03-28] MEDS: EUCERIN 120GM CREAM TOP (09:30)
[2018-03-28] MEDS: VANCOMYCIN HCL 500 MG in D5W MINI-BAG PLUS 100 ML IV (10:28)
[2018-03-28] MEDS: LevoFLOXacin IV 750 MG in APPROPRIATE DILUENT 1 EA IV (11:37)
[2018-03-29 02:26] LABS: BEDSIDE GLUCOSE 222 MG/DL (83-110)
== END 2018-03-28 16:25 | disposition home health service (06) | DRG 862 ==
LOC: M MS5PR 15:25
PROC: 02HV33Z Insertion of Infusion Device into Superior Vena Cava, Percutaneous Approach (ICD-10-PCS; principal; 2018-03-21)
DX: T84.54XD Infection and inflammatory reaction due to internal left knee prosthesis, subsequent encounter (principal); I13.0 Hypertensive heart and chronic kidney disease with heart failure and stage 1 through stage 4 chronic kidney disease, or unspecified chronic kidney disease; I50.20 Unspecified systolic (congestive) heart failure; E11.21 Type 2 diabetes mellitus with diabetic nephropathy; J44.9 Chronic obstructive pulmonary disease, unspecified; E11.40 Type 2 diabetes mellitus with diabetic neuropathy, unspecified; E11.319 Type 2 diabetes mellitus with unspecified diabetic retinopathy without macular edema; I48.2 Chronic atrial fibrillation; N18.3 Chronic kidney disease, stage 3 (moderate); B96.5 Pseudomonas (aeruginosa) (mallei) (pseudomallei) as the cause of diseases classified elsewhere; B95.62 Methicillin resistant Staphylococcus aureus infection as the cause of diseases classified elsewhere; K21.9 Gastro-esophageal reflux disease without esophagitis; N40.0 Benign prostatic hyperplasia without lower urinary tract symptoms; M10.9 Gout, unspecified; G47.33 Obstructive sleep apnea (adult) (pediatric); H40.10X0 Unspecified open-angle glaucoma, stage unspecified; Z79.899 Other long term (current) drug therapy; Z79.4 Long term (current) use of insulin; Z91.040 Latex allergy status; Z88.8 Allergy status to other drugs, medicaments and biological substances; M19.90 Unspecified osteoarthritis, unspecified site; E66.9 Obesity, unspecified; I25.10 Atherosclerotic heart disease of native coronary artery without angina pectoris; Z96.652 Presence of left artificial knee joint; Y83.1 Surgical operation with implant of artificial internal device as the cause of abnormal reaction of the patient, or of later complication, without mention of misadventure at the time of the procedure

== ENCOUNTER → 2018-03-20 | Outpatient (REF) | payer OTHER, MEDICARE | LOC: M SFHCPLAZ 15:50 | DX: T81.49XA Infection following a procedure, other surgical site, initial encounter (principal); Y83.9 Surgical procedure, unspecified as the cause of abnormal reaction of the patient, or of later complication, without mention of misadventure at the time of the procedure ==

== ENCOUNTER → 2018-03-31 | Outpatient (REF) | payer OTHER, MEDICARE ==
[2018-03-31 12:30] LABS: BASO % 0.2 % (0.0-1.0); EOS # 0.3 10^3/uL (0.0-0.50); EOS % 5.1 % (0.0-3.0); HEMATOCRIT 30.5 % (42.0-52.0); HEMOGLOBIN 10.1 g/dl (13.5-17.5); IMMATURE GRANULOCYTE % 0.5 % (0-3.0); LYMPH # 0.8 10^3/uL (1.5-4.5); LYMPH % 14.2 % (24.0-44.0); MEAN CORPUSCULAR HEMOGLOBIN 30.1 pg (27.0-33.0); MEAN CORPUSCULAR HGB CONC 33.1 g/dl (32.0-36.5); MONO # 0.4 10^3/uL (0.0-0.8); PLATELET COUNT, AUTOMATED 215 10^3/uL (150-450); RED BLOOD COUNT 3.35 10^6/uL (4.30-6.10); RED CELL DISTRIBUTION WIDTH 13.2 % (11.5-14.5); WHITE BLOOD COUNT 5.5 10^3/uL (4.0-10.0)
[2018-03-31 13:01] LABS: ERYTHROCYTE SEDIMENTATION RATE 65 mm/hr (0-20)
[2018-03-31 13:30] LABS: ALBUMIN 2.9 GM/DL (3.2-5.2); ALBUMIN/GLOBULIN RATIO 0.74 (1.00-1.93); ALKALINE PHOSPHATASE 64 U/L (45-117); ALT/SGPT 20 U/L (12-78); ANION GAP 10 MEQ/L (8-16); AST/SGOT 20 U/L (7-37); BILIRUBIN,TOTAL 0.4 MG/DL (0.2-1.0); BLOOD UREA NITROGEN 30 MG/DL (7-18); C REACTIVE PROTEIN QUANTITATIV 0.35 MG/DL (0.00-0.30); CALCIUM LEVEL 8.7 MG/DL (8.8-10.2); CARBON DIOXIDE LEVEL 24 MEQ/L (21-32); CHLORIDE LEVEL 107 MEQ/L (98-107); CREATININE FOR GFR 1.49 MG/DL (0.70-1.30); GLOMERULAR FILTRATION RATE 49.5 (>42); GLUCOSE, FASTING 147 MG/DL (70-100); POTASSIUM SERUM 4.4 MEQ/L (3.5-5.1); SODIUM LEVEL 141 MEQ/L (136-145); TOTAL PROTEIN 6.8 GM/DL (6.4-8.2); VANCOMYCIN LEVEL TROUGH 15.4 UG/ML (10.0-20.0)
== END ==
LOC: M LAB REF 11:44
DX: Z51.81 Encounter for therapeutic drug level monitoring (principal); Z79.899 Other long term (current) drug therapy; Z86.14 Personal history of Methicillin resistant Staphylococcus aureus infection

== ENCOUNTER → 2018-04-07 | Outpatient (REF) | payer OTHER, MEDICARE ==
[2018-04-07 14:07] LABS: BASO % 0.2 % (0.0-1.0); EOS # 0.1 10^3/uL (0.0-0.50); EOS % 2.1 % (0.0-3.0); HEMATOCRIT 31.5 % (42.0-52.0); HEMOGLOBIN 10.3 g/dl (13.5-17.5); IMMATURE GRANULOCYTE % 0.4 % (0-3.0); LYMPH # 0.6 10^3/uL (1.5-4.5); MEAN CORPUSCULAR HGB CONC 32.7 g/dl (32.0-36.5); MEAN CORPUSCULAR VOLUME 91.8 fl (80.0-96.0); MONO # 0.4 10^3/uL (0.0-0.8); MONO % 7.3 % (0.0-5.0); NEUTROPHILS # 4.2 10^3/uL (1.8-7.7); PLATELET COUNT, AUTOMATED 186 10^3/uL (150-450); RED BLOOD COUNT 3.43 10^6/uL (4.30-6.10); RED CELL DISTRIBUTION WIDTH 13.1 % (11.5-14.5); WHITE BLOOD COUNT 5.3 10^3/uL (4.0-10.0)
[2018-04-07 14:29] LABS: ALBUMIN 3.1 GM/DL (3.2-5.2); ALBUMIN/GLOBULIN RATIO 0.86 (1.00-1.93); ALKALINE PHOSPHATASE 66 U/L (45-117); ALT/SGPT 19 U/L (12-78); ANION GAP 7 MEQ/L (8-16); AST/SGOT 19 U/L (7-37); BILIRUBIN,TOTAL 0.4 MG/DL (0.2-1.0); BLOOD UREA NITROGEN 26 MG/DL (7-18); C REACTIVE PROTEIN QUANTITATIV < 0.30 MG/DL (0.00-0.30); CALCIUM LEVEL 8.8 MG/DL (8.8-10.2); CARBON DIOXIDE LEVEL 27 MEQ/L (21-32); CHLORIDE LEVEL 106 MEQ/L (98-107); CREATININE FOR GFR 1.67 MG/DL (0.70-1.30); GLOMERULAR FILTRATION RATE 43.4 (>42); GLUCOSE, FASTING 168 MG/DL (70-100); POTASSIUM SERUM 4.4 MEQ/L (3.5-5.1); SODIUM LEVEL 140 MEQ/L (136-145); TOTAL PROTEIN 6.7 GM/DL (6.4-8.2); VANCOMYCIN RANDOM 30.6 UG/ML
[2018-04-07 14:35] LABS: ERYTHROCYTE SEDIMENTATION RATE 56 mm/hr (0-20)
== END ==
LOC: M LAB REF 13:52
DX: T84.54XD Infection and inflammatory reaction due to internal left knee prosthesis, subsequent encounter (principal); Y82.9 Unspecified medical devices associated with adverse incidents
CPT/HCPCS: 80053

== ENCOUNTER → 2018-04-09 | Outpatient (REF) | payer OTHER, MEDICARE ==
[2018-04-09 10:16] LABS: ANION GAP 7 MEQ/L (8-16); BLOOD UREA NITROGEN 26 MG/DL (7-18); CALCIUM LEVEL 8.3 MG/DL (8.8-10.2); CARBON DIOXIDE LEVEL 25 MEQ/L (21-32); CHLORIDE LEVEL 111 MEQ/L (98-107); CREATININE FOR GFR 1.61 MG/DL (0.70-1.30); GLOMERULAR FILTRATION RATE 45.3 (>42); GLUCOSE, FASTING 116 MG/DL (70-100); POTASSIUM SERUM 4.3 MEQ/L (3.5-5.1); SODIUM LEVEL 143 MEQ/L (136-145); VANCOMYCIN LEVEL TROUGH 16.9 UG/ML (10.0-20.0)
== END ==
LOC: M LAB REF 09:26
DX: S81.002D Unspecified open wound, left knee, subsequent encounter (principal)
CPT/HCPCS: 80202

== ENCOUNTER → 2018-04-14 | Outpatient (REF) | payer OTHER, MEDICARE ==
[2018-04-14 13:33] LABS: BASO % 0.2 % (0.0-1.0); EOS # 0.2 10^3/uL (0.0-0.50); EOS % 3.3 % (0.0-3.0); HEMATOCRIT 30.2 % (42.0-52.0); HEMOGLOBIN 9.9 g/dl (13.5-17.5); IMMATURE GRANULOCYTE % 0.6 % (0-3.0); LYMPH # 0.4 10^3/uL (1.5-4.5); LYMPH % 6.8 % (24.0-44.0); MEAN CORPUSCULAR HEMOGLOBIN 29.8 pg (27.0-33.0); MEAN CORPUSCULAR HGB CONC 32.8 g/dl (32.0-36.5); MONO # 0.4 10^3/uL (0.0-0.8); NEUTROPHILS # 4.5 10^3/uL (1.8-7.7); NEUTROPHILS % 82.1 % (36.0-66.0); PLATELET COUNT, AUTOMATED 122 10^3/uL (150-450); RED BLOOD COUNT 3.32 10^6/uL (4.30-6.10); RED CELL DISTRIBUTION WIDTH 13.2 % (11.5-14.5); WHITE BLOOD COUNT 5.4 10^3/uL (4.0-10.0)
[2018-04-14 13:58] LABS: ALBUMIN/GLOBULIN RATIO 0.94 (1.00-1.93); ALKALINE PHOSPHATASE 62 U/L (45-117); ALT/SGPT 17 U/L (12-78); ANION GAP 6 MEQ/L (8-16); AST/SGOT 14 U/L (7-37); BILIRUBIN,TOTAL 0.4 MG/DL (0.2-1.0); BLOOD UREA NITROGEN 26 MG/DL (7-18); C REACTIVE PROTEIN QUANTITATIV 0.58 MG/DL (0.00-0.30); CALCIUM LEVEL 8.4 MG/DL (8.8-10.2); CARBON DIOXIDE LEVEL 27 MEQ/L (21-32); CHLORIDE LEVEL 106 MEQ/L (98-107); CREATININE FOR GFR 1.47 MG/DL (0.70-1.30); GLOMERULAR FILTRATION RATE 50.3 (>42); GLUCOSE, FASTING 244 MG/DL (70-100); POTASSIUM SERUM 4.5 MEQ/L (3.5-5.1); SODIUM LEVEL 139 MEQ/L (136-145); TOTAL PROTEIN 6.2 GM/DL (6.4-8.2); VANCOMYCIN LEVEL TROUGH 17.3 UG/ML (10.0-20.0)
[2018-04-14 14:22] LABS: ERYTHROCYTE SEDIMENTATION RATE 54 mm/hr (0-20)
== END ==
LOC: M LAB REF 13:06
DX: T86.821 Skin graft (allograft) (autograft) failure (principal); B95.62 Methicillin resistant Staphylococcus aureus infection as the cause of diseases classified elsewhere
CPT/HCPCS: 80053

== ENCOUNTER → 2018-04-21 | Outpatient (REF) | payer OTHER, MEDICARE ==
[2018-04-21 13:30] LABS: BASO % 0.4 % (0.0-1.0); EOS # 0.2 10^3/uL (0.0-0.50); EOS % 3.8 % (0.0-3.0); HEMATOCRIT 31.7 % (42.0-52.0); HEMOGLOBIN 10.5 g/dl (13.5-17.5); IMMATURE GRANULOCYTE % 0.4 % (0-3.0); LYMPH # 0.4 10^3/uL (1.5-4.5); LYMPH % 9.6 % (24.0-44.0); MEAN CORPUSCULAR HGB CONC 33.1 g/dl (32.0-36.5); MEAN CORPUSCULAR VOLUME 90.6 fl (80.0-96.0); MONO # 0.4 10^3/uL (0.0-0.8); NEUTROPHILS # 3.5 10^3/uL (1.8-7.7); NEUTROPHILS % 77.8 % (36.0-66.0); PLATELET COUNT, AUTOMATED 132 10^3/uL (150-450); RED CELL DISTRIBUTION WIDTH 13.2 % (11.5-14.5); WHITE BLOOD COUNT 4.5 10^3/uL (4.0-10.0)
[2018-04-21 13:52] LABS: BLOOD UREA NITROGEN 44 MG/DL (7-18); CREATININE FOR GFR 1.55 MG/DL (0.70-1.30); GLUCOSE, FASTING 298 MG/DL (70-100)
[2018-04-21 13:53] LABS: ALBUMIN 3.1 GM/DL (3.2-5.2); ALBUMIN/GLOBULIN RATIO 0.86 (1.00-1.93); ALKALINE PHOSPHATASE 58 U/L (45-117); ALT/SGPT 19 U/L (12-78); ANION GAP 7 MEQ/L (8-16); AST/SGOT 15 U/L (7-37); BILIRUBIN,TOTAL 0.3 MG/DL (0.2-1.0); C REACTIVE PROTEIN QUANTITATIV 0.66 MG/DL (0.00-0.30); CALCIUM LEVEL 8.2 MG/DL (8.8-10.2); CARBON DIOXIDE LEVEL 25 MEQ/L (21-32); CHLORIDE LEVEL 108 MEQ/L (98-107); GLOMERULAR FILTRATION RATE 47.3 (>42); POTASSIUM SERUM 4.5 MEQ/L (3.5-5.1); SODIUM LEVEL 140 MEQ/L (136-145); TOTAL PROTEIN 6.7 GM/DL (6.4-8.2); VANCOMYCIN LEVEL TROUGH 19.3 UG/ML (10.0-20.0)
[2018-04-21 14:34] LABS: ERYTHROCYTE SEDIMENTATION RATE 60 mm/hr (0-20)
== END ==
LOC: M LAB REF 12:19
DX: Z86.14 Personal history of Methicillin resistant Staphylococcus aureus infection (principal)
CPT/HCPCS: 80053

== ENCOUNTER → 2018-04-28 | Outpatient (REF) | payer OTHER ==
[2018-04-28 18:31] LABS: BASO % 0.3 % (0.0-1.0); EOS # 0.3 10^3/uL (0.0-0.50); EOS % 4.1 % (0.0-3.0); HEMATOCRIT 36.2 % (42.0-52.0); HEMOGLOBIN 12.2 g/dl (13.5-17.5); IMMATURE GRANULOCYTE % 0.2 % (0-3.0); LYMPH # 0.7 10^3/uL (1.5-4.5); LYMPH % 11.2 % (24.0-44.0); MEAN CORPUSCULAR HEMOGLOBIN 29.6 pg (27.0-33.0); MEAN CORPUSCULAR HGB CONC 33.7 g/dl (32.0-36.5); MEAN CORPUSCULAR VOLUME 87.9 fl (80.0-96.0); MONO # 0.5 10^3/uL (0.0-0.8); MONO % 7.4 % (0.0-5.0); NEUTROPHILS # 4.7 10^3/uL (1.8-7.7); NEUTROPHILS % 76.8 % (36.0-66.0); PLATELET COUNT, AUTOMATED 181 10^3/uL (150-450); RED BLOOD COUNT 4.12 10^6/uL (4.30-6.10); RED CELL DISTRIBUTION WIDTH 13.2 % (11.5-14.5); WHITE BLOOD COUNT 6.1 10^3/uL (4.0-10.0)
[2018-04-28 18:39] LABS: ALBUMIN 3.4 GM/DL (3.2-5.2); ALBUMIN/GLOBULIN RATIO 0.79 (1.00-1.93); ALKALINE PHOSPHATASE 70 U/L (45-117); ALT/SGPT 27 U/L (12-78); ANION GAP 6 MEQ/L (8-16); AST/SGOT 21 U/L (7-37); BILIRUBIN,TOTAL 0.4 MG/DL (0.2-1.0); BLOOD UREA NITROGEN 38 MG/DL (7-18); C REACTIVE PROTEIN QUANTITATIV 0.81 MG/DL (0.00-0.30); CALCIUM LEVEL 8.8 MG/DL (8.8-10.2); CARBON DIOXIDE LEVEL 26 MEQ/L (21-32); CHLORIDE LEVEL 107 MEQ/L (98-107); CREATININE FOR GFR 1.55 MG/DL (0.70-1.30); GLOMERULAR FILTRATION RATE 47.3 (>42); GLUCOSE, FASTING 230 MG/DL (70-100); POTASSIUM SERUM 4.8 MEQ/L (3.5-5.1); SODIUM LEVEL 139 MEQ/L (136-145); TOTAL PROTEIN 7.7 GM/DL (6.4-8.2)
[2018-04-28 19:27] LABS: ERYTHROCYTE SEDIMENTATION RATE 67 mm/hr (0-20)
[2018-04-29 09:30] LABS: VANCOMYCIN RANDOM 17.8 UG/ML
== END ==
LOC: M SFHCPLAZ 14:09
DX: T84.50XD Infection and inflammatory reaction due to unspecified internal joint prosthesis, subsequent encounter (principal); Y83.1 Surgical operation with implant of artificial internal device as the cause of abnormal reaction of the patient, or of later complication, without mention of misadventure at the time of the procedure
CPT/HCPCS: 80053

== ENCOUNTER → 2018-05-01 | Outpatient (REF) | payer MEDICARE, OTHER ==
[~2018-05-01] MED LIST changes: -ACET1TAB17 PO; +ACET1TAB55 PO; -AMLO10TA2 PO; +AMLO10TA5 PO; -AMLO5TAB2 PO; +AMLO5TAB6 PO; +BENZ-18 PO; -BENZ100C5 PO; +BRIM0.2S13 OU; +CALCTAB60 PO; +DIAZ5TAB PO; +DIPHCR TOP; +DOXY-350 PO; +FLOM0.4C39 PO; -FLOM5CAP PO; +GABA-843 PO; +INSUDET SC; +LEVO500T3 PO; -LINE600T PO; +LINE600T11 PO; -LISI2.5T3 PO; +LISI2.5T5 PO; +PANT40TA3 PO; +PERCOCET PO; +PRAV20TA2 PO; +TRAM50TA2 PO; -VITA1CAP40 PO; +VITA50005 PO; -ZYVO100T PO; +ZYVO1TAB PO
[2018-05-01 14:48] LABS: HEMOGLOBIN A1c 7.4 %
== END ==
LOC: M SFHCPLAZ 12:18
PROVIDERS: ATTEND Physician Assistant
DX: E11.40 Type 2 diabetes mellitus with diabetic neuropathy, unspecified (principal)
CPT/HCPCS: 36415; 83036; G0463

== ENCOUNTER → 2018-05-08 | Outpatient (CLI) | payer MEDICARE, OTHER ==
[~2018-05-08] MED LIST changes: +AMLO10TA4 PO; -AMLO10TA5 PO; +AMLO5TAB4 PO; -AMLO5TAB6 PO; +LINE600T PO; -LINE600T11 PO
[2018-05-08 12:52] LABS: BASO % 0.2 % (0.0-1.0); EOS # 0.2 10^3/uL (0.0-0.50); HEMATOCRIT 35.1 % (42.0-52.0); HEMOGLOBIN 11.9 g/dl (13.5-17.5); LYMPH # 0.7 10^3/uL (1.5-4.5); LYMPH % 12.2 % (24.0-44.0); MEAN CORPUSCULAR HEMOGLOBIN 29.5 pg (27.0-33.0); MEAN CORPUSCULAR HGB CONC 33.9 g/dl (32.0-36.5); MEAN CORPUSCULAR VOLUME 87.1 fl (80.0-96.0); MONO # 0.5 10^3/uL (0.0-0.8); MONO % 8.5 % (0.0-5.0); NEUTROPHILS # 4.1 10^3/uL (1.8-7.7); NEUTROPHILS % 75.5 % (36.0-66.0); PLATELET COUNT, AUTOMATED 180 10^3/uL (150-450); RED BLOOD COUNT 4.03 10^6/uL (4.30-6.10); WHITE BLOOD COUNT 5.4 10^3/uL (4.0-10.0)
[2018-05-08 13:14] LABS: C REACTIVE PROTEIN QUANTITATIV 0.62 MG/DL (0.00-0.30); CALCIUM LEVEL 8.6 MG/DL (8.8-10.2); CREATININE FOR GFR 1.75 MG/DL (0.70-1.30); GLOMERULAR FILTRATION RATE 41.1 (>42); POTASSIUM SERUM 4.9 MEQ/L (3.5-5.1)
[2018-05-08 13:21] LABS: ERYTHROCYTE SEDIMENTATION RATE 62 mm/hr (0-20)
== END ==
LOC: M WUC 10:29
PROVIDERS: ATTEND Internal Medicine Infectious Disease
DX: T84.50XD Infection and inflammatory reaction due to unspecified internal joint prosthesis, subsequent encounter (principal); Y92.9 Unspecified place or not applicable; Y93.9 Activity, unspecified

== ENCOUNTER → 2018-05-15 | Outpatient (CLI) | payer MEDICARE, OTHER ==
[~2018-05-15] MED LIST changes: -AMLO10TA4 PO; +AMLO10TA5 PO; -AMLO5TAB4 PO; +AMLO5TAB6 PO; -LINE600T PO; +LINE600T11 PO
[2018-05-15 17:05] LABS: C REACTIVE PROTEIN QUANTITATIV 0.77 MG/DL (0.00-0.30); CALCIUM LEVEL 8.8 MG/DL (8.8-10.2); CREATININE FOR GFR 1.69 MG/DL (0.70-1.30); GLOMERULAR FILTRATION RATE 42.8 (>42); POTASSIUM SERUM 4.8 MEQ/L (3.5-5.1)
[2018-05-15 17:18] LABS: BASO % 0.4 % (0.0-1.0); EOS # 0.2 10^3/uL (0.0-0.50); EOS % 2.9 % (0.0-3.0); HEMATOCRIT 34.4 % (42.0-52.0); HEMOGLOBIN 11.7 g/dl (13.5-17.5); LYMPH # 0.5 10^3/uL (1.5-4.5); LYMPH % 9.9 % (24.0-44.0); MEAN CORPUSCULAR HEMOGLOBIN 29.3 pg (27.0-33.0); MONO # 0.4 10^3/uL (0.0-0.8); NEUTROPHILS # 4.2 10^3/uL (1.8-7.7); NEUTROPHILS % 79.2 % (36.0-66.0); PLATELET COUNT, AUTOMATED 174 10^3/uL (150-450); WHITE BLOOD COUNT 5.3 10^3/uL (4.0-10.0)
[2018-05-15 18:56] LABS: ERYTHROCYTE SEDIMENTATION RATE 61 mm/hr (0-20)
== END ==
LOC: M WUC 14:45
PROVIDERS: ATTEND Internal Medicine Infectious Disease
DX: T84.50XD Infection and inflammatory reaction due to unspecified internal joint prosthesis, subsequent encounter (principal); Z96.60 Presence of unspecified orthopedic joint implant

== ENCOUNTER → 2018-05-29 | Outpatient (CLI) | payer MEDICARE, OTHER ==
[2018-05-29 16:24] LABS: BASO % 0.2 % (0.0-1.0); C REACTIVE PROTEIN QUANTITATIV 0.6 MG/DL (0.00-0.30); CALCIUM LEVEL 8.8 MG/DL (8.8-10.2); CREATININE FOR GFR 1.47 MG/DL (0.70-1.30); EOS # 0.2 10^3/uL (0.0-0.50); EOS % 3.7 % (0.0-3.0); GLOMERULAR FILTRATION RATE 50.3 (>42); HEMATOCRIT 38.5 % (42.0-52.0); HEMOGLOBIN 12.7 g/dl (13.5-17.5); LYMPH # 0.7 10^3/uL (1.5-4.5); LYMPH % 12.8 % (24.0-44.0); MEAN CORPUSCULAR HEMOGLOBIN 29.2 pg (27.0-33.0); MEAN CORPUSCULAR VOLUME 88.5 fl (80.0-96.0); MONO # 0.3 10^3/uL (0.0-0.8); MONO % 6.6 % (0.0-5.0); NEUTROPHILS % 76.3 % (36.0-66.0); PLATELET COUNT, AUTOMATED 178 10^3/uL (150-450); POTASSIUM SERUM 4.8 MEQ/L (3.5-5.1); RED BLOOD COUNT 4.35 10^6/uL (4.30-6.10); WHITE BLOOD COUNT 5.2 10^3/uL (4.0-10.0)
[2018-05-29 17:27] LABS: ERYTHROCYTE SEDIMENTATION RATE 58 mm/hr (0-20)
== END ==
LOC: M WUC 13:17
PROVIDERS: ATTEND Internal Medicine Infectious Disease
DX: T84.50XD Infection and inflammatory reaction due to unspecified internal joint prosthesis, subsequent encounter (principal)

== ENCOUNTER → 2018-06-05 | Outpatient (CLI) | payer MEDICARE, OTHER ==
[2018-06-05 13:41] LABS: BASO % 0.2 % (0.0-1.0); EOS # 0.2 10^3/uL (0.0-0.50); HEMATOCRIT 35.7 % (42.0-52.0); HEMOGLOBIN 12.1 g/dl (13.5-17.5); LYMPH # 0.6 10^3/uL (1.5-4.5); LYMPH % 11.8 % (24.0-44.0); MEAN CORPUSCULAR HEMOGLOBIN 28.8 pg (27.0-33.0); MEAN CORPUSCULAR HGB CONC 33.9 g/dl (32.0-36.5); MONO # 0.3 10^3/uL (0.0-0.8); MONO % 6.5 % (0.0-5.0); NEUTROPHILS # 3.8 10^3/uL (1.8-7.7); NEUTROPHILS % 77.9 % (36.0-66.0); PLATELET COUNT, AUTOMATED 180 10^3/uL (150-450); WHITE BLOOD COUNT 4.9 10^3/uL (4.0-10.0)
[2018-06-05 13:58] LABS: C REACTIVE PROTEIN QUANTITATIV 0.43 MG/DL (0.00-0.30); CALCIUM LEVEL 8.7 MG/DL (8.8-10.2); CREATININE FOR GFR 1.49 MG/DL (0.70-1.30); GLOMERULAR FILTRATION RATE 49.5 (>42); POTASSIUM SERUM 4.7 MEQ/L (3.5-5.1)
[2018-06-05 14:10] LABS: ERYTHROCYTE SEDIMENTATION RATE 52 mm/hr (0-20)
== END ==
LOC: M WUC 11:42
PROVIDERS: ATTEND Internal Medicine Infectious Disease
DX: T84.50XD Infection and inflammatory reaction due to unspecified internal joint prosthesis, subsequent encounter (principal)

== ENCOUNTER → 2018-06-12 | Outpatient (CLI) | payer MEDICARE, OTHER ==
[2018-06-12 17:06] LABS: BLOOD UREA NITROGEN 37 MG/DL (7-18); C REACTIVE PROTEIN QUANTITATIV < 0.30 MG/DL (0.00-0.30); CALCIUM LEVEL 8.9 MG/DL (8.8-10.2); CARBON DIOXIDE LEVEL 27 MEQ/L (21-32); CHLORIDE LEVEL 106 MEQ/L (98-107); CREATININE FOR GFR 1.63 MG/DL (0.70-1.30); GLOMERULAR FILTRATION RATE 44.6 (>42); GLUCOSE, FASTING 136 MG/DL (70-100); POTASSIUM SERUM 4.8 MEQ/L (3.5-5.1); SODIUM LEVEL 141 MEQ/L (136-145)
[2018-06-12 17:23] LABS: BASO % 0.4 % (0.0-1.0); EOS # 0.1 10^3/uL (0.0-0.50); HEMATOCRIT 37.3 % (42.0-52.0); HEMOGLOBIN 12.3 g/dl (13.5-17.5); LYMPH # 0.6 10^3/uL (1.5-4.5); LYMPH % 10.3 % (24.0-44.0); MEAN CORPUSCULAR HEMOGLOBIN 29.4 pg (27.0-33.0); MONO # 0.3 10^3/uL (0.0-0.8); NEUTROPHILS # 4.5 10^3/uL (1.8-7.7); NEUTROPHILS % 80.9 % (36.0-66.0); PLATELET COUNT, AUTOMATED 170 10^3/uL (150-450); RED BLOOD COUNT 4.19 10^6/uL (4.30-6.10); WHITE BLOOD COUNT 5.5 10^3/uL (4.0-10.0)
[2018-06-12 18:20] LABS: ERYTHROCYTE SEDIMENTATION RATE 52 mm/hr (0-20)
== END ==
LOC: M WUC 11:14
PROVIDERS: ATTEND Orthopaedic Surgery
DX: T84.50XD Infection and inflammatory reaction due to unspecified internal joint prosthesis, subsequent encounter (principal); Y83.1 Surgical operation with implant of artificial internal device as the cause of abnormal reaction of the patient, or of later complication, without mention of misadventure at the time of the procedure

== ENCOUNTER → 2018-06-26 | Outpatient (CLI) | payer MEDICARE, OTHER ==
[2018-06-26 15:25] LABS: C REACTIVE PROTEIN QUANTITATIV 0.54 MG/DL (0.00-0.30); CALCIUM LEVEL 8.6 MG/DL (8.8-10.2); CREATININE FOR GFR 1.47 MG/DL (0.70-1.30); GLOMERULAR FILTRATION RATE 50.3 (>42); POTASSIUM SERUM 4.8 MEQ/L (3.5-5.1)
[2018-06-26 15:35] LABS: BASO % 0.2 % (0.0-1.0); EOS # 0.1 10^3/uL (0.0-0.50); EOS % 1.9 % (0.0-3.0); HEMOGLOBIN 12.5 g/dl (13.5-17.5); LYMPH # 0.6 10^3/uL (1.5-4.5); LYMPH % 10.6 % (24.0-44.0); MEAN CORPUSCULAR HEMOGLOBIN 29.9 pg (27.0-33.0); MEAN CORPUSCULAR HGB CONC 33.8 g/dl (32.0-36.5); MEAN CORPUSCULAR VOLUME 88.5 fl (80.0-96.0); MONO # 0.4 10^3/uL (0.0-0.8); MONO % 7.1 % (0.0-5.0); NEUTROPHILS # 4.1 10^3/uL (1.8-7.7); NEUTROPHILS % 79.8 % (36.0-66.0); PLATELET COUNT, AUTOMATED 162 10^3/uL (150-450); RED BLOOD COUNT 4.18 10^6/uL (4.30-6.10); WHITE BLOOD COUNT 5.2 10^3/uL (4.0-10.0)
[2018-06-26 16:15] LABS: ERYTHROCYTE SEDIMENTATION RATE 46 mm/hr (0-20)
== END ==
LOC: M WUC 11:20
PROVIDERS: ATTEND Internal Medicine Infectious Disease
DX: T84.50XD Infection and inflammatory reaction due to unspecified internal joint prosthesis, subsequent encounter (principal); Y83.1 Surgical operation with implant of artificial internal device as the cause of abnormal reaction of the patient, or of later complication, without mention of misadventure at the time of the procedure

== ENCOUNTER → 2018-07-11 | Outpatient (CLI) | payer MEDICARE, OTHER ==
[2018-07-11 17:48] LABS: BASO % 0.4 % (0.0-1.0); EOS # 0.1 10^3/uL (0.0-0.50); EOS % 1.4 % (0.0-3.0); HEMATOCRIT 38.5 % (42.0-52.0); HEMOGLOBIN 13.1 g/dl (13.5-17.5); LYMPH # 0.6 10^3/uL (1.5-4.5); LYMPH % 11.4 % (24.0-44.0); MEAN CORPUSCULAR VOLUME 88.3 fl (80.0-96.0); MONO # 0.4 10^3/uL (0.0-0.8); MONO % 6.8 % (0.0-5.0); NEUTROPHILS # 4.5 10^3/uL (1.8-7.7); NEUTROPHILS % 79.6 % (36.0-66.0); PLATELET COUNT, AUTOMATED 161 10^3/uL (150-450); RED BLOOD COUNT 4.36 10^6/uL (4.30-6.10); WHITE BLOOD COUNT 5.6 10^3/uL (4.0-10.0)
[2018-07-11 17:54] LABS: C REACTIVE PROTEIN QUANTITATIV 0.45 MG/DL (0.00-0.30); CALCIUM LEVEL 8.7 MG/DL (8.8-10.2); CREATININE FOR GFR 1.52 MG/DL (0.70-1.30); GLOMERULAR FILTRATION RATE 48.4 (>42); POTASSIUM SERUM 4.6 MEQ/L (3.5-5.1)
[2018-07-11 18:35] LABS: ERYTHROCYTE SEDIMENTATION RATE 53 mm/hr (0-20)
== END ==
LOC: M WUC 14:17
PROVIDERS: ATTEND Internal Medicine Infectious Disease
DX: T84.50XD Infection and inflammatory reaction due to unspecified internal joint prosthesis, subsequent encounter (principal); Y84.8 Other medical procedures as the cause of abnormal reaction of the patient, or of later complication, without mention of misadventure at the time of the procedure

== ENCOUNTER → 2018-08-06 | Outpatient (CLI) | payer MEDICARE, OTHER ==
[2018-08-06 13:29] LABS: BASO % 0.2 % (0.0-1.0); EOS # 0.1 10^3/uL (0.0-0.50); EOS % 1.9 % (0.0-3.0); HEMATOCRIT 38.3 % (42.0-52.0); HEMOGLOBIN 13.2 g/dl (13.5-17.5); LYMPH # 0.5 10^3/uL (1.5-4.5); LYMPH % 10.2 % (24.0-44.0); MEAN CORPUSCULAR HEMOGLOBIN 30.9 pg (27.0-33.0); MEAN CORPUSCULAR HGB CONC 34.5 g/dl (32.0-36.5); MEAN CORPUSCULAR VOLUME 89.7 fl (80.0-96.0); MONO # 0.4 10^3/uL (0.0-0.8); MONO % 6.6 % (0.0-5.0); NEUTROPHILS # 4.3 10^3/uL (1.8-7.7); NEUTROPHILS % 80.7 % (36.0-66.0); PLATELET COUNT, AUTOMATED 162 10^3/uL (150-450); RED BLOOD COUNT 4.27 10^6/uL (4.30-6.10); WHITE BLOOD COUNT 5.3 10^3/uL (4.0-10.0)
[2018-08-06 13:52] LABS: ERYTHROCYTE SEDIMENTATION RATE 43 mm/hr (0-20)
[2018-08-06 14:00] LABS: C REACTIVE PROTEIN QUANTITATIV 0.44 MG/DL (0.00-0.30); CALCIUM LEVEL 8.6 MG/DL (8.8-10.2); CREATININE FOR GFR 1.41 MG/DL (0.70-1.30); GLOMERULAR FILTRATION RATE 52.6 (>42); POTASSIUM SERUM 4.6 MEQ/L (3.5-5.1)
== END ==
LOC: M WUC 10:58
PROVIDERS: ATTEND Internal Medicine Infectious Disease
DX: T84.50XD Infection and inflammatory reaction due to unspecified internal joint prosthesis, subsequent encounter (principal); Y83.1 Surgical operation with implant of artificial internal device as the cause of abnormal reaction of the patient, or of later complication, without mention of misadventure at the time of the procedure

== ENCOUNTER → 2018-08-14 | Outpatient (REF) | payer MEDICARE, OTHER ==
[~2018-08-14] MED LIST changes: -/AMLO25TA PO; -/PRAV20TA PO; -/TAMS4CA PO; -/WARF5TA PO; -COSOPHPLUS OU; +COUM1TAB17 PO; +DORZ2SOL11 OU; +LISI-1046 PO; -LISI2.5T5 PO; -MAGN1TAB25 PO; +MAGN1TAB26 PO; +NORV2TAB PO; +PRAV1TAB39 PO; -VALS1TAB48 PO; +VALS1TAB68 PO
[2018-08-14 14:09] LABS: HEMOGLOBIN A1c 7.6 %
[2018-08-14 14:11] LABS: CALCIUM LEVEL 8.8 MG/DL (8.8-10.2); CHOLESTEROL RISK RATIO 3.7 (<5); CREATININE FOR GFR 1.38 MG/DL (0.70-1.30); GLOMERULAR FILTRATION RATE 53.9 (>42); POTASSIUM SERUM 4.5 MEQ/L (3.5-5.1)
[2018-08-14 14:23] LABS: MAU/CREAT RATIO 497.3 MCG/MG (0.0-30.0)
== END ==
LOC: M SFHCPLAZ 09:07
PROVIDERS: ATTEND Family Medicine
DX: E11.29 Type 2 diabetes mellitus with other diabetic kidney complication (principal)
CPT/HCPCS: 36415; 80048; 80061; 82043; 83036; G0463

== ENCOUNTER → 2018-09-08 | Outpatient (CLI) | payer OTHER, MEDICARE ==
[2018-09-08 17:13] LABS: C REACTIVE PROTEIN QUANTITATIV 1.01 MG/DL (0.00-0.30); CALCIUM LEVEL 8.7 MG/DL (8.8-10.2); CREATININE FOR GFR 1.57 MG/DL (0.70-1.30); GLOMERULAR FILTRATION RATE 46.5 (>42); POTASSIUM SERUM 4.5 MEQ/L (3.5-5.1)
[2018-09-08 17:20] LABS: BASO % 0.3 % (0.0-1.0); EOS # 0.1 10^3/uL (0.0-0.50); EOS % 1.3 % (0.0-3.0); HEMATOCRIT 36.8 % (42.0-52.0); HEMOGLOBIN 12.6 g/dl (13.5-17.5); LYMPH # 0.6 10^3/uL (1.5-4.5); LYMPH % 8.9 % (24.0-44.0); MEAN CORPUSCULAR HEMOGLOBIN 30.5 pg (27.0-33.0); MEAN CORPUSCULAR HGB CONC 34.2 g/dl (32.0-36.5); MEAN CORPUSCULAR VOLUME 89.1 fl (80.0-96.0); MONO # 0.3 10^3/uL (0.0-0.8); MONO % 5.3 % (0.0-5.0); NEUTROPHILS # 5.2 10^3/uL (1.8-7.7); NEUTROPHILS % 83.6 % (36.0-66.0); PLATELET COUNT, AUTOMATED 166 10^3/uL (150-450); RED BLOOD COUNT 4.13 10^6/uL (4.30-6.10); WHITE BLOOD COUNT 6.2 10^3/uL (4.0-10.0)
[2018-09-09 01:45] LABS: ERYTHROCYTE SEDIMENTATION RATE 43 mm/hr (0-20)
== END ==
LOC: M WUC 11:45
PROVIDERS: ATTEND Internal Medicine Infectious Disease
DX: T84.50XD Infection and inflammatory reaction due to unspecified internal joint prosthesis, subsequent encounter (principal); Y92.9 Unspecified place or not applicable

== ENCOUNTER → 2018-09-16 | Outpatient (RCR) | payer OTHER | LOC: M PT 08-26 11:13 | PROVIDERS: ATTEND Orthopaedic Surgery | DX: Z96.652 Presence of left artificial knee joint (principal) ==

== ENCOUNTER → 2018-10-07 | Outpatient (CLI) | payer MEDICARE ==
[2018-10-07 13:24] LABS: BASO % 0.4 % (0.0-1.0); EOS # 0.1 10^3/uL (0.0-0.50); EOS % 1.7 % (0.0-3.0); HEMATOCRIT 35.6 % (42.0-52.0); HEMOGLOBIN 12.2 g/dl (13.5-17.5); LYMPH # 0.6 10^3/uL (1.5-4.5); LYMPH % 11.4 % (24.0-44.0); MEAN CORPUSCULAR HEMOGLOBIN 30.6 pg (27.0-33.0); MEAN CORPUSCULAR HGB CONC 34.3 g/dl (32.0-36.5); MEAN CORPUSCULAR VOLUME 89.2 fl (80.0-96.0); MONO # 0.4 10^3/uL (0.0-0.8); MONO % 6.9 % (0.0-5.0); NEUTROPHILS # 4.2 10^3/uL (1.8-7.7); NEUTROPHILS % 78.7 % (36.0-66.0); PLATELET COUNT, AUTOMATED 174 10^3/uL (150-450); RED BLOOD COUNT 3.99 10^6/uL (4.30-6.10); WHITE BLOOD COUNT 5.4 10^3/uL (4.0-10.0)
[2018-10-07 14:06] LABS: C REACTIVE PROTEIN QUANTITATIV 0.36 MG/DL (0.00-0.30); CREATININE FOR GFR 1.53 MG/DL (0.70-1.30); GLOMERULAR FILTRATION RATE 47.9 (>42); POTASSIUM SERUM 4.5 MEQ/L (3.5-5.1)
[2018-10-07 14:16] LABS: ERYTHROCYTE SEDIMENTATION RATE 50 mm/hr (0-20)
== END ==
LOC: M WUC 11:23
PROVIDERS: ATTEND Internal Medicine Infectious Disease
DX: T84.50XD Infection and inflammatory reaction due to unspecified internal joint prosthesis, subsequent encounter (principal); X58.XXXD Exposure to other specified factors, subsequent encounter

== ENCOUNTER 2018-10-16 13:45 | Outpatient (RCR) | payer MEDICARE, OTHER | END 2018-10-17 | LOC: M PT 13:45 | PROVIDERS: ATTEND Orthopaedic Surgery | DX: M25.562 Pain in left knee (principal) ==

== ENCOUNTER → 2018-11-05 | Outpatient (CLI) | payer MEDICARE ==
[2018-11-05 17:14] LABS: C REACTIVE PROTEIN QUANTITATIV 0.54 MG/DL (0.00-0.30); CALCIUM LEVEL 9.2 MG/DL (8.8-10.2); CREATININE FOR GFR 1.51 MG/DL (0.70-1.30); GLOMERULAR FILTRATION RATE 48.6 (>42); POTASSIUM SERUM 4.5 MEQ/L (3.5-5.1)
[2018-11-05 17:37] LABS: BASO % 0.3 % (0.0-1.0); EOS # 0.1 10^3/uL (0.0-0.50); EOS % 1.1 % (0.0-3.0); HEMATOCRIT 37.5 % (42.0-52.0); HEMOGLOBIN 13.1 g/dl (13.5-17.5); LYMPH # 0.7 10^3/uL (1.5-4.5); LYMPH % 10.5 % (24.0-44.0); MEAN CORPUSCULAR HGB CONC 34.9 g/dl (32.0-36.5); MEAN CORPUSCULAR VOLUME 91.7 fl (80.0-96.0); MONO # 0.5 10^3/uL (0.0-0.8); MONO % 7.5 % (0.0-5.0); PLATELET COUNT, AUTOMATED 179 10^3/uL (150-450); RED BLOOD COUNT 4.09 10^6/uL (4.30-6.10); WHITE BLOOD COUNT 6.3 10^3/uL (4.0-10.0)
[2018-11-05 18:15] LABS: ERYTHROCYTE SEDIMENTATION RATE 46 mm/hr (0-20)
== END ==
LOC: M WUC 13:46
PROVIDERS: ATTEND Internal Medicine Infectious Disease
DX: T84.50XD Infection and inflammatory reaction due to unspecified internal joint prosthesis, subsequent encounter (principal); X58.XXXD Exposure to other specified factors, subsequent encounter

== ENCOUNTER → 2018-11-18 | Outpatient (CLI) | payer MEDICARE ==
[~2018-11-18] MED LIST changes: -BISO10TA6 PO; +BISO10TA7 PO; +LINE1TAB6 PO; -LINE600T11 PO; +MM S100C PO; -STOO100C PO
[2018-11-18 16:28] LABS: HEMATOCRIT 34.2 % (42.0-52.0); HEMOGLOBIN 12.1 g/dl (13.5-17.5); MEAN CORPUSCULAR HEMOGLOBIN 31.3 pg (27.0-33.0); MEAN CORPUSCULAR HGB CONC 35.4 g/dl (32.0-36.5); MEAN CORPUSCULAR VOLUME 88.6 fl (80.0-96.0); PLATELET COUNT, AUTOMATED 178 10^3/uL (150-450); RED BLOOD COUNT 3.86 10^6/uL (4.30-6.10); WHITE BLOOD COUNT 6.6 10^3/uL (4.0-10.0)
[2018-11-18 16:30] LABS: CALCIUM LEVEL 7.9 MG/DL (8.8-10.2); CREATININE FOR GFR 1.48 MG/DL (0.70-1.30); GLOMERULAR FILTRATION RATE 49.7 (>42); POTASSIUM SERUM 4.8 MEQ/L (3.5-5.1)
== END ==
LOC: M WUC 14:49
PROVIDERS: ATTEND Internal Medicine Cardiovascular Disease
DX: I50.22 Chronic systolic (congestive) heart failure (principal); R00.0 Tachycardia, unspecified

== ENCOUNTER → 2018-12-10 | Outpatient (CLI) | payer MEDICARE ==
[2018-12-10 13:03] LABS: CREATININE FOR GFR 1.74 MG/DL (0.70-1.30); GLOMERULAR FILTRATION RATE 41.3 (>42)
== END ==
LOC: M WUC 09:29
PROVIDERS: ATTEND Internal Medicine Interventional Cardiology
DX: R94.39 Abnormal result of other cardiovascular function study (principal)

== ENCOUNTER 2018-12-27 18:41 | Emergency (ER) | payer MEDICARE, OTHER ==
[~2018-12-27] VITALS: Ht 182.9 cm; Wt 118.6 kg
[2018-12-27 18:41] VITALS: BP 178/80
[~2018-12-27 18:41] MED LIST changes: +BISO10TA10 PO; -BISO10TA7 PO; -FEBU40TA PO; +FEBU40TA4 PO
[2018-12-27] MEDS ORDERED: VITA50005 PO (19:23)
[2018-12-27] MEDS ORDERED: TRES1INJ2 SC (19:23)
[2018-12-27] MEDS ORDERED: ROBA500T PO (19:50)
[2018-12-27] MEDS ORDERED: METHOCARBAMOL 750 MG TAB PO ONE (20:00)
== END 2018-12-27 20:35 | disposition home or self-care (01) ==
LOC: M ED 18:41
DX: S39.012A Strain of muscle, fascia and tendon of lower back, initial encounter (principal); X58.XXXA Exposure to other specified factors, initial encounter; Y92.89 Other specified places as the place of occurrence of the external cause; M62.830 Muscle spasm of back; I10 Essential (primary) hypertension; J44.9 Chronic obstructive pulmonary disease, unspecified; J45.909 Unspecified asthma, uncomplicated; E11.319 Type 2 diabetes mellitus with unspecified diabetic retinopathy without macular edema; E78.00 Pure hypercholesterolemia, unspecified; G62.9 Polyneuropathy, unspecified; Z79.899 Other long term (current) drug therapy; Z79.4 Long term (current) use of insulin; Z79.01 Long term (current) use of anticoagulants; Z88.8 Allergy status to other drugs, medicaments and biological substances; Z91.041 Radiographic dye allergy status

== ENCOUNTER → 2019-01-05 | Outpatient (CLI) | payer MEDICARE, OTHER ==
[~2019-01-05] MED LIST changes: +TRES1INJ2 SC
[2019-01-05 12:46] LABS: BASO % 0.4 % (0.0-1.0); EOS # 0.2 10^3/uL (0.0-0.50); EOS % 2.7 % (0.0-3.0); HEMATOCRIT 35.1 % (42.0-52.0); HEMOGLOBIN 12.1 g/dl (13.5-17.5); LYMPH # 0.6 10^3/uL (1.5-4.5); LYMPH % 10.8 % (24.0-44.0); MEAN CORPUSCULAR HEMOGLOBIN 30.7 pg (27.0-33.0); MEAN CORPUSCULAR HGB CONC 34.5 g/dl (32.0-36.5); MEAN CORPUSCULAR VOLUME 89.1 fl (80.0-96.0); MONO # 0.5 10^3/uL (0.0-0.8); MONO % 8.2 % (0.0-5.0); NEUTROPHILS # 4.2 10^3/uL (1.8-7.7); NEUTROPHILS % 77.2 % (36.0-66.0); PLATELET COUNT, AUTOMATED 175 10^3/uL (150-450); RED BLOOD COUNT 3.94 10^6/uL (4.30-6.10); WHITE BLOOD COUNT 5.5 10^3/uL (4.0-10.0)
[2019-01-05 13:10] LABS: ERYTHROCYTE SEDIMENTATION RATE 52 mm/hr (0-20)
[2019-01-05 13:13] LABS: C REACTIVE PROTEIN QUANTITATIV 0.57 MG/DL (0.00-0.30); CALCIUM LEVEL 8.3 MG/DL (8.8-10.2); CREATININE FOR GFR 1.5 MG/DL (0.70-1.30); POTASSIUM SERUM 4.1 MEQ/L (3.5-5.1)
== END ==
LOC: M WUC 10:16
PROVIDERS: ATTEND Internal Medicine Infectious Disease
DX: B99.9 Unspecified infectious disease (principal); T84.50XD Infection and inflammatory reaction due to unspecified internal joint prosthesis, subsequent encounter

== ENCOUNTER → 2019-02-02 | Outpatient (CLI) | payer MEDICARE, OTHER ==
[~2019-02-02] MED LIST changes: -BISO10TA10 PO; +BISO10TA14 PO; +BISO5TAB14 PO
[2019-02-02 13:39] LABS: BASO % 0.3 % (0.0-1.0); EOS # 0.2 10^3/uL (0.0-0.5); EOS % 2.2 % (0.0-3.0); HEMATOCRIT 37.7 % (42.0-52.0); HEMOGLOBIN 13.1 g/dl (13.5-17.5); LYMPH # 0.6 10^3/uL (1.5-5.0); LYMPH % 9.2 % (24.0-44.0); MEAN CORPUSCULAR HEMOGLOBIN 31.9 pg (27.0-33.0); MEAN CORPUSCULAR HGB CONC 34.7 g/dl (32.0-36.5); MEAN CORPUSCULAR VOLUME 91.7 fl (80.0-96.0); MONO # 0.5 10^3/uL (0.0-0.8); MONO % 6.7 % (0.0-5.0); NEUTROPHILS # 5.5 10^3/uL (1.5-8.5); NEUTROPHILS % 81.3 % (36.0-66.0); PLATELET COUNT, AUTOMATED 182 10^3/uL (150-450); RED BLOOD COUNT 4.11 10^6/uL (4.30-6.10); WHITE BLOOD COUNT 6.8 10^3/uL (4.0-10.0)
[2019-02-02 13:51] LABS: C REACTIVE PROTEIN QUANTITATIV 0.78 MG/DL (0.00-0.30); CALCIUM LEVEL 8.8 MG/DL (8.8-10.2); CREATININE FOR GFR 1.6 MG/DL (0.70-1.30); GLOMERULAR FILTRATION RATE 45.5 (>42); POTASSIUM SERUM 4.2 MEQ/L (3.5-5.1)
[2019-02-02 14:17] LABS: ERYTHROCYTE SEDIMENTATION RATE 55 mm/hr (0-20)
== END ==
LOC: M WUC 10:01
PROVIDERS: ATTEND Internal Medicine Infectious Disease
DX: T84.50XD Infection and inflammatory reaction due to unspecified internal joint prosthesis, subsequent encounter (principal)

== ENCOUNTER → 2019-03-13 | Outpatient (CLI) | payer MEDICARE, OTHER ==
[~2019-03-13] MED LIST changes: +BISO10TA10 PO; -BISO10TA14 PO; -BISO5TAB14 PO; +BISO5TAB9 PO
[2019-03-13 16:34] LABS: BASO % 0.2 % (0.0-1.0); C REACTIVE PROTEIN QUANTITATIV 0.57 MG/DL (0.00-0.30); CALCIUM LEVEL 8.7 MG/DL (8.8-10.2); CREATININE FOR GFR 1.41 MG/DL (0.70-1.30); EOS # 0.1 10^3/uL (0.0-0.5); GLOMERULAR FILTRATION RATE 52.6 (>42); HEMATOCRIT 37.2 % (42.0-52.0); HEMOGLOBIN 12.6 g/dl (13.5-17.5); LYMPH # 0.6 10^3/uL (1.5-5.0); LYMPH % 10.5 % (24.0-44.0); MEAN CORPUSCULAR HEMOGLOBIN 31.5 pg (27.0-33.0); MEAN CORPUSCULAR HGB CONC 33.9 g/dl (32.0-36.5); MONO # 0.4 10^3/uL (0.0-0.8); MONO % 6.3 % (0.0-5.0); NEUTROPHILS # 4.8 10^3/uL (1.5-8.5); NEUTROPHILS % 80.7 % (36.0-66.0); PLATELET COUNT, AUTOMATED 166 10^3/uL (150-450); POTASSIUM SERUM 4.5 MEQ/L (3.5-5.1); WHITE BLOOD COUNT 5.9 10^3/uL (4.0-10.0)
[2019-03-13 17:11] LABS: ERYTHROCYTE SEDIMENTATION RATE 49 mm/hr (0-20)
== END ==
LOC: M WUC 11:20
PROVIDERS: ATTEND Internal Medicine Infectious Disease
DX: T84.50XD Infection and inflammatory reaction due to unspecified internal joint prosthesis, subsequent encounter (principal)

== ENCOUNTER → 2019-07-15 | Outpatient (CLI) | payer MEDICARE, OTHER ==
[~2019-07-15] MED LIST changes: -BISO10TA10 PO; +BISO10TA14 PO; +BISO5TAB14 PO; -BISO5TAB9 PO
[2019-07-15 17:34] LABS: CALCIUM LEVEL 9.4 MG/DL (8.8-10.2); CREATININE FOR GFR 1.77 MG/DL (0.70-1.30); GLOMERULAR FILTRATION RATE 40.5 (>42); POTASSIUM SERUM 4.8 MEQ/L (3.5-5.1); THYROID STIMULATING HORMONE 2.05 uIU/ML (0.358-3.740); THYROXINE (T4) 6.8 UG/DL (4.5-12.0)
== END ==
LOC: M WUC 13:23
PROVIDERS: ATTEND Internal Medicine Cardiovascular Disease
DX: I48.91 Unspecified atrial fibrillation (principal); I50.22 Chronic systolic (congestive) heart failure

== ENCOUNTER → 2019-08-13 | Outpatient (CLI) | payer MEDICARE, OTHER ==
[2019-08-13 12:44] LABS: BASO % 0.4 % (0.0-1.0); EOS # 0.1 10^3/uL (0.0-0.5); EOS % 1.5 % (0.0-3.0); HEMATOCRIT 39.5 % (42.0-52.0); HEMOGLOBIN 12.9 g/dl (13.5-17.5); LYMPH # 0.6 10^3/uL (1.5-5.0); LYMPH % 9.4 % (24.0-44.0); MEAN CORPUSCULAR HEMOGLOBIN 30.2 pg (27.0-33.0); MEAN CORPUSCULAR HGB CONC 32.7 g/dl (32.0-36.5); MEAN CORPUSCULAR VOLUME 92.5 fl (80.0-96.0); MONO # 0.4 10^3/uL (0.0-0.8); NEUTROPHILS # 5.6 10^3/uL (1.5-8.5); NEUTROPHILS % 82.3 % (36.0-66.0); PLATELET COUNT, AUTOMATED 190 10^3/uL (150-450); RED BLOOD COUNT 4.27 10^6/uL (4.30-6.10); WHITE BLOOD COUNT 6.8 10^3/uL (4.0-10.0)
[2019-08-13 13:11] LABS: C REACTIVE PROTEIN QUANTITATIV 0.63 MG/DL (0.00-0.30); CALCIUM LEVEL 8.6 MG/DL (8.8-10.2); CREATININE FOR GFR 1.76 MG/DL (0.70-1.30); GLOMERULAR FILTRATION RATE 40.6 (>42); POTASSIUM SERUM 4.6 MEQ/L (3.5-5.1)
[2019-08-13 13:20] LABS: ERYTHROCYTE SEDIMENTATION RATE 47 mm/hr (0-20)
== END ==
LOC: M WUC 09:50
PROVIDERS: ATTEND Internal Medicine Infectious Disease
DX: T84.50XD Infection and inflammatory reaction due to unspecified internal joint prosthesis, subsequent encounter (principal); Z79.4 Long term (current) use of insulin; Z12.5 Encounter for screening for malignant neoplasm of prostate; R97.20 Elevated prostate specific antigen [PSA]

== ENCOUNTER → 2019-08-13 | Outpatient (CLI) | payer MEDICARE, OTHER | LOC: M WUC 09:54 | PROVIDERS: ATTEND Urology | DX: Z12.5 Encounter for screening for malignant neoplasm of prostate (principal) ==

== ENCOUNTER 2019-12-17 10:30 | Outpatient (RCR) | payer MEDICARE, OTHER ==
[~2019-12-17 10:30] MED LIST changes: -AMLO10TA5 PO; +AMLO1TAB24 PO; +AMLO1TAB25 PO; -AMLO5TAB6 PO; -LISI-1046 PO; +LISI2.5T2 PO; +PANT40TA29 PO; -PANT40TA3 PO
== END 2019-12-18 ==
LOC: M PT 10:30
PROVIDERS: ATTEND Orthopaedic Surgery
DX: R26.81 Unsteadiness on feet (principal); Z96.652 Presence of left artificial knee joint

== ENCOUNTER 2020-01-14 10:30 | Outpatient (RCR) | payer MEDICARE | END 2020-01-18 | LOC: M PT 10:30 | PROVIDERS: ATTEND Orthopaedic Surgery | DX: R26.81 Unsteadiness on feet (principal); Z96.652 Presence of left artificial knee joint ==

== ENCOUNTER 2020-01-21 09:36 | Outpatient (RCR) | payer MEDICARE | END 2020-02-17 | LOC: M PT 09:36 | PROVIDERS: ATTEND Orthopaedic Surgery | DX: R26.81 Unsteadiness on feet (principal); Z96.652 Presence of left artificial knee joint ==

== ENCOUNTER → 2020-03-02 | Outpatient (CLI) | payer MEDICARE ==
[2020-03-02 13:16] LABS: BASO % 0.1 % (0.0-1.0); EOS # 0.1 10^3/uL (0.0-0.5); HEMATOCRIT 36.1 % (42.0-52.0); LYMPH # 0.7 10^3/uL (1.5-5.0); LYMPH % 9.4 % (24.0-44.0); MEAN CORPUSCULAR HEMOGLOBIN 30.5 pg (27.0-33.0); MEAN CORPUSCULAR HGB CONC 33.2 g/dl (32.0-36.5); MEAN CORPUSCULAR VOLUME 91.6 fl (80.0-96.0); MONO # 0.5 10^3/uL (0.0-0.8); MONO % 6.6 % (0.0-5.0); NEUTROPHILS # 5.7 10^3/uL (1.5-8.5); NEUTROPHILS % 81.3 % (36.0-66.0); PLATELET COUNT, AUTOMATED 166 10^3/uL (150-450); RED BLOOD COUNT 3.94 10^6/uL (4.30-6.10)
[2020-03-02 13:38] LABS: ALBUMIN 3.4 GM/DL (3.2-5.2); BILIRUBIN,TOTAL 0.5 MG/DL (0.2-1.0); C REACTIVE PROTEIN QUANTITATIV 0.77 MG/DL (0.00-0.30); CALCIUM LEVEL 8.3 MG/DL (8.8-10.2); CREATININE FOR GFR 1.86 MG/DL (0.70-1.30); GLOMERULAR FILTRATION RATE 38.1 (>42); POTASSIUM SERUM 4.5 MEQ/L (3.5-5.1); TOTAL PROTEIN 6.7 GM/DL (6.4-8.2)
[2020-03-02 13:45] LABS: ERYTHROCYTE SEDIMENTATION RATE 49 mm/hr (0-20)
== END ==
LOC: M WUC 10:49
PROVIDERS: ATTEND Internal Medicine Infectious Disease
DX: T84.50XD Infection and inflammatory reaction due to unspecified internal joint prosthesis, subsequent encounter (principal)

== ENCOUNTER → 2020-06-16 | Outpatient (CLI) | payer MEDICARE ==
[~2020-06-16] MED LIST changes: +GABA-282 PO; -GABA-843 PO
[2020-06-16 16:21] LABS: BASO % 0.2 % (0.0-1.0); EOS # 0.2 10^3/uL (0.0-0.5); HEMATOCRIT 37.9 % (42.0-52.0); HEMOGLOBIN 12.3 g/dl (13.5-17.5); LYMPH # 0.7 10^3/uL (1.5-5.0); LYMPH % 12.4 % (24.0-44.0); MEAN CORPUSCULAR HEMOGLOBIN 30.8 pg (27.0-33.0); MEAN CORPUSCULAR HGB CONC 32.5 g/dl (32.0-36.5); MEAN CORPUSCULAR VOLUME 94.8 fl (80.0-96.0); MONO # 0.4 10^3/uL (0.0-0.8); MONO % 6.9 % (0.0-5.0); NEUTROPHILS # 4.5 10^3/uL (1.5-8.5); NEUTROPHILS % 75.8 % (36.0-66.0); PLATELET COUNT, AUTOMATED 153 10^3/uL (150-450)
[2020-06-16 16:37] LABS: C REACTIVE PROTEIN QUANTITATIV 0.86 MG/DL (0.00-0.30); CALCIUM LEVEL 9.3 MG/DL (8.8-10.2); CREATININE FOR GFR 1.78 MG/DL (0.70-1.30); GLOMERULAR FILTRATION RATE 40.1 (>42); POTASSIUM SERUM 4.5 MEQ/L (3.5-5.1)
[2020-06-16 17:29] LABS: ERYTHROCYTE SEDIMENTATION RATE 49 mm/hr (0-20)
== END ==
LOC: M WUC 11:04
PROVIDERS: ATTEND Internal Medicine Infectious Disease
DX: T84.50XD Infection and inflammatory reaction due to unspecified internal joint prosthesis, subsequent encounter (principal)

== ENCOUNTER → 2020-06-23 | Outpatient (CLI) | payer MEDICARE ==
[~2020-06-23] MED LIST changes: -LISI-542 PO; +LISI-898 PO
--- NOTE | 2020-06-24 12:11 | ECGEPIP ---
[facility] Test Date: 2020-06-23 Pat Name: NIRAV DALY Department: Room: - Gender: Male Info Analyst: URIAH : 1945 Requested By: Caden Mckeon Order Number: [id number] Reading MD: Dominguez Odell Measurements Intervals [place] Rate: 49 P: 58 NM: 140 QRS: -19 QRSD: 102 T: 47 QT: 456 QTc: 411 Interpretive Statements Sinus bradycardia Decreased heart rate and no PACs compared with 05/27/2017. Electronically Signed on 06-24-2020 12:11:01 EST by Dominguez Odell
== END ==
LOC: M EKG 13:41
PROVIDERS: ATTEND Internal Medicine Cardiovascular Disease
DX: I48.91 Unspecified atrial fibrillation (principal)

== ENCOUNTER → 2020-08-30 | Outpatient (CLI) | payer MEDICARE ==
[2020-08-30 12:23] LABS: BASO % 0.3 % (0.0-1.0); EOS # 0.2 10^3/uL (0.0-0.5); EOS % 2.9 % (0.0-3.0); HEMATOCRIT 36.3 % (42.0-52.0); HEMOGLOBIN 11.9 g/dl (13.5-17.5); LYMPH # 0.8 10^3/uL (1.5-5.0); LYMPH % 12.8 % (24.0-44.0); MEAN CORPUSCULAR HEMOGLOBIN 31.1 pg (27.0-33.0); MEAN CORPUSCULAR HGB CONC 32.8 g/dl (32.0-36.5); MEAN CORPUSCULAR VOLUME 94.8 fl (80.0-96.0); MONO # 0.5 10^3/uL (0.0-0.8); MONO % 7.8 % (2.0-8.0); NEUTROPHILS # 4.4 10^3/uL (1.5-8.5); NEUTROPHILS % 75.5 % (36.0-66.0); PLATELET COUNT, AUTOMATED 178 10^3/uL (150-450); RED BLOOD COUNT 3.83 10^6/uL (4.30-6.10); WHITE BLOOD COUNT 5.9 10^3/uL (4.0-10.0)
[2020-08-30 12:48] LABS: ERYTHROCYTE SEDIMENTATION RATE 49 mm/hr (0-20)
[2020-08-30 13:14] LABS: ALBUMIN 3.6 GM/DL (3.2-5.2); BILIRUBIN,TOTAL 0.5 MG/DL (0.2-1.0); C REACTIVE PROTEIN QUANTITATIV 0.45 MG/DL (0.00-0.30); CREATININE FOR GFR 1.97 MG/DL (0.70-1.30); GLOMERULAR FILTRATION RATE 35.6 (>42); POTASSIUM SERUM 4.4 MEQ/L (3.5-5.1); TOTAL PROTEIN 6.7 GM/DL (6.4-8.2)
== END ==
LOC: M WUC 09:37
PROVIDERS: ATTEND Internal Medicine Infectious Disease
DX: E11.40 Type 2 diabetes mellitus with diabetic neuropathy, unspecified (principal); T84.50XD Infection and inflammatory reaction due to unspecified internal joint prosthesis, subsequent encounter

== ENCOUNTER 2020-09-17 11:33 | Emergency (ER) | payer MEDICARE ==
[~2020-09-17] VITALS: Ht 182.9 cm; Wt 117.3 kg
[2020-09-17] MEDS ORDERED: LEVO500T3 (12:23)
--- NOTE | 2020-09-17 12:25 | REP ---
INDICATION: Altered Mental Status COMPARISON: None. TECHNIQUE: Axial noncontrast images from the skull base to the thoracic inlet with coronal reformations. This CT examination was performed using the following dose reduction techniques: Automated exposure control, adjustment of mA and/or kv according to the patient's size, and use of iterative reconstruction technique. 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 The ventricles and sulci are symmetric. Holliday-white differentiation is maintained. There is no evidence for acute intracranial hemorrhage, mass/mass effect, pathology or infarction. No extra-axial fluid collection. Calvarium is intact. Paranasal sinuses and mastoid air cells are clear. There is a small scalp hematoma along the right posterior occiput. 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 No acute intracranial hemorrhage or pathology. Small posterior scalp hematoma. <Electronically signed by Nicola Nichols > 09/17/20 [id number]
--- NOTE | 2020-09-17 12:27 | REP ---
INDICATION: Altered Mental Status COMPARISON: None. TECHNIQUE: Axial noncontrast images from the skull base to the thoracic inlet with coronal and sagittal re-formations This CT examination was performed using the following dose reduction techniques: Automated exposure control, adjustment of mA and/or kv according to the patient's size, and use of iterative reconstruction technique. FINDINGS: Alignment is maintained. Advanced multilevel degenerative changes are noted. There is no evidence for acute fracture/compression injury or subluxation. Posterior elements are intact. Chronic Heterotopic calcification/calcifications along the spinous ligament noted. IMPRESSION: Advanced multilevel degenerative spondylosis. No acute fracture/compression injury or subluxation. <Electronically signed by Nicola Nichols > 09/17/20 [id number]
--- NOTE | 2020-09-17 12:28 | REP ---
INDICATION: Altered Mental Status COMPARISON: 05/27/2017 TECHNIQUE: Portable AP view of the chest FINDINGS: The mediastinum and cardiac silhouette are stable and cardiomegaly is again suggested. The lung travis are clear without acute consolidation, effusion, or pneumothorax. Skeletal structures are intact. IMPRESSION: No acute cardiopulmonary process appreciated. <Electronically signed by Nicola Nichols > 09/17/20 [id number]
[2020-09-17 12:54] LABS: BASO % 0.2 % (0.0-1.0); EOS % 0.6 % (0.0-3.0); HEMATOCRIT 37.2 % (42.0-52.0); HEMOGLOBIN 12.4 g/dl (13.5-17.5); LYMPH # 0.6 10^3/uL (1.5-5.0); LYMPH % 10.3 % (24.0-44.0); MEAN CORPUSCULAR HEMOGLOBIN 31.1 pg (27.0-33.0); MEAN CORPUSCULAR HGB CONC 33.3 g/dl (32.0-36.5); MEAN CORPUSCULAR VOLUME 93.2 fl (80.0-96.0); MONO # 0.3 10^3/uL (0.0-0.8); NEUTROPHILS # 5.2 10^3/uL (1.5-8.5); NEUTROPHILS % 83.6 % (36.0-66.0); PLATELET COUNT, AUTOMATED 155 10^3/uL (150-450); RED BLOOD COUNT 3.99 10^6/uL (4.30-6.10); WHITE BLOOD COUNT 6.2 10^3/uL (4.0-10.0)
[2020-09-17 13:28] LABS: ACETAMINOPHEN LEVEL < 2.0 UG/ML (10.0-30.0); ALBUMIN 3.6 GM/DL (3.2-5.2); ALT/SGPT 15 U/L (12-78); BILIRUBIN,DIRECT 0.1 MG/DL (0.0-0.2); BILIRUBIN,TOTAL 0.6 MG/DL (0.2-1.0); BLOOD UREA NITROGEN 40 MG/DL (7-18); CALCIUM LEVEL 9.1 MG/DL (8.8-10.2); CARBON DIOXIDE LEVEL 29 MEQ/L (21-32); CHLORIDE LEVEL 108 MEQ/L (98-107); CREATININE FOR GFR 1.82 MG/DL (0.70-1.30); ETHYL ALCOHOL (ETHANOL) < 0.003 % (0.000-0.010); GLUCOSE, FASTING 196 MG/DL (70-100); POTASSIUM SERUM 4.2 MEQ/L (3.5-5.1); SALICYLATE LEVEL < 1.7 MG/DL (5.0-30.0); SODIUM LEVEL 144 MEQ/L (136-145); TOTAL PROTEIN 7.2 GM/DL (6.4-8.2)
[2020-09-17 13:33] LABS: AMPHETAMINES LEVEL URINE NEGATIVE (NEGATIVE); BARBITURATES URINE NEGATIVE (NEGATIVE); BENZODIAZEPINES URINE NEGATIVE (NEGATIVE); CANNABINOIDS URINE NEGATIVE (NEGATIVE); COCAINE METABOLITE URINE NEGATIVE (NEGATIVE); METHADONE URINE NEGATIVE (NEGATIVE); OPIATES URINE NEGATIVE (NEGATIVE); PHENCYCLIDINE URINE NEGATIVE (NEGATIVE)
[2020-09-17 14:45] VITALS: BP 175/72
--- NOTE | 2020-09-17 19:16 | ECGEPIP ---
[facility] - ED Test Date: 2020-09-17 Pat Name: NIRAV DALY Department: Room: - Gender: Male [place] [employer]: PAT : 1945 Requested By: Adrianne Jiang Order Number: [id number] Reading MD: Adrianne Jiang Measurements Intervals [place] Rate: 56 P: 71 NV: 148 QRS: -13 QRSD: 106 T: 47 QT: 442 QTc: 426 Interpretive Statements Sinus bradycardia with marked sinus arrhythmia leftward axis Nonspecific ST T wave changes 06/23/[address] T wave changes Electronically Signed on 09-17-2020 19:16:22 EDT by Adrianne Jiang
== END 2020-09-17 15:09 | disposition home or self-care (01) ==
LOC: M ED 11:33
DX: S06.0X0A Concussion without loss of consciousness, initial encounter (principal); S00.03XA Contusion of scalp, initial encounter; W01.10XA Fall on same level from slipping, tripping and stumbling with subsequent striking against unspecified object, initial encounter; Y92.9 Unspecified place or not applicable; Y93.9 Activity, unspecified; Y99.9 Unspecified external cause status; R00.1 Bradycardia, unspecified; R42 Dizziness and giddiness; M47.812 Spondylosis without myelopathy or radiculopathy, cervical region; I11.0 Hypertensive heart disease with heart failure; J44.9 Chronic obstructive pulmonary disease, unspecified; E11.9 Type 2 diabetes mellitus without complications; E78.00 Pure hypercholesterolemia, unspecified; Z79.01 Long term (current) use of anticoagulants; Z79.4 Long term (current) use of insulin; Z79.899 Other long term (current) drug therapy; Z88.8 Allergy status to other drugs, medicaments and biological substances

== ENCOUNTER → 2021-03-02 | Outpatient (CLI) | payer MEDICARE ==
[~2021-03-02] MED LIST changes: -DOXY100C PO; +DOXY100C3 PO; +LEVO500T3; -LISI2.5T2 PO; +LISI2.5T9 PO
== END ==
LOC: M WUC 09:57
PROVIDERS: ATTEND Urology
DX: N40.1 Benign prostatic hyperplasia with lower urinary tract symptoms (principal)

== ENCOUNTER → 2021-03-06 | Outpatient (REF) | payer MEDICARE ==
[2021-03-06 18:12] LABS: BASO % 0.3 % (0.0-1.0); EOS # 0.1 10^3/uL (0.0-0.5); EOS % 1.5 % (0.0-3.0); HEMATOCRIT 34.9 % (42.0-52.0); LYMPH # 0.6 10^3/uL (1.5-5.0); LYMPH % 9.9 % (24.0-44.0); MEAN CORPUSCULAR HEMOGLOBIN 31.2 pg (27.0-33.0); MEAN CORPUSCULAR HGB CONC 34.4 g/dl (32.0-36.5); MEAN CORPUSCULAR VOLUME 90.6 fl (80.0-96.0); MONO # 0.4 10^3/uL (0.0-0.8); MONO % 7.5 % (2.0-8.0); NEUTROPHILS # 4.7 10^3/uL (1.5-8.5); NEUTROPHILS % 80.5 % (36.0-66.0); PLATELET COUNT, AUTOMATED 148 10^3/uL (150-450); RED BLOOD COUNT 3.85 10^6/uL (4.30-6.10); WHITE BLOOD COUNT 5.8 10^3/uL (4.0-10.0)
[2021-03-06 18:54] LABS: ERYTHROCYTE SEDIMENTATION RATE 46 mm/hr (0-20)
== END ==
LOC: M SFHCPLAZ 17:14
PROVIDERS: ATTEND Internal Medicine Infectious Disease
DX: T84.50XD Infection and inflammatory reaction due to unspecified internal joint prosthesis, subsequent encounter (principal)

== ENCOUNTER → 2021-03-06 | Outpatient (REF) | payer MEDICARE | LOC: M LAB REF 17:12 | PROVIDERS: ATTEND Internal Medicine Nephrology | DX: E83.42 Hypomagnesemia (principal) ==

== ENCOUNTER → 2021-07-20 | Outpatient (CLI) | payer MEDICARE, OTHER ==
[~2021-07-20] MED LIST changes: -LEVO500T3; -LEVO500T3 PO; +LEVO500T4; +LEVO500T4 PO; -LISI-898 PO; +LISI5TAB11 PO
[2021-07-20 14:00] LABS: C REACTIVE PROTEIN QUANTITATIV 1.73 MG/DL (0.00-0.30); CALCIUM LEVEL 8.9 MG/DL (8.8-10.2); CREATININE FOR GFR 1.77 MG/DL (0.70-1.30); GLOMERULAR FILTRATION RATE 40.2 (>42); POTASSIUM SERUM 4.8 MEQ/L (3.5-5.1)
== END ==
LOC: M PLALAB 08:29
PROVIDERS: ATTEND Internal Medicine Infectious Disease
DX: T84.50XD Infection and inflammatory reaction due to unspecified internal joint prosthesis, subsequent encounter (principal)

== ENCOUNTER → 2022-01-24 | Outpatient (CLI) | payer MEDICARE, OTHER ==
[~2022-01-24] MED LIST changes: +LEVO1TAB39; +LEVO1TAB39 PO; -LEVO500T4; -LEVO500T4 PO
[2022-01-24 13:42] LABS: BASO % 0.4 % (0.0-1.0); EOS # 0.1 10^3/uL (0.0-0.5); EOS % 1.9 % (0.0-3.0); HEMATOCRIT 39.9 % (42.0-52.0); HEMOGLOBIN 13.1 g/dl (13.5-17.5); LYMPH # 0.8 10^3/uL (1.5-5.0); LYMPH % 13.6 % (24.0-44.0); MEAN CORPUSCULAR HEMOGLOBIN 31.7 pg (27.0-33.0); MEAN CORPUSCULAR HGB CONC 32.8 g/dl (32.0-36.5); MEAN CORPUSCULAR VOLUME 96.6 fl (80.0-96.0); MONO # 0.4 10^3/uL (0.0-0.8); MONO % 6.5 % (2.0-8.0); NEUTROPHILS # 4.4 10^3/uL (1.5-8.5); NEUTROPHILS % 77.1 % (36.0-66.0); PLATELET COUNT, AUTOMATED 176 10^3/uL (150-450); RED BLOOD COUNT 4.13 10^6/uL (4.30-6.10); WHITE BLOOD COUNT 5.7 10^3/uL (4.0-10.0)
[2022-01-24 14:07] LABS: ERYTHROCYTE SEDIMENTATION RATE 30 mm/hr (0-20)
[2022-01-24 14:15] LABS: C REACTIVE PROTEIN QUANTITATIV 0.7 MG/DL (0.00-0.30); CALCIUM LEVEL 9.1 MG/DL (8.8-10.2); CREATININE FOR GFR 1.85 MG/DL (0.70-1.30); GLOMERULAR FILTRATION RATE 38.1 (>42); POTASSIUM SERUM 4.2 MEQ/L (3.5-5.1)
== END ==
LOC: M WUC 09:27
PROVIDERS: ATTEND Internal Medicine Infectious Disease
DX: T84.50XD Infection and inflammatory reaction due to unspecified internal joint prosthesis, subsequent encounter (principal)

== ENCOUNTER → 2022-04-05 | Outpatient (CLI) | payer MEDICARE, OTHER ==
[~2022-04-05] MED LIST changes: -DOXY-350 PO; +DOXY-444 PO
== END ==
LOC: M WUC 09:45
PROVIDERS: ATTEND Urology
DX: N40.1 Benign prostatic hyperplasia with lower urinary tract symptoms (principal)

== ENCOUNTER → 2022-06-21 | Outpatient (CLI) | payer MEDICARE, OTHER ==
[2022-06-21 13:13] LABS: CREATININE FOR GFR 1.82 MG/DL (0.70-1.30); GLOMERULAR FILTRATION RATE 38.9 (>42)
== END ==
LOC: M WUC 09:30
PROVIDERS: ATTEND Internal Medicine Interventional Cardiology
DX: I48.92 Unspecified atrial flutter (principal)

== ENCOUNTER → 2022-07-31 | Outpatient (CLI) | payer MEDICARE, OTHER ==
[2022-07-31 17:15] LABS: FOLATE > 24.00 NG/ML (>5.4); THYROID STIMULATING HORMONE 1.157 uIU/ML (0.55-4.78)
[2022-07-31 17:16] LABS: FREE T4 1.03 NG/DL (0.89-1.76); VITAMIN B12 LEVEL 1110 PG/ML (211-911)
[2022-08-09 19:07] LABS: VITAMIN B1 LEVEL WHOLE BLOOD 190.9 nmol/L (66.5-200.0); VITAMIN B6,PYRIDOXAL PHOSPHATE 31.2 ug/L (3.4-65.2); VITAMIN E(ALPHA TOCOPHEROL) 12.3 mg/L (9.0-29.0); VITAMIN E(GAMMA TOCOPHEROL) 1.1 mg/L (0.5-4.9)
== END ==
LOC: M WUC 14:30
PROVIDERS: ATTEND Psychiatry & Neurology Neurology
DX: R41.3 Other amnesia (principal); E53.8 Deficiency of other specified B group vitamins

== ENCOUNTER 2022-10-25 20:17 | Inpatient (IN) | payer MEDICARE, OTHER ==
[~2022-10-25] VITALS: Ht 182.9 cm; Wt 99.2 kg
[~2022-10-25 20:17] MED LIST changes: -COSO1SOL3 OU; +DORZ10DR10 OU
[2022-10-25 21:36] LABS: VENOUS BASE EXCESS -2.9 (-2.0-2.0); VENOUS HCO3 21.2 MMOL/L (23.0-27.0); VENOUS O2 SATURATION 95.6 % (60.0-80.0); VENOUS PARTIAL PRESSURE CO2 34.5 mmHg (38.0-50.0); VENOUS PARTIAL PRESSURE O2 80.8 mmHg (30.0-50.0); VENOUS PH 7.406 UNITS (7.330-7.430); VENOUS TOTAL CO2 22.2 MMOL/L (24.0-28.0)
[2022-10-25 21:44] LABS: BASO % 0.1 % (0.0-1.0); EOS % 0.3 % (0.0-3.0); HEMATOCRIT 32.6 % (42.0-52.0); HEMOGLOBIN 10.8 g/dl (13.5-17.5); LYMPH # 0.4 10^3/uL (1.5-5.0); LYMPH % 5.1 % (24.0-44.0); MEAN CORPUSCULAR HEMOGLOBIN 30.8 pg (27.0-33.0); MEAN CORPUSCULAR HGB CONC 33.1 g/dl (32.0-36.5); MEAN CORPUSCULAR VOLUME 92.9 fl (80.0-96.0); MONO # 0.5 10^3/uL (0.0-0.8); MONO % 5.9 % (2.0-8.0); NEUTROPHILS # 7.6 10^3/uL (1.5-8.5); NEUTROPHILS % 87.8 % (36.0-66.0); PLATELET COUNT, AUTOMATED 180 10^3/uL (150-450); RED BLOOD COUNT 3.51 10^6/uL (4.30-6.10); WHITE BLOOD COUNT 8.7 10^3/uL (4.0-10.0)
[2022-10-25 21:56] LABS: HEMOGLOBIN A1c 7.8 % (4.0-6.0)
[2022-10-25 22:04] LABS: ACETONE/KETONE 0.18 MMOL/L (0.02-0.27)
[2022-10-25 22:09] LABS: BILIRUBIN,DIRECT 0.4 MG/DL (<0.4); BILIRUBIN,TOTAL 0.9 MG/DL (0.3-1.2); CALCIUM LEVEL 8.6 MG/DL (8.3-10.6); CK-MB VALUE MASS 1.1 NG/ML (<3.6); CREATININE FOR GFR 1.49 MG/DL (0.70-1.30); GLOMERULAR FILTRATION RATE 48.8 (>42); MB/CK RELATIVE INDEX 3.54 (< OR =4); TOTAL PROTEIN 6.2 G/DL (5.7-8.2)
[2022-10-25] MEDS ORDERED: HumuLIN R (REGULAR) INSULIN (NovoLIN R) **100U/ML** PER UNIT IV ONE (22:15)
[2022-10-26] VITALS (18 sets, daily range): BP systolic 136–145; BP diastolic 78–95; TEMP 96.1–98.2; O2SAT 88–100
[2022-10-26] MEDS: METOPROLOL 5 MG/5 ML VIAL IV SCH ×3 (00:13→05:30)
[2022-10-26] MEDS ORDERED: METOPROLOL TART 25 MG TABLET PO ONE (01:20)
[2022-10-26 02:05] LABS: CK-MB VALUE MASS < 1.0 NG/ML (<3.6)
[2022-10-26] MEDS ORDERED: DEXTROSE 50% 50ML SYRINGE IV PRN (02:10)
[2022-10-26] MEDS ORDERED: GLUCAGON INJ 1MG VIAL SC PRN (02:10)
[2022-10-26] MEDS ORDERED: GLUCOSE 4GM CHEW TABLET PO PRN (02:10)
[2022-10-26] MEDS ORDERED: ACETAMINOPHEN TAB 650MG DOSE (2X325MG) PO PRN (02:10)
[2022-10-26 02:12] LABS: CPK CREATINE PHOSPHOKINASE 27 U/L (46-171)
[2022-10-26] MEDS ORDERED: COMBIVENT RESPIMAT 100-20MCG INHALER 4GM INH PRN (02:20)
[2022-10-26] MEDS ORDERED: FEBU40TA4 PO (03:09)
[2022-10-26] MEDS ORDERED: ELIQ5TAB PO (03:09)
[2022-10-26] MEDS ORDERED: FINA5TAB2 PO (03:09)
[2022-10-26] MEDS ORDERED: PRAV20TA2 PO (03:09)
[2022-10-26] MEDS ORDERED: IPRA0.00 INH (03:09)
[2022-10-26] MEDS ORDERED: BRIM0.2S13 OU (03:09)
[2022-10-26] MEDS ORDERED: LOSA50TA28 PO (03:09)
[2022-10-26] MEDS ORDERED: NOVOINJ3 SC (03:09)
[2022-10-26] MEDS ORDERED: ASPI-655 PO (03:09)
[2022-10-26] MEDS ORDERED: AMOX875T2 PO (03:09)
[2022-10-26] MEDS ORDERED: TRES1INJ SC (03:09)
[2022-10-26] MEDS ORDERED: ADV500INH INH (03:09)
[2022-10-26] MEDS ORDERED: RHOP0.02 OU (03:09)
[2022-10-26] MEDS ORDERED: METO25TA4 PO (03:09)
[2022-10-26] MEDS ORDERED: ALLO100T PO (03:09)
[2022-10-26] MEDS ORDERED: VITA500T41 PO (03:09)
[2022-10-26] MEDS ORDERED: FURO20TA2 PO (03:09)
[2022-10-26] MEDS ORDERED: ZINC220CA PO (03:09)
[2022-10-26] MEDS ORDERED: RISATAB3 PO (03:09)
[2022-10-26] MEDS ORDERED: FLOM0.4C39 PO (03:09)
[2022-10-26] MEDS ORDERED: ERGO500029 PO (03:12)
[2022-10-26] MEDS: PIPERACILLIN/TAZOBACTAM SOD 4.5 GM in D5W MINI-BAG PLUS 50 ML IV SCH ×2 (03:20→10:02)
[2022-10-26] MEDS ORDERED: MED REC IN PROGRESS XX SCH (03:35)
[2022-10-26] MEDS ORDERED: METOPROLOL 5 MG/5 ML VIAL IV STA (05:06)
[2022-10-26 05:48] LABS: HEMATOCRIT 34.4 % (42.0-52.0); HEMOGLOBIN 11.1 g/dl (13.5-17.5); MEAN CORPUSCULAR HEMOGLOBIN 29.8 pg (27.0-33.0); MEAN CORPUSCULAR HGB CONC 32.3 g/dl (32.0-36.5); MEAN CORPUSCULAR VOLUME 92.2 fl (80.0-96.0); PLATELET COUNT, AUTOMATED 189 10^3/uL (150-450); RED BLOOD COUNT 3.73 10^6/uL (4.30-6.10); WHITE BLOOD COUNT 10.8 10^3/uL (4.0-10.0)
[2022-10-26] MEDS ORDERED: METOPROLOL TART 25 MG TABLET PO SCH (06:00)
[2022-10-26] MEDS ORDERED: IPRATROPIUM 0.5MG/ALBUTEROL 2.5MG INH SOL UD 3ML (DUONEB) NEB ONE (06:00)
[2022-10-26 06:28] LABS: CALCIUM LEVEL 7.4 MG/DL (8.3-10.6); CREATININE FOR GFR 1.25 MG/DL (0.70-1.30); GLOMERULAR FILTRATION RATE 59.8 (>42); MAGNESIUM LEVEL 1.8 MG/DL (1.8-2.4); POTASSIUM SERUM 3.6 MMOL/L (3.5-5.1)
[2022-10-26] MEDS ORDERED: HOME MED LIST COMPLETE! XX SCH (06:40)
[2022-10-26] MEDS ORDERED: INSULIN LISPRO (NovoLOG) PER UNIT SC SCH ×2 (07:30→21:00)
[2022-10-26] MEDS ORDERED: atenoloL 50 MG TAB PO ONE (08:40)
[2022-10-26] MEDS ORDERED: atenoloL 25 MG TAB PO ONE (08:45)
[2022-10-26] MEDS: IPRATROPIUM 0.5MG/ALBUTEROL 2.5MG INH SOL UD 3ML (DUONEB) INH SCH ×3 (08:55→19:50)
[2022-10-26] MEDS ORDERED: LEVEMIR (INSULIN DETEMIR) 1 UNITS/0.01ML SC SCH (09:00)
[2022-10-26] MEDS: guaiFENesin ER 600 MG TAB PO SCH ×3 (10:03→21:00)
[2022-10-26] MEDS: ASPIRIN 81MG CHEW TABLET PO SCH (10:03)
[2022-10-26] MEDS: FINASTERIDE 5MG TAB PO SCH (10:03)
[2022-10-26] MEDS: MULTIVITAMINS/MINERALS THERAP 1 TAB PO SCH (10:03)
[2022-10-26] MEDS: allopurinoL 100 MG TAB PO SCH (10:04)
[2022-10-26] MEDS: ZINC SULFATE 220 MG CAP PO SCH (10:04)
[2022-10-26] MEDS: CYANOCOBALAMIN 500 MCG TAB PO SCH (10:04)
[2022-10-26] MEDS: COSOPT OCUMETER PLUS 10ML (DORZOLAMIDE/TIMOLOL) OU SCH ×3 (10:05→21:00)
[2022-10-26] MEDS: APIXABAN 5 MG TAB (ELIQUIS) PO SCH ×3 (10:05→21:00)
[2022-10-26] MEDS: TAMSULOSIN 0.4 MG CAP PO SCH ×3 (10:05→21:00)
[2022-10-26] MEDS: LACTOBACILLUS ACIDOPHILUS CAP (BACID) PO SCH ×4 (12:54→21:00)
[2022-10-26] MEDS ORDERED: FUROSEMIDE 100MG/10ML VIAL IV ONE (12:55)
[2022-10-26] MEDS: INSULIN LISPRO (NovoLOG) PER UNIT SC SCH ×2 (12:55→17:30)
[2022-10-26] MEDS ORDERED: INSULIN LISPRO (NovoLOG) PER UNIT SC ONE (13:00)
[2022-10-26] MEDS ORDERED: LEVEMIR (INSULIN DETEMIR) 1 UNITS/0.01ML SC ONE (13:00)
[2022-10-26 13:18] LABS: ABG HCO3 21.5 MMOL/L (22.0-26.0); ABG O2 SATURATION 94.8 % (95.0-99.0); ABG PARTIAL PRESSURE CO2 29.2 mmHg (35.0-45.0); ABG PARTIAL PRESSURE O2 73.7 mmHg (75.0-100.0); ABG STANDARD HCO3 23.6 MMOL/L. (22.0-26.0); ABG TOTAL CO2 22.4 MMOL/L (23.0-31.0); ABG pH (ARTERIAL) 7.485 UNITS (7.350-7.450)
[2022-10-26] MEDS ORDERED: methylPREDNISolone 125MG 2ML VIAL IV ONE (14:00)
[2022-10-26 14:16] LABS: C REACTIVE PROTEIN QUANTITATIV 14.2 MG/DL (<1.0)
[2022-10-26 14:16] LABS: CK-MB VALUE MASS < 1.0 NG/ML (<3.6)
[2022-10-26 14:17] LABS: CPK CREATINE PHOSPHOKINASE 20 U/L (46-171)
[2022-10-26] MEDS: DOXYCYCLINE HYCLATE 100 MG in D5W MINI-BAG PLUS 100 ML IV SCH (15:33)
[2022-10-26] MEDS: FUROSEMIDE 40MG/4ML VIAL IV SCH ×2 (16:57→23:42)
[2022-10-26] MEDS: cefTRIAXone SOD 2 GM in D5W MINI-BAG PLUS 50 ML IV SCH (16:57)
[2022-10-26] MEDS: PRAVASTATIN 20 MG TAB PO SCH ×2 (20:47→21:00)
[2022-10-26] MEDS: atenoloL 50 MG TAB PO SCH ×2 (20:47→21:00)
[2022-10-26] MEDS: methylPREDNISolone 40MG 1ML VIAL IV SCH (23:42)
[2022-10-27] VITALS (10 sets, daily range): BP systolic 124–140; BP diastolic 67–75; TEMP 97–97.7; O2SAT 93–99
[2022-10-27] MEDS: DOXYCYCLINE HYCLATE 100 MG in D5W MINI-BAG PLUS 100 ML IV SCH ×2 (02:50→15:27)
[2022-10-27] MEDS: FUROSEMIDE 40MG/4ML VIAL IV SCH ×4 (05:30→23:30)
[2022-10-27 05:50] LABS: CALCIUM LEVEL 8.7 MG/DL (8.3-10.6); CREATININE FOR GFR 1.46 MG/DL (0.70-1.30); MAGNESIUM LEVEL 1.9 MG/DL (1.8-2.4); POTASSIUM SERUM 3.6 MMOL/L (3.5-5.1)
[2022-10-27] MEDS: IPRATROPIUM 0.5MG/ALBUTEROL 2.5MG INH SOL UD 3ML (DUONEB) INH SCH ×3 (07:39→19:36)
[2022-10-27] MEDS: LACTOBACILLUS ACIDOPHILUS CAP (BACID) PO SCH ×4 (07:58→20:31)
[2022-10-27] MEDS: FINASTERIDE 5MG TAB PO SCH (07:58)
[2022-10-27] MEDS: ZINC SULFATE 220 MG CAP PO SCH (07:58)
[2022-10-27] MEDS: INSULIN LISPRO (NovoLOG) PER UNIT SC SCH ×3 (07:58→17:22)
[2022-10-27] MEDS: TAMSULOSIN 0.4 MG CAP PO SCH ×2 (07:58→20:31)
[2022-10-27] MEDS: MULTIVITAMINS/MINERALS THERAP 1 TAB PO SCH (07:58)
[2022-10-27] MEDS: ASPIRIN 81MG CHEW TABLET PO SCH (07:58)
[2022-10-27] MEDS: COSOPT OCUMETER PLUS 10ML (DORZOLAMIDE/TIMOLOL) OU SCH ×2 (07:59→20:31)
[2022-10-27] MEDS: guaiFENesin ER 600 MG TAB PO SCH ×2 (07:59→20:31)
[2022-10-27] MEDS: allopurinoL 100 MG TAB PO SCH (07:59)
[2022-10-27] MEDS: CYANOCOBALAMIN 500 MCG TAB PO SCH (07:59)
[2022-10-27] MEDS: APIXABAN 5 MG TAB (ELIQUIS) PO SCH ×2 (07:59→20:31)
[2022-10-27] MEDS: atenoloL 50 MG TAB PO SCH ×2 (08:01→20:31)
[2022-10-27 08:36] LABS: TOTAL PROTEIN 6.2 G/DL (5.7-8.2)
[2022-10-27] MEDS: methylPREDNISolone 40MG 1ML VIAL IV SCH ×2 (11:59→23:29)
[2022-10-27] MEDS: cefTRIAXone SOD 2 GM in D5W MINI-BAG PLUS 50 ML IV SCH (16:42)
[2022-10-27] MEDS: PRAVASTATIN 20 MG TAB PO SCH (20:31)
[2022-10-27] MEDS ORDERED: LEVEMIR (INSULIN DETEMIR) 1 UNITS/0.01ML SC SCH ×2 (21:00)
[2022-10-28] VITALS (8 sets, daily range): BP systolic 96–141; BP diastolic 64–93; TEMP 96.9–98; O2SAT 96–100
[2022-10-28] MEDS: DOXYCYCLINE HYCLATE 100 MG in D5W MINI-BAG PLUS 100 ML IV SCH (03:01)
[2022-10-28] MEDS: FUROSEMIDE 40MG/4ML VIAL IV SCH (04:37)
[2022-10-28] MEDS: IPRATROPIUM 0.5MG/ALBUTEROL 2.5MG INH SOL UD 3ML (DUONEB) INH SCH ×3 (06:54→19:44)
[2022-10-28 07:12] LABS: CALCIUM LEVEL 8.7 MG/DL (8.3-10.6); CREATININE FOR GFR 1.34 MG/DL (0.70-1.30); GLOMERULAR FILTRATION RATE 55.2 (>42); MAGNESIUM LEVEL 1.8 MG/DL (1.8-2.4); POTASSIUM SERUM 3.4 MMOL/L (3.5-5.1)
[2022-10-28] MEDS ORDERED: CALCIUM GLUCONATE 1,000 MG in D5W MINI-BAG PLUS 100 ML IV ONE (08:00)
[2022-10-28] MEDS: INSULIN LISPRO (NovoLOG) PER UNIT SC SCH (08:40)
[2022-10-28] MEDS: TAMSULOSIN 0.4 MG CAP PO SCH ×2 (08:40→21:03)
[2022-10-28] MEDS: MULTIVITAMINS/MINERALS THERAP 1 TAB PO SCH (08:40)
[2022-10-28] MEDS: CYANOCOBALAMIN 500 MCG TAB PO SCH (08:41)
[2022-10-28] MEDS: FINASTERIDE 5MG TAB PO SCH (08:41)
[2022-10-28] MEDS: LACTOBACILLUS ACIDOPHILUS CAP (BACID) PO SCH ×4 (08:41→21:03)
[2022-10-28] MEDS: APIXABAN 5 MG TAB (ELIQUIS) PO SCH ×2 (08:41→21:03)
[2022-10-28] MEDS: ZINC SULFATE 220 MG CAP PO SCH (08:41)
[2022-10-28] MEDS: ASPIRIN 81MG CHEW TABLET PO SCH (08:41)
[2022-10-28] MEDS: COSOPT OCUMETER PLUS 10ML (DORZOLAMIDE/TIMOLOL) OU SCH ×2 (08:42→21:03)
[2022-10-28] MEDS: allopurinoL 100 MG TAB PO SCH (08:42)
[2022-10-28] MEDS: atenoloL 50 MG TAB PO SCH (08:42)
[2022-10-28] MEDS: guaiFENesin ER 600 MG TAB PO SCH ×2 (08:42→21:03)
[2022-10-28] MEDS ORDERED: MAG SULF 1GM/100ML (MAG RUN) 1 GM in IV 1 EA IV ONE (09:00)
[2022-10-28] MEDS ORDERED: POTASSIUM CHLORIDE 10MEQ SR TABLET PO ONE (09:00)
[2022-10-28] MEDS ORDERED: LEVEMIR (INSULIN DETEMIR) 1 UNITS/0.01ML SC ONE (13:00)
[2022-10-28] MEDS: FUROSEMIDE injection 250 MG in D5W 225 ML IV SCH (13:16)
[2022-10-28] MEDS: DOXYCYCLINE HYCLATE 100MG TABLET PO SCH ×2 (13:17→21:03)
[2022-10-28] MEDS: cefTRIAXone SOD 2 GM in D5W MINI-BAG PLUS 50 ML IV SCH (16:38)
[2022-10-28] MEDS ORDERED: INSULIN LISPRO (NovoLOG) PER UNIT SC ONE ×2 (18:10→20:00)
[2022-10-28 19:05] LABS: CALCIUM LEVEL 8.8 MG/DL (8.3-10.6); CREATININE FOR GFR 1.35 MG/DL (0.70-1.30); GLOMERULAR FILTRATION RATE 54.7 (>42); MAGNESIUM LEVEL 1.8 MG/DL (1.8-2.4); POTASSIUM SERUM 3.7 MMOL/L (3.5-5.1)
[2022-10-28] MEDS: PRAVASTATIN 20 MG TAB PO SCH (21:03)
[2022-10-29] VITALS (16 sets, daily range): BP systolic 111–166; BP diastolic 64–93; TEMP 96.7–97.3; O2SAT 92–100
[2022-10-29 05:15] LABS: CALCIUM LEVEL 8.4 MG/DL (8.3-10.6); CREATININE FOR GFR 1.34 MG/DL (0.70-1.30); GLOMERULAR FILTRATION RATE 55.2 (>42); MAGNESIUM LEVEL 1.8 MG/DL (1.8-2.4); POTASSIUM SERUM 3.2 MMOL/L (3.5-5.1)
[2022-10-29] MEDS ORDERED: INSULIN LISPRO (NovoLOG) PER UNIT SC SCH (07:30)
[2022-10-29] MEDS ORDERED: LEVEMIR (INSULIN DETEMIR) 1 UNITS/0.01ML SC SCH ×2 (09:00→21:00)
[2022-10-29] MEDS: APIXABAN 5 MG TAB (ELIQUIS) PO SCH ×2 (09:00→21:00)
[2022-10-29] MEDS: IPRATROPIUM 0.5MG/ALBUTEROL 2.5MG INH SOL UD 3ML (DUONEB) INH SCH ×3 (09:15→20:07)
[2022-10-29] MEDS: POTASSIUM CHLORIDE 10MEQ SR TABLET PO SCH (09:23)
[2022-10-29] MEDS: guaiFENesin ER 600 MG TAB PO SCH ×2 (09:25→21:00)
[2022-10-29] MEDS: MULTIVITAMINS/MINERALS THERAP 1 TAB PO SCH (09:25)
[2022-10-29] MEDS: LACTOBACILLUS ACIDOPHILUS CAP (BACID) PO SCH ×4 (09:25→21:00)
[2022-10-29] MEDS: ASPIRIN 81MG CHEW TABLET PO SCH (09:25)
[2022-10-29] MEDS: TAMSULOSIN 0.4 MG CAP PO SCH ×2 (09:25→21:00)
[2022-10-29] MEDS: allopurinoL 100 MG TAB PO SCH (09:26)
[2022-10-29] MEDS: FINASTERIDE 5MG TAB PO SCH (09:26)
[2022-10-29] MEDS: ZINC SULFATE 220 MG CAP PO SCH (09:27)
[2022-10-29] MEDS: COSOPT OCUMETER PLUS 10ML (DORZOLAMIDE/TIMOLOL) OU SCH ×3 (09:27→21:01)
[2022-10-29] MEDS: CYANOCOBALAMIN 500 MCG TAB PO SCH (09:27)
[2022-10-29] MEDS: DOXYCYCLINE HYCLATE 100MG TABLET PO SCH ×2 (09:27→21:00)
[2022-10-29] MEDS: METOPROLOL SUCC (TopROL XL) 100MG *XL* TAB PO SCH (09:27)
[2022-10-29] MEDS: FUROSEMIDE injection 250 MG in D5W 225 ML IV SCH (13:28)
[2022-10-29] MEDS ORDERED: PILL CUTTER 1 EACH XX PRN (14:15)
[2022-10-29 15:00] LABS: PH BODY FLUID 7.712 UNITS (NOT ESTABLISHED); SOURCE, BODY FLUID pH PLEURAL
[2022-10-29 15:09] LABS: SOURCE, BODY FLUID PLEURAL
[2022-10-29 15:10] LABS: APPEARANCE, BODY FLUID HAZY (CLEAR); PLEURAL FL COLOR AMBER (COLORLESS)
[2022-10-29 15:34] LABS: SOURCE, BODY FLUID ALBUMIN PLEURAL
[2022-10-29 15:39] LABS: SOURCE, BODY FLUID GLUCOSE PLEURAL; SOURCE, BODY FLUID TRIG PLEURAL; TRIGLYCERIDE, BODY FLUID 19 MG/DL (NOT ESTABLISHED)
[2022-10-29 15:40] LABS: LDH, BODY FLUID 79 U/L (NOT ESTABLISHED); SOURCE, BODY FLUID LDH PLEURAL
[2022-10-29 15:41] LABS: AMYLASE, BODY FLUID < 20 U/L (NOT ESTABLISHED); CHOLESTEROL, BODY FLUID 49 MG/DL (NOT ESTABLISHED); SOURCE, BODY FLUID AMYLASE PLEURAL; SOURCE, BODY FLUID CHOL PLEURAL; SOURCE, BODY FLUID TOT PROTEIN PLEURAL; TOTAL PROTEIN, BODY FLUID 3.2 G/DL (NOT ESTABLISHED)
[2022-10-29] MEDS: DAPAGLIFLOZIN PROPANEDIOL 10MG TABLET (FARXIGA) PO SCH (16:33)
[2022-10-29] MEDS: CEFDINIR 300 MG CAP (OMNICEF) PO SCH (16:33)
[2022-10-29] MEDS: INSULIN LISPRO (NovoLOG) PER UNIT SC SCH (21:00)
[2022-10-29] MEDS: PRAVASTATIN 20 MG TAB PO SCH (21:00)
[2022-10-30] VITALS (31 sets, daily range): BP systolic 110–136; BP diastolic 63–83; TEMP 96.9–97.7; O2SAT 76–100
[2022-10-30] MEDS: CEFDINIR 300 MG CAP (OMNICEF) PO SCH (06:06)
[2022-10-30 07:06] LABS: CALCIUM LEVEL 8.6 MG/DL (8.3-10.6); CREATININE FOR GFR 1.4 MG/DL (0.70-1.30); GLOMERULAR FILTRATION RATE 52.5 (>42); MAGNESIUM LEVEL 1.8 MG/DL (1.8-2.4); POTASSIUM SERUM 3.7 MMOL/L (3.5-5.1)
[2022-10-30] MEDS: IPRATROPIUM 0.5MG/ALBUTEROL 2.5MG INH SOL UD 3ML (DUONEB) INH SCH ×3 (07:30→19:26)
[2022-10-30] MEDS: INSULIN LISPRO (NovoLOG) PER UNIT SC SCH ×4 (07:30→20:18)
[2022-10-30] MEDS: APIXABAN 5 MG TAB (ELIQUIS) PO SCH ×2 (08:51→20:18)
[2022-10-30] MEDS: ROSUVASTATIN 10 MG TAB (CRESTOR) PO SCH (08:51)
[2022-10-30] MEDS: MULTIVITAMINS/MINERALS THERAP 1 TAB PO SCH (08:51)
[2022-10-30] MEDS: ZINC SULFATE 220 MG CAP PO SCH (08:51)
[2022-10-30] MEDS: TAMSULOSIN 0.4 MG CAP PO SCH ×2 (08:51→20:17)
[2022-10-30] MEDS: guaiFENesin ER 600 MG TAB PO SCH ×2 (08:51→20:18)
[2022-10-30] MEDS: LACTOBACILLUS ACIDOPHILUS CAP (BACID) PO SCH ×4 (08:51→20:17)
[2022-10-30] MEDS: ASPIRIN 81MG CHEW TABLET PO SCH (08:52)
[2022-10-30] MEDS: allopurinoL 100 MG TAB PO SCH (08:52)
[2022-10-30] MEDS: FINASTERIDE 5MG TAB PO SCH (08:52)
[2022-10-30] MEDS: DOXYCYCLINE HYCLATE 100MG TABLET PO SCH (08:52)
[2022-10-30] MEDS: COSOPT OCUMETER PLUS 10ML (DORZOLAMIDE/TIMOLOL) OU SCH ×2 (08:52→20:18)
[2022-10-30] MEDS: CYANOCOBALAMIN 500 MCG TAB PO SCH (08:52)
[2022-10-30] MEDS: METOPROLOL SUCC (TopROL XL) 100MG *XL* TAB PO SCH (08:53)
[2022-10-30] MEDS: POTASSIUM CHLORIDE 10MEQ SR TABLET PO SCH (08:53)
[2022-10-30] MEDS: DAPAGLIFLOZIN PROPANEDIOL 10MG TABLET (FARXIGA) PO SCH (08:53)
[2022-10-30] MEDS ORDERED: LOSARTAN 50MG TABLET PO SCH (09:00)
[2022-10-30 09:16] LABS: BASO % 0.1 % (0.0-1.0); EOS # 0.1 10^3/uL (0.0-0.5); EOS % 0.6 % (0.0-3.0); HEMATOCRIT 40.9 % (42.0-52.0); HEMOGLOBIN 13.4 g/dl (13.5-17.5); LYMPH # 0.5 10^3/uL (1.5-5.0); LYMPH % 4.9 % (24.0-44.0); MEAN CORPUSCULAR HEMOGLOBIN 30.1 pg (27.0-33.0); MEAN CORPUSCULAR HGB CONC 32.8 g/dl (32.0-36.5); MEAN CORPUSCULAR VOLUME 91.9 fl (80.0-96.0); MONO # 0.7 10^3/uL (0.0-0.8); MONO % 6.3 % (2.0-8.0); NEUTROPHILS # 9.4 10^3/uL (1.5-8.5); NEUTROPHILS % 87.5 % (36.0-66.0); PLATELET COUNT, AUTOMATED 289 10^3/uL (150-450); RED BLOOD COUNT 4.45 10^6/uL (4.30-6.10); WHITE BLOOD COUNT 10.8 10^3/uL (4.0-10.0)
[2022-10-30 09:53] LABS: ALBUMIN 3.1 G/DL (3.2-5.2); BILIRUBIN,DIRECT 0.3 MG/DL (<0.4); BILIRUBIN,TOTAL 0.6 MG/DL (0.3-1.2); TOTAL PROTEIN 6.4 G/DL (5.7-8.2)
[2022-10-30] MEDS ORDERED: METOPROLOL SUCC (TopROL XL) 50MG **XL** TAB PO ONE (10:30)
[2022-10-30] MEDS: FUROSEMIDE 40 MG TAB PO SCH (11:38)
[2022-10-30] MEDS ORDERED: ADVAIR HFA 230/21MCG INHALER INH PRN (12:15)
[2022-10-30] MEDS: LevoFLOXacin 750 MG TABLET PO SCH (14:08)
[2022-10-30 15:08] LABS: BODY FLUID CULTURE Not indicated. (.); LEGIONELLA ANTIGEN URINE Negative (Negative); ORGANISM ID Not indicated. (.); SPECIMEN SOURCE Urine (.); URINE STREP PNEUMONIAE ANTIGEN Negative (Negative)
[2022-10-30] MEDS: LEVEMIR (INSULIN DETEMIR) 1 UNITS/0.01ML SC SCH (20:17)
[2022-10-31] VITALS (30 sets, daily range): BP systolic 105–131; BP diastolic 59–86; TEMP 97–98.8; O2SAT 92–100
[2022-10-31 06:05] LABS: CALCIUM LEVEL 8.4 MG/DL (8.3-10.6); CREATININE FOR GFR 1.58 MG/DL (0.70-1.30); GLOMERULAR FILTRATION RATE 45.6 (>42); MAGNESIUM LEVEL 1.8 MG/DL (1.8-2.4); POTASSIUM SERUM 3.8 MMOL/L (3.5-5.1)
[2022-10-31] MEDS: INSULIN LISPRO (NovoLOG) PER UNIT SC SCH ×4 (07:30→21:51)
[2022-10-31] MEDS: IPRATROPIUM 0.5MG/ALBUTEROL 2.5MG INH SOL UD 3ML (DUONEB) INH SCH ×3 (07:37→19:25)
[2022-10-31] MEDS ORDERED: FARX1TAB3 PO ×2 (07:58→14:50)
[2022-10-31] MEDS ORDERED: ENTR1TAB PO ×2 (07:58→14:50)
[2022-10-31] MEDS ORDERED: metFORMIN (GLUCOPHAGE) 500MG TAB PO SCH (08:00)
[2022-10-31] MEDS: APIXABAN 5 MG TAB (ELIQUIS) PO SCH ×2 (08:22→21:50)
[2022-10-31] MEDS: guaiFENesin ER 600 MG TAB PO SCH ×2 (08:22→21:50)
[2022-10-31] MEDS: MULTIVITAMINS/MINERALS THERAP 1 TAB PO SCH (08:22)
[2022-10-31] MEDS: ZINC SULFATE 220 MG CAP PO SCH (08:23)
[2022-10-31] MEDS: LACTOBACILLUS ACIDOPHILUS CAP (BACID) PO SCH ×4 (08:23→21:50)
[2022-10-31] MEDS: COSOPT OCUMETER PLUS 10ML (DORZOLAMIDE/TIMOLOL) OU SCH ×3 (08:23→21:51)
[2022-10-31] MEDS: allopurinoL 100 MG TAB PO SCH (08:23)
[2022-10-31] MEDS: CYANOCOBALAMIN 500 MCG TAB PO SCH (08:23)
[2022-10-31] MEDS: LevoFLOXacin 750 MG TABLET PO SCH (08:23)
[2022-10-31] MEDS: ASPIRIN 81MG CHEW TABLET PO SCH (08:24)
[2022-10-31] MEDS: ENTRESTO 24-26MG TABLET (SACUBITRIL/VALSARTAN) PO SCH ×2 (08:24→21:50)
[2022-10-31] MEDS: ROSUVASTATIN 10 MG TAB (CRESTOR) PO SCH (08:24)
[2022-10-31] MEDS: FUROSEMIDE 40 MG TAB PO SCH (08:25)
[2022-10-31] MEDS: DAPAGLIFLOZIN PROPANEDIOL 10MG TABLET (FARXIGA) PO SCH (08:25)
[2022-10-31] MEDS: POTASSIUM CHLORIDE 10MEQ SR TABLET PO SCH (08:25)
[2022-10-31] MEDS: FINASTERIDE 5MG TAB PO SCH (08:25)
[2022-10-31] MEDS: TAMSULOSIN 0.4 MG CAP PO SCH ×2 (08:25→21:50)
[2022-10-31] MEDS: METOPROLOL SUCC (TopROL XL) 50MG **XL** TAB PO SCH (08:26)
[2022-10-31] MEDS ORDERED: SPIRONOLACTONE 12.5MG PER 1/2 TABLET PO SCH (09:00)
[2022-10-31] MEDS ORDERED: TRUL10IN SC ×2 (10:32→14:50)
[2022-10-31] MEDS ORDERED: OZEM2INJ SC ×2 (10:32→14:50)
[2022-10-31] MEDS: LEVEMIR (INSULIN DETEMIR) 1 UNITS/0.01ML SC SCH (21:51)
[2022-10-31] MEDS ORDERED: LEVEMIR (INSULIN DETEMIR) 1 UNITS/0.01ML SC ONE (23:00)
[2022-11-01] VITALS (25 sets, daily range): BP systolic 96–120; BP diastolic 60–68; TEMP 96.8–98.6; O2SAT 87–99
[2022-11-01 06:24] LABS: CALCIUM LEVEL 9.4 MG/DL (8.3-10.6); CREATININE FOR GFR 1.99 MG/DL (0.70-1.30); POTASSIUM SERUM 4.3 MMOL/L (3.5-5.1)
[2022-11-01] MEDS: INSULIN LISPRO (NovoLOG) PER UNIT SC SCH ×4 (07:30→21:36)
[2022-11-01] MEDS: IPRATROPIUM 0.5MG/ALBUTEROL 2.5MG INH SOL UD 3ML (DUONEB) INH SCH ×3 (08:06→19:41)
[2022-11-01] MEDS ORDERED: DAPAGLIFLOZIN PROPANEDIOL 10MG TABLET (FARXIGA) PO SCH ×2 (09:00)
[2022-11-01] MEDS: MULTIVITAMINS/MINERALS THERAP 1 TAB PO SCH ×2 (09:00→09:04)
[2022-11-01] MEDS: guaiFENesin ER 600 MG TAB PO SCH ×3 (09:00→21:00)
[2022-11-01] MEDS: ROSUVASTATIN 10 MG TAB (CRESTOR) PO SCH (09:03)
[2022-11-01] MEDS: FINASTERIDE 5MG TAB PO SCH (09:04)
[2022-11-01] MEDS: CYANOCOBALAMIN 500 MCG TAB PO SCH (09:04)
[2022-11-01] MEDS: POTASSIUM CHLORIDE 10MEQ SR TABLET PO SCH (09:04)
[2022-11-01] MEDS: TAMSULOSIN 0.4 MG CAP PO SCH ×2 (09:04→21:00)
[2022-11-01] MEDS: allopurinoL 100 MG TAB PO SCH (09:04)
[2022-11-01] MEDS: LACTOBACILLUS ACIDOPHILUS CAP (BACID) PO SCH ×4 (09:04→21:00)
[2022-11-01] MEDS: LevoFLOXacin 750 MG TABLET PO SCH (09:04)
[2022-11-01] MEDS: APIXABAN 5 MG TAB (ELIQUIS) PO SCH ×2 (09:05→21:00)
[2022-11-01] MEDS: ZINC SULFATE 220 MG CAP PO SCH (09:05)
[2022-11-01] MEDS: METOPROLOL SUCC (TopROL XL) 50MG **XL** TAB PO SCH (09:05)
[2022-11-01] MEDS: ASPIRIN 81MG CHEW TABLET PO SCH (09:05)
[2022-11-01] MEDS: COSOPT OCUMETER PLUS 10ML (DORZOLAMIDE/TIMOLOL) OU SCH ×2 (09:06→21:00)
[2022-11-01] MEDS ORDERED: METOPROLOL SUCC (TopROL XL) 50MG **XL** TAB PO ONE (13:30)
[2022-11-01] MEDS: LEVEMIR (INSULIN DETEMIR) 1 UNITS/0.01ML SC SCH (21:36)
[2022-11-02] VITALS (14 sets, daily range): BP systolic 117–126; BP diastolic 66–78; TEMP 97.9–98.6; O2SAT 94–100
[2022-11-02 06:21] LABS: HEMATOCRIT 37.5 % (42.0-52.0); MEAN CORPUSCULAR HEMOGLOBIN 29.3 pg (27.0-33.0); MEAN CORPUSCULAR VOLUME 91.7 fl (80.0-96.0); PLATELET COUNT, AUTOMATED 239 10^3/uL (150-450); RED BLOOD COUNT 4.09 10^6/uL (4.30-6.10); WHITE BLOOD COUNT 11.3 10^3/uL (4.0-10.0)
[2022-11-02 06:47] LABS: CALCIUM LEVEL 8.3 MG/DL (8.3-10.6); CREATININE FOR GFR 2.19 MG/DL (0.70-1.30); GLOMERULAR FILTRATION RATE 31.3 (>42); MAGNESIUM LEVEL 1.9 MG/DL (1.8-2.4); POTASSIUM SERUM 4.6 MMOL/L (3.5-5.1)
[2022-11-02] MEDS: IPRATROPIUM 0.5MG/ALBUTEROL 2.5MG INH SOL UD 3ML (DUONEB) INH SCH ×3 (07:17→20:18)
[2022-11-02] MEDS ORDERED: LR 500 ML IV SCH (07:55)
[2022-11-02] MEDS: LACTOBACILLUS ACIDOPHILUS CAP (BACID) PO SCH ×4 (08:48→20:46)
[2022-11-02] MEDS: INSULIN LISPRO (NovoLOG) PER UNIT SC SCH ×4 (08:48→20:53)
[2022-11-02] MEDS: CYANOCOBALAMIN 500 MCG TAB PO SCH (08:48)
[2022-11-02] MEDS: MULTIVITAMINS/MINERALS THERAP 1 TAB PO SCH (08:48)
[2022-11-02] MEDS: TAMSULOSIN 0.4 MG CAP PO SCH ×2 (08:48→20:46)
[2022-11-02] MEDS: APIXABAN 5 MG TAB (ELIQUIS) PO SCH ×2 (08:48→20:45)
[2022-11-02] MEDS: guaiFENesin ER 600 MG TAB PO SCH ×2 (08:49→20:45)
[2022-11-02] MEDS: ASPIRIN 81MG CHEW TABLET PO SCH (08:49)
[2022-11-02] MEDS: FINASTERIDE 5MG TAB PO SCH (08:49)
[2022-11-02] MEDS: ZINC SULFATE 220 MG CAP PO SCH (08:49)
[2022-11-02] MEDS: METOPROLOL SUCC (TopROL XL) 100MG *XL* TAB PO SCH (08:49)
[2022-11-02] MEDS: ROSUVASTATIN 10 MG TAB (CRESTOR) PO SCH (08:49)
[2022-11-02] MEDS: LevoFLOXacin 750 MG TABLET PO SCH (08:49)
[2022-11-02] MEDS: POTASSIUM CHLORIDE 10MEQ SR TABLET PO SCH (08:50)
[2022-11-02] MEDS: COSOPT OCUMETER PLUS 10ML (DORZOLAMIDE/TIMOLOL) OU SCH ×2 (08:51→20:47)
[2022-11-02] MEDS ORDERED: INSULIN LISPRO (NovoLOG) PER UNIT SC SCH (12:00)
[2022-11-02] MEDS ORDERED: OMEPRAZOLE 20MG CAP PO ONE (20:05)
[2022-11-02] MEDS ORDERED: ONDANSETRON 4MG 2ML VIAL IV ONE (20:20)
[2022-11-02] MEDS: LEVEMIR (INSULIN DETEMIR) 1 UNITS/0.01ML SC SCH (20:44)
[2022-11-02 21:26] LABS: ALBUMIN 2.5 G/DL (3.2-5.2); BILIRUBIN,TOTAL 0.7 MG/DL (0.3-1.2); CALCIUM LEVEL 8.4 MG/DL (8.3-10.6); CREATININE FOR GFR 2.14 MG/DL (0.70-1.30); GLOMERULAR FILTRATION RATE 32.1 (>42); POTASSIUM SERUM 5.1 MMOL/L (3.5-5.1); TOTAL PROTEIN 5.8 G/DL (5.7-8.2)
[2022-11-03] VITALS (10 sets, daily range): BP systolic 105–118; BP diastolic 63–71; TEMP 97.4–98; O2SAT 95–98
[2022-11-03 06:11] LABS: HEMATOCRIT 39.2 % (42.0-52.0); HEMOGLOBIN 12.5 g/dl (13.5-17.5); MEAN CORPUSCULAR HEMOGLOBIN 29.3 pg (27.0-33.0); MEAN CORPUSCULAR HGB CONC 31.9 g/dl (32.0-36.5); PLATELET COUNT, AUTOMATED 234 10^3/uL (150-450); RED BLOOD COUNT 4.26 10^6/uL (4.30-6.10); WHITE BLOOD COUNT 8.9 10^3/uL (4.0-10.0)
[2022-11-03 06:34] LABS: CALCIUM LEVEL 8.6 MG/DL (8.3-10.6); CREATININE FOR GFR 2.17 MG/DL (0.70-1.30); GLOMERULAR FILTRATION RATE 31.6 (>42); MAGNESIUM LEVEL 2.1 MG/DL (1.8-2.4); POTASSIUM SERUM 4.6 MMOL/L (3.5-5.1)
[2022-11-03] MEDS: INSULIN LISPRO (NovoLOG) PER UNIT SC SCH ×4 (07:30→20:47)
[2022-11-03] MEDS: IPRATROPIUM 0.5MG/ALBUTEROL 2.5MG INH SOL UD 3ML (DUONEB) INH SCH (07:32)
[2022-11-03] MEDS: METOPROLOL SUCC (TopROL XL) 100MG *XL* TAB PO SCH (09:00)
[2022-11-03] MEDS: guaiFENesin ER 600 MG TAB PO SCH ×2 (09:14→20:55)
[2022-11-03] MEDS: LACTOBACILLUS ACIDOPHILUS CAP (BACID) PO SCH ×4 (09:15→20:55)
[2022-11-03] MEDS: MULTIVITAMINS/MINERALS THERAP 1 TAB PO SCH (09:15)
[2022-11-03] MEDS: FINASTERIDE 5MG TAB PO SCH (09:15)
[2022-11-03] MEDS: CYANOCOBALAMIN 500 MCG TAB PO SCH (09:15)
[2022-11-03] MEDS: COSOPT OCUMETER PLUS 10ML (DORZOLAMIDE/TIMOLOL) OU SCH ×2 (09:15→20:08)
[2022-11-03] MEDS: ASPIRIN 81MG CHEW TABLET PO SCH (09:15)
[2022-11-03] MEDS: ZINC SULFATE 220 MG CAP PO SCH (09:15)
[2022-11-03] MEDS: TAMSULOSIN 0.4 MG CAP PO SCH ×2 (09:15→20:55)
[2022-11-03] MEDS: POTASSIUM CHLORIDE 10MEQ SR TABLET PO SCH (09:15)
[2022-11-03] MEDS: APIXABAN 5 MG TAB (ELIQUIS) PO SCH ×2 (09:15→20:55)
[2022-11-03] MEDS: ROSUVASTATIN 10 MG TAB (CRESTOR) PO SCH (09:15)
[2022-11-03] MEDS ORDERED: IPRATROPIUM 0.5MG/ALBUTEROL 2.5MG INH SOL UD 3ML (DUONEB) INH PRN (13:50)
[2022-11-03] MEDS: ADVAIR HFA 230/21MCG INHALER INH SCH (19:45)
[2022-11-03] MEDS: LEVEMIR (INSULIN DETEMIR) 1 UNITS/0.01ML SC SCH (20:52)
[2022-11-04] VITALS (10 sets, daily range): BP systolic 110–113; BP diastolic 67–90; TEMP 97.9; O2SAT 96–100
[2022-11-04 06:52] LABS: HEMOGLOBIN 12.1 g/dl (13.5-17.5); MEAN CORPUSCULAR HEMOGLOBIN 29.4 pg (27.0-33.0); MEAN CORPUSCULAR HGB CONC 31.8 g/dl (32.0-36.5); MEAN CORPUSCULAR VOLUME 92.5 fl (80.0-96.0); PLATELET COUNT, AUTOMATED 212 10^3/uL (150-450); RED BLOOD COUNT 4.11 10^6/uL (4.30-6.10); WHITE BLOOD COUNT 7.5 10^3/uL (4.0-10.0)
[2022-11-04 07:15] LABS: CALCIUM LEVEL 8.9 MG/DL (8.3-10.6); CREATININE FOR GFR 2.09 MG/DL (0.70-1.30); POTASSIUM SERUM 4.5 MMOL/L (3.5-5.1)
[2022-11-04] MEDS: ADVAIR HFA 230/21MCG INHALER INH SCH ×2 (07:28→20:02)
[2022-11-04] MEDS: LACTOBACILLUS ACIDOPHILUS CAP (BACID) PO SCH ×5 (07:30→20:35)
[2022-11-04] MEDS: INSULIN LISPRO (NovoLOG) PER UNIT SC SCH ×4 (07:30→20:36)
[2022-11-04] MEDS ORDERED: SENNA 8.6 MG TAB (SENOKOT) PO PRN (07:50)
[2022-11-04] MEDS: guaiFENesin ER 600 MG TAB PO SCH ×3 (08:46→20:35)
[2022-11-04] MEDS: APIXABAN 5 MG TAB (ELIQUIS) PO SCH ×2 (08:46→20:35)
[2022-11-04] MEDS: POTASSIUM CHLORIDE 10MEQ SR TABLET PO SCH (08:46)
[2022-11-04] MEDS: TAMSULOSIN 0.4 MG CAP PO SCH ×2 (08:47→20:35)
[2022-11-04] MEDS: FINASTERIDE 5MG TAB PO SCH (08:47)
[2022-11-04] MEDS: CYANOCOBALAMIN 500 MCG TAB PO SCH (08:47)
[2022-11-04] MEDS: MULTIVITAMINS/MINERALS THERAP 1 TAB PO SCH (08:47)
[2022-11-04] MEDS: ROSUVASTATIN 10 MG TAB (CRESTOR) PO SCH (08:47)
[2022-11-04] MEDS: ZINC SULFATE 220 MG CAP PO SCH (08:47)
[2022-11-04] MEDS: ASPIRIN 81MG CHEW TABLET PO SCH (08:47)
[2022-11-04] MEDS: METAMUCIL (PSYLLIUM) PACKET PO SCH ×3 (08:48→20:36)
[2022-11-04] MEDS: METOPROLOL SUCC (TopROL XL) 100MG *XL* TAB PO SCH (08:48)
[2022-11-04] MEDS: MIRALAX *UNIT DOSE* 17GM PACKET PO SCH ×3 (08:49→20:36)
[2022-11-04] MEDS: COSOPT OCUMETER PLUS 10ML (DORZOLAMIDE/TIMOLOL) OU SCH ×2 (08:49→20:37)
[2022-11-04] MEDS ORDERED: LevoFLOXacin 750 MG TABLET PO SCH (09:00)
[2022-11-04] MEDS: LEVEMIR (INSULIN DETEMIR) 1 UNITS/0.01ML SC SCH (20:35)
[2022-11-05 05:26] VITALS: BP 110/66; TEMP 97.9; O2SAT 98
[2022-11-05 06:07] LABS: HEMATOCRIT 36.3 % (42.0-52.0); HEMOGLOBIN 11.6 g/dl (13.5-17.5); MEAN CORPUSCULAR HEMOGLOBIN 29.5 pg (27.0-33.0); MEAN CORPUSCULAR VOLUME 92.4 fl (80.0-96.0); PLATELET COUNT, AUTOMATED 196 10^3/uL (150-450); RED BLOOD COUNT 3.93 10^6/uL (4.30-6.10); WHITE BLOOD COUNT 7.3 10^3/uL (4.0-10.0)
[2022-11-05 06:39] LABS: CALCIUM LEVEL 8.8 MG/DL (8.3-10.6); CREATININE FOR GFR 1.92 MG/DL (0.70-1.30); GLOMERULAR FILTRATION RATE 36.4 (>42); POTASSIUM SERUM 4.3 MMOL/L (3.5-5.1)
[2022-11-05] MEDS: ADVAIR HFA 230/21MCG INHALER INH SCH ×2 (08:05→20:39)
[2022-11-05] MEDS: COSOPT OCUMETER PLUS 10ML (DORZOLAMIDE/TIMOLOL) OU SCH ×2 (09:00→21:00)
[2022-11-05] MEDS: INSULIN LISPRO (NovoLOG) PER UNIT SC SCH ×4 (09:10→21:00)
[2022-11-05] MEDS: METOPROLOL SUCC (TopROL XL) 100MG *XL* TAB PO SCH (09:11)
[2022-11-05] MEDS: guaiFENesin ER 600 MG TAB PO SCH ×2 (09:11→21:08)
[2022-11-05] MEDS: CYANOCOBALAMIN 500 MCG TAB PO SCH (09:11)
[2022-11-05] MEDS: ZINC SULFATE 220 MG CAP PO SCH (09:11)
[2022-11-05] MEDS: FINASTERIDE 5MG TAB PO SCH (09:12)
[2022-11-05] MEDS: TAMSULOSIN 0.4 MG CAP PO SCH ×2 (09:12→21:08)
[2022-11-05] MEDS: APIXABAN 5 MG TAB (ELIQUIS) PO SCH ×2 (09:12→21:08)
[2022-11-05] MEDS: LACTOBACILLUS ACIDOPHILUS CAP (BACID) PO SCH ×4 (09:12→21:08)
[2022-11-05] MEDS: MULTIVITAMINS/MINERALS THERAP 1 TAB PO SCH (09:12)
[2022-11-05] MEDS: POTASSIUM CHLORIDE 10MEQ SR TABLET PO SCH (09:12)
[2022-11-05] MEDS: ASPIRIN 81MG CHEW TABLET PO SCH (09:12)
[2022-11-05] MEDS: ROSUVASTATIN 10 MG TAB (CRESTOR) PO SCH (09:13)
[2022-11-05] MEDS: METAMUCIL (PSYLLIUM) PACKET PO SCH ×2 (09:13→21:00)
[2022-11-05] MEDS: MIRALAX *UNIT DOSE* 17GM PACKET PO SCH ×2 (09:13→21:00)
[2022-11-05] MEDS ORDERED: METO1TAB33 PO ×2 (12:24→13:10)
[2022-11-05] MEDS ORDERED: ROSU40TA4 PO ×2 (12:24→13:10)
[2022-11-05] MEDS ORDERED: FARX1TAB3 PO ×2 (12:24→13:10)
[2022-11-05] MEDS ORDERED: POTA-136 PO ×2 (12:24→13:10)
[2022-11-05] MEDS ORDERED: MIRA1POW3 PO ×2 (12:24→13:10)
[2022-11-05] MEDS ORDERED: TRES1INJ SC ×2 (12:24→13:10)
[2022-11-05] MEDS ORDERED: LEVO1TAB40 PO ×2 (12:24→13:10)
[2022-11-05] MEDS ORDERED: METF500T13 PO ×2 (12:33→13:10)
[2022-11-05 13:00] VITALS: O2SAT 97
[2022-11-05] MEDS ORDERED: OZEM2INJ SC (13:10)
[2022-11-05 14:00] VITALS: BP 109/66; TEMP 97.7; O2SAT 98; O2SAT 99
[2022-11-05 16:00] VITALS: O2SAT 98
[2022-11-05 20:55] VITALS: BP 123/72; TEMP 97.7; O2SAT 100
[2022-11-05] MEDS: LEVEMIR (INSULIN DETEMIR) 1 UNITS/0.01ML SC SCH (21:00)
[2022-11-06 05:40] VITALS: BP 127/72; TEMP 97.7; O2SAT 97
[2022-11-06] MEDS ORDERED: LevoFLOXacin 750 MG TABLET PO ONE (06:00)
[2022-11-06 06:03] LABS: HEMATOCRIT 35.9 % (42.0-52.0); HEMOGLOBIN 11.5 g/dl (13.5-17.5); MEAN CORPUSCULAR HEMOGLOBIN 29.5 pg (27.0-33.0); MEAN CORPUSCULAR VOLUME 92.1 fl (80.0-96.0); PLATELET COUNT, AUTOMATED 189 10^3/uL (150-450); WHITE BLOOD COUNT 6.7 10^3/uL (4.0-10.0)
[2022-11-06] MEDS: ADVAIR HFA 230/21MCG INHALER INH SCH (07:58)
[2022-11-06] MEDS: POTASSIUM CHLORIDE 10MEQ SR TABLET PO SCH (08:10)
[2022-11-06 08:11] VITALS: BP 127/72
[2022-11-06] MEDS: APIXABAN 5 MG TAB (ELIQUIS) PO SCH (08:11)
[2022-11-06] MEDS: TAMSULOSIN 0.4 MG CAP PO SCH (08:11)
[2022-11-06] MEDS: LACTOBACILLUS ACIDOPHILUS CAP (BACID) PO SCH ×2 (08:11→12:18)
[2022-11-06] MEDS: METOPROLOL SUCC (TopROL XL) 100MG *XL* TAB PO SCH (08:11)
[2022-11-06] MEDS: ASPIRIN 81MG CHEW TABLET PO SCH (08:12)
[2022-11-06] MEDS: ZINC SULFATE 220 MG CAP PO SCH (08:12)
[2022-11-06] MEDS: FINASTERIDE 5MG TAB PO SCH (08:13)
[2022-11-06] MEDS: MULTIVITAMINS/MINERALS THERAP 1 TAB PO SCH (08:13)
[2022-11-06] MEDS: CYANOCOBALAMIN 500 MCG TAB PO SCH (08:13)
[2022-11-06] MEDS: INSULIN LISPRO (NovoLOG) PER UNIT SC SCH ×2 (08:14→12:19)
[2022-11-06] MEDS: METAMUCIL (PSYLLIUM) PACKET PO SCH (08:16)
[2022-11-06] MEDS: MIRALAX *UNIT DOSE* 17GM PACKET PO SCH (08:16)
[2022-11-06] MEDS: ROSUVASTATIN 10 MG TAB (CRESTOR) PO SCH (08:16)
[2022-11-06] MEDS: guaiFENesin ER 600 MG TAB PO SCH (08:17)
[2022-11-06] MEDS: COSOPT OCUMETER PLUS 10ML (DORZOLAMIDE/TIMOLOL) OU SCH (08:17)
[2022-11-06] MEDS ORDERED: SEMA0.257 SQ (13:40)
[2022-11-06] MEDS ORDERED: ENTR1TAB PO (13:42)
[2022-11-06 14:00] VITALS: BP 114/57; TEMP 97.5; O2SAT 94
== END 2022-11-06 15:37 | disposition home health service (06) | DRG 177 ==
LOC: M ED 20:17 → M ED INP 20:18 → M PCU 10-26 08:04 → EEVIPCON 10-26 13:09 → OBSVTOIN 10-26 13:09 → M MSPAV 11-01 22:41
PROVIDERS: ADMIT Internal Medicine; ATTEND Internal Medicine
PROC: 0W9B3ZZ Drainage of Left Pleural Cavity, Percutaneous Approach (ICD-10-PCS; principal; 2022-10-29 14:00)
DX: J15.6 Pneumonia due to other Gram-negative bacteria (principal); I50.43 Acute on chronic combined systolic (congestive) and diastolic (congestive) heart failure; I13.0 Hypertensive heart and chronic kidney disease with heart failure and stage 1 through stage 4 chronic kidney disease, or unspecified chronic kidney disease; J90 Pleural effusion, not elsewhere classified; N17.9 Acute kidney failure, unspecified; I48.91 Unspecified atrial fibrillation; E11.51 Type 2 diabetes mellitus with diabetic peripheral angiopathy without gangrene; E11.22 Type 2 diabetes mellitus with diabetic chronic kidney disease; E11.65 Type 2 diabetes mellitus with hyperglycemia; J44.9 Chronic obstructive pulmonary disease, unspecified; D64.9 Anemia, unspecified; E78.5 Hyperlipidemia, unspecified; I25.10 Atherosclerotic heart disease of native coronary artery without angina pectoris; G47.33 Obstructive sleep apnea (adult) (pediatric); Z95.1 Presence of aortocoronary bypass graft; N18.31 Chronic kidney disease, stage 3a; E66.01 Morbid (severe) obesity due to excess calories; E11.649 Type 2 diabetes mellitus with hypoglycemia without coma; N40.0 Benign prostatic hyperplasia without lower urinary tract symptoms; M10.9 Gout, unspecified; E87.6 Hypokalemia; Z88.8 Allergy status to other drugs, medicaments and biological substances; Z79.899 Other long term (current) drug therapy; Z79.82 Long term (current) use of aspirin; Z79.4 Long term (current) use of insulin; Z96.652 Presence of left artificial knee joint

== ENCOUNTER → 2023-05-28 | Outpatient (CLI) | payer MEDICARE, OTHER ==
[~2023-05-28] MED LIST changes: +ADV500INH INH; +ALLO100T PO; +AMOX875T2 PO; +ASPI-655 PO; +ENTR1TAB PO; +ERGO500029 PO; +FARX1TAB3 PO; +FINA5TAB2 PO; +IPRA0.00 INH; +LEVO1TAB40 PO; +LOSA50TA28 PO; +METF500T13 PO; +METO1TAB33 PO; +METO25TA4 PO; +MIRA1POW3 PO; +NOVOINJ3 SC; +OZEM2INJ SC; +POTA-136 PO; +RHOP0.02 OU; +RISATAB3 PO; +ROSU40TA4 PO; +SEMA0.257 SQ; +TRES1INJ SC; +TRUL10IN SC; +VITA500T41 PO; +ZINC220CA PO
[2023-05-28 16:44] LABS: BASO % 0.3 % (0.0-1.0); EOS # 0.1 10^3/uL (0.0-0.5); EOS % 1.2 % (0.0-3.0); HEMATOCRIT 40.9 % (42.0-52.0); LYMPH # 0.7 10^3/uL (1.5-5.0); LYMPH % 10.9 % (24.0-44.0); MEAN CORPUSCULAR HEMOGLOBIN 30.3 pg (27.0-33.0); MEAN CORPUSCULAR HGB CONC 31.8 g/dl (32.0-36.5); MEAN CORPUSCULAR VOLUME 95.3 fl (80.0-96.0); MONO # 0.5 10^3/uL (0.0-0.8); MONO % 7.3 % (2.0-8.0); NEUTROPHILS # 5.3 10^3/uL (1.5-8.5); PLATELET COUNT, AUTOMATED 138 10^3/uL (150-450); RED BLOOD COUNT 4.29 10^6/uL (4.30-6.10); WHITE BLOOD COUNT 6.7 10^3/uL (4.0-10.0)
[2023-05-28 17:08] LABS: ERYTHROCYTE SEDIMENTATION RATE 16 mm/hr (0-20)
== END ==
LOC: M WUC 11:18
PROVIDERS: ATTEND Internal Medicine Infectious Disease
DX: T84.50XD Infection and inflammatory reaction due to unspecified internal joint prosthesis, subsequent encounter (principal)

== ENCOUNTER → 2023-11-04 | Outpatient (REF) | payer MEDICARE, OTHER ==
[~2023-11-04] MED LIST changes: +DOXY-440 PO; -DOXY-444 PO; -MIRA1POW3 PO; +MIRA33506 PO; +ONDA-282 PO; -ONDA4TAB6 PO; -ROSU40TA4 PO; +ROSU40TA63 PO
[2023-11-04 16:46] LABS: BASO % 0.2 % (0.0-1.0); EOS # 0.1 10^3/uL (0.0-0.5); EOS % 1.5 % (0.0-3.0); HEMATOCRIT 38.2 % (42.0-52.0); HEMOGLOBIN 12.1 g/dl (13.5-17.5); LYMPH # 0.6 10^3/uL (1.5-5.0); LYMPH % 11.1 % (24.0-44.0); MEAN CORPUSCULAR HEMOGLOBIN 30.6 pg (27.0-33.0); MEAN CORPUSCULAR HGB CONC 31.7 g/dl (32.0-36.5); MEAN CORPUSCULAR VOLUME 96.7 fl (80.0-96.0); MONO # 0.4 10^3/uL (0.0-0.8); MONO % 6.6 % (2.0-8.0); NEUTROPHILS # 4.4 10^3/uL (1.5-8.5); NEUTROPHILS % 80.1 % (36.0-66.0); PLATELET COUNT, AUTOMATED 144 10^3/uL (150-450); RED BLOOD COUNT 3.95 10^6/uL (4.30-6.10); WHITE BLOOD COUNT 5.5 10^3/uL (4.0-10.0)
[2023-11-04 17:10] LABS: ERYTHROCYTE SEDIMENTATION RATE 19 mm/hr (0-20)
== END ==
LOC: M LABWUC 16:20
PROVIDERS: ATTEND Internal Medicine Infectious Disease
DX: T84.50XD Infection and inflammatory reaction due to unspecified internal joint prosthesis, subsequent encounter (principal)

== ENCOUNTER 2023-12-04 11:00 | Day surgery (SDC) | payer MEDICARE, OTHER ==
[~2023-12-04] VITALS: Ht 182.9 cm; Wt 68.5 kg
[~2023-12-04 11:00] MED LIST changes: +ACETAMINOPHEN 1000MG 100ML IV BAG As Ordered ONE; +LEVO1TAB38 PO; +MIDAZOLAM INJ 2MG/2ML VIAL As Ordered ONE; +SEMA2PEN SQ; +THERTAB52 PO; +propofoL 200 MG/20 ML VIAL As Ordered ONE; +propofoL 500 MG/50 ML VIAL As Ordered ONE
[2023-12-04] MEDS: ceFAZolin SOD 2 GM in IV 1 EA IV ONE (11:56)
[2023-12-04] MEDS: LIDOCAINE 1% SDV 30ML VIAL As Ordered ONE (12:01)
[2023-12-04 12:15] VITALS: BP 132/65; TEMP 96.8; O2SAT 97
== END 2023-12-04 13:28 | disposition home or self-care (01) ==
LOC: M SDC 11:00
PROVIDERS: ATTEND Podiatrist Foot & Ankle Surgery
DX: E11.69 Type 2 diabetes mellitus with other specified complication (principal); M86.9 Osteomyelitis, unspecified; L97.519 Non-pressure chronic ulcer of other part of right foot with unspecified severity; E11.621 Type 2 diabetes mellitus with foot ulcer; L57.0 Actinic keratosis; M21.611 Bunion of right foot; I25.10 Atherosclerotic heart disease of native coronary artery without angina pectoris; I10 Essential (primary) hypertension; J44.9 Chronic obstructive pulmonary disease, unspecified; E78.00 Pure hypercholesterolemia, unspecified; Z79.01 Long term (current) use of anticoagulants; Z79.899 Other long term (current) drug therapy; Z79.4 Long term (current) use of insulin; Z79.82 Long term (current) use of aspirin; Z95.1 Presence of aortocoronary bypass graft; M10.9 Gout, unspecified; Z95.810 Presence of automatic (implantable) cardiac defibrillator; Z86.14 Personal history of Methicillin resistant Staphylococcus aureus infection; G47.30 Sleep apnea, unspecified; N40.0 Benign prostatic hyperplasia without lower urinary tract symptoms; Z72.0 Tobacco use
CPT/HCPCS: 28820; 88305; 88311; J0131; J0665; J0690; J2250

== ENCOUNTER 2023-12-30 11:03 | Emergency (ER) | payer MEDICARE, OTHER ==
[~2023-12-30] VITALS: Ht 182.9 cm; Wt 95.8 kg
[~2023-12-30 11:03] MED LIST changes: -ACETAMINOPHEN 1000MG 100ML IV BAG As Ordered ONE; -MIDAZOLAM INJ 2MG/2ML VIAL As Ordered ONE; -propofoL 200 MG/20 ML VIAL As Ordered ONE; -propofoL 500 MG/50 ML VIAL As Ordered ONE
[2023-12-30 12:36] VITALS: BP 110/66
[2023-12-30] MEDS: METOPROLOL SUCC (TopROL XL) 100MG *XL* TAB PO ONE (12:36)
[2023-12-30 13:51] VITALS: BP 114/69; TEMP 96.7; O2SAT 99
== END 2023-12-30 14:15 | disposition home or self-care (01) ==
LOC: M ED 11:03 → EDBD 11:03 → M ED 14:15
DX: S91.302A Unspecified open wound, left foot, initial encounter (principal); I48.20 Chronic atrial fibrillation, unspecified; I45.81 Long QT syndrome; E11.9 Type 2 diabetes mellitus without complications; I10 Essential (primary) hypertension; N18.2 Chronic kidney disease, stage 2 (mild); J44.9 Chronic obstructive pulmonary disease, unspecified; G47.33 Obstructive sleep apnea (adult) (pediatric); F17.200 Nicotine dependence, unspecified, uncomplicated; Z86.79 Personal history of other diseases of the circulatory system; Z91.041 Radiographic dye allergy status; Z88.8 Allergy status to other drugs, medicaments and biological substances; Z79.52 Long term (current) use of systemic steroids; Z79.82 Long term (current) use of aspirin; Z79.01 Long term (current) use of anticoagulants; Z79.899 Other long term (current) drug therapy

== ENCOUNTER 2024-02-12 08:59 | Day surgery (SDC) | payer MEDICARE, OTHER ==
[~2024-02-12] VITALS: Ht 182.9 cm; Wt 95.7 kg
[~2024-02-12 08:59] MED LIST changes: +POTA10CA70 PO; -ROSU40TA63 PO; +ROSU40TA81 PO; +VITA500075 PO; +ZINC50TA17 PO
[2024-02-12] MEDS: LR 1,000 ML IV SCH (09:10)
[2024-02-12] MEDS ORDERED: LIDOCAINE 2% 100MG/5ML SDV (FOR ANES.) As Ordered ONE (10:03)
[2024-02-12] MEDS ORDERED: propofoL 200 MG/20 ML VIAL As Ordered ONE (10:03)
[2024-02-12] MEDS ORDERED: ONDANSETRON 4MG 2ML VIAL As Ordered ONE (10:03)
[2024-02-12] MEDS ORDERED: fentaNYL 100 MCG/2 ML INJECTION As Ordered ONE (10:04)
[2024-02-12] MEDS ORDERED: ACETAMINOPHEN 1000MG 100ML IV BAG As Ordered ONE (10:10)
[2024-02-12] MEDS: ceFAZolin SOD 2 GM in IV 1 EA IV ONE (10:20)
[2024-02-12] MEDS: LIDOCAINE 1% SDV 30ML VIAL As Ordered ONE (10:45)
[2024-02-12 11:15] VITALS: BP 116/80; TEMP 97.9; O2SAT 97
== END 2024-02-12 11:42 | disposition home or self-care (01) ==
LOC: M SDC 08:59
PROVIDERS: ATTEND Podiatrist Foot & Ankle Surgery
DX: L97.519 Non-pressure chronic ulcer of other part of right foot with unspecified severity (principal); E11.621 Type 2 diabetes mellitus with foot ulcer; E11.40 Type 2 diabetes mellitus with diabetic neuropathy, unspecified; L84 Corns and callosities; M21.611 Bunion of right foot; I25.10 Atherosclerotic heart disease of native coronary artery without angina pectoris; I10 Essential (primary) hypertension; J44.89 Other specified chronic obstructive pulmonary disease; Z79.899 Other long term (current) drug therapy; Z79.01 Long term (current) use of anticoagulants; Z79.82 Long term (current) use of aspirin; Z95.810 Presence of automatic (implantable) cardiac defibrillator; F17.200 Nicotine dependence, unspecified, uncomplicated; E78.00 Pure hypercholesterolemia, unspecified; M10.9 Gout, unspecified; G47.30 Sleep apnea, unspecified; N40.0 Benign prostatic hyperplasia without lower urinary tract symptoms; Z79.4 Long term (current) use of insulin; Z79.85 Long-term (current) use of injectable non-insulin antidiabetic drugs; Z88.8 Allergy status to other drugs, medicaments and biological substances; Z91.041 Radiographic dye allergy status
CPT/HCPCS: 28810; 88305; 88311; J0131; J0665; J0690; J1100; J2405; J3010

== ENCOUNTER → 2024-06-03 | Outpatient (REF) | payer MEDICARE, OTHER ==
[~2024-06-03] MED LIST changes: -ADV500INH INH; +ADVA1AER10 INH; +ADVA1AER9 INH; +GABA-1172 PO; -GABA-282 PO
[2024-06-03 19:08] LABS: HEMOGLOBIN A1c 6.6 % (4.0-6.0)
== END ==
LOC: M SFHCWOUN 16:20
PROVIDERS: ATTEND Surgery
DX: E11.621 Type 2 diabetes mellitus with foot ulcer (principal)

== ENCOUNTER → 2024-06-16 | Outpatient (CLI) | payer MEDICARE | LOC: M RAD 11:52 | PROVIDERS: ATTEND Internal Medicine Infectious Disease | DX: L97.412 Non-pressure chronic ulcer of right heel and midfoot with fat layer exposed (principal) ==

== ENCOUNTER 2024-08-26 07:17 | Day surgery (SDC) | payer OTHER, MEDICARE ==
[~2024-08-26] VITALS: Ht 185.4 cm; Wt 98.0 kg
[2024-08-26] MEDS: ceFAZolin SOD 2 GM IV ONCE IV ONE (07:44)
[2024-08-26] MEDS: LIDOCAINE 1% MDV 20ML VIAL As Ordered ONE (07:45)
[2024-08-26] MEDS ORDERED: fentaNYL 100 MCG/2 ML INJECTION As Ordered ONE (07:55)
[2024-08-26] MEDS ORDERED: LIDOCAINE 2% 100MG/5ML SDV (FOR ANES.) As Ordered ONE (07:55)
[2024-08-26] MEDS ORDERED: propofoL 200 MG/20 ML VIAL As Ordered ONE (07:55)
[2024-08-26] MEDS: LR 1,000 ML IV SCH (08:30)
[2024-08-26] MEDS ORDERED: ACETAMINOPHEN 1000MG/100ML IV BAG As Ordered ONE (08:48)
[2024-08-26 09:09] VITALS: BP 102/58; TEMP 97.3; O2SAT 98
== END 2024-08-26 09:26 | disposition home or self-care (01) ==
LOC: M SDC 07:17
PROVIDERS: ATTEND Podiatrist Foot & Ankle Surgery
DX: E11.621 Type 2 diabetes mellitus with foot ulcer (principal); L97.519 Non-pressure chronic ulcer of other part of right foot with unspecified severity; I10 Essential (primary) hypertension; I25.10 Atherosclerotic heart disease of native coronary artery without angina pectoris; I48.91 Unspecified atrial fibrillation; E78.00 Pure hypercholesterolemia, unspecified; Z95.0 Presence of cardiac pacemaker; M10.9 Gout, unspecified; G47.33 Obstructive sleep apnea (adult) (pediatric); Z79.899 Other long term (current) drug therapy; Z95.1 Presence of aortocoronary bypass graft; Z79.82 Long term (current) use of aspirin; Z88.8 Allergy status to other drugs, medicaments and biological substances; Z91.041 Radiographic dye allergy status
CPT/HCPCS: 28820; 88305; 88311; J0665; J0690; J3010

== ENCOUNTER → 2024-12-28 | Outpatient (CLI) | payer MEDICARE, OTHER ==
[~2024-12-28] MED LIST changes: -BRIM1OPD OU; +BRIM5DRO25 OU; +PRAV10TA PO; -PRAV10TA4 PO; -PRAV20TA2 PO; +PRAV20TA78 PO; +TAMS-18 PO
== END ==
LOC: M WUC 10:04
PROVIDERS: ATTEND Surgery
DX: S91.301A Unspecified open wound, right foot, initial encounter (principal); W18.30XA Fall on same level, unspecified, initial encounter; Y92.009 Unspecified place in unspecified non-institutional (private) residence as the place of occurrence of the external cause

== ENCOUNTER 2025-02-24 09:12 | Day surgery (SDC) | payer OTHER, MEDICARE ==
[~2025-02-24] VITALS: Ht 182.9 cm; Wt 100.6 kg
[~2025-02-24 09:12] MED LIST changes: -ASPI-655 PO; +ASPI-737 PO; +KETOROLAC 30 MG/ML 1 ML VIAL As Ordered ONE; +LIDOCAINE 2% 100 MG/5 ML SDV (FOR ANES.) As Ordered ONE; +ONDANSETRON 4MG/2ML VIAL As Ordered ONE; +dexAMETHasone 4 MG/ML 1 ML VIAL As Ordered ONE
[2025-02-24] MEDS: LR 1,000 ML IV SCH (10:10)
[2025-02-24] MEDS ORDERED: MIDAZOLAM INJ 2 MG/2 ML VIAL As Ordered ONE (10:14)
[2025-02-24] MEDS ORDERED: GLUCAGON INJ 1 MG VIAL SC PRN (10:35)
[2025-02-24] MEDS ORDERED: DEXTROSE 50% 50 ML SYRINGE IV PRN (10:35)
[2025-02-24] MEDS ORDERED: GLUCOSE 4 GM CHEW PO PRN (10:35)
[2025-02-24] MEDS: INSULIN LISPRO (NovoLOG) PER UNIT SC PRN (10:46)
[2025-02-24] MEDS: ceFAZolin SOD 2 GM IV ONCE IV ONE (10:50)
[2025-02-24] MEDS ORDERED: ACETAMINOPHEN 1000MG/100ML IV BAG As Ordered ONE (10:56)
[2025-02-24] MEDS: LIDOCAINE 1% SDV 30 ML VIAL As Ordered ONE (11:00)
[2025-02-24 12:00] VITALS: BP 109/70; TEMP 97; O2SAT 98
== END 2025-02-24 12:10 | disposition home or self-care (01) ==
LOC: M SDC 09:12
PROVIDERS: ATTEND Podiatrist Foot & Ankle Surgery
DX: E11.621 Type 2 diabetes mellitus with foot ulcer (principal); M77.41 Metatarsalgia, right foot; Z91.041 Radiographic dye allergy status; I25.10 Atherosclerotic heart disease of native coronary artery without angina pectoris; I10 Essential (primary) hypertension; I50.9 Heart failure, unspecified; M10.9 Gout, unspecified; Z95.1 Presence of aortocoronary bypass graft; Z95.0 Presence of cardiac pacemaker; Z79.4 Long term (current) use of insulin; Z79.899 Other long term (current) drug therapy; J44.9 Chronic obstructive pulmonary disease, unspecified; N40.0 Benign prostatic hyperplasia without lower urinary tract symptoms
CPT/HCPCS: 28112; 88305; J0131; J0665; J0688; J2250; J2405; J3010

== ENCOUNTER → 2025-03-29 | Outpatient (CLI) | payer MEDICARE ==
[~2025-03-29] MED LIST changes: -KETOROLAC 30 MG/ML 1 ML VIAL As Ordered ONE; -LIDOCAINE 2% 100 MG/5 ML SDV (FOR ANES.) As Ordered ONE; -ONDANSETRON 4MG/2ML VIAL As Ordered ONE; -dexAMETHasone 4 MG/ML 1 ML VIAL As Ordered ONE
[2025-03-29 16:18] LABS: BASO # 0.0 10^3/uL (0.0-0.2); BASO % 0.3 % (0.0-1.0); EOS # 0.2 10^3/uL (0.0-0.5); EOS % 2.1 % (0.0-3.0); LYMPH # 0.5 10^3/uL (1.5-5.0); LYMPH % 7.0 % (24.0-44.0); MONO # 0.4 10^3/uL (0.0-0.8); MONO % 4.8 % (2.0-8.0); NEUTROPHILS # 6.5 10^3/uL (1.5-8.5); NEUTROPHILS % 85.3 % (36.0-66.0); PLATELET COUNT, AUTOMATED 248 10^3/uL (150-450)
[2025-03-29 16:47] LABS: C REACTIVE PROTEIN QUANTITATIV 6.85 MG/DL (<1.0)
[2025-03-29 16:48] LABS: ALT/SGPT 18.0 U/L (7.0-40); AST/SGOT 25.0 U/L (<34); CALCIUM LEVEL 8.9 MG/DL (8.3-10.6); CARBON DIOXIDE LEVEL 23.0 MMOL/L (20-31); CHLORIDE LEVEL 107.0 MMOL/L (98-107); CREATININE FOR GFR 1.71 MG/DL (0.70-1.30); GLOMERULAR FILTRATION RATE 40.5 (>42); MAGNESIUM LEVEL 2.2 MG/DL (1.8-2.4); POTASSIUM SERUM 5.2 MMOL/L (3.5-5.1); SODIUM LEVEL 142.0 MMOL/L (136-145)
== END ==
LOC: M LAB 14:58
PROVIDERS: ATTEND Internal Medicine
DX: E11.69 Type 2 diabetes mellitus with other specified complication (principal); N18.32 Chronic kidney disease, stage 3b; E11.22 Type 2 diabetes mellitus with diabetic chronic kidney disease; I50.42 Chronic combined systolic (congestive) and diastolic (congestive) heart failure; T84.54XA Infection and inflammatory reaction due to internal left knee prosthesis, initial encounter

== ENCOUNTER → 2025-04-09 | Outpatient (CLI) | payer MEDICARE, OTHER ==
[2025-04-09 12:39] LABS: BASO # 0.0 10^3/uL (0.0-0.2); BASO % 0.4 % (0.0-1.0); EOS # 0.2 10^3/uL (0.0-0.5); EOS % 2.6 % (0.0-3.0); LYMPH # 0.6 10^3/uL (1.5-5.0); LYMPH % 8.1 % (24.0-44.0); MONO # 0.5 10^3/uL (0.0-0.8); MONO % 6.9 % (2.0-8.0); NEUTROPHILS # 6.2 10^3/uL (1.5-8.5); NEUTROPHILS % 81.6 % (36.0-66.0); PLATELET COUNT, AUTOMATED 213 10^3/uL (150-450)
[2025-04-09 12:45] VITALS: BP 139/69; TEMP 97.5; O2SAT 100
[2025-04-09 13:05] LABS: C REACTIVE PROTEIN QUANTITATIV 3.9 MG/DL (<1.0); CALCIUM LEVEL 8.6 MG/DL (8.3-10.6); CARBON DIOXIDE LEVEL 24.0 MMOL/L (20-31); CHLORIDE LEVEL 107.0 MMOL/L (98-107); CREATININE FOR GFR 1.55 MG/DL (0.70-1.30); GLOMERULAR FILTRATION RATE 45.5 (>42); POTASSIUM SERUM 4.8 MMOL/L (3.5-5.1); SODIUM LEVEL 142.0 MMOL/L (136-145)
[2025-04-09] MEDS: LIDOCAINE 1% MDV 20 ML VIAL SC ONE (15:13)
[2025-04-09 17:58] LABS: SOURCE, BODY FLUID LFT KNEE
== END ==
LOC: M IRPRO 11:54
PROVIDERS: ATTEND Internal Medicine Infectious Disease
DX: T84.54XD Infection and inflammatory reaction due to internal left knee prosthesis, subsequent encounter (principal)

== ENCOUNTER → 2025-05-05 | Outpatient (REF) | payer MEDICARE, OTHER | LOC: M LAB REF 17:24 | PROVIDERS: ATTEND Internal Medicine | DX: T84.50XD Infection and inflammatory reaction due to unspecified internal joint prosthesis, subsequent encounter (principal) ==